=== PATIENT | female | born 1965 | race American Indian/Alaskan Native ===

== ENCOUNTER 2016-09-12 10:08 | Inpatient (IN) | payer MEDICARE ==
[2016-09-12 10:53] LABS: Basophils % (Auto) 1.1 % (0.0-1.8); Eosinophils % (Auto) 4.3 % (0.0-4.3); Hematocrit 34.9 % (30.3-42.9); Hemoglobin 11.3 gm/dl (10.1-14.3); Mean Corpuscular HGB Conc 32 % (30-34); Mean Corpuscular Hemoglobin 28 pg (28-32); Mean Corpuscular Volume 87 fl (79-97); Platelet Count 181 K/mm3 (140-440); Red Blood Count 4.02 M/mm3 (3.65-5.03); Red Cell Distribution Width 15.5 % (13.2-15.2); White Blood Count 7.1 K/mm3 (4.5-11.0)
[2016-09-12 11:03] LABS: Anion Gap 16 mmol/L; BUN/Creatinine Ratio 23.33; Blood Urea Nitrogen 28 mg/dL (7-17); Calcium 8.7 mg/dL (8.4-10.2); Carbon Dioxide 26 mmol/L (22-30); Chloride 103.8 mmol/L (98-107); Glucose 182 mg/dL (65-100); Sodium 141 mmol/L (137-145)
--- NOTE | 2016-09-12 18:46 | Emergency Department Report ---
HPI - General Chief Complaint: Dyspnea/Respdistress Time Seen by Provider: 09/12/16 18:26 - HPI HPI: Room 3 The patient is a 51-year-old female presenting with a chief complaint shortness of breath. Patient states this morning at 05:00 after going to the bathroom and returning to her bed she developed palpitations shortness of breath which lasts approximately 10 minutes. The patient states she felt hot but her symptoms resolved. Patient states that approximately 07:00 her symptoms returned with "palpitations and gasping for air." The patient states his symptoms lasted for approximately 30-40 minutes and then resolved. Patient states she never had chest pain, nausea or vomiting. The patient states she still feels currently somewhat short of breath Location: Chest, lungs Duration: Intermittent times one day Quality: Shortness of breath Severity: Moderate Modifying factors: [see above] Context: [see above] Mode of transportation: Significant other at bedside ED Past Medical Hx - Past Medical History Hx Hypertension: Yes (IN 2009) Hx CVA: Yes Hx Diabetes: Yes (IDDM FOR 19 YRS) Hx GERD: Yes (2012) Hx Arthritis: Yes Additional medical history: neuropathy - Surgical History Hx Cholecystectomy: Yes Additional Surgical History: - Family History Family history: no significant - Social History Smoking Status: Former Smoker Substance Use Type: Prescribed - Medications Home Medications: Home Medications Medication Instructions Recorded Confirmed Last Taken Type Insulin Glargine,Hum.rec.anlog 72 units SC HS 06/26/13 09/12/16 09/11/16 History [Lantus Solostar] Insulin Lispro [HumaLOG VIAL] 9 units SC TID 06/26/13 09/12/16 09/11/16 History Lisinopril/Hydrochlorothiazide 1 tab PO DAILY 06/26/13 09/12/16 09/11/16 History [Zestoretic 20-12.5 mg] Omeprazole [PriLOSEC] 1 tab PO DAILY 06/26/13 09/12/16 09/11/16 History Pregabalin [Lyrica] 100 mg PO TID 06/26/13 09/12/16 09/11/16 History Simvastatin [Zocor TAB] 40 mg PO QHS 07/15/16 09/12/16 09/11/16 History oxyCODONE /ACETAMINOPHEN [Percocet 1 tab PO Q6HR PRN #30 tablet 07/22/1609/11/16 Rx 5/325] ED Review of Systems ROS: Stated complaint: DIFF BREATHING Other details as noted in HPI Comment: All other systems reviewed and negative Constitutional: denies: chills, fever Eyes: denies: eye pain, eye discharge, vision change ENT: denies: ear pain, throat pain Respiratory: shortness of breath Cardiovascular: palpitations. denies: chest pain Endocrine: no symptoms reported Gastrointestinal: denies: abdominal pain, nausea, diarrhea Genitourinary: denies: urgency, dysuria, discharge Musculoskeletal: denies: back pain, joint swelling, arthralgia Skin: denies: rash, lesions Neurological: denies: headache, weakness, paresthesias Psychiatric: denies: anxiety, depression Hematological/Lymphatic: denies: easy bleeding, easy bruising Physical Exam - Physical Exam Vital Signs: Vital Signs 09/12/16 09/12/16 09/12/16 10:15 17:16 17:20 Temperature 98.2 F Pulse Rate 81 Respiratory 16 Rate Blood Pressure 160/71 208/72 Blood Pressure [Left] O2 Sat by Pulse 99 99 100 Oximetry 09/12/16 09/12/16 09/12/16 17:30 17:38 17:40 Temperature Pulse Rate 87 87 Respiratory 10 L 16 14 Rate Blood Pressure 200/86 Blood Pressure 200/86 [Left] O2 Sat by Pulse 100 100 99 Oximetry Physical Exam: GENERAL: The patient is well-developed well-nourished female sitting on stretcher not appearing to be in acute distress. [] HEENT: Normocephalic. Atraumatic. Extraocular motions are intact. Patient has moist mucous membranes. NECK: Supple. Trachea midline CHEST/LUNGS: Clear to auscultation. There is no respiratory distress noted. HEART/CARDIOVASCULAR: Regular. There is no tachycardia. There is no gallop rub or murmur. ABDOMEN: Abdomen is soft, nontender. Patient has normal bowel sounds. There is no abdominal distention. SKIN: There is no rash. There is no edema. There is no diaphoresis. NEURO: The patient is awake, alert, and oriented. The patient is cooperative. The patient has normal speech and gait. MUSCULOSKELETAL: There is no evidence of acute injury. ED Course Vital Signs 09/12/16 09/12/1617 10:15 17:16 17:20 Temperature 98.2 F Pulse Rate 81 Respiratory 16 Rate Blood Pressure 160/71 208/72 Blood Pressure [Left] O2 Sat by Pulse 99 99 100 Oximetry 09/12/16 09/12/16 09/12/16 17:30 17:38 17:40 Temperature Pulse Rate 87 87 Respiratory 10 L 16 14 Rate Blood Pressure 200/86 Blood Pressure 200/86 [Left] O2 Sat by Pulse 100 100 99 Oximetry ED Medical Decision Making - Lab Data Result diagrams: 09/12/16 10:34 09/12/16 10:34 Laboratory Tests 09/12/16 09/12/16 09/12/16 10:34 10:34 13:18 WBC 7.1 RBC 4.02 Hgb 11.3 Hct 34.9 MCV 87 MCH 28 MCHC 32 RDW 15.5 H Plt Count 181 Lymph % (Auto) 30.6 Gonzales % (Auto) 7.7 H Eos % (Auto) 4.3 Baso % (Auto) 1.1 Lymph # 2.2 Gonzales # 0.5 Eos # 0.3 Baso # 0.1 Seg Neutrophils % 56.3 Seg Neutrophils # 4.0 D-Dimer Sodium 141 Potassium 5.0 Chloride 103.8 Carbon Dioxide 26 Anion Gap 16 BUN 28 H Creatinine 1.2 Estimated GFR 57 BUN/Creatinine Ratio 23.33 Glucose 182 H Calcium 8.7 Troponin T < 0.010 < 0.010 NT-Pro-B Natriuret Pep 09/12/16 09/12/16 09/12/16 16:23 16:23 19:09 WBC RBC Hgb Hct MCV MCH MCHC RDW Plt Count Lymph % (Auto) Gonzales % (Auto) Eos % (Auto) Baso % (Auto) Lymph # Gonzales # Eos # Baso # Seg Neutrophils % Seg Neutrophils # D-Dimer 1097.50 H Sodium Potassium Chloride Carbon Dioxide Anion Gap BUN Creatinine Estimated GFR BUN/Creatinine Ratio Glucose Calcium Troponin T < 0.010 NT-Pro-B Natriuret Pep 353.6 - EKG Data -: EKG Interpreted by Id EKG shows normal: sinus rhythm Rate: normal - EKG Data When compared to previous EKG there are: previous EKG unavailable Interpretation: other (no ST segment changes, no abnormal T-wave inversions) - Radiology Data Radiology results: report reviewed (CT chest), image reviewed (chest x-ray, CT chest) interpreted by me: Chest x-ray- no focal infiltrates, no pneumothorax CT chest (read by radiologist)-no evidence of pulmonary embolus. Minimal linear atelectasis bilaterally. Subtle atherosclerotic changes suspect within the coronary arteries. No acute abnormalities are seen. - Differential Diagnosis dysrhythmia, anxiety, ACS, CHF, PE Critical care attestation.: If time is entered above; I have spent that time in minutes in the direct care of this critically ill patient, excluding procedure time. ED Disposition Clinical Impression: Shortness of breath, Palpitations Disposition: OP ADMITTED IP TO THIS HOSP Is pt being admited?: Yes Does the pt Need Aspirin: Yes Condition: Fair Referrals: JOSE MURPHY MD [Primary Care Provider] - 3-5 Days Time of Disposition: 21:37 (hospitalist paged)
[2016-09-12] MEDS ORDERED: CATAPRES PO ONE (19:40)
[2016-09-12] MEDS ORDERED: NORCO 5/325 PO ONE (19:42)
[2016-09-12] MEDS ORDERED: NACL ONE (19:48)
--- NOTE | 2016-09-12 21:24 | Cat Scan Report ---
FINAL REPORT PROCEDURE: CT angiography of the chest TECHNIQUE: Computerized tomographic angiography of the chest was performed during the IV injection of iodinated nonionic contrast including image processing. The image data was postprocessed using 2-dimensional multiplanar reformatted (MPR) and 3-dimensional (MIP and/or volume rendered) techniques. HISTORY: shortness of breath. Evaluate pulmonary embolus COMPARISON: No prior studies are available for comparison. FINDINGS: Pulmonary outflow tract, right and left main pulmonary arteries and their proximal branches: Clear, no filling defects seen to suggest pulmonary embolus. Pericardium: No evidence of pericardial effusion. Thoracic aorta: No evidence of aneurysmal dilatation or dissection. Coronary arteries: There appear to be subtle calcifications within the coronary arteries indicating atherosclerotic disease. Mediastinum and hilar regions: There is some subtle increased density in the anterior mediastinum conforming to the contours of the anterior mediastinum suggesting residual or rebound thymic tissue. Nonspecific lymph nodes measuring under a centimeter seen on the hilar and mediastinal regions. These do not appear to be pathologically enlarged. Lung Leigh: There is minimal linear atelectasis in both bases and also in the right middle lobe. No dense consolidations effusions or masses are identified. Upper abdomen: No acute or focal abnormality is seen. Other: No acute bony abnormalities are seen. IMPRESSION: No evidence of pulmonary embolus. Minimal linear atelectasis bilaterally. Subtle atherosclerotic changes suspected within the coronary arteries. No acute abnormalities are seen.
[2016-09-12] MEDS ORDERED: ASPIRIN PO ONE (21:37)
--- NOTE | 2016-09-12 23:26 | History and Physical Report ---
History of Present Illness Date of examination: 09/12/16 Date of admission: 09/12/16 21:58 Chief complaint: Shortness of breath History of present illness: The patient is a 51-year-old female presenting with a chief complaint shortness of breath. Patient states this morning at 05:00 after going to the bathroom and returning to her bed she developed palpitations shortness of breath which lasts approximately 10 minutes. The patient states she felt hot but her symptoms resolved. Patient states that approximately at 07:00 her symptoms returned with "palpitations and gasping for air." The patient states this time symptoms lasted for approximately 30-40 minutes and then resolved. Patient states she never had chest pain, nausea or vomiting. The patient states she still feels currently somewhat short of breath. In the Er her troponin negative , creatinine 1.[address] chest negative for PE. She will be admitted for further evaluation as she states that she is still symptomatic. Past medical History: h/o diabetes mellitus type 1, hypertension, neuropathy, arthritis Past surgical History: s/p cholecystectomy on 2016, right knee and surgery Social History: Lives with family, denies any smoking, drinking and elicit drug abuse. Family History: Significant for diabetes in mother Review of System: Constitutional: no fever, no chills, no weight loss Ears, eyes, nose, mouth and throat: no nasal congestion, no nasal discharge, no sinus pressure, no vision change, no red eye. Neck: No neck pain or rigidity. Cardiovascular: No chest pain, no orthopnea, no palpitations, no leg swelling Respiratory: + shortness of breath, no cough, no congestion, no wheezing Gastrointestinal: no abdominal pain, no nausea, no vomiting Genitourinary : no dysuria, no hematuria Musculoskeletal: no joint swelling or muscle ache Integumentary: no rash, no pruritis Neurological: no parathesias, no numbness, no tingling Endocrine: no cold or heat intolerance, no polyuria or polydipsia Hematologic/Lymphatic: no easy bruising, no easy bleeding, no gland swelling Allergic/Immunologic: no urticaria, no angioedema. Medications and Allergies Allergies Allergy/AdvReac Type Severity Reaction Status Date / Time Penicillins AdvReac Swelling Verified 09/12/16 10:19 Home Medications Medication Instructions Recorded Confirmed Last Taken Type Insulin Glargine,Hum.rec.anlog 72 units SC HS 06/26/13 09/12/16 09/11/16 History [Lantus Solostar] Insulin Lispro [HumaLOG VIAL] 9 units SC TID 06/26/13 09/12/16 09/11/16 History Lisinopril/Hydrochlorothiazide 1 tab PO DAILY 06/26/13 09/12/16 09/11/16 History [Zestoretic 20-12.5 mg] Omeprazole [PriLOSEC] 1 tab PO DAILY 06/26/13 09/12/16 09/11/16 History Pregabalin [Lyrica] 100 mg PO TID 06/26/13 09/12/16 09/11/16 History Simvastatin [Zocor TAB] 40 mg PO QHS 07/15/16 09/12/16 09/11/16 History oxyCODONE /ACETAMINOPHEN [Percocet 1 tab PO Q6HR PRN #30 tablet 07/22/1609/11/16 Rx 5/325] ALPRAZolam [Xanax TAB] 0.25 mg PO BID PRN #30 tab 09/14/16 Unknown Rx Exam - Physical Exam Narrative exam: GENERAL: This is well-developed obese -[place] female lying on bed appeared to be in no discomfort. HEENT: Normocephalic. Atraumatic. Extraocular motions are intact. No conjunctival congestion or icterus. Patient has moist mucous membranes. External auditory canal and nares patent bilaterally. NECK: Supple. Trachea midline. No JVD, thyromagaly or lymphadenopathy. CHEST/LUNGS: Clear to auscultated bilaterally. There is no respiratory distress noted, breathing nonlabored. No wheezes crackles or rhonchi. HEART/CARDIOVASCULAR: Regular in rate and rhythm. PMI at the apex. There is no gallop rub or murmur. ABDOMEN: Abdomen is soft, nontender. Patient has normal bowel sounds. There is no abdominal distention. No organomagaly or rigidity. SKIN: There is no rash, no erythrema. There is no diaphoresis. Warm and dry. NEUROLOGY: The patient is awake, alert, and oriented. The patient is cooperative. The patient has normal speech. No focal motor deficit. MUSCULOSKELETAL: No joint effusion or tenderness. Muscle strength equal bilaterally. No muscle wasting. EXTRIMITY: No edema, cyanosis or clubbing. PSYCH: No depression or anxiety noted. Cooperative. - Constitutional Vitals: Temp Pulse Resp BP Pulse Ox 98.4 F 78 13 135/72 97 09/12/16 19:17 09/12/16 22:00 09/12/16 22:00 09/12/16 22:00 09/12/16 22:00 Results - Labs CBC & Chem 7: 09/14/16 08:56 09/14/16 08:56 Labs: Laboratory Last Values WBC 7.1 K/mm3 (4.5-11.0) 09/12/16 10:34 RBC 4.02 M/mm3 (3.65-5.03) 09/12/16 10:34 Hgb 11.3 gm/dl (10.1-14.3) 09/12/16 10:34 Hct 34.9 % (30.3-42.9) 09/12/16 10:34 MCV 87 fl (79-97) 09/12/16 10:34 MCH 28 pg (28-32) 09/12/16 10:34 MCHC 32 % (30-34) 09/12/16 10:34 RDW 15.5 % (13.2-15.2) H 09/12/16 10:34 Plt Count 181 K/mm3 (140-440) 09/12/16 10:34 Lymph % (Auto) 30.6 % (13.4-35.0) 09/12/16 10:34 Benzie % (Auto) 7.7 % (0.0-7.3) H 09/12/16 10:34 Eos % (Auto) 4.3 % (0.0-4.3) 09/12/16 10:34 Baso % (Auto) 1.1 % (0.0-1.8) 09/12/16 10:34 Lymph # 2.2 K/mm3 (1.2-5.4) 09/12/16 10:34 Benzie # 0.5 K/mm3 (0.0-0.8) 09/12/16 10:34 Eos # 0.3 K/mm3 (0.0-0.4) 09/12/16 10:34 Baso # 0.1 K/mm3 (0.0-0.1) 09/12/16 10:34 Seg Neutrophils % 56.3 % (40.0-70.0) 09/12/16 10:34 Seg Neutrophils # 4.0 K/mm3 (1.8-7.7) 09/12/16 10:34 D-Dimer 1097.50 ng/mlDDU (0-234) H 09/12/16 19:09 Sodium 141 mmol/L (137-145) 09/12/16 10:34 Potassium 5.0 mmol/L (3.6-5.0) 09/12/16 10:34 Chloride 103.8 mmol/L (98-107) 09/12/16 10:34 Carbon Dioxide 26 mmol/L (22-30) 09/12/16 10:34 Anion Gap 16 mmol/L 09/12/16 10:34 BUN 28 mg/dL (7-17) H 09/12/16 10:34 Creatinine 1.2 mg/dL (0.7-1.2) 09/12/16 10:34 Estimated GFR 57 ml/min 09/12/16 10:34 BUN/Creatinine Ratio 23.33 % 09/12/16 10:34 Glucose 182 mg/dL (65-100) H 09/12/16 10:34 Calcium 8.7 mg/dL (8.4-10.2) 09/12/16 10:34 Troponin T < 0.010 ng/mL (0.00-0.029) 09/12/16 16:23 NT-Pro-B Natriuret Pep 353.6 pg/mL (0-900) 09/12/16 16:23 - Imaging and Cardiology CT scan - chest: report reviewed (negative for PE) Assessment and Plan Assessment and plan: Acute respiratory distress, resolved * Likely due to anxiety attack which now resolved * Her symptoms could be related to CHF exacerbation * We'll obtain 2-D echocardiogram Malignant hypertension, improving Diabetes mellitus type 2 on insulin Peripheral neuropathy Osteoarthritis Morbid obesity due to excessive caloric Plan: Admit to medicine Monitor BP, place on aspirin and statin Placed on beta lea and ACEI Monitor BP and adjust medications as needed Obtain 2-D echocardiogram Placed on GI and DVT prophylaxis If Blood pressure stable possible discharge tomorrow Advance Directives: Yes VTE prophylaxis?: Chemical Plan of care discussed with patient/family: Yes
--- NOTE | 2016-09-13 02:56 | Admit Criteria Form ---
Admission Criteria Documentation: CARDIOLOGY GRG Clinical Indications for Admission to Inpatient Care ( Place 'X' for any and all applicable criteria): Hospital admission is needed for appropriate care of the patient because of ANY ONE of the following (1): [ ] I. Hemodynamic instability as indicated by ALL of the following (1)(2)(3) (4)(5) [ ]a) Vital signs or other findings not as expected for chronic patient condition or baseline [ ]b) Instability indicated by ANY ONE of the following: [ ]i) Hypotension [ ]ii) Symptomatic Tachycardia unresponsive to treatment ( e.g., analgesia, fluids, sedation as indicated) [ ]iii) Inadequate perfusion indicated by ANY ONE of the following: [ ] 1) Lactic acidosis (> 2 mmol/L) [ ] 2) New abnormal capillary refill (> 3 seconds) [ ] 3) Reduced urine output [ ] 4) New altered mental status [ ]iv) Orthostatic vital sign changes unresponsive to treatment (e.g., fluids) [ ]v) IV inotropic or vasopressor medication required to maintain adequate blood pressure or perfusion [ ] II. Severe heart failure as indicated by ANY ONE of the following(17)(18) [ ]a) Respiratory distress [ ]b) Hypotension [ ]c) Anasarca (refractory to outpatient therapy) [ ]d) Cardiac arrhythmias of immediate concern [ ]e) Myocardial ischemia [ ] III. Cardiac arrhythmias or findings of immediate concern indicated by ANY ONE of the following (19)(20): [ ] a) Heart rhythms that are inherently dangerous or unstable indicated by ANY ONE of the following (21)(22)(23): [ ] i) Resuscitated ventricular fibrillation or cardiac arrest [ ] ii) Ventricular escape rhythm [ ] iii) Sustained ventricular tachycardia (30 seconds or more of ventricular rhythm at greater than 100 beats per minute) [ ] iv) Nonsustained ventricular tachycardia and ANY ONE of the following: [ ] 1) Suspected cardiac ischemia as cause or consequence of ventricular tachycardia [ ] 2) In setting of acute myocarditis [ ] b) Unstable cardiac conduction defects indicated by ANY ONE of the following(23)(24)(25) [ ] i) Type II second-degree atrioventricular block [ ]ii) Third-degree atrioventricular block [ ]iii) New-onset left bundle branch block with suspected myocardial ischemia [ ]c) Any heart rhythm and ANY ONE of the following (21)(22)(26)(27) (28) [ ] i) Continuous long-term ECG monitoring needed (e.g., initiation of drug requiring monitoring for more than 24 hours) [ ] ii) Patient has automatic implanted cardioverter defibrillator that is repeatedly firing, malfunctioning, or in need of immediate adjustment of settings beyond the scope of ambulatory or observation care [ ]d) Heart rhythms of concern due to ANY ONE of the following: [ ] i) Hypotension [ ] ii) Respiratory distress [ ] iii) Association with other significant symptoms (e.g., bradycardia with syncope or ongoing dizziness, supraventricular tachycardia with chest pain (14)(15)(17) [ ] IV. Monitoring for cardiac contusion beyond the scope of observation care needed [A](30)(31)(32) [ ] V. Surgical or device complication (e.g., valve replacement complication , pacemaker dysfunction) (35)(41)(44)(45)(46) [ ] . Inpatient palliative care needed. [B](49) Also use Inpatient Palliative Care Criteria [ ] VII. Nonbacterial thrombotic (marantic) endocarditis (36)(43)(47)(48) [X ] VIII. Cardiology condition, symptom, or finding for which emergency and observation care has failed or are not considered appropriate. [ ] IX. Acute valvular disease requiring inpatient as indicated by ANY ONE of the following (41) [ ]a) Acute valvular regurgitation (42) [ ]b) Noninfectious valvulitis (43) [ ]c) Obstructive valve thrombosis [ ]d) Paravalvular leak [ ]e) Other significant valvular disorder remaining after emergency or observation level of care (as appropriate) [ ]X. Pericardial disease requiring inpatient treatment as indicated by ANY ONE of the following (33)(34)(35)(36)(37) [ ]a) Suspected tamponade (38)(39)(40) [ ]b) Hemopericardium [ ]c) Other significant pericardial disorder remaining after emergency or observation level of care (as appropriate) [ ] XI. Cardiac ischemia beyond scope of emergency and observation care. [ ] XII. Hypertension requiring inpatient treatment as indicated by ANY ONE of the following (6)(7)(8) [ ]a) SBP greater than 220 mm Hg or DBP greater than 120 mmHg despite treatment [ ]b) SBP greater than 140 mm Hg or DBP greater than 100 mm Hg with evidence of acute end organ damage as indicated by ANY ONE of the following [ ] i) Altered mental status [ ] ii) Acute renal failure as indicated by new onset of ANY ONE of the following (9)(10)(11)(12)(13) [ ]1) 3-fold rise in serum creatinine from baseline [ ]2) Serum creatinine greater than 4 mg/dL ( 354 micromoles/L) with acute rise greater than 0.5 mg/dL (44.2 micromoles/L) [ ]3) Reduction of more than 75% in estimated glomerular filtration rate from baseline [ ]4) Estimated glomerular filtration rate less than 35 mL/min/1.73m2 (0.59 mL/sec/1.73m2) in child up to 18 years of age [ ]5) Cessation of urine output indicated by ALL of the following [ ]A. Adequate volume status [ ]B. Inadequate urine output as indicated by ANY ONE of the following [ ]a. Urine output less than 0.3 mL/kg/hr for 24 hours [ ]b. Anuria (urine output less than 0.1 mL/kg/hr) for 12 hours [ ] iii) Aortic dissection [ ] iv) Myocardial Ischemia [ ] v) Left ventricular heart failure [ ]vi) Retinal Hemorrhage [ ]vii) Other significant finding [ ]c) Hypertension in child requiring inpatient treatment as indicated by ALL of the following(14)(15)(16) [ ] i) Outpatient treatment not effective, not available, or not appropriate [ ]ii) SBP or DBP greater than 95th percentile for age [ ]iii) Evidence of acute end organ damage as indicated by ANY ONE of the following [ ]1) Altered mental status [ ]2) Acute renal failure as indicated by new onset of ANY ONE of the following(9)(10)(11)(12)(13) [ ]A. 3-fold rise in serum creatinine from baseline [ ]B. Serum creatinine greater than 4 mg/dL (354 micromoles/L) with acute rise greater than 0.5 mg/dL (44.2 micromoles/L) [ ]C. Reduction of more than 75% in estimated glomerular filtration rate from baseline [ ]D. Estimated glomerular filtration rate less than 35 mL/min/1.73m2 (0.59 mL/sec/1.73m2) in child up to 18 years of age [ ]E. Cessation of urine output indicated by ALL of the following [ ]a. Adequate volume status [ ]b. Inadequate urine output as indicated by ANY ONE of the following [ ]i) Urine output less than 0.3 mL/kg/hr for 24 hours [ ]ii) Anuria ( urine output less than 0.1 mL/kg/hr) for 12 hours [ ]3) Severe headache [ ]4) Visual disturbance [ ]5) Retinal hemorrhage [ ]6) Other significant finding [ ]XIII. Complications of transplanted heart indicated by ANY ONE of the following(61): [ ]a) Acute graft rejection requiring inpatient management (eg, intravenous immunosuppression)(62)(63) [ ]b) Acute graft heart failure indicated by ANY ONE of the following(64): [ ]i) Hemodynamic instability [ ]ii) Cardiac arrhythmias of immediate concern [ ]iii) Pulmonary edema that is very severe (eg, mechanical ventilation needed, imminent or likely, need for 100% oxygen to keep oxygen saturation above 90%) [ ]iv) Pulmonary edema that is persistent as indicated by ALL of the following: [ ]1) New need for oxygen therapy to keep oxygen saturation above 90% (or increased FiO2 need from baseline) [ ]2) Has not improved sufficiently with emergency department or observation care IV diuretics or other heart failure treatments[E] [ ]v) Altered mental status that is severe or persistent [ ]vi) Increased creatinine (new on laboratory test) with reduction of more than 50% in estimated glomerular filtration rate from baseline [ ]vii) Progressively (ongoing) rising creatinine (known from past laboratory test) with reduction of more than 25% in estimated glomerular filtration rate from baseline [ ]viii) Acute renal failure [ ]ix) Acute peripheral ischemia (eg, examination shows pulseless, cool, mottled, or cyanotic extremity) [ ]x) Pulmonary artery catheter monitoring needed [ ]xi) Other sign or symptom of heart failure requiring inpatient treatment (ie, too severe or not responsive to outpatient and observation care treatment) [ ]c) Infection requiring inpatient management (eg, Hemodynamic instability, need for intravenous antimicrobial treatment)(66)(67)(68)(69)(70) [ ]d) Cardiac allograft vasculopathy requiring inpatient management ( eg evidence of cardiac ischemia)(71) [ ]e) Other complication of transplanted heart (eg, stroke, severe pulmonary hypertension, severe valvular dysfunction) requiring inpatient management(72) The original [facility] [employer] content created by [facility] has been revised. The portions of the content which have been revised are identified through the use of italic text or in bold, and [facility] has neither reviewed nor approved the modified material. All other unmodified content is copyright [facility] [employer]. Please see references footnoted in the original [facility] [employer] edition 2016 Admission Criteria Met: Yes
[2016-09-13] MEDS: PERCOCET 5/325 PO PRN ×3 (07:17→23:46)
[2016-09-13] MEDS ORDERED: INSULIN LISPRO 9 UNIT SC SCH (08:00)
--- NOTE | 2016-09-13 08:37 | XRay Report ---
AP CHEST: AP view of the chest demonstrates a normal mediastinal and cardiac contour with clear lungs and normal bony and soft tissue structures. IMPRESSION: Normal AP chest.
[2016-09-13] MEDS: NOVOLOG SUB-Q SCH ×2 (08:50→12:13)
[2016-09-13] MEDS: LYRICA PO SCH ×6 (09:15→20:13)
[2016-09-13] MEDS ORDERED: ZESTRIL PO SCH (10:00)
[2016-09-13] MEDS: PROTONIX PO SCH (12:11)
[2016-09-13] MEDS: COREG PO SCH ×2 (12:12→22:12)
[2016-09-13] MEDS: ZESTRIL PO SCH (12:12)
[2016-09-13] MEDS: ASPIRIN PO SCH (12:12)
[2016-09-13] MEDS: HCTZ PO SCH (12:13)
--- NOTE | 2016-09-13 15:55 | Progress Note ---
Assessment and Plan Assessment and plan: Acute respiratory distress - resolved - Likely due to panic attack - 2D echo is pending Elevated D-dimer - CTA was negative for PE Malignant hypertension - continue home medications - controlled Diabetes mellitus type 2 - on insulin Peripheral neuropathy Osteoarthritis Morbid obesity due to excessive caloric - Counselled Prophylaxis - on lovenox Disposition - Possible D/C after echo tomorrow. History Interval history: Patient was admitted for palpitations, no chest pain. Just before I saw her panic attack. Hospitalist Physical - Physical exam Narrative exam: Not in cardiopulmonary distress. The patient appeared well nourished and normally developed. Vital signs as documented. Head exam is unremarkable. No scleral icterus . Neck is without jugular venous distension, thyromegaly, or carotid bruits. Lungs are clear to auscultation. Cardiac exam reveals regular rate and Rhythm. First and second heart sounds normal. No murmurs, rubs or gallops. Abdominal exam reveals normal bowel sounds, no masses, no organomegaly and no aortic enlargement. Extremities are nonedematous and both femoral and pedal pulses are normal. 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 No focal weakness. - Constitutional Vitals: Temp Pulse Resp BP Pulse Ox 97.9 F 75 20 131/61 95 09/13/16 13:56 09/13/16 13:56 09/13/16 13:56 09/13/16 13:56 09/13/16 13:56 Results - Labs CBC & Chem 7: 09/12/16 10:34 09/12/16 10:34 Labs: Laboratory Last Values WBC 7.1 K/mm3 (4.5-11.0) 09/12/16 10:34 RBC 4.02 M/mm3 (3.65-5.03) 09/12/16 10:34 Hgb 11.3 gm/dl (10.1-14.3) 09/12/16 10:34 Hct 34.9 % (30.3-42.9) 09/12/16 10:34 MCV 87 fl (79-97) 09/12/16 10:34 MCH 28 pg (28-32) 09/12/16 10:34 MCHC 32 % (30-34) 09/12/16 10:34 RDW 15.5 % (13.2-15.2) H 09/12/16 10:34 Plt Count 181 K/mm3 (140-440) 09/12/16 10:34 Lymph % (Auto) 30.6 % (13.4-35.0) 09/12/16 10:34 [place] % (Auto) 7.7 % (0.0-7.3) H 09/12/16 10:34 Eos % (Auto) 4.3 % (0.0-4.3) 09/12/16 10:34 Baso % (Auto) 1.1 % (0.0-1.8) 09/12/16 10:34 Lymph # 2.2 K/mm3 (1.2-5.4) 09/12/16 10:34 [place] # 0.5 K/mm3 (0.0-0.8) 09/12/16 10:34 Eos # 0.3 K/mm3 (0.0-0.4) 09/12/16 10:34 Baso # 0.1 K/mm3 (0.0-0.1) 09/12/16 10:34 Seg Neutrophils % 56.3 % (40.0-70.0) 09/12/16 10:34 Seg Neutrophils # 4.0 K/mm3 (1.8-7.7) 09/12/16 10:34 D-Dimer 1097.50 ng/mlDDU (0-234) H 09/12/16 19:09 Sodium 141 mmol/L (137-145) 09/12/16 10:34 Potassium 5.0 mmol/L (3.6-5.0) 09/12/16 10:34 Chloride 103.8 mmol/L (98-107) 09/12/16 10:34 Carbon Dioxide 26 mmol/L (22-30) 09/12/16 10:34 Anion Gap 16 mmol/L 09/12/16 10:34 BUN 28 mg/dL (7-17) H 09/12/16 10:34 Creatinine 1.2 mg/dL (0.7-1.2) 09/12/16 10:34 Estimated GFR 57 ml/min 09/12/16 10:34 BUN/Creatinine Ratio 23.33 % 09/12/16 10:34 Glucose 182 mg/dL (65-100) H 09/12/16 10:34 POC Glucose 235 (70-105) H 09/13/16 08:03 Calcium 8.7 mg/dL (8.4-10.2) 09/12/16 10:34 Troponin T < 0.010 ng/mL (0.00-0.029) 09/12/16 16:23 NT-Pro-B Natriuret Pep 353.6 pg/mL (0-900) 09/12/16 16:23
[2016-09-13] MEDS ORDERED: ZOCOR PO SCH (22:00)
[2016-09-13] MEDS ORDERED: LOVENOX SUB-Q SCH (22:00)
[2016-09-14 09:34] LABS: Basophils % (Auto) 1.2 % (0.0-1.8); Eosinophils % (Auto) 4.4 % (0.0-4.3); Hemoglobin 11.9 gm/dl (10.1-14.3); Mean Corpuscular HGB Conc 31 % (30-34); Mean Corpuscular Hemoglobin 28 pg (28-32); Mean Corpuscular Volume 88 fl (79-97); Platelet Count 211 K/mm3 (140-440); Red Blood Count 4.32 M/mm3 (3.65-5.03); Red Cell Distribution Width 15.5 % (13.2-15.2); White Blood Count 7.2 K/mm3 (4.5-11.0)
[2016-09-14 09:51] LABS: BUN/Creatinine Ratio 22.3; Calcium 8.6 mg/dL (8.4-10.2); Chloride 101.1 mmol/L (98-107); Potassium 4.7 mmol/L (3.6-5.0)
[2016-09-14] MEDS: ASPIRIN PO SCH (10:25)
[2016-09-14] MEDS: PROTONIX PO SCH (10:26)
[2016-09-14] MEDS: COREG PO SCH (10:26)
[2016-09-14] MEDS: HCTZ PO SCH (10:26)
[2016-09-14] MEDS: LYRICA PO SCH ×2 (10:27)
[2016-09-14] MEDS: ZESTRIL PO SCH (10:28)
[2016-09-14] MEDS: NOVOLOG SUB-Q SCH (10:29)
[2016-09-14] MEDS: PERCOCET 5/325 PO PRN (10:35)
--- NOTE | 2016-09-14 11:57 | Discharge Summary ---
Providers - Providers Date of Admission: 09/12/16 21:58 Attending physician: JOSE DE JESUS WESTFALL Primary care physician: JOSE MURPHY Hospitalization Condition: Fair Disposition: STILL A PATIENT Exam - Constitutional Vitals: Temp Pulse Resp BP Pulse Ox 97.1 F L 75 20 146/64 97 09/14/16 10:38 09/14/16 10:38 09/14/16 10:38 09/14/16 10:38 09/14/16 10:38 Plan Follow up with: JOSE MURPHY MD [Primary Care Provider] - 3-5 Days Prescriptions: ALPRAZolam [Xanax TAB] 0.25 mg PO BID PRN #30 tab PRN Reason: Anxiety
[2016-09-14 13:50] VITALS: BP 134/62
== END 2016-09-14 14:45 | disposition still patient (30) | DRG 880 ==
LOC: ED 10:08 → 4A 21:58 → CC1 09-13 10:37 → 4A 09-13 12:31
PROVIDERS: ADMIT Internal Medicine; ATTEND Internal Medicine
DX: F41.0 Panic disorder [episodic paroxysmal anxiety] (principal); E66.01 Morbid (severe) obesity due to excess calories; K21.9 Gastro-esophageal reflux disease without esophagitis; M19.90 Unspecified osteoarthritis, unspecified site; E11.42 Type 2 diabetes mellitus with diabetic polyneuropathy; I11.0 Hypertensive heart disease with heart failure; I50.9 Heart failure, unspecified; Z68.38 Body mass index [BMI] 38.0-38.9, adult; Z71.3 Dietary counseling and surveillance; Z79.4 Long term (current) use of insulin; Z86.73 Personal history of transient ischemic attack (TIA), and cerebral infarction without residual deficits; Z88.0 Allergy status to penicillin; Z90.49 Acquired absence of other specified parts of digestive tract; Z87.891 Personal history of nicotine dependence; Z83.3 Family history of diabetes mellitus
CPT/HCPCS: 36415; 71010; 71275; 80048; 82962; 83880; 84484; 85025; 85379; 93005; 93010; 93306; J1650; J1815; Q9967

== ENCOUNTER 2016-09-24 11:44 | Outpatient (CLI) | payer MEDICARE ==
--- NOTE | 2016-09-24 12:18 | XRay Report ---
Left shoulder 3 views: History: Pain in shoulder. Findings: The glenohumeral joint and a.c. joint appears unremarkable. There is faint calcification noted at the inferior aspect of the acromion. Impression: Possibility of calcific tendinitis or rotator cuff injury cannot be excluded.
== END 2016-09-24 11:45 | disposition home or self-care (01) ==
LOC: XRAY 11:44
PROVIDERS: ATTEND Physical Medicine & Rehabilitation
DX: M25.812 Other specified joint disorders, left shoulder (principal)

== ENCOUNTER 2017-01-04 21:21 | Emergency (ER) | payer MEDICARE ==
[2017-01-05] MEDS ORDERED: MOTRIN PO ONE (01:33)
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
[2017-01-05 03:57] VITALS: BP 188/82
== END 2017-01-05 03:56 | disposition home or self-care (01) ==
LOC: ED 21:21
DX: S13.4XXA Sprain of ligaments of cervical spine, initial encounter (principal); Z86.73 Personal history of transient ischemic attack (TIA), and cerebral infarction without residual deficits; E11.9 Type 2 diabetes mellitus without complications; M19.90 Unspecified osteoarthritis, unspecified site; F17.200 Nicotine dependence, unspecified, uncomplicated; Z79.4 Long term (current) use of insulin; Z88.0 Allergy status to penicillin
CPT/HCPCS: 72072; 72100

== ENCOUNTER 2017-01-13 09:35 | Outpatient (CLI) | payer MEDICARE ==
--- NOTE | 2017-01-13 10:24 | XRay Report ---
CERVICAL SPINE: History: Cervicalgia. Views of the cervical spine demonstrate normal bony alignment, vertebral height and interspace distances. Oblique views show patent foramina and normal apophyseal joint alignment. The prevertebral soft tissues are not thickened. IMPRESSION: Normal study.
== END 2017-01-13 09:36 | disposition home or self-care (01) ==
LOC: XRAY 09:35
PROVIDERS: ATTEND Physical Medicine & Rehabilitation
DX: M54.2 Cervicalgia (principal); I10 Essential (primary) hypertension; F17.200 Nicotine dependence, unspecified, uncomplicated
CPT/HCPCS: 72050

== ENCOUNTER 2017-02-16 11:19 | Emergency (ER) | payer MEDICARE ==
[2017-02-16 11:49] VITALS: BP 133/72
[2017-02-16 12:18] LABS: Basophils % (Auto) 1.4 % (0.0-1.8); Eosinophils % (Auto) 3.8 % (0.0-4.3); Hematocrit 38.9 % (30.3-42.9); Hemoglobin 12.9 gm/dl (10.1-14.3); Mean Corpuscular HGB Conc 33 % (30-34); Mean Corpuscular Hemoglobin 29 pg (28-32); Mean Corpuscular Volume 88 fl (79-97); Platelet Count 206 K/mm3 (140-440); Red Blood Count 4.43 M/mm3 (3.65-5.03); Red Cell Distribution Width 15.6 % (13.2-15.2); White Blood Count 7.5 K/mm3 (4.5-11.0)
[2017-02-16 13:00] LABS: BUN/Creatinine Ratio 31.33; Calcium 9.2 mg/dL (8.4-10.2); Chloride 100.2 mmol/L (98-107); Potassium 4.3 mmol/L (3.6-5.0)
[2017-02-16 13:58] LABS: Bacteria,Urine 1+ /HPF (Negative); Bilirubin,Urine NEG (Negative); Blood,Urine NEG (Negative); Ketones,Urine NEG (Negative); Leukocyte Esterase,Urine NEG (Negative); Mucus,Urine FEW /HPF; Nitrite,Urine NEG (Negative); Urobilinogen,Urine < 2.0 mg/dL (<2.0)
--- NOTE | 2017-02-20 16:43 | ED Elopement Review ---
ED Pt Elopement review - Results review Lab results: Laboratory Tests 02/16/17 02/16/17 02/16/17 11:31 11:52 11:52 WBC 7.5 RBC 4.43 Hgb 12.9 Hct 38.9 MCV 88 MCH 29 MCHC 33 RDW 15.6 H Plt Count 206 Lymph % (Auto) 37.8 H [place] % (Auto) 6.4 Eos % (Auto) 3.8 Baso % (Auto) 1.4 Lymph # 2.8 [place] # 0.5 Eos # 0.3 Baso # 0.1 Seg Neutrophils % 50.6 Seg Neutrophils # 3.8 VBG pH Carbon Dioxide 20 L BUN 47 H Creatinine 1.5 H Estimated GFR 44 BUN/Creatinine Ratio 31.33 Glucose 272 H POC Glucose 300 H Calcium 9.2 Urine Color Urine Turbidity Urine pH Ur Specific [place] Urine Protein Urine Glucose (UA) Urine Ketones Urine Blood Urine Nitrite Urine Bilirubin Urine Urobilinogen Ur Leukocyte Esterase Urine WBC (Auto) Urine RBC (Auto) U Epithel Cells (Auto) Urine Bacteria (Auto) Hyaline Casts Urine Mucus 02/16/17 02/16/17 11:52 Unknown WBC RBC Hgb Hct MCV MCH MCHC RDW Plt Count Lymph % (Auto) [place] % (Auto) Eos % (Auto) Baso % (Auto) Lymph # [place] # Eos # Baso # Seg Neutrophils % Seg Neutrophils # VBG pH 7.306 L Carbon Dioxide BUN Creatinine Estimated GFR BUN/Creatinine Ratio Glucose POC Glucose Calcium Urine Color Yellow Urine Turbidity Clear Urine pH 7.0 Ur Specific [place] 1.016 Urine Protein 30 mg/dl Urine Glucose (UA) 150 Urine Ketones Neg Urine Blood Neg Urine Nitrite Neg Urine Bilirubin Neg Urine Urobilinogen < 2.0 Ur Leukocyte Esterase Neg Urine WBC (Auto) 1.0 Urine RBC (Auto) 1.0 U Epithel Cells (Auto) 4.0 Urine Bacteria (Auto) 1+ Hyaline Casts 4 Urine Mucus Few - Call Back decision Pt Call Back Decision: Pt to F/U with PMD
== END 2017-02-16 18:30 | disposition left against medical advice (07) ==
LOC: ED 11:19
DX: R73.9 Hyperglycemia, unspecified (principal); Z53.21 Procedure and treatment not carried out due to patient leaving prior to being seen by health care provider
CPT/HCPCS: 36415; 80048; 81001; 82805; 82962; 85025

== ENCOUNTER 2019-06-24 07:46 | Inpatient (IN) | payer MEDICARE ==
[2019-06-24] MEDS ORDERED: ASPIRIN 325 MG TAB PO ONE (07:52)
[2019-06-24 08:31] LABS: Basophils # (Auto) 0.1 K/mm3 (0.0-0.1); Basophils % (Auto) 0.7 % (0.0-1.8); Eosinophils # (Auto) 0.3 K/mm3 (0.0-0.4); Eosinophils % (Auto) 3.7 % (0.0-4.3); Hematocrit 30.9 % (30.3-42.9); Hemoglobin 10.2 gm/dl (10.1-14.3); Lymphocytes # (Auto) 1.9 K/mm3 (1.2-5.4); Lymphocytes % (Auto) 22.4 % (13.4-35.0); Mean Corpuscular HGB Conc 33 % (30-34); Mean Corpuscular Volume 92 fl (79-97); Monocytes # (Auto) 0.5 K/mm3 (0.0-0.8); Monocytes % (Auto) 5.6 % (0.0-7.3); Platelet Count 231 K/mm3 (140-440); Red Blood Count 3.34 M/mm3 (3.65-5.03); Red Cell Distribution Width 14.3 % (13.2-15.2)
--- NOTE | 2019-06-24 08:31 | Emergency Department Report ---
ED Shortness of Breath HPI - General Chief Complaint: Dyspnea/Respdistress Stated Complaint: SOB/COUGHING Time Seen by Provider: 06/24/19 08:30 Source: patient Mode of arrival: Ambulatory Limitations: No Limitations - History of Present Illness Initial Comments: This is a 54-year-old female who is a poor and perhaps unreliable historian. She states that she is not out of any of her medicines. However she states that she did not take any of her medicines this morning. She further tells me she is on multiple medicines for her blood pressure but does not know what they are. She does not know if she is still taking her Lasix. She complains of shortness of breath that does worsen if she lays down flat. She denies leg edema. She states that on Tuesday she had dry cough which was persistent and eventually made her chest sore and feel like it hurt when she breathes. She does not report any productive sputum. She does not take her temperature at home. She is not complaining of chest pain at the time of my encounter. For admission in 2018, the patient does have a history of congestive heart failure, a negative stress thallium tests I do not believe she has been diagnosed with coronary artery disease that I can ascertain and type 2 diabetes: Patient is 53 yo with CAD , diabetes, hypertension. She presents with shortness of breath. She went to see her PCP and was sent to ED for elevated BP, abnormal EKG. Her BP was 213/98 in ED, she was given Clonidine, Lasix iv and admitted. She was evaluated by Cardiology. She was diagniosed with acute on chronic diastolic CHF, acute on chronic kidney disease. She improved in few days. Stress test was done 06/29/18 was negative, so she was discharged home. Total time spent on discharge,32 mins. Disposition: - TO HOME OR SELFCARE - Discharge Diagnoses (1) Acute respiratory failure Status: Acute (2) Acute on chronic diastolic (congestive) heart failure Status: Acute (3) Acute renal failure superimposed on stage 3 chronic kidney disease Status: Acute (4) Obesity (BMI 30-39.9) Status: Acute (5) Hypertensive urgency Status: Acute (6) Diabetes mellitus type 2 in obese Status: Acute MD Complaint: shortness of breath, cough, chest pain -: hour(s) Radiation: other (no radiation) Severity: mild Quality: dull Consistency: intermittent Improves With: nothing Worsens With: inspiration Known History Of: congestive heart failure Associated Symptoms: denies other symptoms, cough - Related Data Home Oxygen Therapy: No Home Medications Medication Instructions Recorded Confirmed Last Taken Amlodipine Besylate [Norvasc] 5 mg PO DAILY 06/28/18 06/28/18 Unknown Cetirizine HCl [ZyrTEC 10mg cap] 10 mg PO DAILY 06/28/18 06/28/18 Unknown Diclofenac Potassium 50 mg PO BID 06/28/18 06/28/18 Unknown Linaclotide [Linzess] 72 mcg PO DAILY 06/28/18 06/28/18 Unknown Metoprolol Tartrate 25 mg PO BID 06/28/18 06/28/18 Unknown Pregabalin [Lyrica] 100 mg PO BID 06/28/18 06/28/18 Unknown traZODone [Desyrel] 50 mg PO QHS 06/28/18 06/28/18 Unknown Previous Rx's Medication Instructions Recorded Last Taken Type AtorvaSTATin [Lipitor] 40 mg PO QHS #30 tab 06/29/18 Unknown Rx Furosemide [Lasix TAB] 40 mg PO QDAY #30 tablet 06/29/18 Unknown Rx Clindamycin [Clindamycin CAP] 300 mg PO Q8H #30 cap 09/14/18 Unknown Rx traMADoL [Ultram 50 MG tab] 50 mg PO Q6HR PRN #12 tablet 09/14/18 Unknown Rx Allergies Allergy/AdvReac Type Severity Reaction Status Date / Time Penicillins AdvReac Swelling Verified 09/12/16 10:19 ED Review of Systems ROS: Stated complaint: SOB/COUGHING Other details as noted in HPI Constitutional: denies: chills, fever Eyes: denies: eye pain, eye discharge, vision change ENT: denies: ear pain, throat pain Respiratory: cough, shortness of breath. denies: wheezing Cardiovascular: chest pain. denies: palpitations Endocrine: no symptoms reported Gastrointestinal: denies: abdominal pain, nausea, diarrhea Genitourinary: denies: urgency, dysuria, discharge Musculoskeletal: denies: back pain, joint swelling, arthralgia Skin: denies: rash, lesions Neurological: denies: headache, weakness, paresthesias Psychiatric: denies: anxiety, depression Hematological/Lymphatic: denies: easy bleeding, easy bruising ED Past Medical Hx - Past Medical History Previous Medical History?: Yes Hx Hypertension: Yes Hx CVA: Yes (2010 no deficiets) Hx Congestive Heart Failure: No Hx Diabetes: Yes Hx GERD: Yes (2012) Hx Sickle Cell Disease: No Hx Arthritis: Yes Hx Asthma: No Hx COPD: No Hx HIV: No Additional medical history: neuropathy. Denied history of VTE - Surgical History Past Surgical History?: Yes Hx Cholecystectomy: Yes Additional Surgical History: ; rt knee surgery 2013 - Social History Smoking Status: Current Every Day Smoker Substance Use Type: Prescribed (entered by nursing uncertain reason) - Medications Home Medications: Home Medications Medication Instructions Recorded Confirmed Last Taken Type Amlodipine Besylate [Norvasc] 5 mg PO DAILY 06/28/18 06/28/18 Unknown History Cetirizine HCl [ZyrTEC 10mg cap] 10 mg PO DAILY 06/28/18 06/28/18 Unknown History Diclofenac Potassium 50 mg PO BID 06/28/18 06/28/18 Unknown History Linaclotide [Linzess] 72 mcg PO DAILY 06/28/18 06/28/18 Unknown History Metoprolol Tartrate 25 mg PO BID 06/28/18 06/28/18 Unknown History Pregabalin [Lyrica] 100 mg PO BID 06/28/18 06/28/18 Unknown History traZODone [Desyrel] 50 mg PO QHS 06/28/18 06/28/18 Unknown History AtorvaSTATin [Lipitor] 40 mg PO QHS #30 tab 06/29/18 Unknown Rx Furosemide [Lasix TAB] 40 mg PO QDAY #30 tablet 06/29/18 Unknown Rx Clindamycin [Clindamycin CAP] 300 mg PO Q8H #30 cap 09/14/18 Unknown Rx traMADoL [Ultram 50 MG tab] 50 mg PO Q6HR PRN #12 tablet 09/14/18 Unknown Rx ED Physical Exam - General Limitations: No Limitations General appearance: alert, in no apparent distress - Head Head exam: Present: atraumatic, normocephalic - Eye Eye exam: Present: normal appearance. Absent: scleral icterus - ENT ENT exam: Present: mucous membranes moist - Neck Neck exam: Present: normal inspection. Absent: tenderness, meningismus - Respiratory Respiratory exam: Present: normal lung sounds bilaterally. Absent: respiratory distress - Cardiovascular Cardiovascular Exam: Present: regular rate, normal rhythm, S3, S4. Absent: systolic murmur, diastolic murmur, rubs, gallop - GI/Abdominal GI/Abdominal exam: Present: soft, normal bowel sounds. Absent: distended, tenderness, guarding, rebound, rigid - Extremities Exam Extremities exam: Present: normal inspection. Absent: pedal edema, joint swelling, calf tenderness - Back Exam Back exam: Present: normal inspection - Neurological Exam Neurological exam: Present: alert, oriented X3 - Psychiatric Psychiatric exam: Present: normal affect, normal mood - Skin Skin exam: Present: warm, dry, intact, normal color. Absent: rash ED Course Vital Signs 06/24/19 06/24/19 06/24/19 07:50 07:53 10:11 Temperature 97.9 F 98.3 F Pulse Rate 90 89 84 Respiratory 20 22 14 Rate Blood Pressure 202/67 Blood Pressure 178/71 195/84 [Left] O2 Sat by Pulse 96 97 97 Oximetry 06/24/19 11:13 Temperature Pulse Rate Respiratory Rate Blood Pressure Blood Pressure 193/82 [Left] O2 Sat by Pulse Oximetry - Reevaluation(s) Reevaluation #1: Ordered Nitropaste and furosemide. Explained the need for nuclear medicine study to patient. Discussed with Dr. Horton. Patient is admitted to his service in stable condition further care and evaluation. He is aware of pending studies. 06/24/19 11:23 ED Medical Decision Making - Lab Data Result diagrams: 06/24/19 08:01 06/24/19 08:01 Laboratory Results - last 24 hr 06/24/19 08:01 WBC 8.3 RBC 3.34 L Hgb 10.2 Hct 30.9 MCV 92 MCH 30 MCHC 33 RDW 14.3 Plt Count 231 Lymph % (Auto) 22.4 [place] % (Auto) 5.6 Eos % (Auto) 3.7 Baso % (Auto) 0.7 Lymph # 1.9 [place] # 0.5 Eos # 0.3 Baso # 0.1 Seg Neutrophils % 67.6 Seg Neutrophils # 5.6 Laboratory Results - last 24 hr 06/24/19 06/24/19 06/24/19 08:01 08:01 08:58 WBC 8.3 RBC 3.34 L Hgb 10.2 Hct 30.9 MCV 92 MCH 30 MCHC 33 RDW 14.3 Plt Count 231 Lymph % (Auto) 22.4 [place] % (Auto) 5.6 Eos % (Auto) 3.7 Baso % (Auto) 0.7 Lymph # 1.9 [place] # 0.5 Eos # 0.3 Baso # 0.1 Seg Neutrophils % 67.6 Seg Neutrophils # 5.6 PT 12.7 INR 0.96 APTT 32.7 D-Dimer 1042.76 H Sodium 141 Potassium 3.6 Chloride 105.8 Carbon Dioxide 20 L Anion Gap 19 BUN 37 H Creatinine 2.2 H Estimated GFR 28 BUN/Creatinine Ratio 17 Glucose 118 H Calcium 8.7 Total Bilirubin Direct Bilirubin Indirect Bilirubin AST ALT Alkaline Phosphatase Troponin T < 0.010 NT-Pro-B Natriuret Pep Total Protein Albumin Albumin/Globulin Ratio 06/24/19 08:58 WBC RBC Hgb Hct MCV MCH MCHC RDW Plt Count Lymph % (Auto) [place] % (Auto) Eos % (Auto) Baso % (Auto) Lymph # [place] # Eos # Baso # Seg Neutrophils % Seg Neutrophils # PT INR APTT D-Dimer Sodium Potassium Chloride Carbon Dioxide Anion Gap BUN Creatinine Estimated GFR BUN/Creatinine Ratio Glucose Calcium Total Bilirubin 0.30 Direct Bilirubin < 0.2 Indirect Bilirubin 0.1 AST 19 ALT 19 Alkaline Phosphatase 89 Troponin T NT-Pro-B Natriuret Pep 2803 H Total Protein 6.1 L Albumin 3.1 L Albumin/Globulin Ratio 1.0 Critical care attestation.: If time is entered above; I have spent that time in minutes in the direct care of this critically ill patient, excluding procedure time. ED Disposition Clinical Impression: Uncontrolled hypertension, Elevated d-dimer Acute exacerbation of CHF (congestive heart failure) Qualifiers: Heart failure type: combined systolic and diastolic Qualified Code(s): I50.43 - Acute on chronic combined systolic (congestive) and diastolic (congestive) heart failure Chest pain Qualifiers: Chest pain type: unspecified Qualified Code(s): R07.9 - Chest pain, unspecified Disposition: OP ADMIT IP TO THIS HOSP Is pt being admited?: Yes Does the pt Need Aspirin: Yes Condition: Stable Referrals: PRIMARY CARE, [Primary Care Provider] - 3-5 Days Time of Disposition: 10:31
--- NOTE | 2019-06-24 08:48 | XRay Report ---
CHEST 2 VIEWS INDICATION / CLINICAL INFORMATION: Chest Pain. COMPARISON: 06/26/2018 chest radiograph report. Images not immediately available for review. FINDINGS: SUPPORT DEVICES: None. HEART / MEDIASTINUM: Mild cardiomegaly. LUNGS / PLEURA: Prominence of central pulmonary vessels at the lung apices. Subtle, diffuse increase in interstitial markings throughout the lungs. No significant alveolar opacity. No pleural fluid. No pneumothorax. ADDITIONAL FINDINGS: No significant additional findings. IMPRESSION: 1. Mild cardiomegaly, chronic pulmonary venous hypertension and interstitial edema suggestive of CHF. Signer Name: Bernard Acharya MD Signed: 06/24/2019 8:44 AM Workstation Name: [id number]
[2019-06-24 08:54] LABS: BUN/Creatinine Ratio 17; Blood Urea Nitrogen 37 mg/dL (7-17); Calcium 8.7 mg/dL (8.4-10.2); Hemolysis Index 1
[2019-06-24 09:27] LABS: INR 0.96 (0.87-1.13)
[2019-06-24 09:28] LABS: Partial Thromboplastin Time 32.7 Sec. (24.2-36.6)
[2019-06-24 09:41] LABS: Alanine Aminotransferase 19 units/L (7-56); Albumin 3.1 g/dL (3.9-5)
[2019-06-24 09:43] LABS: Bilirubin,Direct < 0.2 mg/dL (0-0.2)
[2019-06-24] MEDS ORDERED: NITROGLYCERIN 2% OINT 1 GM TP ONE (10:45)
[2019-06-24] MEDS ORDERED: FUROSEMIDE 40 MG/4 ML INJ IV ONE (10:45)
[2019-06-24] MEDS ORDERED: HYDROcodone/ACETAMINOPHEN 5-325 MG TAB PO ONE (11:58)
[2019-06-24] MEDS ORDERED: HYDROcodone/ACETAMINOPHEN 5-325 MG TAB ONE (12:23)
--- NOTE | 2019-06-24 13:05 | Nuclear Medicine Report ---
NUCLEAR MEDICINE VENTILATION/PERFUSION LUNG SCAN INDICATION: Chest pain. Elevated d-dimer. TECHNIQUE: 25.6 mCi of Xe-133 were given by inhalation. 3.99 mCi of Tc-99m MAA were given by IV. COMPARISON: Chest radiograph dated 06/24/2019. FINDINGS: VENTILATION: No significant ventilation defects. PERFUSION: Expected perfusion defects along the lung bases anteriorly correlate with the patient's ca rdiomegaly. No suspicious perfusion defects are identified. ADDITIONAL FINDINGS: None. IMPRESSION: 1. Low probability for pulmonary embolism. Signer Name: Shaun Corcoran MD Signed: 06/24/2019 1:01 PM Workstation Name: [id number]
--- NOTE | 2019-06-24 19:46 | Event Note ---
Date: 06/24/19 See H/p in reports CHF exacerbation Chest pain-R/o MO protocol
[2019-06-24] MEDS ORDERED: traMADol 50 MG TAB PO PRN (19:47)
[2019-06-24] MEDS ORDERED: NON-FORMULARY EACH (Cetirizine Hcl [Zyrtec 10mg Cap] 10 MG) PO SCH (20:00)
[2019-06-24] MEDS: POTASSIUM CHLORIDE ER 20 MEQ TAB PO SCH (20:20)
[2019-06-24] MEDS: amLODIPine 5 MG TAB PO SCH (20:20)
[2019-06-24] MEDS ORDERED: NON-FORMULARY EACH (Pregabalin [Lyrica] 100 MG) PO SCH (22:00)
[2019-06-24] MEDS ORDERED: guaiFENesin/CODEINE 100-10MG ORAL LIQD 5 ML PO PRN (22:50)
[2019-06-24] MEDS: HEPARIN 5,000 UNIT/1 ML VIAL SUB-Q SCH (22:53)
[2019-06-24] MEDS: PREGABALIN 25 MG CAP PO SCH (22:54)
[2019-06-24] MEDS: METOPROLOL TARTRATE 25 MG TAB PO SCH (22:55)
[2019-06-24] MEDS: PREGABALIN 75 MG CAP PO SCH (22:55)
[2019-06-24] MEDS: traZODone 50 MG TAB PO SCH (22:56)
[2019-06-25] MEDS: FUROSEMIDE 40 MG/4 ML INJ IV SCH ×2 (05:58→17:51)
--- NOTE | 2019-06-25 07:46 | History and Physical Report ---
CHIEF COMPLAINT: Increasing shortness of breath for 1 day. HISTORY OF PRESENT ILLNESS: A 54-year-old female, noncompliant with her medications, with history of CHF, hypertension, and chronic kidney disease, comes in for increasing shortness of breath. The shortness of breath is more on lying flat and on minimal exertion. The patient has class 4 NYHA symptoms. The patient also has intermittent chest pain. The patient was recently discharged after being treated for acute respiratory failure and acute on chronic diastolic congestive heart failure. PAST MEDICAL HISTORY: Significant for hypertension, CHF, IBS, and peripheral neuropathy. PAST SURGICAL HISTORY: Cholecystectomy, , right knee surgery. SOCIAL HISTORY: Currently smokes over a pack a day. FAMILY HISTORY: Hypertension. CURRENT MEDICATIONS: On chart. PHYSICAL EXAMINATION: GENERAL: Middle-aged female, looks older than her age. VITAL SIGNS: Blood pressure is 159/54, temperature is 99.4, pulse is 91, sats are 95%, respiratory rate is 18. HEENT: Unremarkable. Pupils equal and reactive. NECK: Supple, no lymphadenopathy, no thyromegaly. LUNGS: Clear to auscultation and percussion. Good air entry. Scattered rales. CARDIOVASCULAR: S1, S2 heard. No gallop, no murmur, no rub. ABDOMEN: Soft and benign. No hepatosplenomegaly. No guarding, no rigidity. Hernial orifices are normal. EXTREMITIES: Good pedal pulses. No pedal edema. CENTRAL NERVOUS SYSTEM: Alert and oriented x 4, nonfocal exam. SKIN: Normal. LABORATORY DATA: Significant for normal CBC. Sodium is 141, potassium is 3.6, creatinine is 2.2. BNP is 2803. Albumin is 3.1. Chest x-ray shows mild cardiomegaly, chronic pulmonary venous hypertension and interstitial edema suggestive of CHF. Pulmonary perfusion imaging shows low probability for pulmonary embolism. The patient had a low ejection fraction on the last admission. ASSESSMENT AND PLAN: 1. Congestive heart failure exacerbation. The patient was initiated on IV Lasix 40 mg q.12. 2. Hypertension. Continue antihypertensives. The patient's blood pressure is borderline. We will hold the antihypertensives if necessary. 3. Irritable bowel syndrome. Continue Linzess. 4. Peripheral neuropathy. Continue Lyrica. 5. Deep venous thrombosis prophylaxis, the patient on heparin 5000 q.12. In summary, the patient has CHF exacerbation, may have element of COPD, DuoNebs initiated. Hypertension and history of cerebrovascular accident. Echocardiogram ordered. Cardiology consult ordered. JOB# [id number] [facility]/NTS RONA
[2019-06-25] MEDS ORDERED: NON-FORMULARY EACH (Linaclotide [Linzess] 72 MCG) PO SCH (10:00)
[2019-06-25] MEDS: METOPROLOL TARTRATE 25 MG TAB PO SCH ×2 (11:59→22:30)
[2019-06-25] MEDS: PREGABALIN 25 MG CAP PO SCH ×2 (12:00→22:29)
[2019-06-25] MEDS: amLODIPine 5 MG TAB PO SCH (12:00)
[2019-06-25] MEDS: PREGABALIN 75 MG CAP PO SCH ×2 (12:00→22:30)
[2019-06-25] MEDS: HEPARIN 5,000 UNIT/1 ML VIAL SUB-Q SCH ×2 (12:01→22:28)
[2019-06-25] MEDS: LORATADINE (NF) 10 MG TAB PO SCH (12:01)
[2019-06-25] MEDS: POTASSIUM CHLORIDE ER 20 MEQ TAB PO SCH ×2 (12:10→23:11)
--- NOTE | 2019-06-25 15:57 | Progress Note ---
Assessment and Plan Assessment and plan: --Acute on chronic diastolic congestive heart failure; Continue anti-failure medications, input-output monitoring Echocardiogram, cardiology following --Atypical chest pain; rule out acute coronary syndrome Stress test tomorrow, continue current medications --Hypertension; continue current antihypertensives and when necessary medications --Acute on chronic kidney disease stage III; Due to vasomotor nephropathy, present on admission Nephrology consult, avoid nephrotoxins --Irritable bowel syndrome; continue home medicines --Peripheral neuropathy; supportive care, leg, --DVT prophylaxis; on heparin Follow stress test tomorrow, if negative and patient is stable We will discharged home Plan of care reviewed with the patient and her nurse History Interval history: Sincerely and examined medical records reviewed Patient was initially scheduled for stress test However due to V/Q scan last night, reschedule the stress test for tomorrow Patient feels better mild intermittent chest pains Vital signs noted Hospitalist Physical - Constitutional Vitals: Temp Pulse Resp BP Pulse Ox 97.8 F 80 18 157/66 97 06/25/19 10:22 06/25/19 12:00 06/25/19 10:56 06/25/19 12:00 06/25/19 10:56 General appearance: Present: no acute distress, well-nourished, obese - EENT Eyes: Present: PERRL, EOM intact - Neck Neck: Present: supple, normal ROM - Respiratory Respiratory effort: normal Respiratory: bilateral: diminished, negative: rales, rhonchi, wheezing - Cardiovascular Rhythm: regular Heart Sounds: Present: S1 & S2 - Extremities Extremities: no ischemia, No edema - Abdominal General gastrointestinal: soft, non-tender, non-distended, normal bowel sounds - Integumentary Integumentary: Present: clear, warm - Psychiatric Psychiatric: appropriate mood/affect, cooperative - Neurologic Neurologic: CNII-XII intact, moves all extremities Results - Labs CBC & Chem 7: 06/24/19 08:01 06/26/19 04:24 Labs: Laboratory Last Values WBC 8.3 K/mm3 (4.5-11.0) 06/24/19 08:01 RBC 3.34 M/mm3 (3.65-5.03) L 06/24/19 08:01 Hgb 10.2 gm/dl (10.1-14.3) 06/24/19 08:01 Hct 30.9 % (30.3-42.9) 06/24/19 08:01 MCV 92 fl (79-97) 06/24/19 08:01 MCH 30 pg (28-32) 06/24/19 08:01 MCHC 33 % (30-34) 06/24/19 08:01 RDW 14.3 % (13.2-15.2) 06/24/19 08:01 Plt Count 231 K/mm3 (140-440) 06/24/19 08:01 Lymph % (Auto) 22.4 % (13.4-35.0) 06/24/19 08:01 [place] % (Auto) 5.6 % (0.0-7.3) 06/24/19 08:01 Eos % (Auto) 3.7 % (0.0-4.3) 06/24/19 08:01 Baso % (Auto) 0.7 % (0.0-1.8) 06/24/19 08:01 Lymph # 1.9 K/mm3 (1.2-5.4) 06/24/19 08:01 [place] # 0.5 K/mm3 (0.0-0.8) 06/24/19 08:01 Eos # 0.3 K/mm3 (0.0-0.4) 06/24/19 08:01 Baso # 0.1 K/mm3 (0.0-0.1) 06/24/19 08:01 Seg Neutrophils % 67.6 % (40.0-70.0) 06/24/19 08:01 Seg Neutrophils # 5.6 K/mm3 (1.8-7.7) 06/24/19 08:01 PT 12.7 Sec. (12.2-14.9) 06/24/19 08:58 INR 0.96 (0.87-1.13) 06/24/19 08:58 APTT 32.7 Sec. (24.2-36.6) 06/24/19 08:58 D-Dimer 1042.76 ng/mlDDU (0-234) H 06/24/19 08:58 Sodium 141 mmol/L (137-145) 06/24/19 08:01 Potassium 3.6 mmol/L (3.6-5.0) 06/24/19 08:01 Chloride 105.8 mmol/L (98-107) 06/24/19 08:01 Carbon Dioxide 20 mmol/L (22-30) L 06/24/19 08:01 Anion Gap 19 mmol/L 06/24/19 08:01 BUN 37 mg/dL (7-17) H 06/24/19 08:01 Creatinine 2.2 mg/dL (0.7-1.2) H 06/24/19 08:01 Estimated GFR 28 ml/min 06/24/19 08:01 BUN/Creatinine Ratio 17 % 06/24/19 08:01 Glucose 118 mg/dL (65-100) H 06/24/19 08:01 Calcium 8.7 mg/dL (8.4-10.2) 06/24/19 08:01 Total Bilirubin 0.30 mg/dL (0.1-1.2) 06/24/19 08:58 Direct Bilirubin < 0.2 mg/dL (0-0.2) 06/24/19 08:58 Indirect Bilirubin 0.1 mg/dL 06/24/19 08:58 AST 19 units/L (5-40) 06/24/19 08:58 ALT 19 units/L (7-56) 06/24/19 08:58 Alkaline Phosphatase 89 units/L (35-129) 06/24/19 08:58 Troponin T 0.015 ng/mL (0.00-0.029) 06/25/19 07:35 NT-Pro-B Natriuret Pep 2803 pg/mL (0-900) H 06/24/19 08:58 Total Protein 6.1 g/dL (6.3-8.2) L 06/24/19 08:58 Albumin 3.1 g/dL (3.9-5) L 06/24/19 08:58 Albumin/Globulin Ratio 1.0 % 06/24/19 08:58 Active Medications - Current Medications Current Medications: Generic Name Dose Route Start Last Admin Trade Name Freq PRN Reason Stop Dose Admin Amlodipine Besylate 5 mg 06/24/19 20:00 06/25/19 12:00 Amlodipine PO 5 mg DAILY SILVANO Administration Atorvastatin Calcium 40 mg 06/24/19 22:00 06/24/19 22:55 Lipitor PO 40 mg QHS SILVANO Administration Furosemide 40 mg 06/25/19 06:00 06/25/19 05:58 Lasix IV 40 mg 0600,1800 SILVANO Administration Heparin Sodium (Porcine) 5,000 unit 06/24/19 22:00 06/25/19 12:01 Heparin SUB-Q 5,000 unit Q12HR SILVANO Administration Loratadine 10 mg 06/25/19 10:00 06/25/19 12:01 Claritin PO 10 mg DAILY SILVANO Administration Metoprolol Tartrate 25 mg 06/24/19 22:00 06/25/19 11:59 Metoprolol PO 25 mg BID SILVANO Administration Miscellaneous Medication 72 mcg 06/25/19 10:00 Linaclotide [Linzess] PO DAILY SILVANO Potassium Chloride 20 meq 06/24/19 20:00 06/25/19 12:10 K-Dur PO 20 meq Q12H SILVANO Administration Pregabalin 75 mg 06/24/19 22:00 06/25/19 12:00 Pregabalin PO 75 mg BID SILVANO Administration Pregabalin 25 mg 06/24/19 22:00 06/25/19 12:00 Pregabalin PO 25 mg BID SILVANO Administration Pseudoephedrine/Acetam/Chlorphenir 10 ml 06/24/19 22:50 Robitussin Ac PO Q4H PRN Cough Tramadol HCl 50 mg 06/24/19 19:47 06/24/19 20:20 Ultram PO 50 mg Q6H PRN Administration PAIN, MODERATE Trazodone HCl 50 mg 06/24/19 22:00 06/24/19 22:56 Desyrel PO 50 mg QHS SILVANO Administration
[2019-06-25] MEDS ORDERED: ACETAMINOPHEN 325 MG TAB PO PRN (17:41)
[2019-06-25] MEDS: traZODone 50 MG TAB PO SCH (22:28)
[2019-06-26 06:03] LABS: Calcium 8.1 mg/dL (8.4-10.2)
--- NOTE | 2019-06-26 09:13 | Consultation ---
History of Present Illness - Reason for Consult Consult date: 06/26/19 acute renal failure, chronic renal failure - History of Present Illness The patient is a 54 YO female who is known to our service with history signficant for Obesity, Diabetes, Hypertension, CAD, COPD, Tobacco smoking, CKD stage 3-4 and Medical non-compliance who presented to [facility] ED with c/o shortness of breath and chest pain. Pt is a vague historian. He continues to smoke about 1/2 pack of cigarettes. Reports dry cough. Her BP was 202/67 in ED. CXR showed pulmonary vascular congestion. She was admitted with CP r/o ACS and acute on chronic diastolic CHF. She was given Lasix. Creatinine was 2.2, increased to 2.6 today. Nephrology was consulted for further evaluation. Past History Past Medical History: COPD, diabetes, heart failure, hypertension, renal failure Medications and Allergies Allergies Allergy/AdvReac Type Severity Reaction Status Date / Time Penicillins AdvReac Swelling Verified 09/12/16 10:19 Home Medications Medication Instructions Recorded Confirmed Last Taken Type Amlodipine Besylate [Norvasc] 5 mg PO DAILY 06/28/18 06/28/18 Unknown History Cetirizine HCl [ZyrTEC 10mg cap] 10 mg PO DAILY 06/28/18 06/28/18 Unknown History Diclofenac Potassium 50 mg PO BID 06/28/18 06/28/18 Unknown History Linaclotide [Linzess] 72 mcg PO DAILY 06/28/18 06/28/18 Unknown History Metoprolol Tartrate 25 mg PO BID 06/28/18 06/28/18 Unknown History Pregabalin [Lyrica] 100 mg PO BID 06/28/18 06/28/18 Unknown History traZODone [Desyrel] 50 mg PO QHS 06/28/18 06/28/18 Unknown History AtorvaSTATin [Lipitor] 40 mg PO QHS #30 tab 06/29/18 Unknown Rx traMADoL [Ultram 50 MG tab] 50 mg PO Q6HR PRN #12 tablet 09/14/18 Unknown Rx ALBUTEROL Inhaler (OR & NICU) 2 puff IH QID PRN #8.5 gram 06/26/19 Unknown Rx [ProAir HFA Inhaler] Azithromycin [Zithromax Z-SHIRAZ] 0 mg PO DAILY #1 tab 06/26/19 Unknown Rx Benzonatate [Tessalon Perles] 100 mg PO Q8HR #20 capsule 06/26/19 Unknown Rx Loperamide [Imodium] 2 mg PO Q2HR PRN #20 capsule 06/26/19 Unknown Rx Nicotine [Habitrol] 14 mg TD DAILY #30 patch 06/26/19 Unknown Rx Active Meds: Active Medications Acetaminophen (Tylenol) 650 mg PO Q4H PRN PRN Reason: Pain, Mild (1-3) Last Admin: 06/25/19 18:26 Dose: 650 mg Documented by: Amlodipine Besylate (Amlodipine) 5 mg PO DAILY [facility] Last Admin: 06/25/19 12:00 Dose: 5 mg Documented by: Atorvastatin Calcium (Lipitor) 40 mg PO QHS [facility] Last Admin: 06/25/19 22:30 Dose: 40 mg Documented by: Furosemide (Lasix) 40 mg IV 0600,1800 [facility] Last Admin: 06/25/19 17:51 Dose: 40 mg Documented by: Heparin Sodium (Porcine) (Heparin) 5,000 unit SUB-Q Q12HR [facility] Last Admin: 06/25/19 22:28 Dose: 5,000 unit Documented by: Loratadine (Claritin) 10 mg PO DAILY [facility] Last Admin: 06/25/19 12:01 Dose: 10 mg Documented by: Metoprolol Tartrate (Metoprolol) 25 mg PO BID [facility] Last Admin: 06/25/19 22:30 Dose: 25 mg Documented by: Miscellaneous Medication (Linaclotide [Linzess]) 72 mcg PO DAILY [facility] Potassium Chloride (K-Dur) 20 meq PO Q12H [facility] Last Admin: 06/25/19 23:11 Dose: 20 meq Documented by: Pregabalin (Pregabalin) 75 mg PO BID [facility] Last Admin: 06/25/19 22:30 Dose: 75 mg Documented by: Pregabalin (Pregabalin) 25 mg PO BID [facility] Last Admin: 06/25/19 22:29 Dose: 25 mg Documented by: Pseudoephedrine/Acetam/Chlorphenir (Robitussin Ac) 10 ml PO Q4H PRN PRN Reason: Cough Tramadol HCl (Ultram) 50 mg PO Q6H PRN PRN Reason: PAIN, MODERATE Last Admin: 06/24/19 20:20 Dose: 50 mg Documented by: Trazodone HCl (Desyrel) 50 mg PO QHS [facility] Last Admin: 06/25/19 22:28 Dose: 50 mg Documented by: Review of Systems Constitutional: no weight loss, no weight gain, no fever, no chills, no anorexia, no fatigue, no weakness, no poor appetite Breasts: deferred Cardiovascular: chest pain, orthopnea, shortness of breath, dyspnea on exertion, high blood pressure, no palpitations, no edema, no syncope, no lightheadedness, no leg edema Respiratory: cough, shortness of breath, dyspnea on exertion, congestion, no cough with sputum, no hemoptysis Gastrointestinal: no abdominal pain, no nausea, no vomiting, no diarrhea, no melena, no jaundice Genitourinary Female: no dysuria, no hematuria Rectal: no bleeding Integumentary: no rash, no wounds, no jaundice Neurological: no seizures, no syncope, no convulsions, no aphasia, no change in speech, no change in mentation, no confusion Exam - Vital Signs Vital signs: Vital Signs Temp Pulse Resp BP Pulse Ox 97.9 F 90 20 202/67 96 06/24/19 07:50 06/24/19 07:50 06/24/19 07:50 06/24/19 07:50 06/24/19 07:50 - General Appearance General appearance: well-developed, well-nourished, appears stated age, other (not in distress) EENT: ATNC, PERRL, mucous membranes moist, hearing intact, vision intact Neck: Present: neck supple, trachea midline Respiratory: Clear to Ascultation Heart: regular, S1S2, no murmurs Gastrointestinal: Present: normoactive bowel sounds. Absent: tenderness, distended Integumentary: no rash, warm and dry Neurologic: no focal deficit, no asterixis, alert and oriented x3 Musculoskeletal: Present: other (no edema) Psychiatric: cooperative Results - Lab Results 06/24/19 08:01 06/26/19 04:24 Most recent lab results Calcium 8.1 mg/dL (8.4-10.2) L 06/26/19 04:24 Assessment and Plan 1. Acute kidney injury: Likely Vasomotor BONG superimposed on CKD in the setting of diuresis. Monitor renal function. Avoid nephrotoxic agents. Meds dosage based on GFR. 2. FEN: Metabolic acidosis, improved. Monitor lytes. 3. Suspected decompensated diastolic CHF. 4. Chest pain: Stress test negative. 5. Acute bronchitis. 6. DM type 2. 7. Hypertension. F/u with me in 1-2 weeks.
[2019-06-26] MEDS ORDERED: REGADENOSON 0.4 MG/5 ML INJ IV ONE ×2 (09:23→10:00)
[2019-06-26 11:02] VITALS: BP 160/54
[2019-06-26] MEDS: amLODIPine 5 MG TAB PO SCH (11:16)
[2019-06-26] MEDS: METOPROLOL TARTRATE 25 MG TAB PO SCH (11:16)
[2019-06-26] MEDS: POTASSIUM CHLORIDE ER 20 MEQ TAB PO SCH (11:17)
[2019-06-26] MEDS: PREGABALIN 75 MG CAP PO SCH (11:17)
[2019-06-26] MEDS: LORATADINE (NF) 10 MG TAB PO SCH (11:17)
[2019-06-26] MEDS: HEPARIN 5,000 UNIT/1 ML VIAL SUB-Q SCH (11:18)
[2019-06-26] MEDS: PREGABALIN 25 MG CAP PO SCH (11:21)
--- NOTE | 2019-06-26 13:14 | Treadmill Report ---
SINGLE ISOTOPE DUAL STUDY MYOCARDIAL PERFUSION SCAN REPORT AGE: 54. SEX: Female. REFERRING PHYSICIAN: Mikhail Horton MD, hospitalist. DESCRIPTION OF PROCEDURE: The patient received 10 mCi of technetium 99m Myoview intravenously under resting conditions. Resting myocardial perfusion scan was done. Subsequently, the patient underwent Lexiscan stress test as per the protocol. During Lexiscan stress, the patient received 28 mCi of technetium 99m Myoview intravenously. After 30-60 minutes, post stress images were done. Computerized reconstruction images were performed for analysis. The patient did not have any chest pain during the stress test. The post-stress images revealed a uniform distribution of the radiopharmaceutical in the left ventricular myocardium. Gated study did not reveal any wall motion abnormality. The left ventricular ejection fraction was low normal and was calculated to be 54%. The resting images were all normal. CONCLUSIONS: 1. No perfusion abnormality of the left ventricular myocardium was demonstrated in the resting as well as stress images obtained after the patient underwent Lexiscan stress test. 2. No wall motion abnormality. 3. Low normal left ventricular ejection fraction of 54%. JOB# [id number] [facility]/NTS
--- NOTE | 2019-06-26 13:15 | Discharge Summary ---
Providers - Providers Date of Admission: 06/24/19 11:34 Date of discharge: 06/26/19 Attending physician: ADELAIDE KINSEY 06/26/19 08:49 Consult to Physician [CONS] Routine Comment: Consulting Provider: TERESSA RAYA Physician Instructions: Reason For Exam: Ac on CKD Primary care physician: HANNA KRAFT Hospitalization Reason for admission: chest pain/worsening renal function Condition: Stable Pertinent studies: Chest x-ray Stress test Echocardiogram VQ scan Procedures: Stress test was negative for ischemia and normal ejection fraction at 54% Hospital course: 54 YO female female patient with significant past medical history of Obesity, Diabetes, Hypertension, CAD, COPD, Tobacco smoking, CKD stage 3-4 and Medical non-compliance was [facility] with c/o shortness of breath and chest pain. Patient continues to smoke about 1/2 pack of cigarettes. Reports dry cough. Her BP was 202/67 in ED. CXR showed pulmonary vascular congestion. She was admitted with CP r/o ACS and acute on chronic diastolic CHF. She was given Lasix. Creatinine was 2.2, increased to 2.6 today. The patient was admitted symptomatically managed evaluated by knot bumper and managing consultant clinical professor, medications optimized Stress test is negative for reversible ischemia, today patient is comfortable in no new complaints Vital signs stable, physical examination prior to discharge is unremarkable Patient will follow up with nephrology as outpatient for further evaluation and management Patient also will follow up with cardiology for further evaluation and management Dictated by the consultation is stable at discharge Discharge diagnoses; --Acute on chronic diastolic congestive heart failure; Continue anti-failure medications, input-output monitoring Echocardiogram, cardiology following --Atypical chest pain; rule out acute coronary syndrome Stress test tomorrow, continue current medications --Hypertension; continue current antihypertensives and when necessary medications --Acute on chronic kidney disease stage III; Due to vasomotor nephropathy, present on admission Nephrology consult, avoid nephrotoxins --Irritable bowel syndrome; continue home medicines --Peripheral neuropathy; supportive care, leg, --DVT prophylaxis; on heparin Stable at discharge Disposition: - TO HOME OR SELFCARE Time spent for discharge: 32 min Core Measure Documentation - Palliative Care Palliative Care/ Comfort Measures: Not Applicable - Core Measures Any of the following diagnoses?: none Exam - Constitutional Vitals: Temp Pulse Resp BP Pulse Ox 98.1 F 82 18 160/54 98 06/26/19 11:00 06/26/19 11:16 06/26/19 12:33 06/26/19 11:16 06/26/19 12:33 General appearance: Present: no acute distress, well-nourished - EENT Eyes: Present: PERRL, EOM intact - Neck Neck: Present: supple, normal ROM - Respiratory Respiratory effort: normal Respiratory: bilateral: diminished, negative: rales, rhonchi, wheezing - Cardiovascular Rhythm: regular Heart Sounds: Present: S1 & S2 - Extremities Extremities: no ischemia, No edema - Abdominal General gastrointestinal: Present: soft, non-tender, non-distended, normal bowel sounds - Integumentary Integumentary: Present: clear, warm - Musculoskeletal Musculoskeletal: strength equal bilaterally - Psychiatric Psychiatric: appropriate mood/affect, cooperative - Neurologic Neurologic: CNII-XII intact, moves all extremities Plan Activity: advance as tolerated Diet: low salt Additional Instructions: Advised smoking cessation. Nicotine patch as needed. Advised exercise and weight reduction as ntolerated Follow up with: PRIMARY CAREMD [Referring] - 3-5 Days TERESSA RAYA MD [Staff Physician] - 7 Days LAN DOMINIQUE MD [Staff Physician] - 7 Days Prescriptions: Nicotine [Habitrol] 14 mg TD DAILY #30 patch Loperamide [Imodium] 2 mg PO Q2HR PRN #20 capsule PRN Reason: Diarrhea ALBUTEROL Inhaler (OR & NICU) [ProAir HFA Inhaler] 2 puff IH QID PRN #8.5 gram PRN Reason: Shortness Of Breath Benzonatate [Tessalon Perles] 100 mg PO Q8HR #20 capsule
== END 2019-06-26 14:45 | disposition home or self-care (01) | DRG 291 ==
LOC: ED 07:46 → 4A 11:34
PROVIDERS: ADMIT Internal Medicine; ATTEND Internal Medicine
DX: I13.0 Hypertensive heart and chronic kidney disease with heart failure and stage 1 through stage 4 chronic kidney disease, or unspecified chronic kidney disease (principal); N17.0 Acute kidney failure with tubular necrosis; I50.43 Acute on chronic combined systolic (congestive) and diastolic (congestive) heart failure; N18.4 Chronic kidney disease, stage 4 (severe); J20.9 Acute bronchitis, unspecified; K21.9 Gastro-esophageal reflux disease without esophagitis; E11.22 Type 2 diabetes mellitus with diabetic chronic kidney disease; F17.210 Nicotine dependence, cigarettes, uncomplicated; E11.42 Type 2 diabetes mellitus with diabetic polyneuropathy; R79.89 Other specified abnormal findings of blood chemistry; K58.9 Irritable bowel syndrome, unspecified; Z90.49 Acquired absence of other specified parts of digestive tract; Z82.49 Family history of ischemic heart disease and other diseases of the circulatory system; Z91.14 Patient's other noncompliance with medication regimen; Z68.37 Body mass index [BMI] 37.0-37.9, adult; Z88.0 Allergy status to penicillin; Z79.899 Other long term (current) drug therapy; Z79.84 Long term (current) use of oral hypoglycemic drugs; Z79.51 Long term (current) use of inhaled steroids; Z71.6 Tobacco abuse counseling
CPT/HCPCS: 36415; 71046; 78452; 78582; 80048; 80076; 83880; 84484; 85025; 85379; 85610; 85730; 93005; 93010; 93017; 93306; 96360; 99406; G0378; A9270-GY; A9502; A9540; A9558; J1644; J1940; J2785

== ENCOUNTER 2019-06-30 09:37 | Emergency (ER) | payer MEDICARE ==
[2019-06-30] MEDS ORDERED: ASPIRIN 325 MG TAB PO ONE (09:43)
[2019-06-30 10:14] LABS: Basophils # (Auto) 0.1 K/mm3 (0.0-0.1); Basophils % (Auto) 1.1 % (0.0-1.8); Eosinophils # (Auto) 0.3 K/mm3 (0.0-0.4); Hematocrit 29.9 % (30.3-42.9); Hemoglobin 9.8 gm/dl (10.1-14.3); Lymphocytes % (Auto) 26.2 % (13.4-35.0); Mean Corpuscular HGB Conc 33 % (30-34); Mean Corpuscular Volume 93 fl (79-97); Monocytes # (Auto) 0.4 K/mm3 (0.0-0.8); Monocytes % (Auto) 5.8 % (0.0-7.3); Platelet Count 266 K/mm3 (140-440); Red Blood Count 3.22 M/mm3 (3.65-5.03); Red Cell Distribution Width 14.8 % (13.2-15.2)
--- NOTE | 2019-06-30 10:15 | XRay Report ---
CHEST 1 VIEW 06/30/2019 9:51 AM INDICATION / CLINICAL INFORMATION: Chest Pain. COMPARISON: 06/24/2019 FINDINGS: SUPPORT DEVICES: None. HEART / MEDIASTINUM: Stable mild cardiomegaly. LUNGS / PLEURA: Stable mild pulmonary vascular congestion. No focal consolidation. No pneumothorax. ADDITIONAL FINDINGS: No significant additional findings. IMPRESSION: 1. No adverse change from the prior exam. Signer Name: Danyel Sigala MD Signed: 06/30/2019 10:10 AM Workstation Name: [id number]
--- NOTE | 2019-06-30 10:21 | Emergency Department Report ---
ED General Adult HPI - General Chief complaint: Dyspnea/Respdistress Stated complaint: COUGH/SOB Time Seen by Provider: 06/30/19 10:18 Source: patient Mode of arrival: Ambulatory Limitations: No Limitations - History of Present Illness Initial comments: This is a 54 year old female with a history of chronic renal insufficiency and diastolic heart failure. She complains of persistent usually nonproductive cough. She is not complaining of chest pain. She states that she was recently hospitalized and was told that she had excess fluid. She claims that she was just given a prescription for an inhaler when she left the hospital however documented prescriptions include albuterol and azithromycin and actually various others. She is admits to not taking her blood pressure medicine today. She states that she has not filled any of these prescriptions since discharged other than the inhaler. Patient has not recently taken her temperature. She does not complain of chest pain. She is a generally poor historian. Discharge 06/26: Hospitalization Condition: Stable Hospital course: --Acute on chronic diastolic congestive heart failure; Continue anti-failure medications, input-output monitoring Echocardiogram, cardiology following --Atypical chest pain; rule out acute coronary syndrome Stress test tomorrow, continue current medications --Hypertension; continue current antihypertensives and when necessary medications --Acute on chronic kidney disease stage III; Due to vasomotor nephropathy, present on admission Nephrology consult, avoid nephrotoxins --Irritable bowel syndrome; continue home medicines --Peripheral neuropathy; supportive care, leg, --DVT prophylaxis; on heparin Follow stress test tomorrow, if negative and patient is stable We will discharged home Plan of care reviewed with the patient and her nurse -: week(s) Associated Symptoms: denies other symptoms Treatments Prior to Arrival: other (recent hospitalization) - Related Data Home Medications Medication Instructions Recorded Confirmed Last Taken Amlodipine Besylate [Norvasc] 5 mg PO DAILY 06/28/18 06/28/18 Unknown Cetirizine HCl [ZyrTEC 10mg cap] 10 mg PO DAILY 06/28/18 06/28/18 Unknown Diclofenac Potassium 50 mg PO BID 06/28/18 06/28/18 Unknown Linaclotide [Linzess] 72 mcg PO DAILY 06/28/18 06/28/18 Unknown Metoprolol Tartrate 25 mg PO BID 06/28/18 06/28/18 Unknown Pregabalin [Lyrica] 100 mg PO BID 06/28/18 06/28/18 Unknown traZODone [Desyrel] 50 mg PO QHS 06/28/18 06/28/18 Unknown Previous Rx's Medication Instructions Recorded Last Taken Type AtorvaSTATin [Lipitor] 40 mg PO QHS #30 tab 06/29/18 Unknown Rx traMADoL [Ultram 50 MG tab] 50 mg PO Q6HR PRN #12 tablet 09/14/18 Unknown Rx ALBUTEROL Inhaler (OR & NICU) 2 puff IH QID PRN #8.5 gram 06/26/19 Unknown Rx [ProAir HFA Inhaler] Benzonatate [Tessalon Perles] 100 mg PO Q8HR #20 capsule 06/26/19 Unknown Rx Loperamide [Imodium] 2 mg PO Q2HR PRN #20 capsule 06/26/19 Unknown Rx Nicotine [Habitrol] 14 mg TD DAILY #30 patch 06/26/19 Unknown Rx Azithromycin [Zithromax Z-SHIRAZ] 0 mg PO DAILY #1 tab 06/30/19 Unknown Rx Furosemide [Lasix TAB] 40 mg PO QDAY #14 tablet 06/30/19 Unknown Rx Allergies Allergy/AdvReac Type Severity Reaction Status Date / Time Penicillins AdvReac Swelling Verified 09/12/16 10:19 ED Review of Systems ROS: Stated complaint: COUGH/SOB Other details as noted in HPI Constitutional: denies: chills, fever Eyes: denies: eye pain, eye discharge, vision change ENT: denies: ear pain, throat pain Respiratory: cough. denies: shortness of breath, wheezing Cardiovascular: denies: chest pain, palpitations Endocrine: no symptoms reported Gastrointestinal: denies: abdominal pain, nausea, diarrhea Genitourinary: denies: urgency, dysuria, discharge Musculoskeletal: denies: back pain, joint swelling, arthralgia Skin: denies: rash, lesions Neurological: denies: headache, weakness, paresthesias Psychiatric: denies: anxiety, depression Hematological/Lymphatic: denies: easy bleeding, easy bruising ED Past Medical Hx - Past Medical History Previous Medical History?: Yes Hx Hypertension: Yes Hx CVA: Yes (2010 no deficiets) Hx Congestive Heart Failure: No Hx Diabetes: Yes Hx GERD: Yes (2012) Hx Liver Disease: No Hx Sickle Cell Disease: No Hx Arthritis: Yes Hx Asthma: No Hx COPD: No Hx HIV: No Additional medical history: neuropathy. Denied history of VTE - Surgical History Past Surgical History?: Yes Hx Cholecystectomy: Yes Additional Surgical History: ; rt knee surgery 2013 - Social History Smoking Status: Current Every Day Smoker Substance Use Type: Alcohol, Prescribed - Medications Home Medications: Home Medications Medication Instructions Recorded Confirmed Last Taken Type Amlodipine Besylate [Norvasc] 5 mg PO DAILY 06/28/18 06/28/18 Unknown History Cetirizine HCl [ZyrTEC 10mg cap] 10 mg PO DAILY 06/28/18 06/28/18 Unknown History Diclofenac Potassium 50 mg PO BID 06/28/18 06/28/18 Unknown History Linaclotide [Linzess] 72 mcg PO DAILY 06/28/18 06/28/18 Unknown History Metoprolol Tartrate 25 mg PO BID 06/28/18 06/28/18 Unknown History Pregabalin [Lyrica] 100 mg PO BID 06/28/18 06/28/18 Unknown History traZODone [Desyrel] 50 mg PO QHS 06/28/18 06/28/18 Unknown History AtorvaSTATin [Lipitor] 40 mg PO QHS #30 tab 06/29/18 Unknown Rx traMADoL [Ultram 50 MG tab] 50 mg PO Q6HR PRN #12 tablet 09/14/18 Unknown Rx ALBUTEROL Inhaler (OR & NICU) 2 puff IH QID PRN #8.5 gram 06/26/19 Unknown Rx [ProAir HFA Inhaler] Benzonatate [Tessalon Perles] 100 mg PO Q8HR #20 capsule 06/26/19 Unknown Rx Loperamide [Imodium] 2 mg PO Q2HR PRN #20 capsule 06/26/19 Unknown Rx Nicotine [Habitrol] 14 mg TD DAILY #30 patch 06/26/19 Unknown Rx Azithromycin [Zithromax Z-SHIRAZ] 0 mg PO DAILY #1 tab 06/30/19 Unknown Rx Furosemide [Lasix TAB] 40 mg PO QDAY #14 tablet 06/30/19 Unknown Rx ED Physical Exam - General Limitations: No Limitations ED Course Vital Signs 06/30/19 06/30/19 09:38 10:14 Temperature 97.7 F 98.1 F Pulse Rate 88 84 Respiratory 18 18 Rate Blood Pressure 159/58 Blood Pressure 171/72 [Left] O2 Sat by Pulse 100 98 Oximetry - Reevaluation(s) Reevaluation #1: As the area improved. Room air saturation is 98-99%. Patient is not coughing. She was actually prescribed a Z-Shiraz. I am going to place her on Lasix and hopefully she can diuresis some. She has an appointment to see Dr. Flores this coming week. She will be given Norvasc now. Compliance with her medication is stressed. 06/30/19 11:36 ED Medical Decision Making - Lab Data Result diagrams: 06/30/19 09:51 06/30/19 09:51 Laboratory Results - last 24 hr 06/30/19 06/30/19 09:51 09:51 WBC 7.7 RBC 3.22 L Hgb 9.8 L Hct 29.9 L MCV 93 MCH 31 MCHC 33 RDW 14.8 Plt Count 266 Lymph % (Auto) 26.2 [place] % (Auto) 5.8 Eos % (Auto) 4.0 Baso % (Auto) 1.1 Lymph # 2.0 [place] # 0.4 Eos # 0.3 Baso # 0.1 Seg Neutrophils % 62.9 Seg Neutrophils # 4.8 Sodium 140 Potassium 4.8 Chloride 105.5 Carbon Dioxide 19 L Anion Gap 20 BUN 34 H Creatinine 2.5 H Estimated GFR 24 BUN/Creatinine Ratio 14 Glucose 273 H Calcium 8.3 L Troponin T < 0.010 - EKG Data -: EKG Interpreted by Me EKG shows normal: sinus rhythm, axis, intervals, QRS complexes, ST-T waves Rate: normal - EKG Data Interpretation: nonspecific ST-T wave marielena - Radiology Data Radiology results: report reviewed, image reviewed (LUNGS / PLEURA: Stable mild pulmonary vascular congestion. No focal consolidation. No pneumothorax.) Critical care attestation.: If time is entered above; I have spent that time in minutes in the direct care of this critically ill patient, excluding procedure time. ED Disposition Clinical Impression: Poorly-controlled hypertension Congestive heart failure Qualifiers: Heart failure type: diastolic Heart failure chronicity: chronic Qualified Code(s): I50.32 - Chronic diastolic (congestive) heart failure Chronic kidney disease Qualifiers: Chronic kidney disease stage: stage 3 (moderate) Qualified Code(s): N18.3 - Chronic kidney disease, stage 3 (moderate) Hyperglycemia due to type 2 diabetes mellitus Qualifiers: Diabetes mellitus manager long term care insulin use: unspecified detention insulin use status Qualified Code(s): E11.65 - Type 2 diabetes mellitus with hyperglycemia Disposition: DC- TO HOME OR SELFCARE Is pt being admited?: No Does the pt Need Aspirin: No Condition: Stable Instructions: Diabetes Mellitus Type 2 in Adults (ED) Additional Instructions: Rx as directed. Be sure to see your kidney specialist next week as planned. Return any worsening symptoms. Be sure to take your usual medication. Prescriptions: Furosemide [Lasix TAB] 40 mg PO QDAY #14 tablet Azithromycin [Zithromax Z-SHIRAZ] 0 mg PO DAILY #1 tab Referrals: TERESSA RAYA MD [Staff Physician] - 2-3 Days Time of Disposition: 11:40
[2019-06-30 10:28] LABS: BUN/Creatinine Ratio 14; Blood Urea Nitrogen 34 mg/dL (7-17); Calcium 8.3 mg/dL (8.4-10.2); Hemolysis Index 46
[2019-06-30] MEDS ORDERED: FUROSEMIDE 40 MG/4 ML INJ IV ONE (10:41)
[2019-06-30] MEDS ORDERED: amLODIPine 5 MG TAB PO ONE (11:45)
[2019-06-30 12:39] VITALS: BP 183/75
== END 2019-06-30 12:27 | disposition home or self-care (01) ==
LOC: ED 09:37
DX: I13.0 Hypertensive heart and chronic kidney disease with heart failure and stage 1 through stage 4 chronic kidney disease, or unspecified chronic kidney disease (principal); I50.9 Heart failure, unspecified; E11.22 Type 2 diabetes mellitus with diabetic chronic kidney disease; E11.65 Type 2 diabetes mellitus with hyperglycemia; N18.9 Chronic kidney disease, unspecified; F17.200 Nicotine dependence, unspecified, uncomplicated; M19.90 Unspecified osteoarthritis, unspecified site; K21.9 Gastro-esophageal reflux disease without esophagitis; Z86.73 Personal history of transient ischemic attack (TIA), and cerebral infarction without residual deficits; Z90.49 Acquired absence of other specified parts of digestive tract; Z98.890 Other specified postprocedural states; Z79.899 Other long term (current) drug therapy; Z88.0 Allergy status to penicillin
CPT/HCPCS: 36415; 71045; 80048; 84484; 85025; 93005; 93010; 96374; 99284; J1940

== ENCOUNTER 2019-08-21 09:43 | Outpatient (CLI) | payer MEDICARE ==
[2019-08-21 10:42] LABS: Albumin 3.3 g/dL (3.9-5); Calcium 9.2 mg/dL (8.4-10.2)
== END 2019-08-21 09:44 | disposition home or self-care (01) ==
LOC: LAB 09:43
PROVIDERS: ATTEND Internal Medicine Nephrology
DX: N18.3 Chronic kidney disease, stage 3 (moderate) (principal)
CPT/HCPCS: 36415; 80048; 82040; 84100

== ENCOUNTER 2019-09-28 14:45 | Outpatient (CLI) | payer MEDICARE ==
[2019-09-28 15:39] LABS: Albumin 3.2 g/dL (3.9-5); Calcium 8.8 mg/dL (8.4-10.2)
== END 2019-09-28 14:46 | disposition home or self-care (01) ==
LOC: LAB 14:45
PROVIDERS: ATTEND Internal Medicine Nephrology
DX: N17.9 Acute kidney failure, unspecified (principal)
CPT/HCPCS: 36415; 80048; 82040; 84100

== ENCOUNTER 2019-10-12 12:27 | Emergency (ER) | payer MEDICARE ==
--- NOTE | 2019-10-12 12:54 | Emergency Department Report ---
Blank Doc - Documentation Documentation: c/o of orthorpnea and exertional dyspnea and chest pain. also has carpal tunnel symptoms to left wrist.
--- NOTE | 2019-10-12 13:27 | XRay Report ---
CHEST PA AND LATERAL VIEWS INDICATION: Dyspnea. COMPARISON: 06/30/2019 FINDINGS: Support devices: None. Heart: Enlarged, unchanged. Lungs/Pleura: There is pulmonary venous hypertension. No acute pulmonary or pleural findings. IMPRESSION: 1. No acute findings. Signer Name: Ever Ventura MD Signed: 10/12/2019 1:23 PM Workstation Name: [id number]
[2019-10-12 13:47] LABS: Basophils # (Auto) 0.1 K/mm3 (0.0-0.1); Basophils % (Auto) 0.8 % (0.0-1.8); Eosinophils # (Auto) 0.2 K/mm3 (0.0-0.4); Eosinophils % (Auto) 2.3 % (0.0-4.3); Hematocrit 29.6 % (30.3-42.9); Hemoglobin 9.5 gm/dl (10.1-14.3); Lymphocytes # (Auto) 2.1 K/mm3 (1.2-5.4); Lymphocytes % (Auto) 23.8 % (13.4-35.0); Mean Corpuscular HGB Conc 32 % (30-34); Mean Corpuscular Volume 91 fl (79-97); Monocytes # (Auto) 0.6 K/mm3 (0.0-0.8); Monocytes % (Auto) 6.6 % (0.0-7.3); Platelet Count 277 K/mm3 (140-440); Red Blood Count 3.26 M/mm3 (3.65-5.03); Red Cell Distribution Width 14.8 % (13.2-15.2)
[2019-10-12 14:08] LABS: Albumin 3.1 g/dL (3.9-5); Calcium 8.5 mg/dL (8.4-10.2)
[2019-10-12 14:24] LABS: Chol/HDL Ratio 2.7 %
[2019-10-12] MEDS ORDERED: oxyCODONE /ACETAMINOPHEN 5-325MG TAB PO ONE (15:54)
--- NOTE | 2019-10-12 16:04 | Emergency Department Report ---
ED Shortness of Breath HPI - General Chief Complaint: Extremity Problem,Nontraumatic Stated Complaint: LT HAND PAIN/SHORTNESS OF BREATH Time Seen by Provider: 10/12/19 12:50 Source: patient Mode of arrival: Ambulatory Limitations: No Limitations - History of Present Illness Initial Comments: 54-year-old female past medical history of chronic renal sufficiency, CHF, COPD, diabetes with neuropathy, and arthritis presents to the hospital complains of shortness of breath last 2 nights. Patient experiencing worsening in her baseline orthopnea with occasional PND mild dyspnea on exertion. She denies chest pain, cough, or fever. She has decreased her smoking to 1 black and mild per day (down from 1/2 pack cig per day) and states that she no longer has a chronic cough has decreased wheezing episodes.. She has very minimum leg edema and denies calf tenderness, current wheezing, recent travel, history of PE/DVT, calf tenderness, or leg asymmetry. Patient has not been taking her Lasix and ran out "a a while ago". Patient also complains of pain to her left elbow 2 days ago that now also involves her left wrist today. Pain is moderate to sever e, constant, worse with movement and palpation. No trauma reported. History of arthritis reported. Patient is left-hand dominant. Patient denies a history of carpal tunnel syndrome. She is currently in pain management and takes Percocet 10 mg at home. - Related Data Home Medications Medication Instructions Recorded Confirmed Last Taken Amlodipine Besylate [Norvasc] 5 mg PO DAILY 06/28/18 06/28/18 Unknown Cetirizine HCl [ZyrTEC 10mg cap] 10 mg PO DAILY 06/28/18 06/28/18 Unknown Diclofenac Potassium 50 mg PO BID 06/28/18 06/28/18 Unknown Linaclotide [Linzess] 72 mcg PO DAILY 06/28/18 06/28/18 Unknown Metoprolol Tartrate 25 mg PO BID 06/28/18 06/28/18 Unknown Pregabalin [Lyrica] 100 mg PO BID 06/28/18 06/28/18 Unknown traZODone [Desyrel] 50 mg PO QHS 06/28/18 06/28/18 Unknown Previous Rx's Medication Instructions Recorded Last Taken Type AtorvaSTATin [Lipitor] 40 mg PO QHS #30 tab 06/29/18 Unknown Rx traMADoL [Ultram 50 MG tab] 50 mg PO Q6HR PRN #12 tablet 09/14/18 Unknown Rx Albuterol INH(or & Nicu Only) 2 puff IH QID PRN #8.5 gram 06/26/19 Unknown Rx [ProAir HFA Inhaler] Benzonatate [Tessalon Perles] 100 mg PO Q8HR #20 capsule 06/26/19 Unknown Rx Loperamide [Imodium] 2 mg PO Q2HR PRN #20 capsule 06/26/19 Unknown Rx Nicotine [Habitrol] 14 mg TD DAILY #30 patch 06/26/19 Unknown Rx Azithromycin [Zithromax Z-SHIRAZ] 0 mg PO DAILY #1 tab 06/30/19 Unknown Rx Furosemide [Lasix TAB] 40 mg PO QDAY #14 tablet 10/12/19 Unknown Rx methylPREDNISolone [Medrol 4MG 4 mg PO DAILY #1 tab.ds.pk 10/12/19 Unknown Rx DOSEPAK (21 tabs)] Allergies Allergy/AdvReac Type Severity Reaction Status Date / Time Penicillins AdvReac Swelling Verified 09/12/16 10:19 ED Review of Systems ROS: Stated complaint: LT HAND PAIN/SHORTNESS OF BREATH Other details as noted in HPI Comment: All other systems reviewed and negative ED Past Medical Hx - Past Medical History Previous Medical History?: Yes Hx Hypertension: Yes Hx CVA: Yes (2010 no deficiets) Hx Congestive Heart Failure: No Hx Diabetes: Yes Hx GERD: Yes (2012) Hx Liver Disease: No Hx Sickle Cell Disease: No Hx Arthritis: Yes Hx Asthma: No Hx COPD: No Hx HIV: No Additional medical history: neuropathy. Denied history of VTE - Surgical History Past Surgical History?: Yes Hx Cholecystectomy: Yes Additional Surgical History: ; rt knee surgery 2013 - Social History Smoking Status: Current Every Day Smoker Substance Use Type: None - Medications Home Medications: Home Medications Medication Instructions Recorded Confirmed Last Taken Type Amlodipine Besylate [Norvasc] 5 mg PO DAILY 06/28/18 06/28/18 Unknown History Cetirizine HCl [ZyrTEC 10mg cap] 10 mg PO DAILY 06/28/18 06/28/18 Unknown History Diclofenac Potassium 50 mg PO BID 06/28/18 06/28/18 Unknown History Linaclotide [Linzess] 72 mcg PO DAILY 06/28/18 06/28/18 Unknown History Metoprolol Tartrate 25 mg PO BID 06/28/18 06/28/18 Unknown History Pregabalin [Lyrica] 100 mg PO BID 06/28/18 06/28/18 Unknown History traZODone [Desyrel] 50 mg PO QHS 06/28/18 06/28/18 Unknown History AtorvaSTATin [Lipitor] 40 mg PO QHS #30 tab 06/29/18 Unknown Rx traMADoL [Ultram 50 MG tab] 50 mg PO Q6HR PRN #12 tablet 09/14/18 Unknown Rx Albuterol INH(or & Nicu Only) 2 puff IH QID PRN #8.5 gram 06/26/19 Unknown Rx [ProAir HFA Inhaler] Benzonatate [Tessalon Perles] 100 mg PO Q8HR #20 capsule 06/26/19 Unknown Rx Loperamide [Imodium] 2 mg PO Q2HR PRN #20 capsule 06/26/19 Unknown Rx Nicotine [Habitrol] 14 mg TD DAILY #30 patch 06/26/19 Unknown Rx Azithromycin [Zithromax Z-SHIRAZ] 0 mg PO DAILY #1 tab 06/30/19 Unknown Rx Furosemide [Lasix TAB] 40 mg PO QDAY #14 tablet 10/12/19 Unknown Rx methylPREDNISolone [Medrol 4MG 4 mg PO DAILY #1 tab.ds.pk 10/12/19 Unknown Rx DOSEPAK (21 tabs)] ED Physical Exam - General Limitations: No Limitations - Other Other exam information: General: No acute distress Head: Atraumatic Eyes: normal appearance ENT: Moist mucous membranes Neck: Normal appearance, no midline tenderness Chest: Clear to auscultation bilaterally CV: Regular rate and rhythm Abdomen: Soft, normal bowel sounds, nontender, nondistended, no rebound or guarding Back: Normal inspection Extremity: Normal inspection, mild left elbow tenderness with full range of motion. Left wrist tenderness to palpation with mild warmth without erythema. Full range of motion although painful. Patient has mild pain with movement of all her fingers but states pain is primarily at the wrist. Patient has minimal/trace pedal edema without calf tenderness or leg asymmetry. 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 Agrees that NSAIDs should be avoided given chronic renal sufficiency. Patient be given 1 dose of IV Decadron for arthralgia and information and IV Lasix for diuresis and reassed ED Medical Decision Making - Lab Data Result diagrams: 10/12/19 13:14 10/12/19 13:14 Lab Results 10/12/19 10/12/19 10/12/19 Range/Units 13:14 13:14 13:14 WBC 8.8 (4.5-11.0) K/mm3 RBC 3.26 L (3.65-5.03) M/mm3 Hgb 9.5 L (10.1-14.3) gm/dl Hct 29.6 L (30.3-42.9) % MCV 91 (79-97) fl MCH 29 (28-32) pg MCHC 32 (30-34) % RDW 14.8 (13.2-15.2) % Plt Count 277 (140-440) K/mm3 Lymph % (Auto) 23.8 (13.4-35.0) % [place] % (Auto) 6.6 (0.0-7.3) % Eos % (Auto) 2.3 (0.0-4.3) % Baso % (Auto) 0.8 (0.0-1.8) % Lymph # 2.1 (1.2-5.4) K/mm3 [place] # 0.6 (0.0-0.8) K/mm3 Eos # 0.2 (0.0-0.4) K/mm3 Baso # 0.1 (0.0-0.1) K/mm3 Seg Neutrophils % 66.5 (40.0-70.0) % Seg Neutrophils # 5.8 (1.8-7.7) K/mm3 Sodium 142 (137-145) mmol/L Potassium 4.0 (3.6-5.0) mmol/L Chloride 109.0 H (98-107) mmol/L Carbon Dioxide 20 L (22-30) mmol/L Anion Gap 17 mmol/L BUN 48 H (7-17) mg/dL Creatinine 2.8 H (0.7-1.2) mg/dL Estimated GFR 21 ml/min BUN/Creatinine Ratio 17 % Glucose 141 H (65-100) mg/dL Calcium 8.5 (8.4-10.2) mg/dL Total Bilirubin 0.40 (0.1-1.2) mg/dL AST 10 (5-40) units/L ALT 8 (7-56) units/L Alkaline Phosphatase 87 (35-129) units/L Troponin T 0.032 H (0.00-0.029) ng/mL NT-Pro-B Natriuret Pep (0-900) pg/mL Total Protein 6.4 (6.3-8.2) g/dL Albumin 3.1 L (3.9-5) g/dL Albumin/Globulin Ratio 0.9 % Triglycerides 115 (2-149) mg/dL Cholesterol 189 (50-199) mg/dL LDL Cholesterol Direct 116 (50-130) mg/dL HDL Cholesterol 70 H (40-59) mg/dL Cholesterol/HDL Ratio 2.70 % 10/12/19 10/12/19 Range/Units 13:14 15:00 WBC (4.5-11.0) K/mm3 RBC (3.65-5.03) M/mm3 Hgb (10.1-14.3) gm/dl Hct (30.3-42.9) % MCV (79-97) fl MCH (28-32) pg MCHC (30-34) % RDW (13.2-15.2) % Plt Count (140-440) K/mm3 Lymph % (Auto) (13.4-35.0) % [place] % (Auto) (0.0-7.3) % Eos % (Auto) (0.0-4.3) % Baso % (Auto) (0.0-1.8) % Lymph # (1.2-5.4) K/mm3 [place] # (0.0-0.8) K/mm3 Eos # (0.0-0.4) K/mm3 Baso # (0.0-0.1) K/mm3 Seg Neutrophils % (40.0-70.0) % Seg Neutrophils # (1.8-7.7) K/mm3 Sodium (137-145) mmol/L Potassium (3.6-5.0) mmol/L Chloride (98-107) mmol/L Carbon Dioxide (22-30) mmol/L Anion Gap mmol/L BUN (7-17) mg/dL Creatinine (0.7-1.2) mg/dL Estimated GFR ml/min BUN/Creatinine Ratio % Glucose (65-100) mg/dL Calcium (8.4-10.2) mg/dL Total Bilirubin (0.1-1.2) mg/dL AST (5-40) units/L ALT (7-56) units/L Alkaline Phosphatase (35-129) units/L Troponin T 0.023 (0.00-0.029) ng/mL NT-Pro-B Natriuret Pep 3652 H (0-900) pg/mL Total Protein (6.3-8.2) g/dL Albumin (3.9-5) g/dL Albumin/Globulin Ratio % Triglycerides (2-149) mg/dL Cholesterol (50-199) mg/dL LDL Cholesterol Direct (50-130) mg/dL HDL Cholesterol (40-59) mg/dL Cholesterol/HDL Ratio % - Radiology Data Radiology results: report reviewed CHEST PA AND LATERAL VIEWS INDICATION: Dyspnea. COMPARISON: 06/30/2019 FINDINGS: Support devices: None. Heart: Enlarged, unchanged. Lungs/Pleura: There is pulmonary venous hypertension. No acute pulmonary or pleural findings. IMPRESSION: 1. No acute findings. - Medical Decision Making Pain improved after receiving Percocet 5 mg in the ED and 20 IV Decadron for arthralgia. Low suspicion for septic arthritis given lack of fever and leukocytosis and ability to move wrist. Patient placed in a left wrist splint for symptomatic immobilization and outpatient follow-up and work-up will be encouraged. Patient will be started on steroids as outpatient and has an insulin pump to manage her glucose. Mild troponin elevation noted likely secondary to renal sufficiency with repeat showing decreased. Patient denies chest pain has no acute EKG findings suggestive of acute cardiac syndrome. Patient has had urine output after receiving Lasix 60 mg IV and admits to noncompliance with Lasix. Her Lasix will be refilled and encouraged to have close follow-up with her egg packer and kidney doctor for continued monitoring. - Differential Diagnosis CHF, worsening renal failure, rheumatoid arthritis, carpal tunnel, osteoart Critical Care Time: No Critical care attestation.: If time is entered above; I have spent that time in minutes in the direct care of this critically ill patient, excluding procedure time. ED Disposition Clinical Impression: Orthopnea, Noncompliance with medication regimen, Arthritis, CRI (chronic renal insufficiency) Disposition: TO HOME OR SELFCARE Is pt being admited?: No Does the pt Need Aspirin: No Condition: Stable Instructions: Osteoarthritis (ED), Heart Failure (ED) Additional Instructions: Take the medication as prescribed. Follow-up with your doctor or doctor/clinic provided. Return if symptoms worsen as indicated by your discharge instructions. Prescriptions: Furosemide [Lasix TAB] 40 mg PO QDAY #14 tablet methylPREDNISolone [Medrol 4MG DOSEPAK (21 tabs)] 4 mg PO DAILY #1 tab.ds.pk Referrals: HANNA KRAFT MD [Primary Care Provider] - 3-5 Days TERESSA OLVERA MD [Staff Physician] - 3-5 Days your, egg packer [Other] - 3-5 Days Time of Disposition: 17:31
[2019-10-12] MEDS ORDERED: FUROSEMIDE 40 MG/4 ML INJ IV ONE (16:08)
[2019-10-12] MEDS ORDERED: dexAMETHasone 20 MG in SODIUM CHLORIDE 0.9% 50 ML IV ONE (16:30)
[2019-10-12 17:50] VITALS: BP 194/84
== END 2019-10-12 17:50 | disposition home or self-care (01) ==
LOC: ED 12:27
DX: R06.01 Orthopnea (principal); M25.532 Pain in left wrist; M19.90 Unspecified osteoarthritis, unspecified site; E13.22 Other specified diabetes mellitus with diabetic chronic kidney disease; I13.10 Hypertensive heart and chronic kidney disease without heart failure, with stage 1 through stage 4 chronic kidney disease, or unspecified chronic kidney disease; N18.9 Chronic kidney disease, unspecified; K21.9 Gastro-esophageal reflux disease without esophagitis; E11.40 Type 2 diabetes mellitus with diabetic neuropathy, unspecified; F17.200 Nicotine dependence, unspecified, uncomplicated; Z98.890 Other specified postprocedural states; Z79.899 Other long term (current) drug therapy; Z88.0 Allergy status to penicillin
CPT/HCPCS: 29125; 36415; 71046; 80053; 80061; 83880; 84484; 85025; 93005; 93010; 96365; 96375; 99284; J1100; J1940

== ENCOUNTER 2019-11-03 09:08 | Emergency (ER) | payer MEDICARE ==
--- NOTE | 2019-11-03 09:46 | XRay Report ---
CHEST 2 VIEWS INDICATION: SOB. COMPARISON: 10/12/2019 FINDINGS: Support devices: None. Heart: Within normal limits. Lungs/pleura: New diffuse interstitial disease without focal consolidation or significant effusion. T his could be seen with edema. No pneumothorax. Additional findings: None. IMPRESSION: 1. Worsened exam as above. Signer Name: Jac Gutierrez MD Signed: 11/03/2019 9:41 AM Workstation Name: [id number]
--- NOTE | 2019-11-03 10:13 | Emergency Department Report ---
ED Shortness of Breath HPI - General Chief Complaint: Dyspnea/Respdistress Stated Complaint: SOB Source: patient Mode of arrival: Ambulatory Limitations: No Limitations - History of Present Illness Initial Comments: 54-year-old -Stateless female smoker who just recently quit with a past medical history of CHF, diabetes, hypertension, CVA with no deficits whom is recently traveled to [place] presents emergency department complaining of shortness of breath and orthopnea with swelling to her lower extremities and some exertional dyspnea and indicative of her previous episode of CHF exacerbation which is been progressively worsening over about the last week. Reports no fever, hemoptysis, hematemesis, hematochezia, chest pain, palpitations, nausea or vomiting. She reports compliance with her medication regimen MD Complaint: shortness of breath Severity: mild, moderate Consistency: constant Improves With: rest, upright position Worsens With: lying flat Associated Symptoms: denies other symptoms - Related Data Home Medications Medication Instructions Recorded Confirmed Last Taken Amlodipine Besylate [Norvasc] 5 mg PO DAILY 06/28/18 06/28/18 Unknown Cetirizine HCl [ZyrTEC 10mg cap] 10 mg PO DAILY 06/28/18 06/28/18 Unknown Diclofenac Potassium 50 mg PO BID 06/28/18 06/28/18 Unknown Linaclotide [Linzess] 72 mcg PO DAILY 06/28/18 06/28/18 Unknown Metoprolol Tartrate 25 mg PO BID 06/28/18 06/28/18 Unknown Pregabalin [Lyrica] 100 mg PO BID 06/28/18 06/28/18 Unknown traZODone [Desyrel] 50 mg PO QHS 06/28/18 06/28/18 Unknown Previous Rx's Medication Instructions Recorded Last Taken Type AtorvaSTATin [Lipitor] 40 mg PO QHS #30 tab 06/29/18 Unknown Rx traMADoL [Ultram 50 MG tab] 50 mg PO Q6HR PRN #12 tablet 09/14/18 Unknown Rx Albuterol INH(or & Nicu Only) 2 puff IH QID PRN #8.5 gram 06/26/19 Unknown Rx [ProAir HFA Inhaler] Benzonatate [Tessalon Perles] 100 mg PO Q8HR #20 capsule 06/26/19 Unknown Rx Loperamide [Imodium] 2 mg PO Q2HR PRN #20 capsule 06/26/19 Unknown Rx Nicotine [Habitrol] 14 mg TD DAILY #30 patch 06/26/19 Unknown Rx Azithromycin [Zithromax Z-SHIRAZ] 0 mg PO DAILY #1 tab 06/30/19 Unknown Rx Furosemide [Lasix TAB] 40 mg PO QDAY #14 tablet 10/12/19 Unknown Rx methylPREDNISolone [Medrol 4MG 4 mg PO DAILY #1 tab.ds.pk 10/12/19 Unknown Rx DOSEPAK (21 tabs)] Furosemide [Lasix TAB] 40 mg PO BID #6 tablet 11/03/19 Unknown Rx Potassium Chloride [K-Dur] 20 meq PO QDAY #5 tablet 11/03/19 Unknown Rx Allergies Allergy/AdvReac Type Severity Reaction Status Date / Time Penicillins AdvReac Swelling Verified 09/12/16 10:19 ED Review of Systems ROS: Stated complaint: SOB Other details as noted in HPI Comment: All other systems reviewed and negative ED Past Medical Hx - Past Medical History Previous Medical History?: Yes Hx Hypertension: Yes Hx CVA: Yes (2010 no deficiets) Hx Congestive Heart Failure: No Hx Diabetes: Yes Hx GERD: Yes (2012) Hx Liver Disease: No Hx Sickle Cell Disease: No Hx Arthritis: Yes Hx Asthma: No Hx COPD: No Hx HIV: No Additional medical history: neuropathy. Denied history of VTE - Surgical History Past Surgical History?: Yes Hx Cholecystectomy: Yes Additional Surgical History: ; rt knee surgery 2013 - Social History Smoking Status: Never Smoker Substance Use Type: None - Medications Home Medications: Home Medications Medication Instructions Recorded Confirmed Last Taken Type Amlodipine Besylate [Norvasc] 5 mg PO DAILY 06/28/18 06/28/18 Unknown History Cetirizine HCl [ZyrTEC 10mg cap] 10 mg PO DAILY 06/28/18 06/28/18 Unknown History Diclofenac Potassium 50 mg PO BID 06/28/18 06/28/18 Unknown History Linaclotide [Linzess] 72 mcg PO DAILY 06/28/18 06/28/18 Unknown History Metoprolol Tartrate 25 mg PO BID 06/28/18 06/28/18 Unknown History Pregabalin [Lyrica] 100 mg PO BID 06/28/18 06/28/18 Unknown History traZODone [Desyrel] 50 mg PO QHS 06/28/18 06/28/18 Unknown History AtorvaSTATin [Lipitor] 40 mg PO QHS #30 tab 06/29/18 Unknown Rx traMADoL [Ultram 50 MG tab] 50 mg PO Q6HR PRN #12 tablet 09/14/18 Unknown Rx Albuterol INH(or & Nicu Only) 2 puff IH QID PRN #8.5 gram 06/26/19 Unknown Rx [ProAir HFA Inhaler] Benzonatate [Tessalon Perles] 100 mg PO Q8HR #20 capsule 06/26/19 Unknown Rx Loperamide [Imodium] 2 mg PO Q2HR PRN #20 capsule 06/26/19 Unknown Rx Nicotine [Habitrol] 14 mg TD DAILY #30 patch 06/26/19 Unknown Rx Azithromycin [Zithromax Z-SHIRAZ] 0 mg PO DAILY #1 tab 06/30/19 Unknown Rx Furosemide [Lasix TAB] 40 mg PO QDAY #14 tablet 10/12/19 Unknown Rx methylPREDNISolone [Medrol 4MG 4 mg PO DAILY #1 tab.ds.pk 10/12/19 Unknown Rx DOSEPAK (21 tabs)] Furosemide [Lasix TAB] 40 mg PO BID #6 tablet 11/03/19 Unknown Rx Potassium Chloride [K-Dur] 20 meq PO QDAY #5 tablet 11/03/19 Unknown Rx ED Physical Exam - General Limitations: No Limitations General appearance: alert, in no apparent distress - Head Head exam: Present: atraumatic, normocephalic - Eye Eye exam: Present: normal appearance - ENT ENT exam: Present: mucous membranes moist - Neck Neck exam: Present: normal inspection - Respiratory Respiratory exam: Present: normal lung sounds bilaterally, other (Fine crackles to the right lung base). Absent: respiratory distress - Cardiovascular Cardiovascular Exam: Present: regular rate, normal rhythm. Absent: systolic murmur, diastolic murmur, rubs, gallop - GI/Abdominal GI/Abdominal exam: Present: soft, normal bowel sounds - Extremities Exam Extremities exam: Present: normal inspection, pedal edema (Bilateral 3+ pitting edema) - Back Exam Back exam: Present: normal inspection - Neurological Exam Neurological exam: Present: alert, oriented X3, normal gait - Psychiatric Psychiatric exam: Present: normal affect, normal mood - Skin Skin exam: Present: warm, dry, intact, normal color. Absent: rash ED Course Vital Signs 11/03/19 11/03/19 09:09 09:11 Temperature 98.8 F 98.8 F Pulse Rate 97 H Respiratory 24 Rate Blood Pressure 176/63 O2 Sat by Pulse 99 Oximetry ED Medical Decision Making - Lab Data Result diagrams: 11/03/19 Unknown 11/03/19 Unknown - Radiology Data Radiology results: report reviewed Referring Physician:BABAK WATSONPatient Name:FILEMON JAOCBOPatient ID:[id number] of :[id number]:FemaleAccession:[id number] Date:[id number] Status:Finalized Findings [facility] [address] [place] [address] XRay Report Signed Patient: FILEMON JACOBO MR#: [id number] : 1965 Acct:[id number] Age/Sex: 54 / F ADM Date: 11/03/19 Loc: ED Attending Dr: Ordering Physician: BABAK WATSON MD Date of Service: 11/03/19 Procedure(s): XR chest routine 2V Accession Number(s): [id number] cc: ED MD WALTER Fluoro Time In Minutes: CHEST 2 VIEWS INDICATION: SOB. COMPARISON: 10/12/2019 FINDINGS: Support devices: None. Heart: Within normal limits. Lungs/pleura: New diffuse interstitial disease without focal consolidation or significant effusion. This could be seen with edema. No pneumothorax. Additional findings: None. IMPRESSION: 1. Worsened exam as above. Signer Name: Jac Gutierrez MD Signed: 11/03/2019 9:41 AM Workstation Name: [id number] Transcribed By: EMELYN Dictated By: Jac Gutierrez MD Electronically Authenticated By: Jac Gutierrez MD Signed Date/Time: 11/03/19940 DD/ 9 TD/TT: - Medical Decision Making This patient presents with dyspnea most likely secondary to CHF. Differential diagnosis includes asthma, bronchitis, pleuritic pulmonary issue, viral syndrome. Presentation not consistent with acute cardiac etiologies to include ACS (heart score), pericardial effusion/tamponade. Presentation not consistent with acute respiratory etiologies to include acute pulmonary embolism ( PERC negative), pneumothorax, asthma, COPD exacerbation, infectious etiology such as pneumonia. The presentation also not consistent with known cardiopulmonary causes to include toxic syndrome, metabolic etiology such as acidemia or electrolyte derangements, sepsis, neurologic causes. Chest x-ray showed interstitial processes consistent with edema as well as an elevated BNP and renal insufficiency. Patient was given Lasix 40 mg IV and was able to diurese a liter of fluids. Vital signs have remained stable throughout her emergency department visit however her orthopnea and exertional dyspnea nearly resolve after medication response. Patient is very pleased states that she feels much better reports no chest pain no short no shortness of breath or dizziness. I discussed with her acute on chronic CHF need for medication compliance. At this present time we will increase her home medication from 40 mg daily to 4 mg twice daily for the next 3 days at which she can return to her usual dosage. Critical care attestation.: If time is entered above; I have spent that time in minutes in the direct care of this critically ill patient, excluding procedure time. ED Disposition Clinical Impression: Acute on chronic diastolic (congestive) heart failure Disposition: TO HOME OR SELFCARE Is pt being admited?: No Does the pt Need Aspirin: No Condition: Stable Instructions: Heart Failure (ED) Additional Instructions: Please increase your Lasix from 40 mg daily to 40 mg twice a day for the next 3 days after which you can return to your usual Lasix dose. Please alert your primary care provider of this for this visit and your recommended temporary medication changes. Prescriptions: Potassium Chloride [K-Dur] 20 meq PO QDAY #5 tablet Furosemide [Lasix TAB] 40 mg PO BID #6 tablet Referrals: MINDI HART MD [Staff Physician] - 3-5 Days PRIMARY MD KRYSTAL [Referring] - 3-5 Days (Please follow-up with your lip cutter, or your primary care provider if you do not have you may follow-up with the listed provider)
[2019-11-03] MEDS ORDERED: FUROSEMIDE 40 MG/4 ML INJ IV STA (10:14)
[2019-11-03 10:48] LABS: Basophils # (Auto) 0.1 K/mm3 (0.0-0.1); Basophils % (Auto) 0.9 % (0.0-1.8); Eosinophils # (Auto) 0.2 K/mm3 (0.0-0.4); Eosinophils % (Auto) 1.9 % (0.0-4.3); Hematocrit 24.9 % (30.3-42.9); Hemoglobin 8.4 gm/dl (10.1-14.3); Lymphocytes % (Auto) 23.1 % (13.4-35.0); Mean Corpuscular HGB Conc 34 % (30-34); Mean Corpuscular Volume 91 fl (79-97); Monocytes # (Auto) 0.5 K/mm3 (0.0-0.8); Monocytes % (Auto) 5.6 % (0.0-7.3); Platelet Count 224 K/mm3 (140-440); Red Blood Count 2.75 M/mm3 (3.65-5.03); Red Cell Distribution Width 14.9 % (13.2-15.2)
[2019-11-03 11:11] LABS: Albumin 2.9 g/dL (3.9-5); Calcium 8.1 mg/dL (8.4-10.2)
[2019-11-03 11:39] LABS: Chol/HDL Ratio 1.59 %
[2019-11-03 13:38] VITALS: BP 196/68
== END 2019-11-03 14:02 | disposition home or self-care (01) ==
LOC: ED 09:08
DX: I50.33 Acute on chronic diastolic (congestive) heart failure (principal); I10 Essential (primary) hypertension; E11.9 Type 2 diabetes mellitus without complications; Z86.73 Personal history of transient ischemic attack (TIA), and cerebral infarction without residual deficits; K21.9 Gastro-esophageal reflux disease without esophagitis; M19.90 Unspecified osteoarthritis, unspecified site
CPT/HCPCS: 36415; 71046; 80053; 80061; 83880; 84484; 85025; 96374; 99284; J1940

== ENCOUNTER 2019-11-18 04:21 | Emergency (ER) | payer MEDICARE ==
[2019-11-18 05:12] LABS: Basophils # (Auto) 0.1 K/mm3 (0.0-0.1); Basophils % (Auto) 0.6 % (0.0-1.8); Eosinophils # (Auto) 0.1 K/mm3 (0.0-0.4); Eosinophils % (Auto) 0.8 % (0.0-4.3); Hematocrit 26.6 % (30.3-42.9); Hemoglobin 8.8 gm/dl (10.1-14.3); Lymphocytes # (Auto) 1.3 K/mm3 (1.2-5.4); Lymphocytes % (Auto) 12.1 % (13.4-35.0); Mean Corpuscular HGB Conc 33 % (30-34); Mean Corpuscular Volume 90 fl (79-97); Monocytes # (Auto) 0.6 K/mm3 (0.0-0.8); Monocytes % (Auto) 5.3 % (0.0-7.3); Platelet Count 268 K/mm3 (140-440); Red Blood Count 2.96 M/mm3 (3.65-5.03); Red Cell Distribution Width 14.9 % (13.2-15.2)
[2019-11-18 05:23] LABS: INR 0.96 (0.87-1.13)
--- NOTE | 2019-11-18 05:25 | XRay Report ---
CHEST 2 VIEWS INDICATION / CLINICAL INFORMATION: Dyspnea. COMPARISON: 11/03/2019 FINDINGS: SUPPORT DEVICES: None. HEART / MEDIASTINUM: Cardiac silhouette size remains mildly enlarged but unchanged. LUNGS / PLEURA: There is mild to moderate interstitial pulmonary edema. This appears slightly worse w hen compared with prior chest radiograph of 11/03/2019. Trace bilateral pleural effusions are present. No pneumothorax. ADDITIONAL FINDINGS: No significant additional findings. IMPRESSION: 1. Mild to moderate interstitial pulmonary edema, slightly worse compared to the 11/03/2019 chest radio graph. Signer Name: Marisol Dutton MD Signed: 11/18/2019 5:20 AM Workstation Name: [id number]
[2019-11-18 05:26] LABS: Albumin 3.3 g/dL (3.9-5); Calcium 8.2 mg/dL (8.4-10.2)
[2019-11-18 05:42] LABS: Creatine Kinase MB 6.4 ng/mL (0.0-4.0)
[2019-11-18] MEDS ORDERED: FUROSEMIDE 40 MG/4 ML INJ IV ONE (05:59)
[2019-11-18] MEDS ORDERED: hydrALAZINE 20 MG/1 ML INJ IV ONE (06:25)
[2019-11-18] MEDS ORDERED: ALBUTEROL 2.5 MG/3 ML NEBU IH ONE (06:25)
--- NOTE | 2019-11-18 06:26 | Emergency Department Report ---
ED Shortness of Breath HPI - General Chief Complaint: Dyspnea/Respdistress Stated Complaint: SOB Time Seen by Provider: 11/18/19 06:23 Source: patient Mode of arrival: Ambulatory Limitations: No Limitations - History of Present Illness Initial Comments: This is 54-year-old -Swedish with a past medical history of CHF, diabetes, hypertension, CVA with no deficits who presents emergency department complaining of shortness of breath at rest as well as worsening some exertional dyspnea and indicative of her previous episode of CHF exacerbation which is been progressively worsening over about the last month. She reports no fever, hemoptysis, hematemesis, hematochezia, chest pain, palpitations, nausea or vomiting. She reports compliance with her medication regimen. MD Complaint: shortness of breath -: Gradual Severity: mild Pain Scale: 5 Improves With: upright position Worsens With: lying flat, exertion - Related Data Home Oxygen Therapy: No Home Medications Medication Instructions Recorded Confirmed Last Taken Amlodipine Besylate [Norvasc] 5 mg PO DAILY 06/28/18 06/28/18 Unknown Cetirizine HCl [ZyrTEC 10mg cap] 10 mg PO DAILY 06/28/18 06/28/18 Unknown Diclofenac Potassium 50 mg PO BID 06/28/18 06/28/18 Unknown Linaclotide [Linzess] 72 mcg PO DAILY 06/28/18 06/28/18 Unknown Metoprolol Tartrate 25 mg PO BID 06/28/18 06/28/18 Unknown Pregabalin [Lyrica] 100 mg PO BID 06/28/18 06/28/18 Unknown traZODone [Desyrel] 50 mg PO QHS 06/28/18 06/28/18 Unknown Previous Rx's Medication Instructions Recorded Last Taken Type AtorvaSTATin [Lipitor] 40 mg PO QHS #30 tab 06/29/18 Unknown Rx traMADoL [Ultram 50 MG tab] 50 mg PO Q6HR PRN #12 tablet 09/14/18 Unknown Rx Albuterol INH(or & Nicu Only) 2 puff IH QID PRN #8.5 gram 06/26/19 Unknown Rx [ProAir HFA Inhaler] Benzonatate [Tessalon Perles] 100 mg PO Q8HR #20 capsule 06/26/19 Unknown Rx Loperamide [Imodium] 2 mg PO Q2HR PRN #20 capsule 06/26/19 Unknown Rx Nicotine [Habitrol] 14 mg TD DAILY #30 patch 06/26/19 Unknown Rx Azithromycin [Zithromax Z-SHIRAZ] 0 mg PO DAILY #1 tab 06/30/19 Unknown Rx Furosemide [Lasix TAB] 40 mg PO QDAY #14 tablet 10/12/19 Unknown Rx methylPREDNISolone [Medrol 4MG 4 mg PO DAILY #1 tab.ds.pk 10/12/19 Unknown Rx DOSEPAK (21 tabs)] Potassium Chloride [K-Dur] 20 meq PO QDAY #5 tablet 11/03/19 Unknown Rx Furosemide [Lasix TAB] 40 mg PO BID #20 tablet 11/18/19 Unknown Rx Allergies Allergy/AdvReac Type Severity Reaction Status Date / Time Penicillins AdvReac Swelling Verified 09/12/16 10:19 ED Review of Systems ROS: Stated complaint: SOB Other details as noted in HPI Comment: All other systems reviewed and negative ED Past Medical Hx - Past Medical History Hx Hypertension: Yes Hx CVA: Yes (2010 no deficiets) Hx Congestive Heart Failure: Yes Hx Diabetes: Yes Hx GERD: Yes (2012) Hx Liver Disease: No Hx Sickle Cell Disease: No Hx Arthritis: Yes Hx Asthma: No Hx COPD: No Hx HIV: No Additional medical history: neuropathy. Denied history of VTE - Surgical History Hx Cholecystectomy: Yes Additional Surgical History: ; rt knee surgery 2013 - Social History Smoking Status: Former Smoker Substance Use Type: None - Medications Home Medications: Home Medications Medication Instructions Recorded Confirmed Last Taken Type Amlodipine Besylate [Norvasc] 5 mg PO DAILY 06/28/18 06/28/18 Unknown History Cetirizine HCl [ZyrTEC 10mg cap] 10 mg PO DAILY 06/28/18 06/28/18 Unknown History Diclofenac Potassium 50 mg PO BID 06/28/18 06/28/18 Unknown History Linaclotide [Linzess] 72 mcg PO DAILY 06/28/18 06/28/18 Unknown History Metoprolol Tartrate 25 mg PO BID 06/28/18 06/28/18 Unknown History Pregabalin [Lyrica] 100 mg PO BID 06/28/18 06/28/18 Unknown History traZODone [Desyrel] 50 mg PO QHS 06/28/18 06/28/18 Unknown History AtorvaSTATin [Lipitor] 40 mg PO QHS #30 tab 06/29/18 Unknown Rx traMADoL [Ultram 50 MG tab] 50 mg PO Q6HR PRN #12 tablet 09/14/18 Unknown Rx Albuterol INH(or & Nicu Only) 2 puff IH QID PRN #8.5 gram 06/26/19 Unknown Rx [ProAir HFA Inhaler] Benzonatate [Tessalon Perles] 100 mg PO Q8HR #20 capsule 06/26/19 Unknown Rx Loperamide [Imodium] 2 mg PO Q2HR PRN #20 capsule 06/26/19 Unknown Rx Nicotine [Habitrol] 14 mg TD DAILY #30 patch 06/26/19 Unknown Rx Azithromycin [Zithromax Z-SHIRAZ] 0 mg PO DAILY #1 tab 06/30/19 Unknown Rx Furosemide [Lasix TAB] 40 mg PO QDAY #14 tablet 10/12/19 Unknown Rx methylPREDNISolone [Medrol 4MG 4 mg PO DAILY #1 tab.ds.pk 10/12/19 Unknown Rx DOSEPAK (21 tabs)] Potassium Chloride [K-Dur] 20 meq PO QDAY #5 tablet 11/03/19 Unknown Rx Furosemide [Lasix TAB] 40 mg PO BID #20 tablet 11/18/19 Unknown Rx ED Physical Exam - General Limitations: No Limitations General appearance: alert, in no apparent distress - Head Head exam: Present: atraumatic, normocephalic - Eye Eye exam: Present: normal appearance - ENT ENT exam: Present: mucous membranes moist - Neck Neck exam: Present: normal inspection - Respiratory Respiratory exam: Present: normal lung sounds bilaterally. Absent: respiratory distress - Cardiovascular Cardiovascular Exam: Present: regular rate, normal rhythm. Absent: systolic murmur, diastolic murmur, rubs, gallop - GI/Abdominal GI/Abdominal exam: Present: soft, normal bowel sounds - Extremities Exam Extremities exam: Present: normal inspection - Back Exam Back exam: Present: normal inspection - Neurological Exam Neurological exam: Present: alert, oriented X3 - Psychiatric Psychiatric exam: Present: normal affect, normal mood - Skin Skin exam: Present: warm, dry, intact, normal color. Absent: rash ED Course Vital Signs 11/18/19 11/18/19 04:27 06:18 Temperature 98.0 F Pulse Rate 94 H 97 H Respiratory 18 20 Rate Blood Pressure 174/70 Blood Pressure 189/80 [Right] O2 Sat by Pulse 95 93 Oximetry ED Medical Decision Making - Lab Data Result diagrams: 11/18/19 04:44 11/18/19 04:44 Laboratory Last Values WBC 10.5 K/mm3 (4.5-11.0) 11/18/19 04:44 RBC 2.96 M/mm3 (3.65-5.03) L 11/18/19 04:44 Hgb 8.8 gm/dl (10.1-14.3) L 11/18/19 04:44 Hct 26.6 % (30.3-42.9) L 11/18/19 04:44 MCV 90 fl (79-97) 11/18/19 04:44 MCH 30 pg (28-32) 11/18/19 04:44 MCHC 33 % (30-34) 11/18/19 04:44 RDW 14.9 % (13.2-15.2) 11/18/19 04:44 Plt Count 268 K/mm3 (140-440) 11/18/19 04:44 Lymph % (Auto) 12.1 % (13.4-35.0) L 11/18/19 04:44 [place] % (Auto) 5.3 % (0.0-7.3) 11/18/19 04:44 Eos % (Auto) 0.8 % (0.0-4.3) 11/18/19 04:44 Baso % (Auto) 0.6 % (0.0-1.8) 11/18/19 04:44 Lymph # 1.3 K/mm3 (1.2-5.4) 11/18/19 04:44 [place] # 0.6 K/mm3 (0.0-0.8) 11/18/19 04:44 Eos # 0.1 K/mm3 (0.0-0.4) 11/18/19 04:44 Baso # 0.1 K/mm3 (0.0-0.1) 11/18/19 04:44 Seg Neutrophils % 81.2 % (40.0-70.0) H 11/18/19 04:44 Seg Neutrophils # 8.5 K/mm3 (1.8-7.7) H 11/18/19 04:44 PT 12.9 Sec. (12.2-14.9) 11/18/19 04:44 INR 0.96 (0.87-1.13) 11/18/19 04:44 Sodium 137 mmol/L (137-145) 11/18/19 04:44 Potassium 4.8 mmol/L (3.6-5.0) 11/18/19 04:44 Chloride 106.9 mmol/L (98-107) 11/18/19 04:44 Carbon Dioxide 14 mmol/L (22-30) L 11/18/19 04:44 Anion Gap 21 mmol/L 11/18/19 04:44 BUN 46 mg/dL (7-17) H 11/18/19 04:44 Creatinine 3.0 mg/dL (0.7-1.2) H 11/18/19 04:44 Estimated GFR 20 ml/min 11/18/19 04:44 BUN/Creatinine Ratio 15 % 11/18/19 04:44 Glucose 300 mg/dL (65-100) H 11/18/19 04:44 Calcium 8.2 mg/dL (8.4-10.2) L 11/18/19 04:44 Total Bilirubin 0.20 mg/dL (0.1-1.2) 11/18/19 04:44 AST 13 units/L (5-40) 11/18/19 04:44 ALT 13 units/L (7-56) 11/18/19 04:44 Alkaline Phosphatase 112 units/L (35-129) 11/18/19 04:44 Total Creatine Kinase 187 units/L (30-135) H 11/18/19 04:44 CK-MB (CK-2) 6.4 ng/mL (0.0-4.0) H 11/18/19 04:44 CK-MB (CK-2) Rel Index 3.4 (0-4) 11/18/19 04:44 Troponin T 0.022 ng/mL (0.00-0.029) 11/18/19 04:44 NT-Pro-B Natriuret Pep 3238 pg/mL (0-900) H 11/18/19 04:44 Total Protein 7.1 g/dL (6.3-8.2) 11/18/19 04:44 Albumin 3.3 g/dL (3.9-5) L 04/19/20 04:44 Albumin/Globulin Ratio 0.9 % 11/18/19 04:44 - Radiology Data Radiology results: report reviewed, image reviewed CHEST 2 VIEWS INDICATION / CLINICAL INFORMATION: Dyspnea. COMPARISON: 11/03/2019 FINDINGS: SUPPORT DEVICES: None. HEART / MEDIASTINUM: Cardiac silhouette size remains mildly enlarged but unchanged. LUNGS / PLEURA: There is mild to moderate interstitial pulmonary edema. This appears slightly worse when compared with prior chest radiograph of 11/03/2019. Trace bilateral pleural effusions are present. No pneumothorax. ADDITIONAL FINDINGS: No significant additional findings. IMPRESSION: 1. Mild to moderate interstitial pulmonary edema, slightly worse compared to the 11/03/2019 chest radiograph. Signer Name: Marisol Dutton MD Signed: 11/18/2019 5:20 AM Workstation Name: [id number] Transcribed By: Dictated By: Marisol Dutton MD Electronically Authenticated By: Marisol Dutton MD Signed Date/Time: 11/18/19 0520 - Medical Decision Making This patient presents with shortness of breath most likely secondary to CHF. All labs with slightly unchanged from last visit, renal insufficiency still about the same, elevated BNP Chest x-ray showed interstitial processes consistent with edema same as last x- ray. Patient was given Lasix 40 mg IV and butyryl breathing treatments for shortness of breath. Vital signs have remained stable throughout her emergency department visit however her orthopnea and exertional dyspnea nearly resolve after medication administration. Patient is very pleased states that she feels much better prior to discharge I discussed with her acute on chronic CHF need for medication compliance. I discussed with patient to follow-up with her heart doctor. In the event that she is unable to I gave patient a referral to follow-up with [facility] or [facility]. I discussed with patient to call in the morning to schedule an appointment as soon as possible. I discussed the patient that she may need another echo since the last one was last year which was within normal limits Critical care attestation.: If time is entered above; I have spent that time in minutes in the direct care of this critically ill patient, excluding procedure time. ED Disposition Clinical Impression: Acute on chronic diastolic (congestive) heart failure Disposition: - TO HOME OR SELFCARE Is pt being admited?: No Does the pt Need Aspirin: No Condition: Stable Instructions: Heart Failure (ED) Additional Instructions: Make sure to follow up with the primary care physician as discussed. Take all your medications as you've been prescribed. If you have any worsening symptoms or develop new symptoms please return to ED immediately. Prescriptions: Furosemide [Lasix TAB] 40 mg PO BID #20 tablet Referrals: PRIMARY CARE, [Primary Care Provider] - 3-5 Days [facility] [Outside] - 3-5 Days [facility] [Provider Group[facility] - [facility] [facility] [Provider Group] - 3-5 Days [facility] [Provider Group] - 3-5 Days [facility] [Provider Group] - 3-5 Days Forms: Accompanied Note, Work/School Release Form(ED)
[2019-11-18 07:17] VITALS: BP 181/69
== END 2019-11-18 07:42 | disposition home or self-care (01) ==
LOC: ED 04:21
DX: I11.0 Hypertensive heart disease with heart failure (principal); I50.43 Acute on chronic combined systolic (congestive) and diastolic (congestive) heart failure; K21.9 Gastro-esophageal reflux disease without esophagitis; M13.88 Other specified arthritis, other site; E11.40 Type 2 diabetes mellitus with diabetic neuropathy, unspecified; Z87.891 Personal history of nicotine dependence; Z90.49 Acquired absence of other specified parts of digestive tract; Z88.6 Allergy status to analgesic agent; Z98.890 Other specified postprocedural states
CPT/HCPCS: 36415; 71046; 80053; 82550; 82553; 83880; 84484; 85025; 85610; 93005; 93010; 96374; 96375; 99284; J0360; J1940

== ENCOUNTER 2020-04-09 04:02 | Observation (INO) | payer MEDICARE ==
--- NOTE | 2020-04-09 06:22 | Emergency Department Report ---
HPI - General Chief Complaint: Dyspnea/Respdistress Time Seen by Provider: 04/09/20 06:08 - HPI HPI: This is a 54-year-old -Cuban female presents to the emergency department with a complaint of waking up earlier this morning "gasping for breath." The patient says that she continued to feel short of breath and this worsened with exertion upon arrival to the emergency department. She denies any fever, chest pain, vomiting, back pain, headache but did have some nausea earlier today. She has a history of CHF, CVA x3 without residual deficits, GERD, hypertension, neuropathy. Her primary care physician is Dr. Francine Falk. 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 She presents with elevated blood pressure but has not yet taken her medicationsbtoday. No recent travel or sick contacts at home. ED Past Medical Hx - Past Medical History Hx Hypertension: Yes Hx CVA: Yes (2010 no deficiets) Hx Congestive Heart Failure: Yes Hx Diabetes: Yes Hx GERD: Yes (2012) Hx Liver Disease: No Hx Sickle Cell Disease: No Hx Arthritis: Yes Hx Asthma: No Hx COPD: No Hx HIV: No Additional medical history: neuropathy. Denied history of VTE - Surgical History Hx Cholecystectomy: Yes Additional Surgical History: ; rt knee surgery 2013 - Social History Smoking Status: Former Smoker Substance Use Type: None - Medications Home Medications: Home Medications Medication Instructions Recorded Confirmed Last Taken Type Aspirin [Aspirin BABY CHEW TAB] 81 mg PO QDAY 11/27/19 11/27/19 Unknown History Furosemide [Lasix TAB] 40 mg PO QDAY 11/27/19 11/27/19 Unknown History Linaclotide [Linzess] 72 mcg PO QDAY 11/27/19 11/27/19 Unknown History Lispro Insulin [HumaLOG] 0 unit SQ ACHS 11/27/19 11/27/19 Unknown History Losartan [Cozaar] 50 mg PO QDAY 11/27/19 11/27/19 Unknown History Metoprolol Tartrate 25 mg PO BID 11/27/19 11/27/19 Unknown History NIFEdipine [Nifedipine ER] 90 mg PO BID 11/27/19 11/27/19 Unknown History Omeprazole 40 mg PO QDAY 11/27/19 11/27/19 Unknown History Oxycodone HCl/Acetaminophen 1 each PO Q6HR PRN 11/27/19 11/27/19 Unknown History [Percocet 10/325 mg] AtorvaSTATin [Lipitor] 40 mg PO QHS #30 tablet 11/29/19 Unknown Rx Linaclotide [Linzess] 72 mcg PO DAILY 11/29/19 Unknown Rx Loperamide [Imodium] 2 mg PO Q2H PRN capsule 11/29/19 Unknown Rx Metoprolol [Lopressor TAB] 25 mg PO BID tablet 11/29/19 Unknown Rx Nicotine [Habitrol] 14 mg TD DAILY patch 11/29/19 Unknown Rx Pregabalin 100 mg PO BID capsule 11/29/19 Unknown Rx amLODIPine 5 mg PO DAILY #30 tablet 11/29/19 Unknown Rx levoFLOXacin [Levaquin TAB] 500 mg PO QDAY #5 tablet 11/29/19 Unknown Rx ED Review of Systems ROS: Stated complaint: SOB Other details as noted in HPI Comment: All other systems reviewed and negative Constitutional: denies: chills, fever Eyes: denies: eye pain, vision change ENT: denies: ear pain, throat pain Respiratory: shortness of breath, SOB with exertion. denies: cough Cardiovascular: denies: chest pain, edema Gastrointestinal: nausea. denies: abdominal pain, vomiting Genitourinary: denies: dysuria, discharge Musculoskeletal: denies: back pain, arthralgia Skin: denies: rash, lesions Neurological: denies: headache, weakness Physical Exam - Physical Exam Vital Signs: Vital Signs 04/09/20 04/09/20 04/09/20 04:06 06:11 06:16 Temperature 97.7 F Pulse Rate 88 88 89 Respiratory 17 16 14 Rate Blood Pressure 183/74 O2 Sat by Pulse 97 99 100 Oximetry Physical Exam: GENERAL: The patient is well-developed well-nourished. HENT: Normocephalic. Atraumatic. Patient has moist mucous membranes. EYES: Extraocular motions are intact. NECK: Supple. Trachea is midline. CHEST/LUNGS: Coarse breath sounds throughout the chest. Mild tachypnea but no accessory muscle use. There is no respiratory distress noted. HEART/CARDIOVASCULAR: Regular. There is no tachycardia. There is no murmur. ABDOMEN: Abdomen is soft, nontender. Patient has normal bowel sounds. SKIN: Skin is warm and dry. NEURO: The patient is awake, alert, and oriented. The patient is cooperative. The patient has no focal neurologic deficits. Normal speech. MUSCULOSKELETAL: There is no tenderness or deformity. There is no limitation range of motion. ED Course Vital Signs 04/09/20 04/09/20 04/09/20 04:06 06:11 06:16 Temperature 97.7 F Pulse Rate 88 88 89 Respiratory 17 16 14 Rate Blood Pressure 183/74 O2 Sat by Pulse 97 99 100 Oximetry ED Medical Decision Making - Lab Data Result diagrams: 04/09/20 06:51 04/09/20 06:51 - EKG Data -: EKG Interpreted by Me EKG shows normal: sinus rhythm, axis, intervals, QRS complexes, ST-T waves Rate: normal - EKG Data When compared to previous EKG there are: no significant change Interpretation: normal EKG, unchanged when compared t (11/30/19) - Radiology Data Radiology results: report reviewed, image reviewed interpreted by me: Chest x-ray shows some pulmonary vascular congestion and mild interstitial edema. No obvious pneumonia. No pneumothorax. NUCLEAR MEDICINE PERFUSION LUNG SCAN INDICATION: SOB, elevated dimer. TECHNIQUE: 4.6 mCi of Tc-99m MAA were given by IV. COMPARISON: Chest radiograph dated to day. FINDINGS: PERFUSION: No significant perfusion defects. ADDITIONAL FINDINGS: None. IMPRESSION: 1. Low probability for pulmonary embolism. - Medical Decision Making This patient presents to the emergency department with some acute shortness of breath that started early this morning. On examination she has some coarse breath sounds and some mild tachypnea but otherwise does not appear in any respiratory or acute distress. Patient does present with hypertension but otherwise vital signs are reassuring including being afebrile. EKG did not have any morphology consistent with ST elevation myocardial infarction. Chest x-ray shows some interstitial edema and pulmonary vascular congestion. The patient has elevated d-dimer level, elevated BNP and signs of chronic kidney disease. She had a perfusion scan that came back low probability for a pulmonary embolism. The patient has been given breathing treatments, IV antihypertensive medication and IV Lasix for diuresis. She will be admitted to the hospital for further evaluation and treatment was accepted for admission by the hospitalist service. Critical Care Time: No Critical care attestation.: If time is entered above; I have spent that time in minutes in the direct care of this critically ill patient, excluding procedure time. ED Disposition Clinical Impression: CHF exacerbation Qualifiers: Heart failure type: unspecified Qualified Code(s): I50.9 - Heart failure, unspecified Hypertension Qualifiers: Hypertension type: essential hypertension Qualified Code(s): I10 - Essential (primary) hypertension Dyspnea Qualifiers: Dyspnea type: shortness of breath Qualified Code(s): R06.02 - Shortness of breath; R06.00 - Dyspnea, unspecified; R06.01 - Orthopnea Disposition: -09 OP ADMIT IP TO THIS HOSP Is pt being admited?: Yes Condition: Stable Time of Disposition: 10:04
[2020-04-09 07:39] LABS: Basophils # (Auto) 0.1 K/mm3 (0.0-0.1); Basophils % (Auto) 0.7 % (0.0-1.8); Eosinophils # (Auto) 0.2 K/mm3 (0.0-0.4); Eosinophils % (Auto) 2.3 % (0.0-4.3); Hematocrit 25.8 % (30.3-42.9); Hemoglobin 8.6 gm/dl (10.1-14.3); Lymphocytes # (Auto) 1.7 K/mm3 (1.2-5.4); Lymphocytes % (Auto) 21.4 % (13.4-35.0); Mean Corpuscular HGB Conc 33 % (30-34); Mean Corpuscular Volume 88 fl (79-97); Monocytes # (Auto) 0.7 K/mm3 (0.0-0.8); Monocytes % (Auto) 8.5 % (0.0-7.3); Platelet Count 196 K/mm3 (140-440); Red Blood Count 2.94 M/mm3 (3.65-5.03); Red Cell Distribution Width 16.6 % (13.2-15.2)
[2020-04-09 08:00] LABS: Albumin 3.1 g/dL (3.9-5); Calcium 8.3 mg/dL (8.4-10.2)
--- NOTE | 2020-04-09 08:19 | XRay Report ---
CHEST 1 VIEW INDICATION: SOB. COMPARISON: 11/30/2019 FINDINGS: Support devices: None. Heart: Stable. Prominent pulmonary vasculature is again noted. Lungs/Pleura: Mild interstitial opacities are noted. IMPRESSION: 1. Probable mild interstitial pulmonary edema. Signer Name: Ever Ventura MD Signed: 04/09/2020 8:15 AM Workstation Name: [id number]
[2020-04-09] MEDS ORDERED: FUROSEMIDE 40 MG/4 ML INJ IV ONE ×2 (08:23→18:00)
[2020-04-09] MEDS ORDERED: IPRATROPIUM/ALBUTEROL SULFATE 3 ML AMPUL.NEB IH ONE (08:23)
--- NOTE | 2020-04-09 09:24 | Nuclear Medicine Report ---
NUCLEAR MEDICINE PERFUSION LUNG SCAN INDICATION: SOB, elevated dimer. TECHNIQUE: 4.6 mCi of Tc-99m MAA were given by IV. COMPARISON: Chest radiograph dated today. FINDINGS: PERFUSION: No significant perfusion defects. ADDITIONAL FINDINGS: None. IMPRESSION: 1. Low probability for pulmonary embolism. Signer Name: Shaun Corcoran MD Signed: 04/09/2020 9:20 AM Workstation Name: [id number]
--- NOTE | 2020-04-09 13:43 | History and Physical Report ---
History of Present Illness Date of examination: 04/09/20 Date of admission: 04/09/20 10:07 Chief complaint: Shortness of breath History of present illness: 54-year-old -Mosoth[place] female with a history of CHF, CVA x3 without residual deficits, GERD, hypertension, neuropathy presents to the emergency department with a complaint of waking up earlier this morning "gasping for breath." The patient says that she continued to feel short of breath and this worsened with exertion upon arrival to the emergency department. She denies any fever, chest pain, vomiting, back pain, headache but did have some nausea earlier today. Her primary care physician is Dr. Francine Falk. 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 She presents with elevated blood pressure but has not yet taken her medication today. No recent travel or sick contacts at home. 04/09. She is no longer short of breath. Feels better. Medications reviewed. Past History Past Medical History: heart failure, renal failure Medications and Allergies Allergies Allergy/AdvReac Type Severity Reaction Status Date / Time Penicillins AdvReac Swelling Verified 04/09/20 13:26 Home Medications Medication Instructions Recorded Confirmed Last Taken Type Aspirin [Aspirin BABY CHEW TAB] 81 mg PO QDAY 11/27/19 04/09/20 Unknown History Furosemide [Lasix TAB] 40 mg PO QDAY 11/27/19 04/09/20 Unknown History Linaclotide [Linzess] 72 mcg PO QDAY 11/27/19 04/09/20 Unknown History Losartan [Cozaar] 50 mg PO QDAY 11/27/19 04/09/20 Unknown History NIFEdipine [Nifedipine ER] 90 mg PO BID 11/27/19 04/09/20 Unknown History Omeprazole 40 mg PO QDAY 11/27/19 04/09/20 Unknown History Oxycodone HCl/Acetaminophen 1 each PO Q6HR PRN 11/27/19 04/09/20 Unknown History [Percocet 10/325 mg] AtorvaSTATin [Lipitor] 40 mg PO QHS #30 tablet 11/29/19 04/09/20 Unknown Rx Metoprolol [Lopressor TAB] 25 mg PO BID tablet 11/29/19 04/09/20 Unknown Rx Pregabalin 100 mg PO BID capsule 11/29/19 04/09/20 Unknown Rx amLODIPine 5 mg PO DAILY #30 tablet 11/29/19 04/09/20 Unknown Rx Active Meds: Active Medications Amlodipine Besylate (Amlodipine) 10 mg PO QDAY SILVANO Aspirin (Halfprin Ec) 81 mg PO QDAY SILVANO Atorvastatin Calcium (Lipitor) 40 mg PO QHS [facility] Metoprolol Tartrate (Metoprolol) 25 mg PO BID SILVANO Pantoprazole Sodium (Protonix) 40 mg PO QDAY SILVANO Pregabalin (Pregabalin) 100 mg PO BID SILVANO Exam - Constitutional Vitals: Temp Pulse Resp BP Pulse Ox 97.7 F 84 22 200/68 97 04/09/20 04:06 04/09/20 12:46 04/09/20 12:46 04/09/20 12:46 04/09/20 12:46 General appearance: Present: no acute distress, well-nourished - EENT Eyes: Present: PERRL ENT: hearing intact, clear oral mucosa - Neck Neck: Present: supple, normal ROM - Respiratory Respiratory effort: normal Respiratory: bilateral: rales (trace at the bases) - Cardiovascular Heart Sounds: Present: S1 & S2. Absent: rub, click - Extremities Extremities: pulses symmetrical, No edema Peripheral Pulses: within normal limits - Abdominal General gastrointestinal: Present: soft, non-tender, non-distended, normal bowel sounds Female genitourinary: Present: normal - Integumentary Integumentary: Present: clear, warm, dry - Musculoskeletal Musculoskeletal: gait normal, strength equal bilaterally - Psychiatric Psychiatric: appropriate mood/affect, intact judgment & insight - Neurologic Neurologic: CNII-XII intact, moves all extremities HEART Score - HEART Score Troponin: Troponin T 0.013 ng/mL (0.00-0.029) 04/09/20 06:51 Results - Labs CBC & Chem 7: 04/09/20 06:51 04/09/20 06:51 Labs: Laboratory Last Values WBC 8.0 K/mm3 (4.5-11.0) 04/09/20 06:51 RBC 2.94 M/mm3 (3.65-5.03) L 04/09/20 06:51 Hgb 8.6 gm/dl (10.1-14.3) L 04/09/20 06:51 Hct 25.8 % (30.3-42.9) L 04/09/20 06:51 MCV 88 fl (79-97) 04/09/20 06:51 MCH 29 pg (28-32) 04/09/20 06:51 MCHC 33 % (30-34) 04/09/20 06:51 RDW 16.6 % (13.2-15.2) H 04/09/20 06:51 Plt Count 196 K/mm3 (140-440) 04/09/20 06:51 Lymph % (Auto) 21.4 % (13.4-35.0) 04/09/20 06:51 [place] % (Auto) 8.5 % (0.0-7.3) H 04/09/20 06:51 Eos % (Auto) 2.3 % (0.0-4.3) 04/09/20 06:51 Baso % (Auto) 0.7 % (0.0-1.8) 04/09/20 06:51 Lymph # 1.7 K/mm3 (1.2-5.4) 04/09/20 06:51 [place] # 0.7 K/mm3 (0.0-0.8) 04/09/20 06:51 Eos # 0.2 K/mm3 (0.0-0.4) 04/09/20 06:51 Baso # 0.1 K/mm3 (0.0-0.1) 04/09/20 06:51 Seg Neutrophils % 67.1 % (40.0-70.0) 04/09/20 06:51 Seg Neutrophils # 5.4 K/mm3 (1.8-7.7) 04/09/20 06:51 D-Dimer 6274.37 ng/mlDDU (0-234) H 04/09/20 06:51 Sodium 141 mmol/L (137-145) 04/09/20 06:51 Potassium 4.6 mmol/L (3.6-5.0) 04/09/20 06:51 Chloride 110.1 mmol/L (98-107) H 04/09/20 06:51 Carbon Dioxide 19 mmol/L (22-30) L 04/09/20 06:51 Anion Gap 17 mmol/L 04/09/20 06:51 BUN 56 mg/dL (7-17) H 04/09/20 06:51 Creatinine 3.2 mg/dL (0.6-1.2) H 04/09/20 06:51 Estimated GFR 18 ml/min 04/09/20 06:51 BUN/Creatinine Ratio 18 % 04/09/20 06:51 Glucose 232 mg/dL (65-100) H 04/09/20 06:51 Calcium 8.3 mg/dL (8.4-10.2) L 04/09/20 06:51 Total Bilirubin 0.30 mg/dL (0.1-1.2) 04/09/20 06:51 AST 11 units/L (5-40) 04/09/20 06:51 ALT 11 units/L (7-56) 04/09/20 06:51 Alkaline Phosphatase 102 units/L (35-129) 04/09/20 06:51 Troponin T 0.013 ng/mL (0.00-0.029) 04/09/20 06:51 NT-Pro-B Natriuret Pep 3643 pg/mL (0-900) H 04/09/20 06:51 Total Protein 6.6 g/dL (6.3-8.2) 04/09/20 06:51 Albumin 3.1 g/dL (3.9-5) L 04/09/20 06:51 Albumin/Globulin Ratio 0.9 % 04/09/20 06:51 Vera/IV: IV Catheter Type [Right Peripheral IV Antecubital] Assessment and Plan - Patient Problems (1) Acute exacerbation of CHF (congestive heart failure) Current Visit: Yes Status: Acute Qualifiers: Heart failure type: unspecified Qualified Code(s): I50.9 - Heart failure, unspecified Plan to address problem: Lasix 40 mg BID for now Evaluate tomorrow Follow up with cardiology as outpatient (2) Accelerated hypertension Current Visit: No Status: Acute Plan to address problem: Continue IV labetalol as needed Resume home medications (3) Diabetes mellitus type 2 in obese Current Visit: No Status: Acute Plan to address problem: Lantus and lispro as ordered HbA1c (4) DVT prophylaxis Current Visit: No Status: Acute Plan to address problem: Heparin
[2020-04-09] MEDS ORDERED: ONDANSETRON 4 MG/2 ML INJ IV PRN (14:12)
[2020-04-09] MEDS ORDERED: ACETAMINOPHEN 325 MG TAB PO PRN (14:12)
[2020-04-09] MEDS: amLODIPine 10 MG TAB PO SCH (14:47)
[2020-04-09] MEDS: hydrALAZINE 25 MG TAB PO SCH ×2 (14:47→21:29)
[2020-04-09] MEDS: ASPIRIN EC 81 MG TAB PO SCH (14:47)
[2020-04-09] MEDS ORDERED: DEXTROSE 50% IN WATER (25GM) 50 ML SYRINGE IV PRN (15:00)
[2020-04-09] MEDS: METOPROLOL TARTRATE 25 MG TAB PO SCH (21:30)
[2020-04-09] MEDS: PREGABALIN 75 MG CAP PO SCH (21:31)
[2020-04-09] MEDS: HEPARIN 5,000 UNIT/1 ML VIAL SUB-Q SCH (21:31)
[2020-04-09] MEDS: PREGABALIN 25 MG CAP PO SCH (21:53)
[2020-04-09] MEDS ORDERED: METOPROLOL TARTRATE 25 MG TAB PO SCH (22:00)
[2020-04-09] MEDS ORDERED: INSULIN GLARGINE 100 UNITS/ML SUB-Q SCH (22:00)
[2020-04-10] MEDS: hydrALAZINE 25 MG TAB PO SCH (05:16)
[2020-04-10] MEDS: HEPARIN 5,000 UNIT/1 ML VIAL SUB-Q SCH (05:16)
[2020-04-10 06:24] LABS: Basophils # (Auto) 0.1 K/mm3 (0.0-0.1); Basophils % (Auto) 1.2 % (0.0-1.8); Eosinophils # (Auto) 0.2 K/mm3 (0.0-0.4); Eosinophils % (Auto) 3.2 % (0.0-4.3); Hematocrit 26.1 % (30.3-42.9); Hemoglobin 8.5 gm/dl (10.1-14.3); Lymphocytes % (Auto) 31.3 % (13.4-35.0); Mean Corpuscular HGB Conc 33 % (30-34); Mean Corpuscular Volume 89 fl (79-97); Monocytes # (Auto) 0.6 K/mm3 (0.0-0.8); Monocytes % (Auto) 9.8 % (0.0-7.3); Platelet Count 194 K/mm3 (140-440); Red Blood Count 2.94 M/mm3 (3.65-5.03); Red Cell Distribution Width 17.3 % (13.2-15.2)
[2020-04-10] MEDS ORDERED: FUROSEMIDE 40 MG/4 ML INJ IV SCH (07:30)
--- NOTE | 2020-04-10 09:55 | Discharge Summary ---
Providers - Providers Date of Admission: 04/09/20 10:07 Date of discharge: 04/10/20 Attending physician: MAMI TAFOYA Primary care physician: GRID CASTING MACHINE OPERATOR HELPER Hospitalization Reason for admission: Shortness of breath Condition: Stable Hospital course: 54-year-old -Swedish female with a history of CHF, CVA x3 without residual deficits, GERD, hypertension, neuropathy presents to the emergency department with a complaint of waking up earlier this morning "gasping for breath." The patient says that she continued to feel short of breath and this worsened with exertion upon arrival to the emergency department. She denies any fever, chest pain, vomiting, back pain, headache but did have some nausea earlier today. Her primary care physician is Dr. Francine Falk. She does not have a coordinate measuring machine technician. She presents with elevated blood pressure but has not yet taken her medication today. No recent travel or sick contacts at home. 04/09. She is no longer short of breath. Feels better. Medications reviewed. 04/10. Diuresed well. Feels better. She will continue lasix as ordered and follow up with her oracle business analyst. BP medications have been adjusted - added clonidine for elevated BP Disposition: DC-01 TO HOME OR SELFCARE - Discharge Diagnoses (1) Acute exacerbation of CHF (congestive heart failure) Status: Acute Qualifiers: Heart failure type: unspecified Qualified Code(s): I50.9 - Heart failure, unspecified (2) Accelerated hypertension Status: Acute (3) Diabetes mellitus type 2 in obese Status: Acute (4) DVT prophylaxis Status: Acute Core Measure Documentation - Palliative Care Palliative Care/ Comfort Measures: Not Applicable - Core Measures Any of the following diagnoses?: none Exam - Constitutional Vitals: Temp Pulse Resp BP Pulse Ox 98.7 F 71 20 176/66 95 04/10/20 00:05 04/10/20 05:16 04/10/20 00:05 04/10/20 05:16 04/10/20 00:05 General appearance: Present: no acute distress, well-nourished - EENT Eyes: Present: PERRL ENT: hearing intact, clear oral mucosa - Neck Neck: Present: supple, normal ROM - Respiratory Respiratory effort: normal Respiratory: bilateral: CTA - Cardiovascular Heart Sounds: Present: S1 & S2. Absent: rub, click - Extremities Extremities: pulses symmetrical, No edema Peripheral Pulses: within normal limits - Abdominal General gastrointestinal: Present: soft, non-tender, non-distended, normal bowel sounds Female genitourinary: Present: normal - Integumentary Integumentary: Present: clear, warm, dry - Musculoskeletal Musculoskeletal: gait normal, strength equal bilaterally - Psychiatric Psychiatric: appropriate mood/affect, intact judgment & insight - Neurologic Neurologic: CNII-XII intact, moves all extremities Plan Diet: low fat, low salt, diabetic Additional Instructions: Continue medications as ordered. Follow up with your oracle business analyst and pcp in 1-2 weeks Follow up with: PRIMARY CARE, [Primary Care Provider] - 3-5 Days Prescriptions: cloNIDine [Catapres] 0.1 mg PO PRN PRN #21 tablet PRN Reason: Blood Pressure Metoprolol [Lopressor TAB] 50 mg PO BID #60 tablet NIFEdipine [Nifedipine ER] 90 mg PO BID #60
[2020-04-10] MEDS ORDERED: PANTOPRAZOLE 40 MG TAB PO SCH (10:00)
[2020-04-10] MEDS: ASPIRIN EC 81 MG TAB PO SCH (10:31)
[2020-04-10] MEDS: PREGABALIN 75 MG CAP PO SCH (10:31)
[2020-04-10] MEDS: METOPROLOL TARTRATE 25 MG TAB PO SCH (10:31)
[2020-04-10] MEDS: PREGABALIN 25 MG CAP PO SCH (10:32)
[2020-04-10] MEDS: amLODIPine 10 MG TAB PO SCH (10:32)
[2020-04-10 13:06] VITALS: BP 163/61
== END 2020-04-10 13:29 | disposition home or self-care (01) ==
LOC: ED 04:02 → 4A 10:07
PROVIDERS: ADMIT Internal Medicine; ATTEND Internal Medicine
DX: R06.02 Shortness of breath (principal); I11.0 Hypertensive heart disease with heart failure; I50.9 Heart failure, unspecified; E11.69 Type 2 diabetes mellitus with other specified complication; E66.9 Obesity, unspecified; E11.40 Type 2 diabetes mellitus with diabetic neuropathy, unspecified; K21.9 Gastro-esophageal reflux disease without esophagitis; M19.90 Unspecified osteoarthritis, unspecified site; Z86.73 Personal history of transient ischemic attack (TIA), and cerebral infarction without residual deficits; Z87.891 Personal history of nicotine dependence; Z79.4 Long term (current) use of insulin; Z79.82 Long term (current) use of aspirin; Z79.899 Other long term (current) drug therapy; Z88.0 Allergy status to penicillin; Z68.36 Body mass index [BMI] 36.0-36.9, adult
CPT/HCPCS: 36415; 71045; 78580; 80048; 80053; 82962; 83036; 83880; 84484; 85025; 85379; 93005; 96372; 96374; 96375; 96376; 99285; A9270; A9540; G0378; J1644; J1940; J1815

== ENCOUNTER 2020-04-26 07:05 | Emergency (ER) | payer MEDICARE, MEDICAID ==
[2020-04-26] MEDS ORDERED: MORPHINE 15 MG ER TAB PO ONE (08:23)
[2020-04-26] MEDS ORDERED: ACETAMINOPHEN 500 MG TAB PO ONE (08:23)
--- NOTE | 2020-04-26 08:24 | Emergency Department Report ---
ED General Adult HPI - General Chief complaint: Dyspnea/Respdistress Stated complaint: SOB, BACK PAIN PUI?: No Time Seen by Provider: 04/26/20 07:26 Source: patient Mode of arrival: Ambulatory Limitations: No Limitations - History of Present Illness Initial comments: The patient was evaluated in the emergency department for symptoms described in the history of present illness. He/she was evaluated in the context of the global COVID-19 pandemic, which necessitated consideration that the patient might be at risk for infection with the virus that causes COVID-19. Institutional protocols and algorithms that pertain to the evaluation of patients at risk for COVID-19 are in a state of rapid change based on information released by regulatory bodies including the CDC and federal and state organizations. These policies and algorithms were followed during the patient's care in the emergency department. Please note that these policies, procedures and recommendations changed on a rapid basis. Patient is a 54-year-old female. Her past medical history includes congestive heart failure, stroke x3 without residual deficits, GERD, hypertension, neuropathy, and renal insufficiency. Her primary care doctor is Dr. Francine Falk. She had a nuclear cardiac stress test at this hospital June 2019, which was negative for ischemic findings. She had a nuclear medicine study earlier on this month, V/Q, which was found to be low probability for pulmonary embolism. The patient occasionally has mildly elevated troponins, likely type II troponin leak, secondary to chronic renal insufficiency. Today, the patient presents to the ER with a complaint of nontraumatic chest wall pain and left-sided rib pain, which does not radiate to the back, arms or neck, without vomiting, diaphoresis, or new or different shortness of breath, associated with a cough. She denies headache, neck pain, abdominal pain, hematemesis, bright red blood per rectum, leg pain and leg swelling, surgery, oral contraceptive use, and recent immobilization. She unfortunately cannot take NSAIDs because of her renal insufficiency. Her chest wall pain is sharp and throbbing, intermittent, does not radiate anywhere, is central, left-sided and lateral, increases with palpation, and decreases with rest and position. 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 and escorted by nurse NEO SNYDER -: Gradual, days(s) Location: chest Radiation: non-radiation Severity scale (0 -10): 10 Quality: other Consistency: other Improves with: other Worsens with: other Associated Symptoms: other - Related Data Home Medications Medication Instructions Recorded Confirmed Last Taken Aspirin [Aspirin BABY CHEW TAB] 81 mg PO QDAY 11/27/19 04/09/20 Unknown Furosemide [Lasix TAB] 40 mg PO QDAY 11/27/19 04/09/20 Unknown Linaclotide [Linzess] 72 mcg PO QDAY 11/27/19 04/09/20 Unknown Losartan [Cozaar] 50 mg PO QDAY 11/27/19 04/09/20 Unknown Omeprazole 40 mg PO QDAY 11/27/19 04/09/20 Unknown Oxycodone HCl/Acetaminophen 1 each PO Q6HR PRN 11/27/19 04/09/20 Unknown [Percocet 10/325 mg] Previous Rx's Medication Instructions Recorded Last Taken Type AtorvaSTATin [Lipitor] 40 mg PO QHS #30 tablet 11/29/19 Unknown Rx Pregabalin 100 mg PO BID capsule 11/29/19 Unknown Rx Metoprolol [Lopressor TAB] 50 mg PO BID #60 tablet 04/10/20 Unknown Rx NIFEdipine [Nifedipine ER] 90 mg PO BID #60 04/10/20 Unknown Rx cloNIDine [Catapres] 0.1 mg PO PRN PRN #21 tablet 04/10/20 Unknown Rx hydrALAZINE [Apresoline TAB] 50 mg PO Q8HR #120 tablet 04/10/20 Unknown Rx Acetaminophen [Non-Aspirin Extra 500 mg PO Q6HR PRN #30 tablet 04/26/20 Unknown Rx Strength] Aspirin [Aspirin BABY CHEW TAB] 81 mg PO QDAY #30 tab.chew 04/26/20 Unknown Rx Furosemide [Lasix TAB] 40 mg PO QDAY #30 tablet 04/26/20 Unknown Rx Allergies Allergy/AdvReac Type Severity Reaction Status Date / Time Penicillins AdvReac Swelling Verified 04/09/20 13:26 ED Review of Systems ROS: Stated complaint: SOB, BACK PAIN Other details as noted in HPI Constitutional: denies: diaphoresis, fever, malaise ENT: congestion Respiratory: cough. denies: wheezing Cardiovascular: chest pain (Left-sided chest wall pain) Musculoskeletal: arthralgia, myalgia Skin: denies: lesions Neurological: denies: weakness Hematological/Lymphatic: denies: easy bleeding ED Past Medical Hx - Past Medical History Previous Medical History?: Yes Hx Hypertension: Yes Hx CVA: Yes (2010 no deficiets) Hx Congestive Heart Failure: Yes Hx Diabetes: Yes Hx GERD: Yes (2012) Hx Liver Disease: No Hx Sickle Cell Disease: No Hx Arthritis: Yes Hx Asthma: No Hx COPD: No Hx HIV: No Additional medical history: neuropathy. Denied history of VTE - Surgical History Past Surgical History?: Yes Hx Cholecystectomy: Yes Additional Surgical History: ; rt knee surgery 2013 - Social History Smoking Status: Former Smoker Substance Use Type: Prescribed - Medications Home Medications: Home Medications Medication Instructions Recorded Confirmed Last Taken Type Aspirin [Aspirin BABY CHEW TAB] 81 mg PO QDAY 11/27/19 04/09/20 Unknown History Furosemide [Lasix TAB] 40 mg PO QDAY 11/27/19 04/09/20 Unknown History Linaclotide [Linzess] 72 mcg PO QDAY 11/27/19 04/09/20 Unknown History Losartan [Cozaar] 50 mg PO QDAY 11/27/19 04/09/20 Unknown History Omeprazole 40 mg PO QDAY 11/27/19 04/09/20 Unknown History Oxycodone HCl/Acetaminophen 1 each PO Q6HR PRN 11/27/19 04/09/20 Unknown History [Percocet 10/325 mg] AtorvaSTATin [Lipitor] 40 mg PO QHS #30 tablet 11/29/19 04/09/20 Unknown Rx Pregabalin 100 mg PO BID capsule 11/29/19 04/09/20 Unknown Rx Metoprolol [Lopressor TAB] 50 mg PO BID #60 tablet 04/10/20 Unknown Rx NIFEdipine [Nifedipine ER] 90 mg PO BID #60 04/10/20 Unknown Rx cloNIDine [Catapres] 0.1 mg PO PRN PRN #21 tablet 04/10/20 Unknown Rx hydrALAZINE [Apresoline TAB] 50 mg PO Q8HR #120 tablet 04/10/20 Unknown Rx Acetaminophen [Non-Aspirin Extra 500 mg PO Q6HR PRN #30 tablet 04/26/20 Unknown Rx Strength] Aspirin [Aspirin BABY CHEW TAB] 81 mg PO QDAY #30 tab.chew 04/26/20 Unknown Rx Furosemide [Lasix TAB] 40 mg PO QDAY #30 tablet 04/26/20 Unknown Rx ED Physical Exam - General Limitations: No Limitations, Other (Chaperoned by nurse NEO SNYDER) General appearance: alert, in no apparent distress - Head Head exam: Present: atraumatic, normocephalic - Eye Eye exam: Present: normal appearance, EOMI. Absent: nystagmus - ENT ENT exam: Present: normal exam, normal orophraynx, mucous membranes moist, normal external ear exam - Neck Neck exam: Present: normal inspection, full ROM. Absent: tenderness, meningismus - Respiratory Respiratory exam: Present: normal lung sounds bilaterally, chest wall tenderness. Absent: respiratory distress, wheezes, stridor - Cardiovascular Cardiovascular Exam: Present: regular rate, normal rhythm, normal heart sounds. Absent: bradycardia, tachycardia, irregular rhythm, systolic murmur, diastolic murmur, rubs, gallop - GI/Abdominal GI/Abdominal exam: Present: soft. Absent: distended, tenderness, guarding, rebound, rigid, pulsatile mass - Extremities Exam Extremities exam: Present: normal inspection, full ROM, other (2+ pulses noted in the bilateral upper and lower extremities. There is no palpable cord. negative Homans sign. Muscular compartments are soft. The pelvis is stable.). Absent: pedal edema, calf tenderness - Back Exam Back exam: Present: normal inspection, full ROM. Absent: tenderness, CVA tenderness (R), CVA tenderness (L), paraspinal tenderness, vertebral tenderness - Neurological Exam Neurological exam: Present: alert, oriented X3, other (No facial droop. Tongue midline. Extraocular movements intact bilaterally. Facial sensation intact to light touch in V1, V2, V3 distribution bilaterally. 5 and a 5 strength in 4 extremities. Sensation intact to light touch in 4 extremities.). Absent: motor sensory deficit - Psychiatric Psychiatric exam: Present: normal affect, normal mood - Skin Skin exam: Present: warm, dry, intact, normal color. Absent: rash ED Course Vital Signs 04/26/20 04/26/20 04/26/20 07:09 07:40 08:00 Temperature 98.2 F 98.5 F Pulse Rate 75 74 73 Respiratory 18 17 17 Rate Blood Pressure 128/52 136/62 Blood Pressure 136/59 [Left] O2 Sat by Pulse 98 98 96 Oximetry 04/26/20 04/26/20 04/26/20 08:20 08:40 09:01 Temperature Pulse Rate 73 70 74 Respiratory 16 15 19 Rate Blood Pressure 129/57 130/56 136/62 Blood Pressure [Left] O2 Sat by Pulse 100 97 92 Oximetry 04/26/20 09:21 Temperature Pulse Rate 73 Respiratory 17 Rate Blood Pressure 130/56 Blood Pressure [Left] O2 Sat by Pulse 95 Oximetry ED Medical Decision Making - Lab Data Result diagrams: 04/26/20 08:31 04/26/20 08:31 Vital Signs 04/26/20 04/26/20 07:09 07:40 Temperature 98.2 F 98.5 F Pulse Rate 75 74 Respiratory 18 17 Rate Blood Pressure 128/52 Blood Pressure 136/59 [Left] O2 Sat by Pulse 98 98 Oximetry Lab Results 04/26/20 04/26/20 Range/Units 08:31 08:31 Hgb 8.6 L (10.1-14.3) gm/dl Hct 26.3 L (30.3-42.9) % Plt Count 258 (140-440) K/mm3 Sodium 138 (137-145) mmol/L Potassium 4.6 (3.6-5.0) mmol/L Chloride 105.3 (98-107) mmol/L Carbon Dioxide 18 L (22-30) mmol/L Anion Gap 19 mmol/L BUN 53 H (7-17) mg/dL Creatinine 3.7 H (0.6-1.2) mg/dL Estimated GFR 15 ml/min BUN/Creatinine Ratio 14 % Glucose 124 H (65-100) mg/dL Calcium 8.3 L (8.4-10.2) mg/dL Magnesium 1.90 (1.7-2.3) mg/dL Total Creatine Kinase 97 (30-135) units/L Troponin T 0.021 (0.00-0.029) ng/mL - EKG Data -: EKG Interpreted by Ms EKG shows normal: sinus rhythm Rate: normal - EKG Data 04/26/20 09:28 Sinus rhythm, 71 bpm, borderline leftward axis deviation, there is motion artifact, there is poor R wave progression, the QTC is 438 ms, the EKG is abnormal, the EKG is not a STEMI, grossly unchanged when compared to prior EKG, with the exception of negatively deflected QRS complex in aVF, appears new when compared to prior EKG from April 09, 2020 04/26/20 09:29 However, this EKG is very similar to prior EKG obtained June 2019 - Radiology Data Radiology results: pending, report reviewed, image reviewed X-ray of the chest shows mild pulmonary vascular congestion, otherwise, no acute pathology. - Medical Decision Making Differential diagnosis, including but not limited to: Costochondritis, pneumonia, pulmonary edema Assessment and plan: 54-year-old female who had a negative nuclear stress test June 2019 for cardiac ischemia, a low probability nuclear medicine study at this hospital within the past month, with an essentially unchanged EKG, unchanged but chronically abnormal laboratory studies, with complaint of cough, and chest wall pain. Symptoms present for 3 days, troponin negative x1, as per the [employer] clinical policy, myocardial infarction may be ruled out with 1 set of troponins/cardiac enzymes, if symptoms present for greater than 8 hours. Patient not currently tachycardic, tachypneic or hypoxic, and upon my initial evaluation in the emergency room, she is sleeping comfortably in her stretcher, and in no acute distress. She cannot receive NSAIDs secondary to her renal insufficiency, she will therefore be medicated with acetaminophen, and low-dose morphine orally. She will also be given aspirin and Lasix. Patient will also be referred to local outpatient primary care [facility], and nephrology. Critical care attestation.: If time is entered above; I have spent that time in minutes in the direct care of this critically ill patient, excluding procedure time. ED Disposition Clinical Impression: Renal insufficiency, Chest wall pain Disposition: -01 TO HOME OR SELFCARE Is pt being admited?: No Does the pt Need Aspirin: No Condition: Stable Instructions: Costochondritis (ED), Chest Pain (ED) Additional Instructions: Rest, avoid heavy lifting, and avoid strenuous physical activities. Continue current outpatient medications. Take the prescribed medications as needed and directed. Follow-up with an outpatient primary care doctor or train control technician for kidney insufficiency within the next 2 weeks. Follow-up with a primary care doctor or toll service observer within the next 3-5 days for complaint of chest wall pain. Please return to the emergency room right away with new pain, worsening pain, migration of pain, projectile vomiting, change in mental status, confusion, inability to tolerate liquid feeds, new, worsened or different symptoms not present on the initial emergency room evaluation Referrals: FRANCINE KRAFT MD [Staff Physician] - 3-5 Days BARRY DO MD [Staff Physician] - 3-5 Days TERESSA RAYA MD [Staff Physician] - 3-5 Days
[2020-04-26 09:17] LABS: Calcium 8.3 mg/dL (8.4-10.2)
[2020-04-26 09:19] LABS: Hematocrit 26.3 % (30.3-42.9); Hemoglobin 8.6 gm/dl (10.1-14.3)
[2020-04-26 09:29] VITALS: BP 130/56
--- NOTE | 2020-04-26 09:37 | XRay Report ---
CHEST 2 VIEWS 0858 INDICATION / CLINICAL INFORMATION: left chest wall pain COMPARISON: 04/09/2020 FINDINGS: SUPPORT DEVICES: None. HEART / MEDIASTINUM: Cardiomegaly LUNGS / PLEURA: Mildly congested appearance is seen. No pleural effusions are noted. Mild basilar ate lectasis is noted. There might be slight interstitial edema. No definite areas of consolidation are s een. No pneumothorax. ADDITIONAL FINDINGS: No significant additional findings. IMPRESSION: Mild congestion Signer Name: Sammy Espinoza MD Signed: 04/26/2020 9:32 AM Workstation Name: [id number]
[2020-04-26] MEDS ORDERED: ASPIRIN 81 MG TAB CHEW PO STA (09:38)
[2020-04-26 09:41] LABS: INR 1.06 (0.87-1.13)
[2020-04-26] MEDS ORDERED: FUROSEMIDE 20 MG TAB PO ONE (10:00)
== END 2020-04-26 10:02 | disposition home or self-care (01) ==
LOC: ED 07:05
DX: R07.89 Other chest pain (principal); N28.9 Disorder of kidney and ureter, unspecified; I11.0 Hypertensive heart disease with heart failure; I50.9 Heart failure, unspecified; E11.40 Type 2 diabetes mellitus with diabetic neuropathy, unspecified; K21.9 Gastro-esophageal reflux disease without esophagitis; M13.88 Other specified arthritis, other site; Z87.891 Personal history of nicotine dependence; Z90.49 Acquired absence of other specified parts of digestive tract; Z79.899 Other long term (current) drug therapy; Z88.0 Allergy status to penicillin
CPT/HCPCS: 36415; 71046; 80048; 82550; 83735; 84484; 85014; 85018; 85049; 85610; 93005

== ENCOUNTER 2020-05-03 01:34 | Emergency (ER) | payer MEDICARE ==
[2020-05-03] MEDS ORDERED: ASPIRIN 325 MG TAB PO ONE (02:47)
--- NOTE | 2020-05-03 03:20 | XRay Report ---
CHEST PA AND LATERAL VIEWS INDICATION: Chest Pain. COMPARISON: 04/26/2020 FINDINGS: Support devices: None Heart: Normal and unchanged Lungs/Pleura: As on the previous exam, there appears to be very mild interstitial edema. No pleural f luid. IMPRESSION: 1. Minimal interstitial edema. No new disease and no interval change. Signer Name: Sage Avila MD Signed: 05/03/2020 3:15 AM Workstation Name: [id number]
[2020-05-03 04:21] LABS: Hematocrit 24.8 % (30.3-42.9); Hemoglobin 8.1 gm/dl (10.1-14.3); Mean Corpuscular HGB Conc 33 % (30-34); Mean Corpuscular Volume 90 fl (79-97); Platelet Count 272 K/mm3 (140-440); Red Blood Count 2.75 M/mm3 (3.65-5.03); Red Cell Distribution Width 16.2 % (13.2-15.2)
[2020-05-03 04:22] LABS: Calcium 8.4 mg/dL (8.4-10.2)
[2020-05-03 05:14] LABS: Basophils % (Manual) 0 % (0.0-1.8); Hypochromasia Few; Total Cells Counted 100
[2020-05-03 05:15] LABS: Anisocytosis Few; Ovalocytes Rare; Platelet Estimate Consistent w Auto; Target Cells Rare; Tear Drop Cells Rare
[2020-05-03] MEDS ORDERED: FUROSEMIDE 40 MG/4 ML INJ IV ONE ×2 (05:15→06:41)
[2020-05-03] MEDS ORDERED: METOPROLOL TARTRATE 50 MG TAB PO ONE (05:15)
[2020-05-03] MEDS ORDERED: LOSARTAN 50 MG TAB PO ONE (05:16)
[2020-05-03] MEDS ORDERED: IPRATROPIUM/ALBUTEROL SULFATE 3 ML AMPUL.NEB IH ONE (06:41)
[2020-05-03] MEDS ORDERED: POTASSIUM CHLORIDE ER 20 MEQ TAB PO ONE (06:41)
[2020-05-03] MEDS ORDERED: ASPIRIN 325 MG TAB ONE (07:48)
[2020-05-03 07:51] VITALS: BP 145/77
--- NOTE | 2020-05-03 07:59 | Emergency Department Report ---
ED Shortness of Breath HPI - General Chief Complaint: Chest Pain Stated Complaint: SOB/HURTS WHEN I LAY DOWN Time Seen by Provider: 05/03/20 06:12 Source: patient Mode of arrival: Ambulatory Limitations: No Limitations - History of Present Illness Initial Comments: 54-year-old female with a past medical history of asthma, CHF, CVA without residual deficits, diabetes, hypertension, and GERD presents to the hospital complains of dyspnea on exertion, orthopnea, PND for the last several days. Patient feels like the symptoms are similar to her previous CHF exacerbation. She had been noncompliant with her Lasix 40 mg daily during this time as well because she has been running a lot of errands and did not want to have to urinate frequently in public. Patient has intermittent wheezing and cough with active of clear mucus. She denies fever, loss of taste or smell or known COVID exposure. She also denies history of PE/DVT. As per medical record review patient had a negative stress test here June 2019 and had a low probability VQ scan April 2020. - Related Data Home Medications Medication Instructions Recorded Confirmed Last Taken Aspirin [Aspirin BABY CHEW TAB] 81 mg PO QDAY 11/27/19 04/09/20 Unknown Furosemide [Lasix TAB] 40 mg PO QDAY 11/27/19 04/09/20 Unknown Linaclotide [Linzess] 72 mcg PO QDAY 11/27/19 04/09/20 Unknown Losartan [Cozaar] 50 mg PO QDAY 11/27/19 04/09/20 Unknown Omeprazole 40 mg PO QDAY 11/27/19 04/09/20 Unknown Oxycodone HCl/Acetaminophen 1 each PO Q6HR PRN 11/27/19 04/09/20 Unknown [Percocet 10/325 mg] Previous Rx's Medication Instructions Recorded Last Taken Type AtorvaSTATin [Lipitor] 40 mg PO QHS #30 tablet 11/29/19 Unknown Rx Pregabalin 100 mg PO BID capsule 11/29/19 Unknown Rx Metoprolol [Lopressor TAB] 50 mg PO BID #60 tablet 04/10/20 Unknown Rx NIFEdipine [Nifedipine ER] 90 mg PO BID #60 04/10/20 Unknown Rx cloNIDine [Catapres] 0.1 mg PO PRN PRN #21 tablet 04/10/20 Unknown Rx hydrALAZINE [Apresoline TAB] 50 mg PO Q8HR #120 tablet 04/10/20 Unknown Rx Acetaminophen [Non-Aspirin Extra 500 mg PO Q6HR PRN #30 tablet 04/26/20 Unknown Rx Strength] Aspirin [Aspirin BABY CHEW TAB] 81 mg PO QDAY #30 tab.chew 04/26/20 Unknown Rx Furosemide [Lasix TAB] 40 mg PO QDAY #30 tablet 04/26/20 Unknown Rx Allergies Allergy/AdvReac Type Severity Reaction Status Date / Time Penicillins AdvReac Swelling Verified 04/09/20 13:26 ED Review of Systems ROS: Stated complaint: SOB/HURTS WHEN I LAY DOWN Other details as noted in HPI Comment: All other systems reviewed and negative ED Past Medical Hx - Past Medical History Previous Medical History?: Yes Hx Hypertension: Yes Hx CVA: Yes (2010 no deficiets) Hx Congestive Heart Failure: Yes Hx Diabetes: Yes Hx GERD: Yes (2012) Hx Liver Disease: No Hx Sickle Cell Disease: No Hx Arthritis: Yes Hx Asthma: No Hx COPD: No Hx HIV: No Additional medical history: neuropathy. Denied history of VTE - Surgical History Past Surgical History?: Yes Hx Cholecystectomy: Yes Additional Surgical History: ; rt knee surgery 2014 - Social History Smoking Status: Never Smoker Substance Use Type: None - Medications Home Medications: Home Medications Medication Instructions Recorded Confirmed Last Taken Type Aspirin [Aspirin BABY CHEW TAB] 81 mg PO QDAY 11/27/19 04/09/20 Unknown History Furosemide [Lasix TAB] 40 mg PO QDAY 11/27/19 04/09/20 Unknown History Linaclotide [Linzess] 72 mcg PO QDAY 11/27/19 04/09/20 Unknown History Losartan [Cozaar] 50 mg PO QDAY 11/27/19 04/09/20 Unknown History Omeprazole 40 mg PO QDAY 11/27/19 04/09/20 Unknown History Oxycodone HCl/Acetaminophen 1 each PO Q6HR PRN 11/27/19 04/09/20 Unknown History [Percocet 10/325 mg] AtorvaSTATin [Lipitor] 40 mg PO QHS #30 tablet 11/29/19 04/09/20 Unknown Rx Pregabalin 100 mg PO BID capsule 11/29/19 04/09/20 Unknown Rx Metoprolol [Lopressor TAB] 50 mg PO BID #60 tablet 04/10/20 Unknown Rx NIFEdipine [Nifedipine ER] 90 mg PO BID #60 04/10/20 Unknown Rx cloNIDine [Catapres] 0.1 mg PO PRN PRN #21 tablet 04/10/20 Unknown Rx hydrALAZINE [Apresoline TAB] 50 mg PO Q8HR #120 tablet 04/10/20 Unknown Rx Acetaminophen [Non-Aspirin Extra 500 mg PO Q6HR PRN #30 tablet 04/26/20 Unknown Rx Strength] Aspirin [Aspirin BABY CHEW TAB] 81 mg PO QDAY #30 tab.chew 04/26/20 Unknown Rx Furosemide [Lasix TAB] 40 mg PO QDAY #30 tablet 04/26/20 Unknown Rx ED Physical Exam - General Limitations: No Limitations - Other Other exam information: General: No acute distress Head: Atraumatic Eyes: normal appearance ENT: Moist mucous membranes Neck: Normal appearance, no midline tenderness Chest: Mild expiratory wheeze, no rales CV: Regular rate and rhythm Abdomen: Soft, normal bowel sounds, nontender, nondistended, no rebound or guarding Back: Normal inspection Extremity: Normal inspection, full range of motion, no calf tenderness or leg edema, no leg asymmetry Neuro: Alert O x 3, no facial asymmetry, speech clear, no gross motor sensory deficit Psych: Appropriate behavior Skin: No rash ED Course Vital Signs 05/03/20 05/03/20 05/03/20 02:38 04:44 05:41 Temperature 99.0 F Pulse Rate 85 90 92 H Pulse Rate [ Bilateral Throughout] Respiratory 18 19 Rate Respiratory Rate [Bilateral Throughout] Blood Pressure 183/62 189/76 Blood Pressure 194/70 [Left] O2 Sat by Pulse 97 97 Oximetry 05/03/20 05/03/20 05/03/20 05:42 06:56 07:48 Temperature Pulse Rate 92 H 76 Pulse Rate [ 95 H Bilateral Throughout] Respiratory 19 20 Rate Respiratory 20 Rate [Bilateral Throughout] Blood Pressure Blood Pressure 189/76 145/77 [Left] O2 Sat by Pulse 97 95 Oximetry ED Medical Decision Making - Lab Data Result diagrams: 05/03/20 02:59 05/03/20 02:59 Lab Results 05/03/20 05/03/20 05/03/20 Range/Units 02:59 02:59 05:42 WBC 10.1 (4.5-11.0) K/mm3 RBC 2.75 L (3.65-5.03) M/mm3 Hgb 8.1 L (10.1-14.3) gm/dl Hct 24.8 L (30.3-42.9) % MCV 90 (79-97) fl MCH 29 (28-32) pg MCHC 33 (30-34) % RDW 16.2 H (13.2-15.2) % Plt Count 272 (140-440) K/mm3 Add Manual Diff Complete Total Counted 100 Seg Neuts % (Manual) 72.0 H (40.0-70.0) % Band Neutrophils % 0 % Lymphocytes % (Manual) 10.0 L (13.4-35.0) % Reactive Lymphs % (Man) 0 % Monocytes % (Manual) 12.0 H (0.0-7.3) % Eosinophils % (Manual) 6.0 H (0.0-4.3) % Basophils % (Manual) 0 (0.0-1.8) % Metamyelocytes % 0 % Myelocytes % 0 % Promyelocytes % 0 % Blast Cells % 0 % Nucleated RBC % Not Reportable Seg Neutrophils # Man 7.3 (1.8-7.7) K/mm3 Band Neutrophils # 0.0 K/mm3 Lymphocytes # (Manual) 1.0 L (1.2-5.4) K/mm3 Abs React Lymphs (Man) 0.0 K/mm3 Monocytes # (Manual) 1.2 H (0.0-0.8) K/mm3 Eosinophils # (Manual) 0.6 H (0.0-0.4) K/mm3 Basophils # (Manual) 0.0 (0.0-0.1) K/mm3 Metamyelocytes # 0.0 K/mm3 Myelocytes # 0.0 K/mm3 Promyelocytes # 0.0 K/mm3 Blast Cells # 0.0 K/mm3 WBC Morphology Not Reportable Hypersegmented Neuts Not Reportable Hyposegmented Neuts Not Reportable Hypogranular Neuts Not Reportable Smudge Cells Not Reportable Toxic Granulation Not Reportable Toxic Vacuolation Not Reportable Dohle Bodies Not Reportable Pelger-Huet Anomaly Not Reportable Mariella Rods Not Reportable Platelet Estimate Consistent w auto Clumped Platelets Not Reportable Plt Clumps, EDTA Not Reportable Large Platelets Not Reportable Giant Platelets Not Reportable Platelet Satelliting Not Reportable Plt Morphology Comment Not Reportable RBC Morphology Not Reportable Dimorphic RBCs Not Reportable Polychromasia Not Reportable Hypochromasia Few Poikilocytosis Not Reportable Anisocytosis Few Microcytosis Not Reportable Macrocytosis Not Reportable Spherocytes Not Reportable Pappenheimer Bodies Not Reportable Sickle Cells Not Reportable Target Cells Rare Tear Drop Cells Rare Ovalocytes Rare Helmet Cells Not Reportable [place] Bodies Not Reportable [place] Rings Not Reportable [place] Cells Not Reportable Bite Cells Not Reportable Crenated Cell Not Reportable Elliptocytes Not Reportable Acanthocytes (Spur) Not Reportable Rouleaux Not Reportable Hemoglobin C Crystals Not Reportable Schistocytes Not Reportable Malaria parasites Not Reportable Fran Bodies Not Reportable Hem Pathologist Commnt No Sodium 139 (137-145) mmol/L Potassium 4.4 (3.6-5.0) mmol/L Chloride 107.4 H (98-107) mmol/L Carbon Dioxide 17 L (22-30) mmol/L Anion Gap 19 mmol/L BUN 43 H (7-17) mg/dL Creatinine 3.4 H (0.6-1.2) mg/dL Estimated GFR 17 ml/min BUN/Creatinine Ratio 13 % Glucose 209 H (65-100) mg/dL Calcium 8.4 (8.4-10.2) mg/dL Troponin T 0.017 0.014 (0.00-0.029) ng/mL NT-Pro-B Natriuret Pep (0-900) pg/mL 05/03/20 Range/Units 05:42 WBC (4.5-11.0) K/mm3 RBC (3.65-5.03) M/mm3 Hgb (10.1-14.3) gm/dl Hct (30.3-42.9) % MCV (79-97) fl MCH (28-32) pg MCHC (30-34) % RDW (13.2-15.2) % Plt Count (140-440) K/mm3 Add Manual Diff Total Counted Seg Neuts % (Manual) (40.0-70.0) % Band Neutrophils % % Lymphocytes % (Manual) (13.4-35.0) % Reactive Lymphs % (Man) % Monocytes % (Manual) (0.0-7.3) % Eosinophils % (Manual) (0.0-4.3) % Basophils % (Manual) (0.0-1.8) % Metamyelocytes % % Myelocytes % % Promyelocytes % % Blast Cells % % Nucleated RBC % Seg Neutrophils # Man (1.8-7.7) K/mm3 Band Neutrophils # K/mm3 Lymphocytes # (Manual) (1.2-5.4) K/mm3 Abs React Lymphs (Man) K/mm3 Monocytes # (Manual) (0.0-0.8) K/mm3 Eosinophils # (Manual) (0.0-0.4) K/mm3 Basophils # (Manual) (0.0-0.1) K/mm3 Metamyelocytes # K/mm3 Myelocytes # K/mm3 Promyelocytes # K/mm3 Blast Cells # K/mm3 WBC Morphology Hypersegmented Neuts Hyposegmented Neuts Hypogranular Neuts Smudge Cells Toxic Granulation Toxic Vacuolation Dohle Bodies Pelger-Huet Anomaly Mariella Rods Platelet Estimate Clumped Platelets Plt Clumps, EDTA Large Platelets Giant Platelets Platelet Satelliting Plt Morphology Comment RBC Morphology Dimorphic RBCs Polychromasia Hypochromasia Poikilocytosis Anisocytosis Microcytosis Macrocytosis Spherocytes Pappenheimer Bodies Sickle Cells Target Cells Tear Drop Cells Ovalocytes Helmet Cells Maddox-[place] Bodies [place] Rings Rosa Cells Bite Cells Crenated Cell Elliptocytes Acanthocytes (Spur) Rouleaux Hemoglobin C Crystals Schistocytes Malaria parasites Fran Bodies Hem Pathologist Commnt Sodium (137-145) mmol/L Potassium (3.6-5.0) mmol/L Chloride (98-107) mmol/L Carbon Dioxide (22-30) mmol/L Anion Gap mmol/L BUN (7-17) mg/dL Creatinine (0.6-1.2) mg/dL Estimated GFR ml/min BUN/Creatinine Ratio % Glucose (65-100) mg/dL Calcium (8.4-10.2) mg/dL Troponin T (0.00-0.029) ng/mL NT-Pro-B Natriuret Pep 6532 H (0-900) pg/mL - EKG Data -: EKG Interpreted by Me EKG shows normal: sinus rhythm, ST-T waves (NO STEMI) Rate: normal (86) - EKG Data When compared to previous EKG there are: no significant change 10/03/20 07:58 Repeat EKG performed at 6:29 AM does not show acute changes and similar to previous - Radiology Data Radiology results: report reviewed CHEST PA AND LATERAL VIEWS INDICATION: Chest Pain. COMPARISON: 04/26/2020 FINDINGS: Support devices: None Heart: Normal and unchanged Lungs/Pleura: As on the previous exam, there appears to be very mild interstitial edema. No pleural fluid. IMPRESSION: 1. Minimal interstitial edema. No new disease and no interval change. - Medical Decision Making Patient presents to the hospital is complaints of CHF symptoms. CHF exacerbation likely secondary to Lasix noncompliance. Patient provided her a.m. medications as well as Lasix 80 mg IV push with urinary output in the ED. Patient also provided DuoNeb for mild wheezing. 1 dose of p.o. potassium was provided in anticipation of possible medication induced hypokalemia. patient r eports feeling better at with ED treatment. No signs of hypoxia or respiratory distress. Patient counseled on importance of medication compliance. Patient has plenty of medications at home and will take her Lasix daily as prescribed. Patient denies chest pain, has EKG without acute changes x2 and similar to previous, troponin is chronically elevated likely secondary to chronic renal sufficiency and is within normal rangeX 2 Critical Care Time: No Critical care attestation.: If time is entered above; I have spent that time in minutes in the direct care of this critically ill patient, excluding procedure time. ED Disposition Clinical Impression: CHF exacerbation, Noncompliance with medication regimen Disposition: - TO HOME OR SELFCARE Is pt being admited?: No Condition: Stable Instructions: Heart Failure (ED) Additional Instructions: Take your medicationS as prescribed. Follow-up with your doctor or doctor/clinic provided. Return if symptoms worsen as indicated by your discharge instructions. Referrals: PRIMARY CAREMD [Primary Care Provider] - 3-5 Days Time of Disposition: 08:14
== END 2020-05-03 08:35 | disposition home or self-care (01) ==
LOC: ED 01:34
DX: I11.0 Hypertensive heart disease with heart failure (principal); I50.9 Heart failure, unspecified; E11.9 Type 2 diabetes mellitus without complications; K21.9 Gastro-esophageal reflux disease without esophagitis; M19.91 Primary osteoarthritis, unspecified site; Z91.14 Patient's other noncompliance with medication regimen; Z86.73 Personal history of transient ischemic attack (TIA), and cerebral infarction without residual deficits; Z90.49 Acquired absence of other specified parts of digestive tract; Z98.890 Other specified postprocedural states; Z79.899 Other long term (current) drug therapy; Z88.0 Allergy status to penicillin
CPT/HCPCS: 36415; 71046; 80048; 83880; 84484; 85007; 85025; 93005; 94640; 96374; 96376; 99284; J1940; 94644

== ENCOUNTER 2020-07-04 05:44 | Day surgery (SDC) | payer MEDICARE ==
[2020-07-04] MEDS ORDERED: BACTERIOSTATIC SODIUM CHLORIDE 0.9% 30 ML VIAL INFILTRATI ONE (06:24)
[2020-07-04 06:47] LABS: Hematocrit 36.1 % (30.3-42.9); Hemoglobin 11.5 gm/dl (10.1-14.3); Mean Corpuscular HGB Conc 32 % (30-34); Mean Corpuscular Volume 87 fl (79-97); Platelet Count 168 K/mm3 (140-440); Red Blood Count 4.16 M/mm3 (3.65-5.03); Red Cell Distribution Width 18.1 % (13.2-15.2)
[2020-07-04 06:59] LABS: Calcium 8.7 mg/dL (8.4-10.2)
--- NOTE | 2020-07-04 06:59 | Anesthesia Consultation ---
Anesthesia Consult and Med Hx Date of service: 07/04/20 - Airway Anesthetic Teeth Evaluation: Good ROM Head & Neck: Adequate Mental/Hyoid Distance: Adequate Mallampati Class: Class II Intubation Access Assessment: Good - Pulmonary Exam CTA: Yes - Cardiac Exam Cardiac Exam: RRR - Pre-Operative Health Status ASA Pre-Surgery Classification: ASA4 Proposed Anesthetic Plan: MAC Nerve Block: Supraclavicular cblock - Pulmonary Hx Smoking: No Hx Asthma: No SOB: Yes COPD: No Hx Pneumonia: No Hx Sleep Apnea: No - Cardiovascular System Hx Hypertension: Yes Hx Coronary Artery Disease: Yes Hx Heart Attack/AMI: No Hx Pacemaker: No Hx Internal Defibrillator: No Hx Heart Murmur: No - Central Nervous System Hx Seizures: No CVA: Yes (X2 NO DEFICITS NOW, last stroke last year, pt said caused by stress) Hx Back Pain: Yes (AND NECK PAIN) Hx Psychiatric Problems: No - Gastrointestinal Hx Gastroesophageal Reflux Disease: Yes (severe, not controlled well) - Endocrine Hx End Stage Renal Disease: Yes (HD /tuesday) Hx Cirrhosis: No Hx Liver Disease: No Hx Insulin Dependent Diabetes: Yes (dibetic neuropathy, 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
[2020-07-04] MEDS ORDERED: SODIUM CHLORIDE 0.9% 1000 ML 1,000 ML IV SCH (07:00)
[2020-07-04] MEDS ORDERED: METOPROLOL TARTRATE 50 MG TAB ONE (07:02)
--- NOTE | 2020-07-04 07:04 | Anesthesia Day of Surgery ---
Anesthesia Day of Surgery - Day of Surgery Patient Examined: Yes Patient H&P Reviewed: Yes Patient is NPO: Yes Beta Blockers: Yes (am dose give in pre-op )
[2020-07-04] MEDS ORDERED: BUPIVACAINE/PF (0.25%) 2.5 MG/ML 30 ML VIAL INFILTRATI ONE (07:06)
[2020-07-04] MEDS ORDERED: SODIUM CHLORIDE 0.9% 1000 ML 1,000 ML ONE (07:07)
[2020-07-04] MEDS ORDERED: MIDAZOLAM 2 MG/2 ML INJ IV NR (07:12)
[2020-07-04] MEDS ORDERED: fentaNYL 100 MCG/2 ML INJ IV NR (07:13)
[2020-07-04] MEDS ORDERED: BUPIVACAINE/PF (0.5%) 5 MG/1 ML 30 ML VIAL INFILTRATI ONE (07:36)
[2020-07-04] MEDS ORDERED: LIDOCAINE (1%) 10 MG/1 ML VIAL 20 ML MDV ONE (07:36)
[2020-07-04] MEDS ORDERED: SODIUM CHLORIDE 0.9% 500 ML 500 ML ONE (07:37)
[2020-07-04] MEDS ORDERED: HEPARIN 10,000 UNITS/10 ML VIAL ONE (07:37)
[2020-07-04] MEDS ORDERED: NITROGLYCERIN SYRINGE 0 ML ONE (07:37)
[2020-07-04] MEDS ORDERED: SODIUM CHLORIDE 0.9% 250ML 250 ML ONE (07:37)
[2020-07-04] MEDS ORDERED: rifAMPin 600 MG VIAL ONE (07:37)
[2020-07-04] MEDS ORDERED: SODIUM CHLORIDE P/F VIAL 10 ML 10 ML ONE (07:58)
[2020-07-04] MEDS ORDERED: propofoL 200 MG/20 ML VIAL IV ONE ×2 (08:22→09:22)
[2020-07-04] MEDS ORDERED: SODIUM CHLORIDE 0.9% IRR 1,500 ML BOTTLE IR ONE (08:49)
[2020-07-04] MEDS ORDERED: HEPARIN 10,000 UNITS/10 ML VIAL IV ONE (08:49)
[2020-07-04] MEDS ORDERED: SODIUM CHLORIDE 0.9% 500 ML IVPB IRRIGATION ONE (08:50)
[2020-07-04] MEDS ORDERED: LIDOCAINE MPF (2%) 20 MG/1 ML VIAL 5 ML ONE (09:22)
[2020-07-04] MEDS ORDERED: rifAMPin 600 MG VIAL IV ONE (09:50)
[2020-07-04] MEDS ORDERED: SODIUM CHLORIDE 0.9% 250 ML IVPB IV ONE (09:50)
[2020-07-04] MEDS ORDERED: SODIUM CHLORIDE 0.9% P/F 10 ML VIAL INFILTRATI ONE (09:51)
[2020-07-04] MEDS ORDERED: LIDOCAINE-MPF (0.5%) 5 MG/1 ML VIAL 50 ML INFILTRATI ONE (10:15)
--- NOTE | 2020-07-04 10:52 | Short Stay Summary ---
Short Stay Documentation Date of service: 07/04/20 Narrative H&P: See H&P - History H&P: obtained from office - Allergies and Medications Current Medications: Allergies Penicillins Adverse Reaction (Verified 04/09/20 13:26) Swelling Home Medications Medication Instructions Recorded Confirmed Last Taken Type Aspirin [Aspirin BABY CHEW TAB] 81 mg PO QDAY #30 tab.chew 05/16/20 07/04/20 06/30/20 08:00 Rx AtorvaSTATin [Lipitor] 40 mg PO QHS #30 tablet 05/16/20 07/04/20 07/03/20 20:00 Rx Insulin Lispro [Humalog] 0 unit SUB-Q ACHS vial 05/16/20 07/04/20 Unknown Rx Linaclotide [Linzess] 72 mcg PO QDAY #30 cap 05/16/20 07/04/20 07/02/20 08:00 Rx NIFEdipine [Nifedipine ER] 90 mg PO BID #60 05/16/20 07/04/20 07/03/20 08:00 Rx Omeprazole 40 mg PO QDAY #30 05/16/20 07/04/20 07/03/20 08:00 Rx Oxycodone HCl/Acetaminophen 1 each PO Q6HR PRN #12 05/16/20 07/04/20 06/27/20 08:00 Rx [Percocet 10/325 mg] Pregabalin 100 mg PO BID #60 capsule 05/16/20 07/04/20 07/03/20 08:00 Rx cloNIDine [Catapres] 0.1 mg PO PRN PRN #21 tablet 05/16/20 07/04/20 07/02/20 20:00 Rx Metoprolol [Lopressor TAB] 100 mg PO DAILY 06/30/20 07/04/20 07/04/20 07:30 History Active Medications Clindamycin HCl (Cleocin 900 Mg/50 Ml) 900 mg in 50 mls @ 100 mls/hr IV PREOP SILVANO; Protocol Stop: 07/04/20 23:59 Sodium Chloride (Nacl 0.9% 1000 Ml) 1,000 mls @ 42 mls/hr IV DIRECT SILVANO Last Admin: 07/04/20 07:05 Dose: 42 mls/hr Documented by: Midazolam HCl (Versed) 2 mg IV PREOP NR Stop: 07/04/20 23:59 Last Admin: 07/04/20 07:32 Dose: 2 mg Documented by: - Brief post op/procedure progress note Date of procedure: 07/04/20 Pre-op diagnosis: End-Stage Renal Disease Post-op diagnosis: same Procedure: Creation of Right Brachial Artery to Right Axillary Vein Arteriovenous Graft with 6 mm Bovine Artegraft Anesthesia: MAC, regional Surgeon: ALLA SALAMANCA Estimated blood loss: 50-100ml Pathology: none Condition: stable - Disposition Condition at discharge: Good Disposition: DC-01 TO HOME OR SELFCARE Short Stay Discharge Plan Activity: other (No heavy lifting with right arm for 2 weeks.) Wound: open to air, keep clean and dry, other (Okay to wash the wounds with soap and water but do not soak in water for 2 weeks.) Follow up with: ALLA SALAMANCA MD [Staff Physician] - 14 Days Prescriptions: HYDROcodone/APAP 7.5-325 [[place] 7.5/325] 1 each PO Q6HR PRN #30 tablet PRN Reason: Pain
--- NOTE | 2020-07-04 10:55 | Operative Report ---
Operative Report Operative Report: Date of procedure: 07/04/2020 Pre-operative diagnosis: End-Stage Renal Disease Post-operative diagnosis: Same Procedure(s): 1. Creation of Right brachial Artery to Axillary Vein AV Graft with 6 mm Bovine Graft Artergraft Surgeon: Chriss Hernandez MD Respiratory Therapist Assistant: None Anesthesia: Regional/MAC EBL: 75 mL Counts: Correct Complications: None Condition: Stable Findings: Successful Creation of Right arm AV Graft with Palpable Thrill and Palpable Radial Pulse at the Completion of the Case. Specimen: None Indication: The patient is a 55-year-old female with a history of end-stage renal disease who is currently on hemodialysis through a right internal jugular permacath. She is in need of long-term dialysis access however vein mapping demonstrated she is not a candidate for creation of an arteriovenous fistula so she requires creation of an arteriovenous graft. She was given the risk, benefits, and alternative procedures and consented to the procedure. Description of Procedure: Prior to being transported to the operating room the patient had a regional block of the right arm performed. After the block was performed the patient was transported to the operating room and adequately sedated. The patient's left arm was then prepped and draped in normal sterile fashion. A longitudinal i ncision was made on the medial aspect of the arm just proximal to the antecubital crease and carried down to the brachial artery using sharp dissection. The brachial artery was dissected out circumferentially both proximally and distally and controlled with vessel loops. A second incision was created in longitudinal fashion on the medial aspect of the arm just distal to the axillary crease and carried down to the axillary vein using sharp dissection. Axillary vein was dissected out circumferentially and controlled with a vessel loop. I then used a Dee-Wick tunneler to tunnel from the bra chial artery incision to the axillary vein incision and then put an [] mm bovine through the tunnel. I infused with heparinized saline to ensure that it was not twisted or kinked. I put the brachial artery vessel loops on tension controlling the flow and then created an arteriotomy using an 11 blade and Joaquin scissors. I beveled the graft and created an end-to-side anastomosis using 6-0 Prolene running fashion. I clamped the graft just proximal to the anastomosis and then released the vessel loops restoring flow in the brachial artery. I placed quick clot in incision to achieve hemostasis. I cut the proximal end of the graft to the appropriate length and beveled the graft in preparation for a venous anastomosis. I controlled the axillary vein a Satinsky clamp and created a venotomy using an 11 blade and Joaquin scissors. I created an end to side anastomosis using a 6-0 Prolene in running fashion. Prior to completing the anastomosis I flushed the graft to ensure there was no thrombus and then completed the anastamosis. I released all clamps allowing flow into the AV graft which had an excellent thrill. I packed the wound with quick clot to achieve hemostasis. I anesthetized both wounds with 0.5% Marcaine and then closed both wounds in 2 layers using 3-0 Vicryl in running fashion in the deep dermal layer and 4-0 Monocryl in running fashion the subcuticular layer. I ciro ssed both wounds with Dermabond. The patient tolerated the procedure well all sponge, needle, and instrument counts were correct. The patient was taken to recovery in stable condition.
[2020-07-04 11:06] VITALS: BP 151/78
--- NOTE | 2020-07-04 13:48 | Post Anesthesia Evaluation ---
- Post Anesthesia Evaluation Patient Participated: Yes Airway Patent: Yes Stable Respiratory Function: Yes Nausea/Vomiting: No Temp > 96.8F: Yes Pain Manageable: Yes Adequeate Hydration: Yes Anesthesia Complications: No Block Receding Appropriately: Yes Patient on Ventilator: No
== END 2020-07-04 05:45 | disposition home or self-care (01) ==
LOC: OR 05:44
PROVIDERS: ATTEND Surgery Vascular Surgery
DX: I13.2 Hypertensive heart and chronic kidney disease with heart failure and with stage 5 chronic kidney disease, or end stage renal disease (principal); E11.22 Type 2 diabetes mellitus with diabetic chronic kidney disease; N18.6 End stage renal disease; I50.9 Heart failure, unspecified; E11.42 Type 2 diabetes mellitus with diabetic polyneuropathy; I25.10 Atherosclerotic heart disease of native coronary artery without angina pectoris; E78.00 Pure hypercholesterolemia, unspecified; K21.9 Gastro-esophageal reflux disease without esophagitis; E11.69 Type 2 diabetes mellitus with other specified complication; E66.9 Obesity, unspecified; D64.9 Anemia, unspecified; M19.90 Unspecified osteoarthritis, unspecified site; Z88.0 Allergy status to penicillin; Z87.440 Personal history of urinary (tract) infections; Z79.899 Other long term (current) drug therapy; Z68.36 Body mass index [BMI] 36.0-36.9, adult; Z79.82 Long term (current) use of aspirin; Z79.4 Long term (current) use of insulin; Z90.49 Acquired absence of other specified parts of digestive tract; Z98.891 History of uterine scar from previous surgery; Z98.890 Other specified postprocedural states; Z82.49 Family history of ischemic heart disease and other diseases of the circulatory system; Z86.73 Personal history of transient ischemic attack (TIA), and cerebral infarction without residual deficits
CPT/HCPCS: 36415; 36830; 80048; 82962; 85027; C1768; J1644; J2250; J2704; J3010; J3490; J7030; J7040; J7050; 64450

== ENCOUNTER 2021-02-19 14:47 | Observation (INO) | payer MEDICARE ==
--- NOTE | 2021-02-19 16:24 | Event Note ---
ED Screening Note Date of service: 02/19/21 Time: 16:22 ED Screening Note: 55-year-old female patient with history of end-stage renal disease, congestive heart failure, and diabetes presents to the emergency department with complaints of progressively worsening right foot pain/swelling/drainage/redness for the last 4 weeks. Patient has been under the care of her primary care provider, recycling crew supervisor, and a home health nurse since this issue began. Today, she saw her primary care provider, who sent her to the emergency department to be admitted for IV antibiotics. General: Awake, appropriately interactive, no acute distress. Neck: Supple. Full range of motion intact. Cardiovascular: Normal peripheral perfusion. Pulmonary: No respiratory distress. Patient is speaking normally without use of accessory muscles. Skin: No apparent rashes or lesions. Neurological: No facial asymmetry. Speech is clear. Follows commands. Patient is alert and oriented. Musculoskeletal: Wound dressing and walking boot noted to right foot. Psych: Cooperative. Appropriate mood and affect. I have greeted and performed a focused rapid initial assessment of this patient. A comprehensive ED assessment and evaluation of the patient, analysis of all test results, and completion of the medical decision-making process will be conducted by additional ED providers. This initial assessment/diagnostic orders/clinical plan/treatment(s) is/are subject to change based on patients health status, clinical progression and re-assessment. Further treatment and workup at subsequent clinical provider's discretion. Patient/guardian urged not to elope from the ED as their condition may be serious if not clinically assessed and managed.
--- NOTE | 2021-02-19 17:03 | XRay Report ---
[id number] INDICATION: osteomyelitis COMPARISON: None available. FINDINGS: Bandaging is seen in the lateral proximal to mid foot with an area of wound/ulceration seen just lateral to the base of the fifth metatarsal. Soft tissue gas penetrate moderately in this area though not to the level of the bone on AP view. No obvious foreign bodies are identified. No fractures or dislocations are seen. Mild tarsal degenerative changes are noted. No study is mildly underpenetrated for bony evaluation, I do not see obvious evidence of acute bony erosion to strongly suggest osteomyelitis. Moderate arterial calcifications are noted. IMPRESSION: Soft tissue wound is noted without obvious foreign body. I do not see strong evidence of osteomyelitis radiographically but if there is a significant clinical concern I would recommend MR. Signer Name: Sammy Espinoza MD Signed: 02/19/2021 4:58 PM Workstation Name: [id number]
[2021-02-19 17:19] LABS: Basophils # (Auto) 0.1 K/mm3 (0.0-0.1); Basophils % (Auto) 0.7 % (0.0-1.8); Eosinophils # (Auto) 0.3 K/mm3 (0.0-0.4); Eosinophils % (Auto) 2.8 % (0.0-4.3); Hematocrit 33.2 % (30.3-42.9); Lymphocytes # (Auto) 2.4 K/mm3 (1.2-5.4); Lymphocytes % (Auto) 22.6 % (13.4-35.0); Mean Corpuscular HGB Conc 33 % (30-34); Mean Corpuscular Volume 95 fl (79-97); Monocytes % (Auto) 9.1 % (0.0-7.3); Platelet Count 242 K/mm3 (140-440)
[2021-02-19 17:30] LABS: Alanine Aminotransferase 36 units/L (7-56); Albumin 3.3 g/dL (3.9-5); Blood Urea Nitrogen 77 mg/dL (7-17); Calcium 8.9 mg/dL (8.4-10.2); Hemolysis Index 7
[2021-02-19 17:34] LABS: BUN/Creatinine Ratio 15
[2021-02-19 17:41] LABS: Erythrocyte Sedimentation Rate 81 mm/Hr (0-20)
[2021-02-19] MEDS ORDERED: cefTRIAXone/NS 2 GM/100 ML 2 GM/100 ML BAG IV ONE (18:18)
--- NOTE | 2021-02-19 18:22 | Emergency Department Report ---
HPI - General Chief Complaint: Wound/Laceration Time Seen by Provider: 02/19/21 18:01 - HPI HPI: 55-year-old female with history of hypertension, CHF, DM 2, and ESRD on HD MWF presents sent by her city route driver, Dr. Baldemar Palmer for IV antibiotics and admission due to a wound on her right heel. The patient states that she first noticed the wound 2 days ago and saw her city route driver yesterday who recommended that she go to the emergency department and give her a letter stating that she needs a vascular surgery consultation, IV antibiotics, and admission. The patient states that she waited until today but is unable to explain why. She also states that she skipped her last hemodialysis session and so her last dialysis was on Tuesday. She reports no pain currently. She has no other symptoms or complaints but is here at the direction of her city route driver. ED Past Medical Hx - Past Medical History Hx Hypertension: Yes Hx CVA: Yes (2010 no deficiets) Hx Heart Attack/AMI: No Hx Congestive Heart Failure: Yes (2 MONTHS AGO) Hx Diabetes: Yes Hx GERD: Yes (2012) Hx Liver Disease: No Hx Renal Disease: Yes (DIALYSIS- MWF) Hx Sickle Cell Disease: No Hx Arthritis: Yes (LT SIDE BODY AND SHOULDER) Hx Headaches / Migraines: No Hx Seizures: No Hx Kidney Stones: No Hx Asthma: No Hx COPD: No Hx Tuberculosis: No Hx HIV: No Additional medical history: neuropathy. Denied history of VTE - Surgical History Hx Pacemaker: No Hx Internal Defibrillator: No Hx Cholecystectomy: Yes Additional Surgical History: ; rt knee surgery 2013 - Social History Smoking Status: Current Some Day Smoker - Medications Home Medications: Home Medications Medication Instructions Recorded Confirmed Last Taken Type Aspirin [Aspirin BABY CHEW TAB] 81 mg PO QDAY #30 tab.chew 05/16/20 07/04/20 06/30/20 08:00 Rx AtorvaSTATin [Lipitor] 40 mg PO QHS #30 tablet 05/16/20 07/04/20 07/03/20 20:00 Rx Insulin Lispro [Humalog] 0 unit SUB-Q ACHS vial 05/16/20 07/04/20 Unknown Rx Linaclotide [Linzess] 72 mcg PO QDAY #30 cap 05/16/20 07/04/20 07/02/20 08:00 Rx NIFEdipine [Nifedipine ER] 90 mg PO BID #60 05/16/20 07/04/20 07/03/20 08:00 Rx Omeprazole 40 mg PO QDAY #30 05/16/20 07/04/20 07/03/20 08:00 Rx Oxycodone HCl/Acetaminophen 1 each PO Q6HR PRN #12 05/16/20 07/04/20 06/27/20 08:00 Rx [Percocet 10/325 mg] Pregabalin 100 mg PO BID #60 capsule 05/16/20 07/04/20 07/03/20 08:00 Rx cloNIDine [Catapres] 0.1 mg PO PRN PRN #21 tablet 05/16/20 07/04/20 07/02/20 20: 00 Rx Metoprolol [Lopressor TAB] 100 mg PO DAILY 06/30/20 07/04/20 07/04/20 07:30 History HYDROcodone/APAP 7.5-325 [[place] 1 each PO Q6HR PRN #30 tablet 07/04/20 Unknown Rx 7.5/325] ED Review of Systems ROS: Stated complaint: SENT BY DOC RIGHT FOOT (OPEN WOUND) Other details as noted in HPI Constitutional: denies: chills, fever Eyes: denies: eye pain, vision change ENT: denies: throat pain, congestion Respiratory: denies: cough, shortness of breath Cardiovascular: denies: chest pain, palpitations Gastrointestinal: denies: abdominal pain, nausea, vomiting Musculoskeletal: denies: back pain, joint swelling Skin: other (R foot wound). denies: pruritus Neurological: denies: headache, weakness Hematological/Lymphatic: denies: easy bleeding Physical Exam - Physical Exam Vital Signs: Vital Signs 02/19/21 02/19/21 02/19/21 15:28 17:59 18:00 Temperature 98.7 F Pulse Rate 69 Respiratory 18 28 H Rate Blood Pressure 148/61 O2 Sat by Pulse 100 100 100 Oximetry 02/19/21 02/19/21 18:06 18:07 Temperature 97.9 F Pulse Rate 74 70 Respiratory 13 17 Rate Blood Pressure 153/57 153/57 O2 Sat by Pulse 98 99 Oximetry Physical Exam: GENERAL: Well developed and well nourished. No acute distress HEAD: Normocephalic. No obvious signs of trauma. ENT: Moist mucous membranes. EYES: Extraocular movements are intact. Pupils are equal round and reactive to light bilaterally NECK: Supple. Full ROM is intact. Trachea is midline. LUNGS: Nonlabored breathing. Equal chest rise bilaterally. Clear to auscultation bilaterally. CARDIOVASCULAR: Regular rate and rhythm. No murmurs or rubs. RUE fistula with bruit/thrill VASCULAR: Cap refill < 2 seconds. 2+ DP pulses bilaterally ABDOMEN: Abdomen is soft and nondistended. There is no significant tenderness, guarding or rebound. SKIN: Skin is warm and dry. There is an approximately 3 x 3 cm purplish bullae to the mid lateral aspect of the right foot with surrounding erythema and fluctuance which extends anteriorly and posteriorly to the heel. The central bullae necrotic appearance. The patient has normal sensation of the 5 toes and foot distal to the wound as well as normal strength and capillary refill. NEURO: Patient is awake, alert, and oriented. environmental permitting specialist II-XII grossly intact. No focal deficits. Normal motor and sensory exam throughout. Normal speech. MUSCULOSKELETAL: No obvious deformities. No significant tenderness. Normal ROM throughout. ED Course Vital Signs 02/19/21 02/19/21 02/19/21 15:28 17:59 18:00 Temperature 98.7 F Pulse Rate 69 Respiratory 18 28 H Rate Blood Pressure 148/61 O2 Sat by Pulse 100 100 100 Oximetry 02/19/21 02/19/21 18:06 18:07 Temperature 97.9 F Pulse Rate 74 70 Respiratory 13 17 Rate Blood Pressure 153/57 153/57 O2 Sat by Pulse 98 99 Oximetry ED Medical Decision Making - Lab Data Result diagrams: 02/19/21 16:53 02/19/21 16:53 Lab Results 02/19/21 02/19/21 02/19/21 Range/Units 16:53 16:53 19:40 WBC 10.5 (4.5-11.0) K/mm3 RBC 3.50 L (3.65-5.03) M/mm3 Hgb 11.0 (10.1-14.3) gm/dl Hct 33.2 (30.3-42.9) % MCV 95 (79-97) fl MCH 31 (28-32) pg MCHC 33 (30-34) % RDW 18.0 H (13.2-15.2) % Plt Count 242 (140-440) K/mm3 Lymph % (Auto) 22.6 (13.4-35.0) % [place] % (Auto) 9.1 H (0.0-7.3) % Eos % (Auto) 2.8 (0.0-4.3) % Baso % (Auto) 0.7 (0.0-1.8) % Lymph # (Auto) 2.4 (1.2-5.4) K/mm3 [place] # (Auto) 1.0 H (0.0-0.8) K/mm3 Eos # (Auto) 0.3 (0.0-0.4) K/mm3 Baso # (Auto) 0.1 (0.0-0.1) K/mm3 Seg Neutrophils % 64.8 (40.0-70.0) % Seg Neutrophils # 6.8 (1.8-7.7) K/mm3 ESR 81 (0-20) mm/Hr PT 14.8 (12.2-14.9) Sec. INR 1.10 (0.87-1.13) APTT 36.4 (24.2-36.6) Sec. Sodium 139 (137-145) mmol/L Potassium 4.3 (3.6-5.0) mmol/L Chloride 102.9 (98-107) mmol/L Carbon Dioxide 20 L (22-30) mmol/L Anion Gap 20 mmol/L BUN 77 H (7-17) mg/dL Creatinine 5.1 H (0.6-1.2) mg/dL Estimated GFR 11 ml/min BUN/Creatinine Ratio 15 % Glucose 115 H (65-100) mg/dL Calcium 8.9 (8.4-10.2) mg/dL Total Bilirubin < 0.20 (0.1-1.2) mg/dL AST 25 (5-40) units/L ALT 36 (7-56) units/L Alkaline Phosphatase 175 H (35-129) units/L C-Reactive Protein 6.90 H (0.00-1.30) mg/dL Total Protein 7.2 (6.3-8.2) g/dL Albumin 3.3 L (3.9-5) g/dL Albumin/Globulin Ratio 0.8 % - EKG Data -: EKG Interpreted by Me - EKG Data 02/19/21 21:51 Normal sinus rhythm. Normal axis. Normal intervals. No ectopy. No significant ST segment or T wave abnormalities. - Radiology Data INDICATION: osteomyelitis COMPARISON: None available. FINDINGS: Bandaging is seen in the lateral proximal to mid foot with an area of wound/ulceration seen just lateral to the base of the fifth metatarsal. Soft tissue gas penetrate moderately in this area though not to the level of the bone on AP view. No obvious foreign bodies are identified. No fractures or dislocations are seen. Mild tarsal degenerative changes are noted. No study is mildly underpenetrated for bony evaluation, I do not see obvious evidence of acute bony erosion to strongly suggest osteomyelitis. Moderate arterial calcifications are noted. IMPRESSION: Soft tissue wound is noted without obvious foreign body. I do not see strong evidence of osteomyelitis radiographically but if there is a significant clinical concern I would recommend MR. Signer Name: Sammy Espinoza MD Signed: 02/19/2021 3:58 PM Workstation Name: [id number] - Medical Decision Making 55-year-old female with complex medical history including CHF, DM 2, and ESRD on HD who has missed her last dialysis session yesterday was last dialyzed 3 days ago presents at the direction of her city route driver for a severe El infected wound of her right foot. The patient is afebrile and with normal vital signs. Physical examination reveals an approximately 3 x 3 cm purplish bullae to the mid lateral aspect of the right foot with surrounding erythema and fluctuance which extends anteriorly and posteriorly to the heel. The central bullae necrotic appearance. The patient has normal sensation of the 5 toes and foot distal to the wound as well as normal strength and capillary refill. Labs were drawn in triage and reveal no significant leukocytosis or anemia. The patient's creatinine is expectedly elevated and BUN is elevated as well consistent with her ESRD. Potassium is normal. X-ray of the foot reveals soft tissue gas and no evidence of foreign body without definitive evidence of osteomyelitis. Although the patient is stable, given her history of diabetes and multiple other medical comorbidities we will still consult surgery given possible severe infection. We will give broad-spectrum IV vancomycin, ceftriaxone, and clindamycin At 7:32 PM I spoke with Dr. Alejo of general surgery regarding the case. She agrees with the current plan of care but recommends that I perform an incision and drainage just superficially here in the ER with the plan to take the patient to the OR tomorrow morning if necessary. I made the patient n.p.o. after midnight. I will plan to perform an incision and drainage procedure here. We will contact the patient's semiconductor lab technician and admit the patient to the hospitalist. At 7:45 PM, the patient is resting comfortably in the bed and has no complaints. At 8:28 PM I spoke with Dr. Phipps of nephrology. He says he will place orders for the patient for dialysis. Consult orders have been placed. At 9:15 PM I attempted to perform an incision and drainage procedure but despite two 1 cm incisions I was unable to express purulence and instead got only serosanguinous fluid. The foot has been dressed. At 9:30 PM I spoke with Dr. Cerda the on-call hospitalist regarding the case and accepts patient for admission will assume care Patient remained stable but request pain medication for her foot which we will give. Critical Care Time: Yes Critical care time in (mins) excluding proc time.: 40 Critical care attestation.: If time is entered above; I have spent that time in minutes in the direct care of this critically ill patient, excluding procedure time. Critical care time was spent in the evaluation, assessment, work-up and management of possible severe infection requiring broad-spectrum IV antibiotics, consultation between multiple specialist, and multiple reevaluations. ED Disposition Clinical Impression: Abscess of right foot excluding toes, ESRD (end stage renal disease) on dialysis Disposition: OP ADMIT IP TO THIS HOSP Is pt being admited?: Yes Condition: Stable
[2021-02-19] MEDS ORDERED: VANCOMYCIN 1,750 MG in SODIUM CHLORIDE 0.9% 500 ML 500 ML IV ONE (19:19)
[2021-02-19 20:07] LABS: INR 1.1 (0.87-1.13)
[2021-02-19 20:08] LABS: Partial Thromboplastin Time 36.4 Sec. (24.2-36.6)
[2021-02-19] MEDS ORDERED: LIDOCAINE (1%) 10 MG/1 ML VIAL 20 ML MDV INFILTRATI ONE (20:33)
[2021-02-19] MEDS ORDERED: MORPHINE 4 MG/1 ML INJ IV PRN (22:11)
[2021-02-19] MEDS ORDERED: ACETAMINOPHEN 325 MG TAB PO PRN (22:11)
[2021-02-19] MEDS ORDERED: DEXTROSE 50% IN WATER (25GM) 50 ML SYRINGE IV PRN (22:11)
[2021-02-19] MEDS ORDERED: MAGNESIUM HYDROXIDE (MOM) ORAL LIQD UDC PO PRN (22:11)
[2021-02-19] MEDS ORDERED: ONDANSETRON 4 MG/2 ML INJ IV PRN (22:11)
[2021-02-19] MEDS ORDERED: MORPHINE 2 MG/1 ML INJ IV ONE (22:14)
--- NOTE | 2021-02-19 22:24 | History and Physical Report ---
History of Present Illness Date of examination: 02/19/21 Date of admission: 02/19/21 21:41 Chief complaint: Right foot pain and Swelling History of present illness: 55-year-old -Cypriot female with known history of hypertension, CHF, diabetes mellitus, end-stage renal disease on dialysis on Mondays, Wednesdays and Fridays presents to the emergency room from hearing aid dispenser clinic-Dr. Baldemar Palmer for IV antibiotics for a wound on the right foot. Patient indicates that she noticed wound on her right foot about 2 days ago and had gone to a hearing aid dispenser who recommended that she should be evaluated in the emergency room. Patient denies any fever or chills, no chest pain or shortness of breath, no nausea vomiting, no abdominal pain, no hematuria or dysuria. Denies any fall and denies any injury to the foot. Work-up the emergency room today, x-ray of the right foot show soft tissue wound without obvious foreign body. No evidence of osteomyelitis. General surgery Dr. Alejo has been consulted by the ER physician. Consult has also been placed to the labor relations representative as patient missed her dialysis today. Past History Past Medical History: arthritis, diabetes, dialysis, ESRD, GERD, heart failure, hypertension, stroke, other (Neuropathy) Past Surgical History: cholecystectomy, , Other (Right knee surgery- 2013) Social history: smoking (Current Some Day Smoker), full code Family history: no significant family history Medications and Allergies Allergies Allergy/AdvReac Type Severity Reaction Status Date / Time Penicillins AdvReac Swelling Verified 02/19/21 15:22 Home Medications Medication Instructions Recorded Confirmed Last Taken Type Aspirin [Aspirin BABY CHEW TAB] 81 mg PO QDAY #30 tab.chew 05/16/20 07/04/20 06/30/20 08:00 Rx AtorvaSTATin [Lipitor] 40 mg PO QHS #30 tablet 05/16/20 07/04/20 07/03/20 20:00 Rx Insulin Lispro [Humalog] 0 unit SUB-Q ACHS vial 05/16/20 07/04/20 Unknown Rx Linaclotide [Linzess] 72 mcg PO QDAY #30 cap 05/16/20 07/04/20 07/02/20 08:00 Rx NIFEdipine [Nifedipine ER] 90 mg PO BID #60 05/16/20 07/04/20 07/03/20 08:00 Rx Omeprazole 40 mg PO QDAY #30 05/16/20 07/04/20 07/03/20 08:00 Rx Oxycodone HCl/Acetaminophen 1 each PO Q6HR PRN #12 05/16/20 07/04/20 06/27/20 08:00 Rx [Percocet 10/325 mg] Pregabalin 100 mg PO BID #60 capsule 05/16/20 07/04/20 07/03/20 08:00 Rx cloNIDine [Catapres] 0.1 mg PO PRN PRN #21 tablet 05/16/20 07/04/20 07/02/20 20:00 Rx Metoprolol [Lopressor TAB] 100 mg PO DAILY 06/30/20 07/04/20 07/04/20 07:30 History HYDROcodone/APAP 7.5-325 [[place] 1 each PO Q6HR PRN #30 tablet 07/04/20 Unknown Rx 7.5/325] Active Meds: Active Medications Acetaminophen (Acetaminophen 325 Mg Tab) 650 mg PO Q4H PRN PRN Reason: Pain MILD(1-3)/Fever >100.5/MARIE Dextrose (Dextrose 50% In Water (25gm) 50 Ml Syringe) 50 ml IV Q30MIN PRN; Prot ocol PRN Reason: Hypoglycemia Clindamycin HCl (Cleocin 600 Mg/50 Ml) 600 mg in 50 mls @ 100 mls/hr IV Q8H SILVANO; Protocol Insulin Human Lispro (Insulin Lispro 100 Unit/Ml) 0 unit SUB-Q ACHS SILVANO; Prot ocol Magnesium Hydroxide (Magnesium Hydroxide (Mom) Oral Liqd Udc) 30 ml PO Q4H PRN PRN Reason: Constipation Morphine Sulfate (Morphine 2 Mg/1 Ml Inj) 2 mg IV Q4H PRN PRN Reason: Pain, Moderate (4-6) Morphine Sulfate (Morphine 4 Mg/1 Ml Inj) 4 mg IV Q4H PRN PRN Reason: Pain , Severe (7-10) Ondansetron HCl (Ondansetron 4 Mg/2 Ml Inj) 4 mg IV Q8H PRN PRN Reason: Nausea And Vomiting Sodium Chloride (Sodium Chloride 0.9% 10 Ml Flush Syringe) 10 ml IV BID SILVANO Sodium Chloride (Sodium Chloride 0.9% 10 Ml Flush Syringe) 10 ml IV PRN PRN PRN Reason: LINE FLUSH Review of Systems Constitutional: no fever, no chills Ears, nose, mouth and throat: no nasal congestion, no sore throat Cardiovascular: no chest pain, no palpitations Respiratory: no cough, no shortness of breath Gastrointestinal: no abdominal pain, no nausea, no vomiting, no diarrhea Genitourinary Female: no pelvic pain, no flank pain, no dysuria, no hematuria Musculoskeletal: no neck pain, no low back pain Integumentary: no rash, no pruritis Neurological: no headaches, no confusion Psychiatric: no anxiety, no depression Endocrine: no polydipsia, no polyuria, no nocturia Exam - Constitutional Vitals: Temp Pulse Resp BP Pulse Ox 97.9 F 75 19 176/68 99 02/19/21 18:07 02/19/21 21:00 02/19/21 21:00 02/19/21 21:00 02/19/21 21:00 General appearance: Present: no acute distress, well-nourished, obese - EENT Eyes: Present: PERRL, EOM intact. Absent: scleral icterus ENT: hearing intact, clear oral mucosa, dentition normal - Neck Neck: Present: supple, normal ROM - Respiratory Respiratory effort: normal Respiratory: bilateral: CTA - Cardiovascular Rhythm: regular Heart Sounds: Present: S1 & S2. Absent: gallop, systolic murmur, diastolic murmur, rub, click - Extremities Extremities: no ischemia, pulses intact, pulses symmetrical, No edema, normal temperature, normal color, Full ROM Extremity abnormal: ulceration (Lateral aspect of right foot, 3x3 wound ,tender, no obvious drainage), tenderness (Right foot), other (Right upper AV fistula) Peripheral Pulses: within normal limits - Abdominal General gastrointestinal: Present: soft, non-tender, non-distended, normal bowel sounds. Absent: mass - Integumentary Integumentary: Present: clear, warm, dry. Absent: rash - Musculoskeletal Musculoskeletal: strength equal bilaterally - Psychiatric Psychiatric: appropriate mood/affect, intact judgment & insight, memory intact, cooperative - Neurologic Neurologic: CNII-XII intact, no focal deficits, moves all extremities Results - Labs CBC & Chem 7: 02/19/21 16:53 02/19/21 16:53 Labs: Abnormal lab results 02/19/21 02/19/21 Range/Units 16:53 16:53 RBC 3.50 L (3.65-5.03) M/mm3 RDW 18.0 H (13.2-15.2) % [place] % (Auto) 9.1 H (0.0-7.3) % [place] # (Auto) 1.0 H (0.0-0.8) K/mm3 Carbon Dioxide 20 L (22-30) mmol/L BUN 77 H (7-17) mg/dL Creatinine 5.1 H (0.6-1.2) mg/dL Glucose 115 H (65-100) mg/dL Alkaline Phosphatase 175 H (35-129) units/L C-Reactive Protein 6.90 H (0.00-1.30) mg/dL Albumin 3.3 L (3.9-5) g/dL Assessment and Plan - Patient Problems (1) Abscess of right foot excluding toes Current Visit: Yes Status: Acute Plan to address problem: Patient admitted and placed on empiric IV antibiotics. Incision and drainage to be done by the ER physician in the emergency room as recommended by the general surgeon. (2) ESRD (end stage renal disease) on dialysis Current Visit: Yes Status: Acute Plan to address problem: Consult placed to nephrology for dialysis. Patient gets dialysis on Mondays, Wednesdays and Fridays. (3) Diabetes mellitus Current Visit: No Status: Acute Plan to address problem: We will monitor Accu-Cheks. (4) Hypertension Current Visit: No Status: Acute Qualifiers: Hypertension type: essential hypertension Plan to address problem: We will resume routine home medications and monitor vital signs closely. (5) DVT prophylaxis Current Visit: No Status: Acute Plan to address problem: Patient placed on subcutaneous heparin.
[2021-02-20] MEDS: MORPHINE 2 MG/1 ML INJ IV PRN ×3 (03:39→20:36)
[2021-02-20 05:34] LABS: Calcium 8.5 mg/dL (8.4-10.2)
[2021-02-20] MEDS: CLINDAMYCIN 600 MG/50 mL 600 MG/50 ML BAG IV SCH ×2 (05:42→15:24)
[2021-02-20] MEDS ORDERED: HEPARIN 5,000 UNIT/1 ML VIAL SUB-Q SCH (06:00)
[2021-02-20 06:03] LABS: Basophils # (Auto) 0.1 K/mm3 (0.0-0.1); Basophils % (Auto) 0.6 % (0.0-1.8); Eosinophils # (Auto) 0.3 K/mm3 (0.0-0.4); Eosinophils % (Auto) 2.7 % (0.0-4.3); Hemoglobin 10.7 gm/dl (10.1-14.3); Lymphocytes # (Auto) 2.6 K/mm3 (1.2-5.4); Lymphocytes % (Auto) 22.9 % (13.4-35.0); Mean Corpuscular HGB Conc 32 % (30-34); Mean Corpuscular Volume 94 fl (79-97); Monocytes # (Auto) 0.9 K/mm3 (0.0-0.8); Monocytes % (Auto) 8.4 % (0.0-7.3); Platelet Count 251 K/mm3 (140-440); Red Blood Count 3.51 M/mm3 (3.65-5.03); Red Cell Distribution Width 17.8 % (13.2-15.2)
[2021-02-20 06:14] LABS: INR 1.07 (0.87-1.13)
[2021-02-20] MEDS ORDERED: HEPARIN 10,000 UNITS/10 ML VIAL IV PRN (08:45)
[2021-02-20] MEDS ORDERED: SODIUM CHLORIDE 0.9% 100 ML IV PRN (08:45)
--- NOTE | 2021-02-20 08:47 | Consultation ---
History of Present Illness - Reason for Consult Consult date: 02/20/21 end stage renal disease - History of Present Illness The patient is a 55 YO AAF known to our service with known history of Obesity, Hypertension, Diabetes mellitus, Anemia, CHF and ESRD on hemodialysis (MWF) who presented to [facility] ED 02/19 from manager quality compliance clinic-Dr. Baldemar Palmer for IV antibiotics for R foot wound / infection. Patient developed R foot wound about 3 weeks ago, which has gotten worse. Patient denies any trauma / injury, fever, chills, chest pain, sob, nausea, vomiting, abdominal pain, hematuria or dysuria. Patient missed hemodialysis on 02/18. Work-up in the ED, X-ray of the right foot showed soft tissue wound without obvious foreign body and no evidence of osteomyelitis. Nephrology was consulted for ESRD management. Past History Past Medical History: arthritis, diabetes, dialysis, ESRD, GERD, heart failure, hypertension, stroke, other (Neuropathy) Past Surgical History: cholecystectomy, , Other (Right knee surgery- 2013) Social history: smoking (Current Some Day Smoker), full code Family history: no significant family history Medications and Allergies Allergies Allergy/AdvReac Type Severity Reaction Status Date / Time Penicillins AdvReac Swelling Verified 02/19/21 15:22 Home Medications Medication Instructions Recorded Confirmed Last Taken Type Aspirin [Aspirin BABY CHEW TAB] 81 mg PO QDAY #30 tab.chew 05/16/20 02/20/21 02/18/21 10:00 Rx Linaclotide [Linzess] 72 mcg PO QDAY #30 cap 05/16/20 02/20/21 02/19/21 10:00 Rx Omeprazole 40 mg PO QDAY #30 05/16/20 02/20/21 02/19/21 10:00 Rx Oxycodone HCl/Acetaminophen 1 each PO Q6HR PRN #12 05/16/20 02/20/21 02/19/21 10:00 Rx [Percocet 10/325 mg] Pregabalin 100 mg PO BID #60 capsule 05/16/20 02/20/21 02/19/21 10:00 Rx cloNIDine [Catapres] 0.1 mg PO PRN PRN #21 tablet 05/16/20 02/20/21 07/02/20 20:00 Rx Metoprolol [Lopressor TAB] 100 mg PO DAILY 06/30/20 02/20/21 02/19/21 10:00 History HYDROcodone/APAP 7.5-325 [[place] 1 each PO Q6HR PRN #30 tablet 07/04/20 02/20/21 Unknown Rx 7.5-325 mg TAB] AtorvaSTATin [Lipitor] 80 mg PO QHS 02/20/21 02/20/21 02/18/21 22:00 History Clindamycin [Clindamycin CAP] 300 mg PO Q8H #30 cap 02/20/21 Unknown Rx Doxycycline Hyclate [Doxycycline 100 mg PO Q12HR #20 tab 02/20/21 Unknown Rx Hyclate TAB] Insulin Lispro [Humalog] See Protocol SUB-Q ACHS 02/20/21 02/20/21 02/19/21 10:00 History NIFEdipine [Nifedipine ER] 90 mg PO DAILY 02/20/21 02/20/21 02/19/21 10:00 History Active Meds: Active Medications Acetaminophen (Acetaminophen 325 Mg Tab) 650 mg PO Q4H PRN PRN Reason: Pain MILD(1-3)/Fever >100.5/MARIE Dextrose (Dextrose 50% In Water (25gm) 50 Ml Syringe) 0 ml IV Q30MIN PRN; Protocol PRN Reason: Hypoglycemia Heparin Sodium (Porcine) (Heparin 5,000 Unit/1 Ml Vial) 5,000 unit SUB-Q Q8HR SILVANO Clindamycin HCl (Cleocin 600 Mg/50 Ml) 600 mg in 50 mls @ 100 mls/hr IV Q8H SILVANO; Protocol Last Admin: 02/20/21 05:42 Dose: 100 mls/hr Documented by: Insulin Human Lispro (Insulin Lispro 100 Unit/Ml) 0 unit SUB-Q [facility]; Protocol Magnesium Hydroxide (Magnesium Hydroxide (Mom) Oral Liqd Udc) 30 ml PO Q4H PRN PRN Reason: Constipation Morphine Sulfate (Morphine 2 Mg/1 Ml Inj) 2 mg IV Q4H PRN PRN Reason: Pain, Moderate (4-6) Last Admin: 02/20/21 03:39 Dose: 2 mg Documented by: Morphine Sulfate (Morphine 4 Mg/1 Ml Inj) 4 mg IV Q4H PRN PRN Reason: Pain , Severe (7-10) Ondansetron HCl (Ondansetron 4 Mg/2 Ml Inj) 4 mg IV Q8H PRN PRN Reason: Nausea And Vomiting Sodium Chloride (Sodium Chloride 0.9% 10 Ml Flush Syringe) 10 ml IV BID SILVANO Sodium Chloride (Sodium Chloride 0.9% 10 Ml Flush Syringe) 10 ml IV PRN PRN PRN Reason: LINE FLUSH Review of Systems Constitutional: no weight loss, no weight gain, no fever, no chills, no weakness Breasts: deferred Cardiovascular: high blood pressure, no chest pain, no orthopnea, no lightheadedness, no shortness of breath, no leg edema Respiratory: no cough, no hemoptysis, no shortness of breath Gastrointestinal: no abdominal pain, no nausea, no vomiting, no diarrhea Genitourinary Female: no dysuria, no hematuria Integumentary: no sores, no wounds, no jaundice Exam - Vital Signs Vital signs: Vital Signs Temp Pulse Resp BP Pulse Ox 98.7 F 69 18 148/61 100 02/19/21 15:28 02/19/21 15:28 02/19/21 15:28 02/19/21 15:28 02/19/21 15:28 Results - Lab Results 02/20/21 04:39 02/20/21 04:39 Most recent lab results Calcium 8.5 mg/dL (8.4-10.2) 02/20/21 04:39 Assessment and Plan 1. ESRD: Patient is on maintenance hemodialysis three times a week, MWF schedule. Meds dosage based on GFR. Last outpatient HD 02/16. Hemodialysis today. 2. FEN: Monitor lytes and volume status. 3. R Foot wound infection: IV abx. General Surgery consulted. 4. Anemia, POA: Epogen with HD as needed. Monitor. 5. Hypertension: Adjust meds as needed. Monitor. 6. DM type 2. Subjective: Patient was seen and examined at the bedside. General Appearance: General appearance: well-developed, appears stated age, not in distress HEENT: ATNC, pupils equal Neck: trachea midline Respiratory: ctab Heart: regular, S1S2, no murmur Abdomen: soft, bowel sounds heard, not tender Integumentary: no rash, warm and dry Neurologic: AO, able to move extremities Ext: R foot dressing Hemodialysis access: R arm AVG
[2021-02-20] MEDS ORDERED: EPOETIN ALFA-EPBX 10,000 UNIT/1 ML VIAL SUB-Q PRN (09:13)
[2021-02-20] MEDS: INSULIN LISPRO 100 UNIT/ML SUB-Q SCH ×2 (10:12→12:21)
[2021-02-20] MEDS ORDERED: LIDOCAINE (1%) 10 MG/1 ML VIAL 20 ML MDV ONE (11:08)
[2021-02-20] MEDS ORDERED: LIDOCAINE (1%) 10 MG/1 ML VIAL 20 ML MDV INFILTRATI ONE (11:30)
--- NOTE | 2021-02-20 11:56 | Discharge Summary ---
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 Baldemar Palmer for IV antibiotics for a wound on the right foot. Patient indicates that she noticed wound on her right foot about 2 days ago and had gone to a segment block layer who recommended that she should be evaluated in the emergency room. Patient denies any fever or chills, no chest pain or shortness of breath, no nausea vomiting, no abdominal pain, no hematuria or dysuria. Denies any fall and denies any injury to the foot. Work-up the emergency room today, x-ray of the right foot show soft tissue wound without obvious foreign body. No evidence of osteomyelitis. General surgery Dr. Alejo has been consulted by the ER physician. Consult has also been placed to the temperer as patient missed her dialysis today. Patient had imaging test that did not reveal any osteomyelitis the surgeon was at bedside and did mild debridement without any pus or abscess pockets identified.. Had extensive discussion with the patient about management going forward and outpatient follow-up counseling for tobacco cessation was done extensively patient verbalized understanding. Adequate footwear was also discussed in detail and the risk of Ms. management including but not limited to loss of limb. She will follow up outpatient I did have a slight cough conversation with ID and agreed that patient can be discharged on clindamycin and doxycycline and see ID physicians outpatient. . Total of 30 minutes counseling provided to the patient (1) Abscess of right foot excluding toes with debridement Current Visit: Yes Status: Acute Plan to address problem: Patient admitted and placed on empiric IV antibiotics. Incision and drainage to be done by the ER physician in the emergency room as recommended by the general surgeon. (2) ESRD (end stage renal disease) on dialysis Current Visit: Yes Status: Acute Plan to address problem: Consult placed to nephrology for dialysis. Patient gets dialysis on Mondays, Wednesdays and Fridays. (3) Diabetes mellitus Current Visit: No Status: Acute Plan to address problem: We will monitor Accu-Cheks. (4) Hypertension Current Visit: No Status: Acute Qualifiers: Hypertension type: essential hypertension Plan to address problem: We will resume routine home medications and monitor vital signs closely. (5) tobacco use disorder Disposition: DC-01 TO HOME OR SELFCARE Final Discharge Diagnosis (Prints w/discharge instructions): Diabetic right lower extremity wound with poor healing Time spent for discharge: 35 mins Core Measure Documentation - Palliative Care Palliative Care/ Comfort Measures: Not Applicable - Core Measures Any of the following diagnoses?: none Exam - Physical Exam Narrative exam: General appearance: Present: no acute distress, well-nourished, obese - EENT Eyes: Present: PERRL, EOM intact. Absent: scleral icterus ENT: hearing intact, clear oral mucosa, dentition normal - Neck Neck: Present: supple, normal ROM - Respiratory Respiratory effort: normal Respiratory: bilateral: CTA - Cardiovascular Rhythm: regular Heart Sounds: Present: S1 & S2. Absent: gallop, systolic murmur, diastolic murmur, rub, click - Extremities Extremities: no ischemia, pulses intact, pulses symmetrical, No edema, normal temperature, normal color, Full ROM Extremity abnormal: ulceration (Lateral aspect of right foot, 3x3 wound ,tender, no obvious drainage), still mild tenderness (Right foot), other (Right upper AV fistula) Peripheral Pulses: within normal limits - Abdominal General gastrointestinal: Present: soft, non-tender, non-distended, normal bowel sounds. Absent: mass - Integumentary Integumentary: Present: clear, warm, dry. Absent: rash - Musculoskeletal Musculoskeletal: strength equal bilaterally - Psychiatric Psychiatric: appropriate mood/affect, intact judgment & insight, memory intact, cooperative - Neurologic Neurologic: CNII-XII intact, no focal deficits, moves all extremities - Constitutional Vitals: Temp Pulse Resp BP Pulse Ox 97.9 F 78 17 155/60 99 02/19/21 18:07 02/19/21 22:30 02/20/21 04:09 02/19/21 22:30 02/19/21 22:30 Plan Activity: advance as tolerated, fall precautions Diet: diabetic, renal Wound: per your surgeon's advice, per wound nurse instructions Special Instructions: restrict fluid intake to, record daily weights, record daily BP diary, record blood sugar diary, smoking cessation Care Plan Goals: Follow also with your segment block layer in 3-5 days Follow up with: [facility]Outside] - 7 Days OBED ALEJO MD [Staff Physician] - 7 Days ATIYA ASHFORD MD [Staff Physician] - 7 Days PRIMARY CAREMD [Primary Care Provider] - 3-5 Days ALLA SALAMANCA MD [Staff Physician] - 7 Days Prescriptions: Clindamycin [Clindamycin CAP] 300 mg PO Q8H #30 cap Doxycycline Hyclate [Doxycycline Hyclate TAB] 100 mg PO Q12HR #20 tab
--- NOTE | 2021-02-20 14:07 | Consultation ---
History of Present Illness Consult date: 02/20/21 Reason for consult: wound care - History of present illness History of present illness: General surgery consulted to evaluate wound on the right foot of a 55-year-old diabetic, dialysis dependent female who presented to the emergency room with a several day history of worsening right foot pain swelling and drainage. Patient says that she was referred by her health and wellness sales consultant for IV antibiotics but expressed that the health and wellness sales consultant did not think that the wound was infected. Patient says that she had noticed that her orthopedic boot was tight in the area where the wound has started, and she has had difficulty walking. Past History Past Medical History: arthritis, diabetes, dialysis, ESRD, GERD, heart failure, hypertension, stroke, other (Neuropathy) Past Surgical History: cholecystectomy, , Other (Right knee surgery- 2013) Social history: smoking (Current Some Day Smoker), full code Family history: no significant family history Medications and Allergies Allergies Allergy/AdvReac Type Severity Reaction Status Date / Time Penicillins AdvReac Swelling Verified 02/19/21 15:22 Home Medications Medication Instructions Recorded Confirmed Last Taken Type Aspirin [Aspirin BABY CHEW TAB] 81 mg PO QDAY #30 tab.chew 05/16/20 02/20/21 02/18/21 10:00 Rx Linaclotide [Linzess] 72 mcg PO QDAY #30 cap 05/16/20 02/20/21 02/19/21 10:00 Rx Omeprazole 40 mg PO QDAY #30 05/16/20 02/20/21 02/19/21 10:00 Rx Oxycodone HCl/Acetaminophen 1 each PO Q6HR PRN #12 05/16/20 02/20/21 02/19/21 10:00 Rx [Percocet 10/325 mg] Pregabalin 100 mg PO BID #60 capsule 05/16/20 02/20/21 02/19/21 10:00 Rx cloNIDine [Catapres] 0.1 mg PO PRN PRN #21 tablet 05/16/20 02/20/21 07/02/20 20:00 Rx Metoprolol [Lopressor TAB] 100 mg PO DAILY 06/30/20 02/20/21 02/19/21 10:00 History HYDROcodone/APAP 7.5-325 [[place] 1 each PO Q6HR PRN #30 tablet 07/04/20 02/20/21 Unknown Rx 7.5-325 mg TAB] AtorvaSTATin [Lipitor] 80 mg PO QHS 02/20/21 02/20/21 02/18/21 22:00 History Clindamycin [Clindamycin CAP] 300 mg PO Q8H #30 cap 02/20/21 Unknown Rx Doxycycline Hyclate [Doxycycline 100 mg PO Q12HR #20 tab 02/20/21 Unknown Rx Hyclate TAB] Insulin Lispro [Humalog] See Protocol SUB-Q ACHS 02/20/21 02/20/21 02/19/21 10:00 History NIFEdipine [Nifedipine ER] 90 mg PO DAILY 02/20/21 02/20/21 02/19/21 10:00 History Active Meds: Active Medications Acetaminophen (Acetaminophen 325 Mg Tab) 650 mg PO Q4H PRN PRN Reason: Pain MILD(1-3)/Fever >100.5/MARIE Dextrose (Dextrose 50% In Water (25gm) 50 Ml Syringe) 0 ml IV Q30MIN PRN; Protocol PRN Reason: Hypoglycemia Heparin Sodium (Porcine) (Heparin 5,000 Unit/1 Ml Vial) 5,000 unit SUB-Q Q8HR SILVANO Heparin Sodium (Porcine) (Heparin 10,000 Units/10 Ml Vial) 3,000 unit IV DULCE PRN PRN Reason: hemodialysis Clindamycin HCl (Cleocin 600 Mg/50 Ml) 600 mg in 50 mls @ 100 mls/hr IV Q8H [facility]; Protocol Last Admin: 02/20/21 05:42 Dose: 100 mls/hr Documented by: Sodium Chloride (Nacl 0.9%) 100 mls @ 999 mls/hr IV DULCE PRN PRN Reason: Hypotension Insulin Human Lispro (Insulin Lispro 100 Unit/Ml) 0 unit SUB-Q ACHS [facility]; Protocol Last Admin: 02/20/21 12:21 Dose: Not Given Documented by: Magnesium Hydroxide (Magnesium Hydroxide (Mom) Oral Liqd Udc) 30 ml PO Q4H PRN PRN Reason: Constipation Morphine Sulfate (Morphine 2 Mg/1 Ml Inj) 2 mg IV Q4H PRN PRN Reason: Pain, Moderate (4-6) Last Admin: 02/20/21 03:39 Dose: 2 mg Documented by: Morphine Sulfate (Morphine 4 Mg/1 Ml Inj) 4 mg IV Q4H PRN PRN Reason: Pain , Severe (7-10) Ondansetron HCl (Ondansetron 4 Mg/2 Ml Inj) 4 mg IV Q8H PRN PRN Reason: Nausea And Vomiting Sodium Chloride (Sodium Chloride 0.9% 10 Ml Flush Syringe) 10 ml IV BID SILVANO Last Admin: 02/20/21 10:20 Dose: 10 ml Documented by: Sodium Chloride (Sodium Chloride 0.9% 10 Ml Flush Syringe) 10 ml IV PRN PRN PRN Reason: LINE FLUSH Review of Systems All systems: negative - Integumentary sores, wounds Exam Vital Signs Temp Pulse Resp BP Pulse Ox 98.7 F 69 18 148/61 100 02/19/21 15:28 02/19/21 15:28 02/19/21 15:28 02/19/21 15:28 02/19/21 15:28 - General physical appearance Positive: well developed, well nourished, no distress, no pain - Respiratory Positive: normal expansion, normal respiratory effort - Cardiovascular Heart Sounds: Present: S1 & S2 - Extremities Extremities: abnormal (R foot warm w/ delayed capillary refill, no palpable DP or PT pulse. Sensation diminished motor intact. Patient has 3 x 2 cm skin defect on the lateral aspect distal to the 5th metatarsal head. Mild foul odor, ischemic fibrinous exudate at the surface, no active drainage. Tender to palpation ) Results - Labs 02/20/21 04:39 02/20/21 04:39 Abnormal lab results 02/19/21 02/19/21 02/20/21 Range/Units 16:53 16:53 04:39 WBC 11.2 H (4.5-11.0) K/mm3 RBC 3.50 L 3.51 L (3.65-5.03) M/mm3 RDW 18.0 H 17.8 H (13.2-15.2) % [place] % (Auto) 9.1 H 8.4 H (0.0-7.3) % [place] # (Auto) 1.0 H 0.9 H (0.0-0.8) K/mm3 Carbon Dioxide 20 L (22-30) mmol/L BUN 77 H (7-17) mg/dL Creatinine 5.1 H (0.6-1.2) mg/dL Glucose 115 H (65-100) mg/dL POC Glucose (70-105) mg/dL Alkaline Phosphatase 175 H (35-129) units/L C-Reactive Protein 6.90 H (0.00-1.30) mg/dL Albumin 3.3 L (3.9-5) g/dL 02/20/21 02/20/21 02/20/21 Range/Units 04:39 09:58 12:16 WBC (4.5-11.0) K/mm3 RBC (3.65-5.03) M/mm3 RDW (13.2-15.2) % [place] % (Auto) (0.0-7.3) % [place] # (Auto) (0.0-0.8) K/mm3 Carbon Dioxide 20 L (22-30) mmol/L BUN 74 H (7-17) mg/dL Creatinine 4.7 H (0.6-1.2) mg/dL Glucose 172 H (65-100) mg/dL POC Glucose 130 H 145 H (70-105) mg/dL Alkaline Phosphatase (35-129) units/L C-Reactive Protein (0.00-1.30) mg/dL Albumin (3.9-5) g/dL Diabetes panel 02/19/21 02/20/21 Range/Units 16:53 04:39 Sodium 139 140 (137-145) mmol/L Potassium 4.3 4.1 (3.6-5.0) mmol/L Chloride 102.9 104.3 (98-107) mmol/L Carbon Dioxide 20 L 20 L (22-30) mmol/L BUN 77 H 74 H (7-17) mg/dL Creatinine 5.1 H 4.7 H (0.6-1.2) mg/dL Glucose 115 H 172 H (65-100) mg/dL Calcium 8.9 8.5 (8.4-10.2) mg/dL AST 25 (5-40) units/L ALT 36 (7-56) units/L Alkaline Phosphatase 175 H (35-129) units/L Total Protein 7.2 (6.3-8.2) g/dL Albumin 3.3 L (3.9-5) g/dL Calcium panel 02/19/21 02/20/21 Range/Units 16:53 04:39 Calcium 8.9 8.5 (8.4-10.2) mg/dL Albumin 3.3 L (3.9-5) g/dL Pituitary panel 02/19/21 02/20/21 Range/Units 16:53 04:39 Sodium 139 140 (137-145) mmol/L Potassium 4.3 4.1 (3.6-5.0) mmol/L Chloride 102.9 104.3 (98-107) mmol/L Carbon Dioxide 20 L 20 L (22-30) mmol/L BUN 77 H 74 H (7-17) mg/dL Creatinine 5.1 H 4.7 H (0.6-1.2) mg/dL Glucose 115 H 172 H (65-100) mg/dL Calcium 8.9 8.5 (8.4-10.2) mg/dL Adrenal panel 02/19/21 02/20/21 Range/Units 16:53 04:39 Sodium 139 140 (137-145) mmol/L Potassium 4.3 4.1 (3.6-5.0) mmol/L Chloride 102.9 104.3 (98-107) mmol/L Carbon Dioxide 20 L 20 L (22-30) mmol/L BUN 77 H 74 H (7-17) mg/dL Creatinine 5.1 H 4.7 H (0.6-1.2) mg/dL Glucose 115 H 172 H (65-100) mg/dL Calcium 8.9 8.5 (8.4-10.2) mg/dL Total Bilirubin < 0.20 (0.1-1.2) mg/dL AST 25 (5-40) units/L ALT 36 (7-56) units/L Alkaline Phosphatase 175 H (35-129) units/L Total Protein 7.2 (6.3-8.2) g/dL Albumin 3.3 L (3.9-5) g/dL - Imaging Additional studies: Right foot x-ray with no obvious signs of osteomyelitis with superficial gas seen in the subcutaneous tissue. Assessment and Plan 55-year-old female with right foot wound that may be due to a combination of diabetes, peripheral vascular disease, and ill fitting orthotics. Afebrile and stable. Wound was debrided and probed at the bedside, with no abscess cavities appreciated, no purulent drainage. We will continue antibiotics per ID, recommends getting vascular consult as an outpatient. Patient can also follow-up with wound care as an outpatient. Patient should also follow-up with her health and wellness sales consultant and have her orthotic changed to a less traumatic option. Wound care nurse evaluation would be appreciated during this admission, if unable to be seen recommend wet-to-dry dressings until seen in wound care. No need to follow-up with me as an outpatient.
--- NOTE | 2021-02-20 14:10 | Electrocardiograph Report ---
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
[2021-02-20 17:03] LABS: Hepatitis B Surface Antigen Non-Reactive (Negative); Hepatitis C Virus Antibody Non-Reactive (NonReactive)
[2021-02-20 19:11] VITALS: BP 187/69
== END 2021-02-20 21:00 | disposition home or self-care (01) ==
LOC: ED 14:47 → 3A 21:41
PROVIDERS: ADMIT Internal Medicine Geriatric Medicine; ATTEND Internal Medicine
DX: L02.611 Cutaneous abscess of right foot (principal); I13.2 Hypertensive heart and chronic kidney disease with heart failure and with stage 5 chronic kidney disease, or end stage renal disease; I50.9 Heart failure, unspecified; N18.6 End stage renal disease; E11.22 Type 2 diabetes mellitus with diabetic chronic kidney disease; D63.1 Anemia in chronic kidney disease; M19.90 Unspecified osteoarthritis, unspecified site; K21.9 Gastro-esophageal reflux disease without esophagitis; F17.210 Nicotine dependence, cigarettes, uncomplicated; Z99.2 Dependence on renal dialysis; Z86.73 Personal history of transient ischemic attack (TIA), and cerebral infarction without residual deficits; Z90.49 Acquired absence of other specified parts of digestive tract; Z98.891 History of uterine scar from previous surgery; Z98.890 Other specified postprocedural states; Z79.4 Long term (current) use of insulin; Z79.82 Long term (current) use of aspirin
CPT/HCPCS: 10061; 36415; 73630; 80048; 80053; 80074; 82962; 85025; 85610; 85652; 85730; 86140; 87040; 87076; 87116; 87186; 93005; 96365; 96366; 96367; 96372; 96375; 96376; 99291; 99406; G0257; G0378; J0696; J1644; J2270; J3370; J7040; 87641

== ENCOUNTER 2021-03-09 10:00 | Emergency (ER) | payer MEDICARE ==
[2021-03-09 10:24] VITALS: BP 169/60
[2021-03-09] MEDS ORDERED: ASPIRIN 325 MG TAB PO ONE (10:30)
--- NOTE | 2021-03-09 11:06 | XRay Report ---
XR chest routine 2V INDICATION / CLINICAL INFORMATION: SOB. COMPARISON: 05/09/2020 FINDINGS: SUPPORT DEVICES: None. HEART /PULMONARY VASCULATURE: No significant abnormality. LUNGS / PLEURA: Extensive bilateral pulmonary airspace opacities. No sizable pleural effusion. No irving dence pneumothorax. ADDITIONAL FINDINGS: No significant additional findings. IMPRESSION: Extensive pulmonary airspace opacities, may reflect multifocal pneumonia and/or pulmonary edema. Signer Name: Zaire Francisco MD Signed: 03/09/2021 11:01 AM Workstation Name: [id number]
[2021-03-09 11:41] LABS: Albumin 3.2 g/dL (3.9-5); Calcium 9.2 mg/dL (8.4-10.2)
[2021-03-09 12:03] LABS: Basophils # (Auto) 0.1 K/mm3 (0.0-0.1); Basophils % (Auto) 0.7 % (0.0-1.8); Eosinophils # (Auto) 0.2 K/mm3 (0.0-0.4); Eosinophils % (Auto) 1.8 % (0.0-4.3); Hematocrit 27.9 % (30.3-42.9); Hemoglobin 8.8 gm/dl (10.1-14.3); Lymphocytes # (Auto) 2.6 K/mm3 (1.2-5.4); Lymphocytes % (Auto) 19.7 % (13.4-35.0); Mean Corpuscular HGB Conc 32 % (30-34); Mean Corpuscular Volume 95 fl (79-97); Monocytes # (Auto) 0.9 K/mm3 (0.0-0.8); Monocytes % (Auto) 6.6 % (0.0-7.3); Platelet Count 248 K/mm3 (140-440); Red Blood Count 2.93 M/mm3 (3.65-5.03)
--- NOTE | 2021-03-10 10:09 | Electrocardiograph Report ---
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
== END 2021-03-09 18:13 | disposition left against medical advice (07) ==
LOC: ED 10:00
DX: R06.02 Shortness of breath (principal); Z53.21 Procedure and treatment not carried out due to patient leaving prior to being seen by health care provider
CPT/HCPCS: 36415; 71046; 80053; 84484; 85025; 93005

== ENCOUNTER 2021-03-09 23:30 | Emergency (ER) | payer MEDICARE ==
[2021-03-10 01:57] VITALS: BP 188/70
--- NOTE | 2021-03-10 02:36 | XRay Report ---
CHEST 2 VIEWS INDICATION: shortness of breath, CHF. COMPARISON: Yesterday FINDINGS: SUPPORT DEVICES: None. HEART: Within normal limits. LUNGS/PLEURA: Symmetric diffuse interstitial disease again noted, likely mild edema. No effusion. No pneumothorax. ADDITIONAL FINDINGS: None. IMPRESSION: 1. Mild edema again noted. Signer Name: Jac Gutierrez MD Signed: 03/10/2021 2:31 AM Workstation Name: [id number]
[2021-03-10 03:44] LABS: Albumin 3.3 g/dL (3.9-5); Calcium 8.7 mg/dL (8.4-10.2)
[2021-03-10 04:06] LABS: Hematocrit 27.1 % (30.3-42.9); Hemoglobin 8.9 gm/dl (10.1-14.3); Mean Corpuscular HGB Conc 33 % (30-34); Mean Corpuscular Volume 95 fl (79-97); Platelet Count 229 K/mm3 (140-440); Red Blood Count 2.87 M/mm3 (3.65-5.03); Red Cell Distribution Width 17.2 % (13.2-15.2)
[2021-03-10 04:50] LABS: RBC Morphology Normal; Total Cells Counted 100
--- NOTE | 2021-03-10 10:13 | Electrocardiograph Report ---
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
== END 2021-03-10 04:15 | disposition left against medical advice (07) ==
LOC: ED 23:30
DX: B70.0 Diphyllobothriasis (principal); Z53.21 Procedure and treatment not carried out due to patient leaving prior to being seen by health care provider
CPT/HCPCS: 36415; 71046; 80053; 83880; 84484; 85007; 85025; 93005

== ENCOUNTER 2021-03-10 12:57 | Day surgery (SDC) | payer MEDICARE ==
[2021-03-10 21:16] VITALS: BP 152/58
== END 2021-03-10 22:07 | disposition home or self-care (01) ==
LOC: CATHLABREC 12:57
PROVIDERS: ATTEND Surgery Vascular Surgery
DX: I70.235 Atherosclerosis of native arteries of right leg with ulceration of other part of foot (principal); I70.213 Atherosclerosis of native arteries of extremities with intermittent claudication, bilateral legs; I13.2 Hypertensive heart and chronic kidney disease with heart failure and with stage 5 chronic kidney disease, or end stage renal disease; I50.9 Heart failure, unspecified; N18.6 End stage renal disease; E11.22 Type 2 diabetes mellitus with diabetic chronic kidney disease; E78.00 Pure hypercholesterolemia, unspecified; K21.9 Gastro-esophageal reflux disease without esophagitis; M19.90 Unspecified osteoarthritis, unspecified site; E66.9 Obesity, unspecified; Z99.2 Dependence on renal dialysis; Z87.891 Personal history of nicotine dependence; Z88.0 Allergy status to penicillin; Z79.82 Long term (current) use of aspirin; Z98.890 Other specified postprocedural states; Z82.49 Family history of ischemic heart disease and other diseases of the circulatory system
CPT/HCPCS: 36415; 37225; 37229; 71046; 75625; 75710; 76937; 80048; 80053; 83880; 84484; 85007; 85025; 85610; 85730; 93005; 99156; 99157; C1724; C1725; C1760; C1769; C1887; C2623; J1644; J2250; J3010; J7030; J7040; Q9967

== ENCOUNTER 2021-05-04 06:03 | Inpatient (IN) | payer MEDICARE ==
[2021-05-04] MEDS ORDERED: ACETAMINOPHEN 325 MG TAB PO STA (06:12)
--- NOTE | 2021-05-04 06:14 | Event Note ---
Date: 05/04/21 The patient was evaluated in the emergency department for symptoms described in the history of present illness. He/she was evaluated in the context of the global COVID-19 pandemic, which necessitated consideration that the patient might be at risk for infection with the virus that causes COVID-19. Institutional protocols and algorithms that pertain to the evaluation of patients at risk for COVID-19 are in a state of rapid change based on information released by regulatory bodies including the CDC and federal and state organizations. These policies and algorithms were followed during the patient's care in the emergency department. Please note that these policies, procedures and recommendations changed on a rapid basis. Verbal report received from emergency medical services. EMS documentation not available at time of chart dictation 56-year-old female, with a history of end-stage renal disease on hemodialysis, CHF, diabetes, brought to the hospital by emergency medical services with a chief complaint of 1: High blood sugar. EMS reports glucose of approximately 250 in the field, and otherwise unremarkable vital signs. 2: Lower extremity pain. Patient in no acute distress, denies shortness of breath. She states that she is COVID-19 vaccinated. Vital signs unremarkable, except for pulse ox of 92%, however, patient has very long nails. Obtain appropriate laboratory studies, EKG, x-ray of the chest, venous pH, repeat pulse ox with pulse ox monitor on different part of patient's anatomy, to assess veracity of pulse oximetry. Complete history and physical to be performed by ER provider
[2021-05-04 07:06] LABS: Basophils # (Auto) 0.1 K/mm3 (0.0-0.1); Basophils % (Auto) 0.9 % (0.0-1.8); Eosinophils # (Auto) 0.3 K/mm3 (0.0-0.4); Eosinophils % (Auto) 2.1 % (0.0-4.3); Hematocrit 22.5 % (30.3-42.9); Hemoglobin 7.4 gm/dl (10.1-14.3); Lymphocytes # (Auto) 2.5 K/mm3 (1.2-5.4); Lymphocytes % (Auto) 18.1 % (13.4-35.0); Mean Corpuscular HGB Conc 33 % (30-34); Mean Corpuscular Volume 87 fl (79-97); Monocytes # (Auto) 0.7 K/mm3 (0.0-0.8); Monocytes % (Auto) 5.4 % (0.0-7.3); Platelet Count 379 K/mm3 (140-440); Red Blood Count 2.59 M/mm3 (3.65-5.03); Red Cell Distribution Width 18.4 % (13.2-15.2)
[2021-05-04 07:16] LABS: INR 1.11 (0.87-1.13)
--- NOTE | 2021-05-04 07:18 | XRay Report ---
CHEST 1 VIEW INDICATION / CLINICAL INFORMATION: esrd, pulse of 92 %. Dyspnea FINDINGS: SUPPORT DEVICES: None. HEART / MEDIASTINUM: Cardiomegaly. LUNGS / PLEURA: Mild bilateral cardiopulmonary edema. Signer Name: Amish Orellana MD Signed: 05/04/2021 7:13 AM Workstation Name: [id number]
[2021-05-04] MEDS ORDERED: MORPHINE 4 MG/1 ML INJ IV ONE (07:26)
[2021-05-04] MEDS ORDERED: CEFEPIME/NS 1 GM/100 ML 1 GM/100 ML BAG IV ONE (07:27)
[2021-05-04 07:31] LABS: Calcium 8.2 mg/dL (8.4-10.2)
--- NOTE | 2021-05-04 07:38 | Emergency Department Report ---
ED General Adult HPI - General Chief complaint: Nausea/Vomiting/Diarrhea Stated complaint: Right leg pain. PUI?: No Time Seen by Provider: 05/04/21 06:33 Source: patient, EMS (Verbal report received from emergency medical services. EMS documentation not available at time of chart dictation ), RN notes reviewed, old records reviewed Mode of arrival: Wheelchair Limitations: Physical Limitation - History of Present Illness Initial comments: The patient was evaluated in the emergency department for symptoms described in the history of present illness. He/she was evaluated in the context of the global COVID-19 pandemic, which necessitated consideration that the patient might be at risk for infection with the virus that causes COVID-19. Institutional protocols and algorithms that pertain to the evaluation of patients at risk for COVID-19 are in a state of rapid change based on information released by regulatory bodies including the CDC and federal and state organizations. These policies and algorithms were followed during the patient's care in the emergency department. Please note that these policies, procedures and recommendations changed on a rapid basis. Nephrology: Dr Phani Phipps Vascular surgery: Dr. Hernandez Past medical history: End-stage renal disease on hemodialysis, Tuesday, Tuesday, Tuesday. PAD, status post angiography and arteriogram with Dr. Hernandez. Right lower extremity below-knee amputation a few weeks ago at [facility]. Hypertension. Diabetes. Up-to-date with COVID-19 vaccination. The patient is a 56-year-old female. She presents to the ER today with a primary complaint of pain and discharge to her right below-knee amputation stump. She reports that she fell on it. She reports that she was supposed to have home wound care set up and established, but it never came. She has been dressing and taking care of the wound herself. The patient denies headache and neck pain. She denies chest pain. She denies abdominal pain. She denies fever, loss of taste and smell. She denies urinary symptoms. She makes no significant respiratory complaints to myself. -: Gradual, days(s) Location: right, lower extremity Severity scale (0 -10): 4 Consistency: constant Improves with: none Worsens with: none - Related Data Home Medications Medication Instructions Recorded Confirmed Last Taken AtorvaSTATin [Lipitor] 80 mg PO QHS 02/20/21 03/10/21 03/09/21 Insulin Lispro [Humalog] See Protocol SUB-Q ACHS 02/20/21 03/10/21 03/08/21 NIFEdipine [Nifedipine ER] 90 mg PO DAILY 02/20/21 03/10/21 03/09/21 Metoprolol [Lopressor TAB] 100 mg PO DAILY 03/10/21 03/10/21 03/09/21 Previous Rx's Medication Instructions Recorded Last Taken Type Aspirin [Aspirin BABY CHEW TAB] 81 mg PO QDAY #30 tab.chew 05/16/20 03/08/21 Rx Linaclotide [Linzess] 72 mcg PO QDAY #30 cap 05/16/20 2 Days Ago Rx ~03/08/21 Omeprazole 40 mg PO QDAY #30 05/16/20 2 Days Ago Rx ~03/08/21 Oxycodone HCl/Acetaminophen 1 each PO Q6HR PRN #12 05/16/20 2 Weeks Ago Rx [Percocet 10/325 mg] ~02/24/21 Clopidogrel [Plavix] 75 mg PO QDAY #90 tablet 03/10/21 Unknown Rx Allergies Allergy/AdvReac Type Severity Reaction Status Date / Time Penicillins AdvReac Swelling Verified 05/04/21 06:09 ED Review of Systems ROS: Stated complaint: NAUSEA/EMESIS/RT LEG PAIN Other details as noted in HPI Constitutional: other (Denies loss of taste and smell). denies: fever ENT: denies: dental pain Respiratory: denies: cough Cardiovascular: denies: chest pain Gastrointestinal: denies: abdominal pain Musculoskeletal: joint swelling, arthralgia, myalgia Skin: lesions, other (Discharge from right below-knee amputation stump) Neurological: denies: weakness ED Past Medical Hx - Past Medical History Hx Hypertension: Yes Hx CVA: Yes (2010 no deficiets) Hx Heart Attack/AMI: No Hx Congestive Heart Failure: Yes (2 MONTHS AGO) Hx Diabetes: Yes Hx GERD: Yes (2012) Hx Liver Disease: No Hx Renal Disease: Yes (DIALYSIS- MWF) Hx Sickle Cell Disease: No Hx Arthritis: Yes (LT SIDE BODY AND SHOULDER) Hx Headaches / Migraines: No Hx Seizures: No Hx Kidney Stones: No Hx Asthma: No Hx COPD: No Hx Tuberculosis: No Hx HIV: No Additional medical history: neuropathy. Denied history of VTE - Surgical History Hx Pacemaker: No Hx Internal Defibrillator: No Hx Cholecystectomy: Yes Additional Surgical History: ; rt knee surgery 2013 - Social History Smoking Status: Former Smoker - Medications Home Medications: Home Medications Medication Instructions Recorded Confirmed Last Taken Type Aspirin [Aspirin BABY CHEW TAB] 81 mg PO QDAY #30 tab.chew 05/16/20 03/10/21 03/08/21 Rx Linaclotide [Linzess] 72 mcg PO QDAY #30 cap 05/16/20 03/10/21 2 Days Ago Rx ~03/08/21 Omeprazole 40 mg PO QDAY #30 05/16/20 03/10/21 2 Days Ago Rx ~03/08/21 Oxycodone HCl/Acetaminophen 1 each PO Q6HR PRN #12 05/16/20 03/10/21 2 Weeks Ago Rx [Percocet 10/325 mg] ~02/24/21 AtorvaSTATin [Lipitor] 80 mg PO QHS 02/20/21 03/10/21 03/09/21 History Insulin Lispro [Humalog] See Protocol SUB-Q ACHS 02/20/21 03/10/21 03/08/21 History NIFEdipine [Nifedipine ER] 90 mg PO DAILY 02/20/21 03/10/21 03/09/21 History Clopidogrel [Plavix] 75 mg PO QDAY #90 tablet 03/10/21 Unknown Rx Metoprolol [Lopressor TAB] 100 mg PO DAILY 03/10/21 03/10/21 03/09/21 History ED Physical Exam - General Limitations: Physical Limitation General appearance: alert, in no apparent distress - Head Head exam: Present: atraumatic, normocephalic - Eye Eye exam: Present: normal appearance, EOMI. Absent: nystagmus - ENT ENT exam: Present: normal exam, normal orophraynx, mucous membranes moist, normal external ear exam - Neck Neck exam: Present: normal inspection, full ROM. Absent: tenderness, meningismus - Respiratory Respiratory exam: Present: decreased breath sounds. Absent: respiratory distress, wheezes, rales, rhonchi, stridor - Cardiovascular Cardiovascular Exam: Present: regular rate, normal rhythm, normal heart sounds. Absent: bradycardia, tachycardia, irregular rhythm, systolic murmur, diastolic murmur, rubs, gallop - GI/Abdominal GI/Abdominal exam: Present: soft. Absent: distended, tenderness, guarding, rebound, rigid, pulsatile mass - Extremities Exam Extremities exam: Present: full ROM, tenderness (There is tenderness, fluctuance, and purulent discharge noted from the right below-knee amputation s tump. [place] in place. There is partial wound dehiscence.), other (2+ femoral pulses noted bilaterally. 1+ radial pulses noted bilaterally. Right upper extremity dialysis access noted, without redness, pus or streaking.). Absent: normal inspection - Back Exam Back exam: Present: normal inspection. Absent: tenderness, CVA tenderness (R), CVA tenderness (L), paraspinal tenderness, vertebral tenderness - Neurological Exam Neurological exam: Present: alert, oriented X3, other (No facial droop. Tongue midline. Extraocular movements intact bilaterally. Facial sensation intact to light touch in V1, V2, V3 distribution bilaterally. 5 and a 5 strength in 4 extremities. Sensation intact to light touch in 4 extremities.) - Psychiatric Psychiatric exam: Present: normal affect, normal mood - Skin Skin exam: Present: warm, erythema, abrasion ED Course Vital Signs 05/04/21 06:11 Temperature 98.6 F Pulse Rate 72 Respiratory 24 Rate Blood Pressure 136/63 O2 Sat by Pulse 91 Oximetry - Reevaluation(s) Reevaluation #1: 05/04/21 08:34 Patient denies chest pain to myself. Elevated troponin is likely a type II troponin leak. ED Medical Decision Making - Lab Data Result diagrams: 05/04/21 06:38 05/04/21 06:38 Vital Signs 05/04/21 06:11 Temperature 98.6 F Pulse Rate 72 Respiratory 24 Rate Blood Pressure 136/63 O2 Sat by Pulse 91 Oximetry Lab Results 05/04/21 05/04/21 05/04/21 Range/Units 06:38 06:38 06:38 WBC 13.8 H (4.5-11.0) K/mm3 RBC 2.59 L (3.65-5.03) M/mm3 Hgb 7.4 L (10.1-14.3) gm/dl Hct 22.5 L (30.3-42.9) % MCV 87 (79-97) fl MCH 29 (28-32) pg MCHC 33 (30-34) % RDW 18.4 H (13.2-15.2) % Plt Count 379 (140-440) K/mm3 Lymph % (Auto) 18.1 (13.4-35.0) % [place] % (Auto) 5.4 (0.0-7.3) % Eos % (Auto) 2.1 (0.0-4.3) % Baso % (Auto) 0.9 (0.0-1.8) % Lymph # (Auto) 2.5 (1.2-5.4) K/mm3 [place] # (Auto) 0.7 (0.0-0.8) K/mm3 Eos # (Auto) 0.3 (0.0-0.4) K/mm3 Baso # (Auto) 0.1 (0.0-0.1) K/mm3 Seg Neutrophils % 73.5 H (40.0-70.0) % Seg Neutrophils # 10.2 H (1.8-7.7) K/mm3 PT 14.8 (12.2-14.9) Sec. INR 1.11 (0.87-1.13) VBG pH (7.320-7.420) Sodium 136 L (137-145) mmol/L Potassium 4.2 (3.6-5.0) mmol/L Chloride 96.8 L (98-107) mmol/L Carbon Dioxide 24 (22-30) mmol/L Anion Gap 19 mmol/L BUN 38 H (7-17) mg/dL Glucose 222 H (65-100) mg/dL Calcium 8.2 L (8.4-10.2) mg/dL Magnesium 2.00 (1.7-2.3) mg/dL Total Creatine Kinase 73 (30-135) units/L Troponin T 0.068 H (0.00-0.029) ng/mL 05/04/21 Range/Units 06:38 WBC (4.5-11.0) K/mm3 RBC (3.65-5.03) M/mm3 Hgb (10.1-14.3) gm/dl Hct (30.3-42.9) % MCV (79-97) fl MCH (28-32) pg MCHC (30-34) % RDW (13.2-15.2) % Plt Count (140-440) K/mm3 Lymph % (Auto) (13.4-35.0) % [place] % (Auto) (0.0-7.3) % Eos % (Auto) (0.0-4.3) % Baso % (Auto) (0.0-1.8) % Lymph # (Auto) (1.2-5.4) K/mm3 [place] # (Auto) (0.0-0.8) K/mm3 Eos # (Auto) (0.0-0.4) K/mm3 Baso # (Auto) (0.0-0.1) K/mm3 Seg Neutrophils % (40.0-70.0) % Seg Neutrophils # (1.8-7.7) K/mm3 PT (12.2-14.9) Sec. INR (0.87-1.13) VBG pH 7.365 (7.320-7.420) Sodium (137-145) mmol/L Potassium (3.6-5.0) mmol/L Chloride (98-107) mmol/L Carbon Dioxide (22-30) mmol/L Anion Gap mmol/L BUN (7-17) mg/dL Glucose (65-100) mg/dL Calcium (8.4-10.2) mg/dL Magnesium (1.7-2.3) mg/dL Total Creatine Kinase (30-135) units/L Troponin T (0.00-0.029) ng/mL - EKG Data -: EKG Interpreted by [place] EKG shows normal: sinus rhythm Rate: normal - Radiology Data Radiology results: pending, report reviewed, [place] [address] XRay Report Signed Patient: FILEMON JACOBO MR#: [id number] : 1965 Acct:[id number] Age/Sex: 56 / F ADM Date: 05/04/21 Loc: ED Attending Dr: Ordering Physician: SHAQ COLE MD Date of Service: 05/04/21 Procedure(s): XR chest 1V ap Accession Number(s): [id number] cc: SHAQ COLE MD Fluoro Time In Minutes: CHEST 1 VIEW INDICATION / CLINICAL INFORMATION: esrd, pulse of 92 %. Dyspnea FINDINGS: SUPPORT DEVICES: None. HEART / MEDIASTINUM: Cardiomegaly. LUNGS / PLEURA: Mild bilateral cardiopulmonary edema. Signer Name: Amish Orellana MD Signed: 05/04/2021 7:13 AM Workstation Name: [id number] Transcribed By: BC Dictated By: Amish Orellana MD Electronically Authenticated By: Amish Orellana MD Signed Date/Time: 05/04/21712 DD/ 2 [facility] [address] [place] [address] XRay Report Signed Patient: FILEMON JACOBO MR#: [id number] : 1965 Acct:[id number] Age/Sex: 56 / F ADM Date: 05/04/21 Loc: ED Attending Dr: Ordering Physician: SHAQ COLE MD Date of Service: 05/04/21 Procedure(s): XR knee 3V RT Accession Number(s): [id number] cc: SHAQ COLE MD Fluoro Time In Minutes: RIGHT KNEE 3 VIEWS INDICATION: fall infected wound. COMPARISON: No relevant comparison IMPRESSION: Recent smvve-xzq-dzoj amputation changes are suspected, correlate with history. Moderate tricompartmental osteoarthritic changes are noted at the knee. There appears to be soft tissue ulceration laterally oriented dehiscence of the surgical staple line laterally. There is a small amount of soft tissue gas distal and anterior to the remaining tibia and fibula. There is no advanced bony destruction on x-ray. I question if there is mild periostitis of the remaining proximal fibula. Very early osteomyelitis is difficult to exclude. Please correlate with the patient and consider further imaging with MR. Signer Name: Mil Paez Jr, MD Signed: 05/04/2021 8:09 AM Workstation Name: [id number] Transcribed By: QUENTIN Dictated By: MIL PAEZ JR, MD Electronically Authenticated By: MIL PAZE JR, MD Signed Date/Time: 05/04/21808 DD/ 5 - Medical Decision Making Differential diagnosis, including but not limited to: End-stage renal disease on hemodialysis, pulmonary edema, fluid overload, electrolyte derangement, peripheral artery disease, infected right below-knee amputation stump. Assessment and plan: 56-year-old female, with a primary complaint of right below-knee amputation stump pain, which appears to be infected, manifest by tenderness, purulent discharge, and wound dehiscence. We will treat the patient's pain, obtain x-ray of the right lower extremity, start antibiotics, vancomycin and cefepime. As a fourth generation cephalosporin, cefepime is structurally dissimilar to penicillin, and is statistically unlikely to cause an anaphylactic or anaphylactoid reaction. Contacted vascular surgery on-call, Dr. Mauro. Discussed the patient's history, physical, clinical impression and plan of care. Vascular surgery Dr. Mauro and his group will follow in consultation. Patient found to be hypoxic, x-ray of the chest was obtained, and shows pulmonary edema. The patient is not significantly symptomatic. The patient denies Covid symptomatology. She did endorse some nausea. She is not vomiting. I contacted her porter luggage, Dr. Phani Phipps Discussed her history, physical, laboratory studies and imaging studies. He will follow in consultation, and arrange for hemodialysis. I recommended admission to the medical service. I discussed this with the abner mckeon. She is agreeable with this plan of care. Hospital physician, Dr. Arceo to admit to [facility] Critical care attestation.: If time is entered above; I have spent that time in minutes in the direct care of this critically ill patient, excluding procedure time. ED Disposition Clinical Impression: Volume overload, Pulmonary edema, PAD (peripheral artery disease), Right BKA infection, End-stage renal disease needing dialysis Disposition: ADMITTED INPATIENT Is pt being admited?: Yes Does the pt Need Aspirin: No Condition: Fair Instructions: Pulmonary Edema (ED)
[2021-05-04 07:42] LABS: Chol/HDL Ratio 2.64 %
[2021-05-04] MEDS ORDERED: VANCOMYCIN 1,750 MG in SODIUM CHLORIDE 0.9% 500 ML 500 ML IV ONE (08:00)
--- NOTE | 2021-05-04 08:13 | XRay Report ---
RIGHT KNEE 3 VIEWS INDICATION: fall infected wound. COMPARISON: No relevant comparison IMPRESSION: Recent ranre-dsx-ifah amputation changes are suspected, correlate with history. Moderate tricompartmental osteoarthritic changes are noted at the knee. There appears to be soft tissue ulcer ation laterally oriented dehiscence of the surgical staple line laterally. There is a small amount of soft tissue gas distal and anterior to the remaining tibia and fibula. There is no advanced bony katt truction on x-ray. I question if there is mild periostitis of the remaining proximal fibula. Very ear ly osteomyelitis is difficult to exclude. Please correlate with the patient and consider further imag ing with MR. Signer Name: Mil Paez Jr, MD Signed: 05/04/2021 8:09 AM Workstation Name: [id number]
[2021-05-04] MEDS ORDERED: HEPARIN 10,000 UNITS/10 ML VIAL IV PRN (09:00)
[2021-05-04] MEDS ORDERED: SODIUM CHLORIDE 0.9% 100 ML IV PRN (09:00)
[2021-05-04] MEDS ORDERED: MORPHINE 4 MG/1 ML INJ IV PRN (09:00)
[2021-05-04] MEDS: ONDANSETRON 4 MG/2 ML INJ IV PRN ×2 (10:53→17:00)
[2021-05-04] MEDS: EPOETIN ALFA-EPBX 20,000 UNIT/1 ML VIAL SUB-Q PRN (10:55)
--- NOTE | 2021-05-04 11:48 | History and Physical Report ---
History of Present Illness Date of examination: 05/04/21 Date of admission: 05/04/21 Chief complaint: Nausea, vomiting and open leg wound Past History Past Medical History: diabetes, hypertension, renal failure Past Surgical History: Other (R below the knee amptuation 2020) Social history: no significant social history Family history: no significant family history Medications and Allergies Allergies Allergy/AdvReac Type Severity Reaction Status Date / Time Penicillins AdvReac Swelling Verified 05/04/21 06:09 Home Medications Medication Instructions Recorded Confirmed Last Taken Type Aspirin [Aspirin BABY CHEW TAB] 81 mg PO QDAY #30 tab.chew 05/16/20 03/10/21 03/08/21 Rx Linaclotide [Linzess] 72 mcg PO QDAY #30 cap 05/16/20 03/10/21 2 Days Ago Rx ~03/08/21 Omeprazole 40 mg PO QDAY #30 05/16/20 03/10/21 2 Days Ago Rx ~03/08/21 Oxycodone HCl/Acetaminophen 1 each PO Q6HR PRN #12 05/16/20 03/10/21 2 Weeks Ago Rx [Percocet 10/325 mg] ~02/24/21 AtorvaSTATin [Lipitor] 80 mg PO QHS 02/20/21 03/10/21 03/09/21 History Insulin Lispro [Humalog] See Protocol SUB-Q ACHS 02/20/21 03/10/21 03/08/21 History NIFEdipine [Nifedipine ER] 90 mg PO DAILY 02/20/21 03/10/21 03/09/21 History Clopidogrel [Plavix] 75 mg PO QDAY #90 tablet 03/10/21 Unknown Rx Metoprolol [Lopressor TAB] 100 mg PO DAILY 03/10/21 03/10/21 03/09/21 History Active Meds: Active Medications Acetaminophen (Acetaminophen 325 Mg Tab) 650 mg PO Q4H PRN PRN Reason: Pain MILD(1-3)/Fever >100.5/MARIE Heparin Sodium (Porcine) (Heparin 10,000 Units/10 Ml Vial) 3,000 unit IV DULCE PRN PRN Reason: hemodialysis Last Admin: 05/04/21 10:58 Dose: 3,000 unit Documented by: Sodium Chloride (Nacl 0.9%) 100 mls @ 999 mls/hr IV DULCE PRN PRN Reason: Hypotension Morphine Sulfate (Morphine 4 Mg/1 Ml Inj) 4 mg IV Q4H PRN PRN Reason: Pain , Severe (7-10) Ondansetron HCl (Ondansetron 4 Mg/2 Ml Inj) 4 mg IV Q8H PRN PRN Reason: Nausea And Vomiting Last Admin: 05/04/21 10:53 Dose: 4 mg Documented by: Oxycodone/Acetaminophen (Oxycodone /Acetaminophen 5-325mg Tab) 1 tab PO Q6H PRN PRN Reason: Pain, Moderate (4-6) Sodium Chloride (Sodium Chloride 0.9% 10 Ml Flush Syringe) 10 ml IV BID SILVANO Sodium Chloride (Sodium Chloride 0.9% 10 Ml Flush Syringe) 10 ml IV PRN PRN PRN Reason: LINE FLUSH Exam - Physical Exam Narrative exam: GENERAL: Well-developed well-nourished. Lying in bed in no acute distress. HEENT: Normocephalic. Atraumatic. CHEST/LUNGS: Bilateral rales. HEART/CARDIOVASCULAR: RRR. No murmur, rubs or gallops appreciated. ABDOMEN: +BS. NT/ND. NEURO: No focal motor deficit. Follows all commands. EXTREMITIES: Right BKA stump with open wound with jodi draining purulent mat erial. Left lower extremity with normal range of motion. PSYCH: Cooperative. - Constitutional Vitals: Temp Pulse Resp BP Pulse Ox 98.6 F 72 24 136/63 91 05/04/21 06:11 05/04/21 06:11 05/04/21 06:11 05/04/21 06:11 05/04/21 06:11 HEART Score - HEART Score Troponin: Troponin T 0.068 ng/mL (0.00-0.029) H 05/04/21 06:38 Results - Labs CBC & Chem 7: 05/04/21 06:38 05/04/21 06:38 Labs: Laboratory Last Values WBC 13.8 K/mm3 (4.5-11.0) H 05/04/21 06:38 RBC 2.59 M/mm3 (3.65-5.03) L 05/04/21 06:38 Hgb 7.4 gm/dl (10.1-14.3) L 05/04/21 06:38 Hct 22.5 % (30.3-42.9) L 05/04/21 06:38 MCV 87 fl (79-97) 05/04/21 06:38 MCH 29 pg (28-32) 05/04/21 06:38 MCHC 33 % (30-34) 05/04/21 06:38 RDW 18.4 % (13.2-15.2) H 05/04/21 06:38 Plt Count 379 K/mm3 (140-440) 05/04/21 06:38 Lymph % (Auto) 18.1 % (13.4-35.0) 05/04/21 06:38 [place] % (Auto) 5.4 % (0.0-7.3) 05/04/21 06:38 Eos % (Auto) 2.1 % (0.0-4.3) 05/04/21 06:38 Baso % (Auto) 0.9 % (0.0-1.8) 05/04/21 06:38 Lymph # (Auto) 2.5 K/mm3 (1.2-5.4) 05/04/21 06:38 [place] # (Auto) 0.7 K/mm3 (0.0-0.8) 05/04/21 06:38 Eos # (Auto) 0.3 K/mm3 (0.0-0.4) 05/04/21 06:38 Baso # (Auto) 0.1 K/mm3 (0.0-0.1) 05/04/21 06:38 Seg Neutrophils % 73.5 % (40.0-70.0) H 05/04/21 06:38 Seg Neutrophils # 10.2 K/mm3 (1.8-7.7) H 05/04/21 06:38 PT 14.8 Sec. (12.2-14.9) 05/04/21 06:38 INR 1.11 (0.87-1.13) 05/04/21 06:38 VBG pH 7.365 (7.320-7.420) 05/04/21 06:38 Sodium 136 mmol/L (137-145) L 05/04/21 06:38 Potassium 4.2 mmol/L (3.6-5.0) 05/04/21 06:38 Chloride 96.8 mmol/L (98-107) L 05/04/21 06:38 Carbon Dioxide 24 mmol/L (22-30) 05/04/21 06:38 Anion Gap 19 mmol/L 05/04/21 06:38 BUN 38 mg/dL (7-17) H 05/04/21 06:38 Creatinine 4.4 mg/dL (0.6-1.2) H 05/04/21 06:38 Estimated GFR 12 ml/min 05/04/21 06:38 BUN/Creatinine Ratio 9 % 05/04/21 06:38 Glucose 222 mg/dL (65-100) H 05/04/21 06:38 Lactic Acid 1.10 mmol/L (0.7-2.0) 05/04/21 07:53 Calcium 8.2 mg/dL (8.4-10.2) L 05/04/21 06:38 Magnesium 2.00 mg/dL (1.7-2.3) 05/04/21 06:38 Total Creatine Kinase 73 units/L (30-135) 05/04/21 06:38 Troponin T 0.068 ng/mL (0.00-0.029) H 05/04/21 06:38 Triglycerides 102 mg/dL (2-149) 05/04/21 06:38 Cholesterol 98 mg/dL (50-199) 05/04/21 06:38 LDL Cholesterol Direct 37 mg/dL (50-130) L 05/04/21 06:38 HDL Cholesterol 37 mg/dL (40-59) L 05/04/21 06:38 Cholesterol/HDL Ratio 2.64 % 05/04/21 06:38 Microbiology: Microbiology 05/04/21 07:53 Peripheral/Venous Blood Culture - Preliminary Culture in Progress 05/04/21 07:53 Peripheral/Venous Blood Culture - Preliminary Culture in Progress - Imaging and Cardiology Chest x-ray: report reviewed, image reviewed Assessment and Plan Assessment and plan: 56-year-old woman history of ESRD on HD, hypertension, T2DM, and recent right BKA who presented with nausea, vomiting and surgical wound infection. #Right below the knee amputation stump infection -Patient reported R BKA performed at [facility] -Has not followed up with wound care or surgery post discharge -Surgery consulted, recs appreciated -continue vancomycin, cefepime and flagyl for now #ESRD on HD -HD MWF outpatient -Nephrology consulted -Plan for HD today #Type 2 diabetes, insulin-dependent -Patient reports having insulin pump in place, currently not taking any insulin -Sliding scale -Goal blood sugar less than 180 while inpatient #Elevated troponin -Troponin T 0.068, elevation likely due to ESRD -will repeat #Leukocytosis -WBC 13.8, afebrile -Chest x-ray suggestive of vascular congestion -Blood cultures and wound cultures collected -Likely secondary to infection #Normocytic anemia -H&H 7.4/22.5 -H&H 9.3/27.7 last visit -We will transfuse for hemoglobin less than 7 -Likely secondary to ESRD -Epogen with dialysis #Peripheral vascular disease -Lower extremities arterial Doppler performed -Resume home aspirin, Plavix and statin #Hypertension -Uncontrolled -started nifedipine 90 mg daily and Lopressor 50 daily Advance Directives: No VTE prophylaxis?: Chemical Contraindication Mechanical VTE Prophylaxis: Contraindicated Reason for no VTE Prophylaxis: Surgical contraindication Plan of care discussed with patient/family: Yes
[2021-05-04 13:21] LABS: Hepatitis C Virus Antibody Non-Reactive (NonReactive)
[2021-05-04 13:26] LABS: Hepatitis B Surface Antigen Nonreactive (Negative)
--- NOTE | 2021-05-04 13:40 | Vascular Lab Report ---
DUPLEX DOPPLER LOWER EXTREMITY ARTERIAL, RIGHT INDICATION / CLINICAL INFORMATION: bka check flow, injury to bka. TECHNIQUE: Arterial duplex examination of the right lower extremity performed using B-mode, color flow and spect ral Doppler assessment. FINDINGS: RIGHT: - Atherosclerotic Plaque & Vessel: There is moderate atherosclerotic calcification. - Elevated Velocity (>200 cm/s) & Vessel: There is elevation of the peak systolic velocity within the mid superficial femoral artery. - Abnormal Waveform & Vessel: None. ADDITIONAL FINDINGS: None. IMPRESSION: 1. No vascular occlusion. 2. Elevation of the peak systolic velocity in the mid right superficial femoral artery suggests signi ficant stenosis. However, there is no monophasic waveform. Doppler Waveform: - Triphasic is normal. - Biphasic is abnormal if clear transition from triphasic signal along vascular tree. - Monophasic is abnormal. Signer Name: Ever Ventura MD Signed: 05/04/2021 1:34 PM Workstation Name: [id number]
[2021-05-04] MEDS ORDERED: DEXTROSE 50% IN WATER (25GM) 50 ML SYRINGE IV PRN (15:27)
--- NOTE | 2021-05-04 15:29 | Consultation ---
History of Present Illness - Reason for Consult Consult date: 05/04/21 end stage renal disease - History of Present Illness The patient is a 56 YO female who is well known to our service with history significant for DM type 2, HTN, Asthma, Anemia, HFpEF, Ex-smoker, ESRD on HD (MWF) and recent R BKA who presented to [facility] ED 05/04 with c/o worsening R BKA stump infection. Pt reports discharge from her right below-knee amputation stump. She also reports that she fell on it. She was supposed to have home wound care set up and established, but it never came. She has been doing dressing of the wound herself. Patient denies fever, chills, chest pain, abdominal pain, dizziness or syncope. Labs reviewed. Pt was admitted for further evaluation. Nephrology was consulted for ESRD management. Past History Past Medical History: anemia, diabetes, dialysis, ESRD, hypertension, hyperlipidemia, renal failure Past Surgical History: Other (R below the knee amptuation 2020) Social history: no significant social history Family history: no significant family history Medications and Allergies Allergies Allergy/AdvReac Type Severity Reaction Status Date / Time Penicillins AdvReac Swelling Verified 05/04/21 06:09 Home Medications Medication Instructions Recorded Confirmed Last Taken Type Aspirin [Aspirin BABY CHEW TAB] 81 mg PO QDAY #30 tab.chew 05/16/20 05/05/21 03/08/21 Rx Linaclotide [Linzess] 72 mcg PO QDAY #30 cap 05/16/20 05/05/21 2 Days Ago Rx ~03/08/21 Omeprazole 40 mg PO QDAY #30 05/16/20 05/05/21 2 Days Ago Rx ~03/08/21 Oxycodone HCl/Acetaminophen 1 each PO Q6HR PRN #12 05/16/20 05/05/21 2 Weeks Ago Rx [Percocet 10/325 mg] ~02/24/21 AtorvaSTATin [Lipitor] 80 mg PO QHS 02/20/21 05/05/21 03/09/21 History Insulin Lispro [Humalog] See Protocol SUB-Q ACHS 02/20/21 05/05/21 03/08/21 History NIFEdipine [Nifedipine ER] 90 mg PO DAILY 02/20/21 05/05/21 03/09/21 History Clopidogrel [Plavix] 75 mg PO QDAY #90 tablet 03/10/21 05/05/21 Unknown Rx Metoprolol [Lopressor TAB] 100 mg PO DAILY 03/10/21 05/05/21 03/09/21 History Active Meds: Active Medications Acetaminophen (Acetaminophen 325 Mg Tab) 650 mg PO Q4H PRN PRN Reason: Pain MILD(1-3)/Fever >100.5/MARIE Heparin Sodium (Porcine) (Heparin 10,000 Units/10 Ml Vial) 3,000 unit IV DULCE PRN PRN Reason: hemodialysis Last Admin: 05/04/21 10:58 Dose: 3,000 unit Documented by: Sodium Chloride (Nacl 0.9%) 100 mls @ 999 mls/hr IV DULCE PRN PRN Reason: Hypotension Morphine Sulfate (Morphine 4 Mg/1 Ml Inj) 4 mg IV Q4H PRN PRN Reason: Pain , Severe (7-10) Ondansetron HCl (Ondansetron 4 Mg/2 Ml Inj) 4 mg IV Q8H PRN PRN Reason: Nausea And Vomiting Last Admin: 05/04/21 10:53 Dose: 4 mg Documented by: Oxycodone/Acetaminophen (Oxycodone /Acetaminophen 5-325mg Tab) 1 tab PO Q6H PRN PRN Reason: Pain, Moderate (4-6) Sodium Chloride (Sodium Chloride 0.9% 10 Ml Flush Syringe) 10 ml IV BID SILVANO Last Admin: 05/04/21 14:46 Dose: 10 ml Documented by: Sodium Chloride (Sodium Chloride 0.9% 10 Ml Flush Syringe) 10 ml IV PRN PRN PRN Reason: LINE FLUSH Review of Systems All systems: negative (See HPI.) Exam - Vital Signs Vital signs: Vital Signs Temp Pulse Resp BP Pulse Ox 98.6 F 72 24 136/63 91 05/04/21 06:11 05/04/21 06:11 05/04/21 06:11 05/04/21 06:11 05/04/21 06:11 Results - Lab Results 05/05/21 04:47 05/05/21 04:47 Most recent lab results Calcium 8.2 mg/dL (8.4-10.2) L 05/04/21 06:38 Magnesium 2.00 mg/dL (1.7-2.3) 05/04/21 06:38 Assessment and Plan 1. ESRD: Patient is on maintenance hemodialysis three times a week, MWF schedule. Meds dosage based on GFR. Last outpatient HD 05/01. Hemodialysis today. 2. FEN: Volume overload, UF with HD as tolerated. Monitor lytes and volume status. 3. R BKA stump wound infection: IV abx. Vascular consulted. 4. Anemia, POA: Epogen with HD as needed. Monitor. 5. Hypertension: Adjust meds as needed. Monitor. 6. DM type 2. Subjective: Patient was seen and examined at the bedside. General Appearance: General appearance: well-developed, appears stated age, not in distress HEENT: ATNC, pupils equal Neck: trachea midline Respiratory: rales heard Heart: regular, S1S2, no murmur Abdomen: soft, bowel sounds heard, not tender Integumentary: no rash, warm and dry Neurologic: AO, able to move extremities Ext: R BKA stump dressing, soaked Hemodialysis access: R arm AVG
--- NOTE | 2021-05-04 15:29 | Event Note ---
Date: 05/04/21 Hemodialysis consent obtained from patient.
[2021-05-04] MEDS ORDERED: VANCOMYCIN PHARMACY TO DOSE IV SCH (16:00)
[2021-05-04] MEDS ORDERED: NIFEdipine XL 90 MG TAB PO SCH ×2 (16:00→17:00)
[2021-05-04] MEDS ORDERED: ONDANSETRON 4 MG/2 ML INJ IV ONE (16:18)
--- NOTE | 2021-05-04 16:57 | Consultation ---
History of Present Illness - Reason for Consult Consult date: 05/04/21 Right below-knee amputation site Requesting physician: SHAQ COLE - History of Present Illness The patient is a 56-year-old female. She presents to the ER today with a primary complaint of pain and discharge to her right below-knee amputation stump. She reports that she fell on it. She reports that she was supposed to have home wound care set up and established, but it never came. She has been dressing and taking care of the wound herself. The patient denies headache and neck pain. She denies chest pain. She denies abdominal pain. She denies fever, loss of taste and smell. She denies urinary symptoms. She makes no significant respiratory complaints to myself. Patient had endovascular revascularization, and within the last few weeks went to [facility] for a foot infection with the healing wound. Unfortunately there was osteomyelitis of the bone and due to the abscess in the foot, the foot could not be salvaged. Therefore a below-knee amputation was done. The patient fell a few days ago and injured her right below-knee amputation. It does not look well cared for. There is dehiscence of much of it with fibrinous debris around the suture line. Some of the sutures are torn. Arterial ultrasound demonstrates multiphasic right popliteal arterial flow. The stump should be salvageable with appropriate wound care. Past medical history: End-stage renal disease on hemodialysis, Tuesday, Tuesday, Tuesday. PAD, status post angiography and arteriogram with Dr. Hernandez. Right lower extremity below- knee amputation a few weeks ago at [facility]. Hypertension. Diabetes. Up-to-date with COVID-19 vaccination. Past History Past Medical History: diabetes, hypertension, renal failure Past Surgical History: Other (R below the knee amptuation 2020) Social history: no significant social history Family history: no significant family history Medications and Allergies Allergies Allergy/AdvReac Type Severity Reaction Status Date / Time Penicillins AdvReac Swelling Verified 05/04/21 06:09 Home Medications Medication Instructions Recorded Confirmed Last Taken Type Aspirin [Aspirin BABY CHEW TAB] 81 mg PO QDAY #30 tab.chew 05/16/20 03/10/2103/21 Rx Linaclotide [Linzess] 72 mcg PO QDAY #30 cap 05/16/20 03/10/21 2 Days Ago Rx ~03/08/21 Omeprazole 40 mg PO QDAY #30 05/16/20 03/10/21 2 Days Ago Rx ~03/08/21 Oxycodone HCl/Acetaminophen 1 each PO Q6HR PRN #12 05/16/20 03/10/21 2 Weeks Ago Rx [Percocet 10/325 mg] ~02/24/21 AtorvaSTATin [Lipitor] 80 mg PO QHS 02/20/21 03/10/21 03/09/21 History Insulin Lispro [Humalog] See Protocol SUB-Q ACHS 02/20/21 03/10/21 03/08/21 History NIFEdipine [Nifedipine ER] 90 mg PO DAILY 02/20/21 03/10/21 03/09/21 History Clopidogrel [Plavix] 75 mg PO QDAY #90 tablet 03/10/21 Unknown Rx Metoprolol [Lopressor TAB] 100 mg PO DAILY 03/10/21 03/10/21 03/09/21 History Active Meds: Active Medications Acetaminophen (Acetaminophen 325 Mg Tab) 650 mg PO Q4H PRN PRN Reason: Pain MILD(1-3)/Fever >100.5/MARIE Aspirin (Aspirin 81 Mg Tab Chew) 81 mg PO QDAY SILVANO Atorvastatin Calcium (Atorvastatin 40 Mg Tab) 80 mg PO QHS SILVANO Clopidogrel Bisulfate (Clopidogrel 75 Mg Tab) 75 mg PO QDAY SILVANO Dextrose (Dextrose 50% In Water (25gm) 50 Ml Syringe) 50 ml IV Q30MIN PRN; Protocol PRN Reason: Hypoglycemia Heparin Sodium (Porcine) (Heparin 10,000 Units/10 Ml Vial) 3,000 unit IV DULCE PRN PRN Reason: hemodialysis Last Admin: 05/04/21 10:58 Dose: 3,000 unit Documented by: Sodium Chloride (Nacl 0.9%) 100 mls @ 999 mls/hr IV DULCE PRN PRN Reason: Hypotension Metronidazole (Flagyl 500 Mg/100 Ml) 500 mg in 100 mls @ 100 mls/hr IV Q8H SILVANO; Protocol Cefepime HCl (Cefepime/Ns 1 Gm/100 Ml) 1 gm in 100 mls @ 200 mls/hr IV Q24H SILVANO; Protocol Vancomycin HCl (Vancomycin/Ns 1 Gm/250 Ml) 1 gm in 250 mls @ 125 mls/hr IV Q48H SILVANO Insulin Human Lispro (Insulin Lispro 100 Unit/Ml) 0 unit SUB-Q ACHS SILVANO; Protocol Metoprolol Succinate (Metoprolol Succinate Xl 50 Mg Tab) 50 mg PO QDAY SILVANO Morphine Sulfate (Morphine 4 Mg/1 Ml Inj) 4 mg IV Q4H PRN PRN Reason: Pain , Severe (7-10) Nifedipine (Nifedipine Xl 90 Mg Tab) 90 mg PO QDAY SILVANO Ondansetron HCl (Ondansetron 4 Mg/2 Ml Inj) 4 mg IV Q8H PRN PRN Reason: Nausea And Vomiting Last Admin: 05/04/21 10:53 Dose: 4 mg Documented by: Oxycodone/Acetaminophen (Oxycodone /Acetaminophen 5-325mg Tab) 1 tab PO Q6H PRN PRN Reason: Pain, Moderate (4-6) Sodium Chloride (Sodium Chloride 0.9% 10 Ml Flush Syringe) 10 ml IV BID SILVANO Last Admin: 05/04/21 14:46 Dose: 10 ml Documented by: Sodium Chloride (Sodium Chloride 0.9% 10 Ml Flush Syringe) 10 ml IV PRN PRN PRN Reason: LINE FLUSH Review of Systems All systems: negative (see HPI) Exam - Constitutional Vitals: Temp Pulse Resp BP Pulse Ox 98.2 F 76 18 175/65 90 05/04/21 13:00 05/04/21 13:00 05/04/21 13:00 05/04/21 15:01 05/04/21 15:01 General appearance: Present: no acute distress - EENT Eyes: Present: EOM intact ENT: hearing intact - Respiratory Respiratory effort: normal - Extremities Extremities: abnormal (Right AV fistula with thrill ; see HPI for R BKA stump) - Psychiatric Psychiatric: appropriate mood/affect, cooperative Results - Labs CBC & Chem 7: 05/04/21 06:38 05/04/21 06:38 Labs: Abnormal lab results 05/04/21 05/04/21 Range/Units 06:38 06:38 WBC 13.8 H (4.5-11.0) K/mm3 RBC 2.59 L (3.65-5.03) M/mm3 Hgb 7.4 L (10.1-14.3) gm/dl Hct 22.5 L (30.3-42.9) % RDW 18.4 H (13.2-15.2) % Seg Neutrophils % 73.5 H (40.0-70.0) % Seg Neutrophils # 10.2 H (1.8-7.7) K/mm3 Sodium 136 L (137-145) mmol/L Chloride 96.8 L (98-107) mmol/L BUN 38 H (7-17) mg/dL Creatinine 4.4 H (0.6-1.2) mg/dL Glucose 222 H (65-100) mg/dL Calcium 8.2 L (8.4-10.2) mg/dL Troponin T 0.068 H (0.00-0.029) ng/mL LDL Cholesterol Direct 37 L (50-130) mg/dL HDL Cholesterol 37 L (40-59) mg/dL Assessment and Plan 56-year-old female with multiple medical issues including right below-knee amputation performed at [facility] secondary to what sounds like a foot abscess with underlying osteomyelitis precluding salvage. The right below-knee amputation has been traumatized which, according to patient, happened a few days ago, but it also appears to have had poor wound care in the interim. There is adequate flow to heal the right below-knee amputation. Patient needs a right knee immobilizer to keep her knee extended. Patient will need wound care nurse to see patient. Patient may also benefit from debridement which will probably be by general surgery who performs wound care in the wound care center. Depending on how much debridement is performed, may need wound VAC.
[2021-05-04] MEDS: INSULIN LISPRO 100 UNIT/ML SUB-Q SCH ×2 (18:21→22:03)
[2021-05-04] MEDS: CLOPIDOGREL 75 MG TAB PO SCH (18:21)
[2021-05-04] MEDS: metroNIDAZOLE/NS 500 MG/100 ML 500 MG/100 ML BAG IV SCH (20:31)
[2021-05-04] MEDS: METOPROLOL SUCCINATE XL 50 MG TAB PO SCH (21:05)
[2021-05-04] MEDS ORDERED: LORazepam 2 MG/ML VIAL IV ONE (21:41)
--- NOTE | 2021-05-04 21:41 | Event Note ---
Date: 05/04/21 Patient has episode of shortness of breath/respiratory distress. Patient is put on BiPAP. Lasix 40 mg IV x1 dose ordered. Stat chest x-ray is ordered. ABG is ordered. Patient is given Ativan. Patient need to have hemodialysis.
[2021-05-04] MEDS ORDERED: FUROSEMIDE 40 MG/4 ML INJ IV ONE (21:45)
--- NOTE | 2021-05-04 22:08 | XRay Report ---
CHEST 1 VIEW 05/04/2021 8:59 PM INDICATION / CLINICAL INFORMATION: SOB. COMPARISON: Radiograph performed earlier in the day FINDINGS: SUPPORT DEVICES: None. HEART / MEDIASTINUM: Stable. LUNGS / PLEURA: Worsening bibasilar airspace opacities, most pronounced at the right lung base. There is also superimposed pulmonary edema. No pneumothorax. Bilateral small pleural effusions cannot be e xcluded. ADDITIONAL FINDINGS: No significant additional findings. IMPRESSION: 1. Worsening bibasilar airspace opacities and pulmonary edema. Signer Name: Julien Mclean MD Signed: 05/04/2021 10:04 PM Workstation Name: [id number]
[2021-05-05] MEDS: ONDANSETRON 4 MG/2 ML INJ IV PRN (00:11)
[2021-05-05] MEDS: metroNIDAZOLE/NS 500 MG/100 ML 500 MG/100 ML BAG IV SCH ×3 (00:38→18:37)
[2021-05-05 05:43] LABS: Basophils # (Auto) 0.2 K/mm3 (0.0-0.1); Basophils % (Auto) 1.1 % (0.0-1.8); Hematocrit 23.9 % (30.3-42.9); Hemoglobin 7.7 gm/dl (10.1-14.3); Lymphocytes % (Auto) 5.7 % (13.4-35.0); Mean Corpuscular HGB Conc 32 % (30-34); Mean Corpuscular Volume 90 fl (79-97); Monocytes # (Auto) 0.7 K/mm3 (0.0-0.8); Monocytes % (Auto) 3.8 % (0.0-7.3); Red Blood Count 2.65 M/mm3 (3.65-5.03); Red Cell Distribution Width 19.4 % (13.2-15.2)
[2021-05-05 05:50] LABS: Calcium 8.2 mg/dL (8.4-10.2)
[2021-05-05 06:46] LABS: Platelet Count 173 K/mm3 (140-440)
[2021-05-05] MEDS: INSULIN LISPRO 100 UNIT/ML SUB-Q SCH ×3 (07:30→18:38)
--- NOTE | 2021-05-05 08:15 | Progress Note ---
Assessment and Plan 1. ESRD: Patient is on maintenance hemodialysis three times a week, MWF schedule. Meds dosage based on GFR. Last outpatient HD 05/01. Hemodialysis: 05/04. UF today. 2. FEN: Volume overload, UF today as tolerated. Monitor lytes and volume status. 3. Acute hypoxic resp failure: CXR showed volume overload. Volume control thru HD. On BIPAP. 4. R BKA stump wound infection: IV abx. Followed by Vascular. 5. Anemia, POA: Epogen with HD as needed. Monitor. 6. Hypertension: Adjust meds as needed. Monitor. 7. DM type 2. Subjective: Patient was seen and examined at the bedside. General Appearance: General appearance: well-developed, appears stated age, in distress, on BIPAP HEENT: ATNC, pupils equal Neck: trachea midline Respiratory: rales heard Heart: regular, S1S2, no murmur Abdomen: soft, bowel sounds heard, not tender Integumentary: no rash, warm and dry Neurologic: AO, able to move extremities Ext: R BKA stump dressing, soaked Hemodialysis access: R arm AVG Subjective Date of service: 05/05/21 Objective - Vital Signs Vital signs: Vital Signs - 12hr 05/04/21 05/04/21 05/05/21 20:49 22:02 00:48 Temperature 98.5 F Pulse Rate 91 H Respiratory 20 30 H Rate Blood Pressure 177/67 O2 Sat by Pulse 76 L 91 92 Oximetry 05/05/21 05/05/21 05:28 05:59 Temperature 97.9 F Pulse Rate 76 76 Respiratory 30 H 26 H Rate Blood Pressure 145/65 O2 Sat by Pulse 100 100 Oximetry - Lab 05/05/21 04:47 05/05/21 04:47 Most recent lab results ABG pH 7.336 (7.320-7.450) 05/04/21 Unknown ABG O2 Saturation 82.3 (0-100) 05/04/21 Unknown Calcium 8.2 mg/dL (8.4-10.2) L 05/05/21 04:47 Magnesium 2.00 mg/dL (1.7-2.3) 05/04/21 06:38 Medications & Allergies - Medications Allergies/Adverse Reactions: Allergies Penicillins Adverse Reaction (Verified 05/04/21 06:09) Swelling Home Medications: Home Medications Medication Instructions Recorded Confirmed Last Taken Type Aspirin [Aspirin BABY CHEW TAB] 81 mg PO QDAY #30 tab.chew 05/16/20 05/05/21 03/08/21 Rx Linaclotide [Linzess] 72 mcg PO QDAY #30 cap 05/16/20 05/05/21 2 Days Ago Rx ~03/08/21 Omeprazole 40 mg PO QDAY #30 05/16/20 05/05/21 2 Days Ago Rx ~03/08/21 Oxycodone HCl/Acetaminophen 1 each PO Q6HR PRN #12 05/16/20 05/05/21 2 Weeks Ago Rx [Percocet 10/325 mg] ~02/24/21 AtorvaSTATin [Lipitor] 80 mg PO QHS 02/20/21 05/05/21 03/09/21 History Insulin Lispro [Humalog] See Protocol SUB-Q ACHS 02/20/21 05/05/21 03/08/21 History NIFEdipine [Nifedipine ER] 90 mg PO DAILY 02/20/21 05/05/21 03/09/21 History Clopidogrel [Plavix] 75 mg PO QDAY #90 tablet 03/10/21 05/05/21 Unknown Rx Metoprolol [Lopressor TAB] 100 mg PO DAILY 03/10/21 05/05/21 03/09/21 History Active Medications: Generic Name Dose Route Start Last Admin Trade Name Freq PRN Reason Stop Dose Admin Acetaminophen 650 mg 05/04/21 09:00 Acetaminophen 325 Mg Tab PO Q4H PRN Pain MILD(1-3)/Fever >100.5/MARIE Aspirin 81 mg 05/05/21 10:00 Aspirin 81 Mg Tab Chew PO QDAY SILVANO Atorvastatin Calcium 80 mg 05/04/21 22:00 05/04/21 21:04 Atorvastatin 40 Mg Tab PO 80 mg QHS SILVANO Administration Clopidogrel Bisulfate 75 mg 05/04/21 16:00 05/04/21 18:21 Clopidogrel 75 Mg Tab PO 75 mg QDAY SILVANO Administration Dextrose 50 ml 05/04/21 15:27 Dextrose 50% In Water (25gm) 50 Ml Syringe IV Q30MIN PRN Hypoglycemia Protocol Heparin Sodium (Porcine) 3,000 unit 05/04/21 09:00 05/04/21 10:58 Heparin 10,000 Units/10 Ml Vial IV 3,000 unit DULCE PRN Administration hemodialysis Sodium Chloride 100 mls @ 999 mls/hr 05/04/21 09:00 Nacl 0.9% IV DULCE PRN Hypotension Metronidazole 500 mg in 100 mls @ 100 mls/hr 05/04/21 16:30 05/05/21 00:38 Flagyl 500 Mg/100 Ml IV Not Given Q8H [facility] Protocol Cefepime HCl 1 gm in 100 mls @ 200 mls/hr 05/05/21 14:00 Cefepime/Ns 1 Gm/100 Ml IV Q24H [facility] Protocol Insulin Human Lispro 0 unit 05/04/21 16:30 05/04/21 22:03 Insulin Lispro 100 Unit/Ml SUB-Q 2 unit ACHS SILVANO Administration Protocol Metoprolol Succinate 50 mg 05/04/21 17:00 05/04/21 21:05 Metoprolol Succinate Xl 50 Mg Tab PO 50 mg QDAY SILVANO Administration Morphine Sulfate 4 mg 05/04/21 09:00 Morphine 4 Mg/1 Ml Inj IV Q4H PRN Pain , Severe (7-10) Nifedipine 90 mg 05/04/21 17:00 05/04/21 21:05 Nifedipine Xl 90 Mg Tab PO 90 mg QDAY SILVANO Administration Ondansetron HCl 4 mg 05/04/21 09:00 05/05/21 00:11 Ondansetron 4 Mg/2 Ml Inj IV 4 mg Q8H PRN Administration Nausea And Vomiting Oxycodone/Acetaminophen 1 tab 05/04/21 09:00 Oxycodone /Acetaminophen 5-325mg Tab PO Q6H PRN Pain, Moderate (4-6) Sodium Chloride 10 ml 05/04/21 10:00 05/04/21 22:03 Sodium Chloride 0.9% 10 Ml Flush Syringe IV 10 ml BID SILVANO Administration Sodium Chloride 10 ml 05/04/21 09:00 Sodium Chloride 0.9% 10 Ml Flush Syringe IV PRN PRN LINE FLUSH
[2021-05-05] MEDS: CLOPIDOGREL 75 MG TAB PO SCH (10:15)
[2021-05-05] MEDS: ASPIRIN 81 MG TAB CHEW PO SCH (10:15)
[2021-05-05] MEDS: METOPROLOL SUCCINATE XL 50 MG TAB PO SCH (10:15)
[2021-05-05] MEDS: CEFEPIME/NS 1 GM/100 ML 1 GM/100 ML BAG IV SCH (14:00)
--- NOTE | 2021-05-05 15:33 | Progress Note ---
Assessment and Plan Assessment and plan: 56-year-old woman history of ESRD on HD, hypertension, T2DM, and recent right BKA who presented with nausea, vomiting and surgical wound infection. #Right below the knee amputation stump infection -Patient reported R BKA performed at [facility] -Has not followed up with wound care or surgery post discharge -Surgery consulted, recs appreciated -continue vancomycin, cefepime and flagyl for now #ESRD on HD -HD MWF outpatient -Nephrology consulted; appreciate recs #Type 2 diabetes, insulin-dependent -Patient reports having insulin pump in place, currently not taking any insulin -Sliding scale -Goal blood sugar less than 180 while inpatient #Elevated troponin -Troponin T 0.068, elevation likely due to ESRD -will repeat #Leukocytosis-worsened -WBC 17.8 -Chest x-ray suggestive of vascular congestion -Blood cultures and wound cultures collected -Likely secondary to infection #Normocytic anemia -Hemoglobin 7.4; Likely secondary to ESRD -H&H 9.3/27.7 last visit -We will transfuse for hemoglobin less than 7 -Epogen with dialysis #Peripheral vascular disease -Lower extremities arterial Doppler performed -Resume home aspirin 81 mg daily, Plavix 75 mg daily, and statin #Hypertension -Uncontrolled -Continue nifedipine 90 mg daily and Lopressor 50 daily Disposition Plan: Continue medical management; pending surgical recs Total Time Spent with Patient (Minutes): 30 History Interval history: Patient had an episode of respiratory distress last night requiring a stat chest x-ray and IV Lasix 40 mg x 1. Hospitalist Physical - Constitutional Vitals: Temp Pulse Resp BP Pulse Ox 98.2 F 72 21 139/49 95 05/05/21 13:58 05/05/21 13:58 05/05/21 13:58 05/05/21 13:58 05/05/21 13:58 General appearance: Present: no acute distress - EENT Eyes: Present: PERRL, EOM intact ENT: hearing intact, clear oral mucosa - Neck Neck: Present: supple, normal ROM - Respiratory Respiratory effort: normal - Cardiovascular Rhythm: regular Heart Sounds: Present: S1 & S2 - Extremities Extremities: no ischemia, pulses intact, pulses symmetrical, abnormal (BKA right) Extremity abnormal: ulceration (Ulceration of right BKA stump) Peripheral Pulses: within normal limits - Abdominal General gastrointestinal: soft, non-tender, non-distended, normal bowel sounds - Integumentary Integumentary: Present: clear, warm, dry - Psychiatric Psychiatric: appropriate mood/affect, intact judgment & insight, memory intact, cooperative - Neurologic Neurologic: CNII-XII intact, moves all extremities HEART Score - HEART Score Troponin: Troponin T 0.066 ng/mL (0.00-0.029) H 05/04/21 23:36 Results - Labs CBC & Chem 7: 05/05/21 04:47 05/05/21 04:47 Labs: Laboratory Last Values WBC 17.8 K/mm3 (4.5-11.0) H 05/05/21 04:47 RBC 2.65 M/mm3 (3.65-5.03) L 05/05/21 04:47 Hgb 7.7 gm/dl (10.1-14.3) L 05/05/21 04:47 Hct 23.9 % (30.3-42.9) L 05/05/21 04:47 MCV 90 fl (79-97) 05/05/21 04:47 MCH 29 pg (28-32) 05/05/21 04:47 MCHC 32 % (30-34) 05/05/21 04:47 RDW 19.4 % (13.2-15.2) H 05/05/21 04:47 Plt Count 173 K/mm3 (140-440) 05/05/21 04:47 Lymph % (Auto) 5.7 % (13.4-35.0) L 05/05/21 04:47 Whitley % (Auto) 3.8 % (0.0-7.3) 05/05/21 04:47 Eos % (Auto) 0.0 % (0.0-4.3) 05/05/21 04:47 Baso % (Auto) 1.1 % (0.0-1.8) 05/05/21 04:47 Lymph # (Auto) 1.0 K/mm3 (1.2-5.4) L 05/05/21 04:47 Whitley # (Auto) 0.7 K/mm3 (0.0-0.8) 05/05/21 04:47 Eos # (Auto) 0.0 K/mm3 (0.0-0.4) 05/05/21 04:47 Baso # (Auto) 0.2 K/mm3 (0.0-0.1) H 05/05/21 04:47 Seg Neutrophils % 89.4 % (40.0-70.0) H 05/05/21 04:47 Seg Neutrophils # 15.9 K/mm3 (1.8-7.7) H 05/05/21 04:47 PT 14.8 Sec. (12.2-14.9) 05/04/21 06:38 INR 1.11 (0.87-1.13) 05/04/21 06:38 ABG pH 7.336 (7.320-7.450) 05/04/21 Unknown POC ABG pCO2 49.2 mmHg (32.0-48.0) H 05/04/21 Unknown POC ABG pO2 54.9 mmHg (83-108) L 05/04/21 Unknown POC ABG HCO3 25.7 05/04/21 Unknown ABG O2 Saturation 82.3 (0-100) 05/04/21 Unknown ABG O2 Content Not Reportable 05/04/21 Unknown POC ABG Base Excess -0.3 05/04/21 Unknown ABG Hemoglobin 8.24 (12.0-17.5) L 05/04/21 Unknown ABG Oxyhemoglobin 80.4 (94-98) L 05/04/21 Unknown ABG Methemoglobin 0.3 (0.0-1.5) 05/04/21 Unknown ABG Sodium Not Reportable 05/04/21 Unknown ABG Potassium Not Reportable 05/04/21 Unknown ABG Chloride Not Reportable 05/04/21 Unknown ABG Glucose Not Reportable 05/04/21 Unknown VBG pH 7.365 (7.320-7.420) 05/04/21 06:38 Carboxyhemoglobin 2.1 (0.5-1.5) H 05/04/21 Unknown FiO2 % 100 05/04/21 Unknown Sodium 140 mmol/L (137-145) 05/05/21 04:47 Potassium 4.2 mmol/L (3.6-5.0) 05/05/21 04:47 Chloride 97.5 mmol/L (98-107) L 05/05/21 04:47 Carbon Dioxide 23 mmol/L (22-30) 05/05/21 04:47 Anion Gap 24 mmol/L 05/05/21 04:47 BUN 21 mg/dL (7-17) H 05/05/21 04:47 Creatinine 2.7 mg/dL (0.6-1.2) H 05/05/21 04:47 Estimated GFR 22 ml/min 05/05/21 04:47 BUN/Creatinine Ratio 8 % 05/05/21 04:47 Glucose 210 mg/dL (65-100) H 05/05/21 04:47 POC Glucose 215 mg/dL (70-105) H 05/05/21 06:01 Lactic Acid 1.10 mmol/L (0.7-2.0) 05/04/21 07:53 Calcium 8.2 mg/dL (8.4-10.2) L 05/05/21 04:47 Magnesium 2.00 mg/dL (1.7-2.3) 05/04/21 06:38 Total Creatine Kinase 73 units/L (30-135) 05/04/21 06:38 Troponin T 0.066 ng/mL (0.00-0.029) H 05/04/21 23:36 Triglycerides 102 mg/dL (2-149) 05/04/21 06:38 Cholesterol 98 mg/dL (50-199) 05/04/21 06:38 LDL Cholesterol Direct 37 mg/dL (50-130) L 05/04/21 06:38 HDL Cholesterol 37 mg/dL (40-59) L 05/04/21 06:38 Cholesterol/HDL Ratio 2.64 % 05/04/21 06:38 Arterial Blood Glucose Not Reportable 05/04/21 Unknown Hepatitis A IgM Ab Non-reactive (NonReactive) 05/04/21 11:05 Hep Bs Antigen Nonreactive (Negative) 05/04/21 11:05 Hep B Core IgM Ab Non-reactive (NonReactive) 05/04/21 11:05 Hepatitis C Antibody Non-reactive (NonReactive) 05/04/21 11:05 Microbiology: Microbiology 05/04/21 09:01 Wound - Deep Wound Culture - Preliminary 05/04/21 07:53 Peripheral/Venous Blood Culture - Preliminary NO GROWTH AFTER 24 HOURS 05/04/21 07:53 Peripheral/Venous Blood Culture - Preliminary NO GROWTH AFTER 24 HOURS Vera/IV: Voiding Method Bedpan Active Medications - Current Medications Current Medications: Generic Name Dose Route Start Last Admin Trade Name Freq PRN Reason Stop Dose Admin Acetaminophen 650 mg 05/04/21 09:00 Acetaminophen 325 Mg Tab PO Q4H PRN Pain MILD(1-3)/Fever >100.5/MARIE Aspirin 81 mg 05/05/21 10:00 05/05/21 10:15 Aspirin 81 Mg Tab Chew PO 81 mg QDAY SILVANO Administration Atorvastatin Calcium 80 mg 05/04/21 22:00 05/04/21 21:04 Atorvastatin 40 Mg Tab PO 80 mg QHS SILVANO Administration Clopidogrel Bisulfate 75 mg 05/04/21 16:00 05/05/21 10:15 Clopidogrel 75 Mg Tab PO 75 mg QDAY SILVANO Administration Dextrose 50 ml 05/04/21 15:27 Dextrose 50% In Water (25gm) 50 Ml Syringe IV Q30MIN PRN Hypoglycemia Protocol Heparin Sodium (Porcine) 3,000 unit 05/04/21 09:00 05/04/21 10:58 Heparin 10,000 Units/10 Ml Vial IV 3,000 unit DULCE PRN Administration hemodialysis Sodium Chloride 100 mls @ 999 mls/hr 05/04/21 09:00 Nacl 0.9% IV DULCE PRN Hypotension Metronidazole 500 mg in 100 mls @ 100 mls/hr 05/04/21 16:30 05/05/21 10:15 Flagyl 500 Mg/100 Ml IV 100 mls/hr Q8H [facility] Administration Protocol Cefepime HCl 1 gm in 100 mls @ 200 mls/hr 05/05/21 14:00 Cefepime/Ns 1 Gm/100 Ml IV Q24H [facility] Protocol Insulin Human Lispro 0 unit 05/04/21 16:30 05/05/21 12:32 Insulin Lispro 100 Unit/Ml SUB-Q Not Given ACHS [facility] Protocol Metoprolol Succinate 50 mg 05/04/21 17:00 05/05/21 10:15 Metoprolol Succinate Xl 50 Mg Tab PO 50 mg QDAY [facility] Administration Morphine Sulfate 4 mg 05/04/21 09:00 Morphine 4 Mg/1 Ml Inj IV Q4H PRN Pain , Severe (7-10) Ondansetron HCl 4 mg 05/04/21 09:00 05/05/21 00:11 Ondansetron 4 Mg/2 Ml Inj IV 4 mg Q8H PRN Administration Nausea And Vomiting Oxycodone/Acetaminophen 1 tab 05/04/21 09:00 Oxycodone /Acetaminophen 5-325mg Tab PO Q6H PRN Pain, Moderate (4-6) Sodium Chloride 10 ml 05/04/21 10:00 05/05/21 10:16 Sodium Chloride 0.9% 10 Ml Flush Syringe IV 10 ml BID SILVANO Administration Sodium Chloride 10 ml 05/04/21 09:00 Sodium Chloride 0.9% 10 Ml Flush Syringe IV PRN PRN LINE FLUSH
[2021-05-05] MEDS: oxyCODONE /ACETAMINOPHEN 5-325MG TAB PO PRN (21:20)
[2021-05-06] MEDS: INSULIN LISPRO 100 UNIT/ML SUB-Q SCH ×3 (01:15→16:26)
[2021-05-06] MEDS: ONDANSETRON 4 MG/2 ML INJ IV PRN ×3 (01:15→22:35)
[2021-05-06] MEDS: metroNIDAZOLE/NS 500 MG/100 ML 500 MG/100 ML BAG IV SCH ×3 (01:17→17:39)
[2021-05-06] MEDS: oxyCODONE /ACETAMINOPHEN 5-325MG TAB PO PRN ×3 (03:48→23:47)
[2021-05-06 06:15] LABS: Basophils # (Auto) 0.1 K/mm3 (0.0-0.1); Basophils % (Auto) 0.9 % (0.0-1.8); Eosinophils # (Auto) 0.1 K/mm3 (0.0-0.4); Eosinophils % (Auto) 1.1 % (0.0-4.3); Hematocrit 21.6 % (30.3-42.9); Lymphocytes # (Auto) 1.3 K/mm3 (1.2-5.4); Lymphocytes % (Auto) 9.9 % (13.4-35.0); Mean Corpuscular HGB Conc 33 % (30-34); Mean Corpuscular Volume 88 fl (79-97); Monocytes # (Auto) 0.7 K/mm3 (0.0-0.8); Monocytes % (Auto) 5.4 % (0.0-7.3); Platelet Count 258 K/mm3 (140-440); Red Blood Count 2.45 M/mm3 (3.65-5.03)
[2021-05-06 06:55] LABS: Calcium 8.4 mg/dL (8.4-10.2)
[2021-05-06] MEDS ORDERED: VANCOMYCIN/NS 1 GM/250 ML 1 GM/250 ML BAG IV SCH (10:00)
--- NOTE | 2021-05-06 10:09 | Electrocardiograph Report ---
[facility] Test Date: 2021-05-04 Test Time: 06:44:31 Pat Name: FILEMON JACOBO Department: Room: A368 Gender: F [employer] Advisor: : [id number] Requested By: SHAQ COLE Order Number: [id number] Reading MD: Joesph Mcgowan Measurements Intervals [place] Rate: 71 P: 5 WI: 158 QRS: 86 QRSD: 95 T: -13 QT: 434 QTc: 472 Interpretive Statements Sinus rhythm Compared to ECG 03/10/2021 02:02:47 No significant changes Electronically Signed On 05-06-2021 10:09:02 EDT by Joesph Mcgowan
[2021-05-06] MEDS: ASPIRIN 81 MG TAB CHEW PO SCH (10:31)
[2021-05-06] MEDS: METOPROLOL SUCCINATE XL 50 MG TAB PO SCH (10:31)
[2021-05-06] MEDS: CLOPIDOGREL 75 MG TAB PO SCH (10:31)
--- NOTE | 2021-05-06 10:58 | Progress Note ---
Assessment and Plan 1. ESRD: Patient is on maintenance hemodialysis three times a week, MWF schedule. Meds dosage based on GFR. Last outpatient HD 05/01. Hemodialysis: 05/04, 05/05(UF only. HD today. 2. FEN: Volume overload, UF today as tolerated. Monitor lytes and volume status. 3. Acute hypoxic resp failure: CXR showed volume overload. Volume control thru HD. On NC O2. 4. R BKA stump wound infection: IV abx. Followed by Vascular. 5. Anemia, POA: Epogen with HD as needed. Monitor. 6. Hypertension: Adjust meds as needed. Monitor. 7. DM type 2. Subjective: Patient was seen and examined at the bedside. Doing ok. General Appearance: General appearance: well-developed, appears stated age, in distress HEENT: ATNC, pupils equal Neck: trachea midline Respiratory: ctab Heart: regular, S1S2, no murmur Abdomen: soft, bowel sounds heard, not tender Integumentary: no rash, warm and dry Neurologic: AO, able to move extremities Ext: R BKA stump dressing, soaked Hemodialysis access: R arm AVG Subjective Date of service: 05/06/21 Objective - Vital Signs Vital signs: Vital Signs - 12hr 05/06/21 05/06/21 05/06/21 01:00 03:53 05:01 Temperature 98.7 F Pulse Rate 69 Respiratory 16 Rate Blood Pressure 155/57 O2 Sat by Pulse 95 96 99 Oximetry - Lab 05/07/21 04:00 05/07/21 04:00 Most recent lab results ABG pH 7.336 (7.320-7.450) 05/04/21 Unknown ABG O2 Saturation 82.3 (0-100) 05/04/21 Unknown Calcium 8.4 mg/dL (8.4-10.2) 05/06/21 05:38 Phosphorus 3.80 mg/dL (2.5-4.5) 05/06/21 05:38 Magnesium 1.80 mg/dL (1.7-2.3) 05/06/21 05:38 Medications & Allergies - Medications Allergies/Adverse Reactions: Allergies Penicillins Adverse Reaction (Verified 05/04/21 06:09) Swelling Home Medications: Home Medications Medication Instructions Recorded Confirmed Last Taken Type Aspirin [Aspirin BABY CHEW TAB] 81 mg PO QDAY #30 tab.chew 05/16/20 05/05/21 03/08/21 Rx Linaclotide [Linzess] 72 mcg PO QDAY #30 cap 05/16/20 05/05/21 2 Days Ago Rx ~03/08/21 Omeprazole 40 mg PO QDAY #30 05/16/20 05/05/21 2 Days Ago Rx ~03/08/21 Oxycodone HCl/Acetaminophen 1 each PO Q6HR PRN #12 05/16/20 05/05/21 2 Weeks Ago Rx [Percocet 10/325 mg] ~02/24/21 AtorvaSTATin [Lipitor] 80 mg PO QHS 02/20/21 05/05/21 03/09/21 History Insulin Lispro [Humalog] See Protocol SUB-Q ACHS 02/20/21 05/05/21 03/08/21 History NIFEdipine [Nifedipine ER] 90 mg PO DAILY 02/20/21 05/05/21 03/09/21 History Clopidogrel [Plavix] 75 mg PO QDAY #90 tablet 03/10/21 05/05/21 Unknown Rx Metoprolol [Lopressor TAB] 100 mg PO DAILY 03/10/21 05/05/21 03/09/21 History Active Medications: Generic Name Dose Route Start Last Admin Trade Name Freq PRN Reason Stop Dose Admin Acetaminophen 650 mg 05/04/21 09:00 Acetaminophen 325 Mg Tab PO Q4H PRN Pain MILD(1-3)/Fever >100.5/MARIE Aspirin 81 mg 05/05/21 10:00 05/06/21 10:31 Aspirin 81 Mg Tab Chew PO 81 mg QDAY SILVANO Administration Atorvastatin Calcium 80 mg 05/04/21 22:00 05/05/21 21:12 Atorvastatin 40 Mg Tab PO 80 mg QHS SILVANO Administration Clopidogrel Bisulfate 75 mg 05/04/21 16:00 05/06/21 10:31 Clopidogrel 75 Mg Tab PO 75 mg QDAY SILVANO Administration Dextrose 50 ml 05/04/21 15:27 Dextrose 50% In Water (25gm) 50 Ml Syringe IV Q30MIN PRN Hypoglycemia Protocol Heparin Sodium (Porcine) 3,000 unit 05/04/21 09:00 05/04/21 10:58 Heparin 10,000 Units/10 Ml Vial IV 3,000 unit DULCE PRN Administration hemodialysis Sodium Chloride 100 mls @ 999 mls/hr 05/04/21 09:00 Nacl 0.9% IV DULCE PRN Hypotension Metronidazole 500 mg in 100 mls @ 100 mls/hr 05/04/21 16:30 05/06/21 09:10 Flagyl 500 Mg/100 Ml IV 100 mls/hr Q8H SILVANO Administration Protocol Cefepime HCl 1 gm in 100 mls @ 200 mls/hr 05/05/21 14:00 05/05/21 14:00 Cefepime/Ns 1 Gm/100 Ml IV Not Given Q24H [facility] Protocol Insulin Human Lispro 0 unit 05/04/21 16:30 05/06/21 07:30 Insulin Lispro 100 Unit/Ml SUB-Q 3 unit ACHS [facility] Administration Protocol Lidocaine HCl 2.5 ml 05/06/21 11:00 Lidocaine (4%) 40 Mg/Ml Topical Soln 50 Ml Bottle TP 05/06/21 15:00 ONCE@1100 SILVANO Metoprolol Succinate 50 mg 05/04/21 17:00 05/06/21 10:31 Metoprolol Succinate Xl 50 Mg Tab PO 50 mg QDAY SILVANO Administration Morphine Sulfate 4 mg 05/04/21 09:00 Morphine 4 Mg/1 Ml Inj IV Q4H PRN Pain , Severe (7-10) Ondansetron HCl 4 mg 05/04/21 09:00 05/06/21 10:31 Ondansetron 4 Mg/2 Ml Inj IV 4 mg Q8H PRN Administration Nausea And Vomiting Oxycodone/Acetaminophen 1 tab 05/04/21 09:00 05/06/21 03:48 Oxycodone /Acetaminophen 5-325mg Tab PO 1 tab Q6H PRN Administration Pain, Moderate (4-6) Sodium Chloride 10 ml 05/04/21 10:00 05/06/21 10:32 Sodium Chloride 0.9% 10 Ml Flush Syringe IV 10 ml BID SILVANO Administration Sodium Chloride 10 ml 05/04/21 09:00 Sodium Chloride 0.9% 10 Ml Flush Syringe IV PRN PRN LINE FLUSH
[2021-05-06] MEDS ORDERED: LIDOCAINE (4%) 40 MG/ML TOPICAL SOLN 50 ML BOTTLE TP SCH (11:00)
--- NOTE | 2021-05-06 14:06 | Consultation ---
History of Present Illness Consult date: 05/06/21 Reason for consult: wound care Chief complaint: r bka wound - History of present illness History of present illness: 56-year-old female with past medical history of end-stage renal disease on hemodialysis, peripheral arterial disease, diabetes who recently underwent right-sided BKA at [facility] March 2021. She had a nonhealing wound with osteomyelitis. She was admitted to [facility] January 2021 for nonhealing right foot wound and underwent revascularization. The patient states that she was discharged from [facility] with plans for [facility] but no one has come yet. She has not had any care for stump and has not followed up with operating surgeon. There has been drainage or odor from wound. She states the jodi "bust open". She presented to [facility] ER 2 days ago with increasing drainage from the wound. Pt apparently fell onto the stump. Afebrile. She is also being treated for fluid overload. Past History Past Medical History: anemia, diabetes, dialysis, ESRD, hypertension, hyperlipidemia, renal failure Past Surgical History: Other (R below the knee amptuation 2020) Social history: no significant social history Family history: no significant family history Medications and Allergies Allergies Allergy/AdvReac Type Severity Reaction Status Date / Time Penicillins AdvReac Swelling Verified 05/04/21 06:09 Home Medications Medication Instructions Recorded Confirmed Last Taken Type Aspirin [Aspirin BABY CHEW TAB] 81 mg PO QDAY #30 tab.chew 05/16/20 05/05/21 03/08/21 Rx Linaclotide [Linzess] 72 mcg PO QDAY #30 cap 05/16/20 05/05/21 2 Days Ago Rx ~03/08/21 Omeprazole 40 mg PO QDAY #30 05/16/20 05/05/21 2 Days Ago Rx ~03/08/21 Oxycodone HCl/Acetaminophen 1 each PO Q6HR PRN #12 05/16/20 05/05/21 2 Weeks Ago Rx [Percocet 10/325 mg] ~02/24/21 AtorvaSTATin [Lipitor] 80 mg PO QHS 02/20/21 05/05/21 03/09/21 History Insulin Lispro [Humalog] See Protocol SUB-Q ACHS 02/20/21 05/05/21 03/08/21 History NIFEdipine [Nifedipine ER] 90 mg PO DAILY 0705/05/21 03/09/21 History Clopidogrel [Plavix] 75 mg PO QDAY #90 tablet 03/10/21 05/05/21 Unknown Rx Metoprolol [Lopressor TAB] 100 mg PO DAILY 03/10/21 05/05/21 03/09/21 History Active Meds: Active Medications Acetaminophen (Acetaminophen 325 Mg Tab) 650 mg PO Q4H PRN PRN Reason: Pain MILD(1-3)/Fever >100.5/MARIE Aspirin (Aspirin 81 Mg Tab Chew) 81 mg PO QDAY [facility] Last Admin: 05/06/21 10:31 Dose: 81 mg Documented by: Atorvastatin Calcium (Atorvastatin 40 Mg Tab) 80 mg PO QHS [facility] Last Admin: 05/05/21 21:12 Dose: 80 mg Documented by: Clopidogrel Bisulfate (Clopidogrel 75 Mg Tab) 75 mg PO QDAY [facility] Last Admin: 05/06/21 10:31 Dose: 75 mg Documented by: Dextrose (Dextrose 50% In Water (25gm) 50 Ml Syringe) 50 ml IV Q30MIN PRN; Protocol PRN Reason: Hypoglycemia Heparin Sodium (Porcine) (Heparin 10,000 Units/10 Ml Vial) 3,000 unit IV DULCE PRN PRN Reason: hemodialysis Last Admin: 05/04/21 10:58 Dose: 3,000 unit Documented by: Sodium Chloride (Nacl 0.9%) 100 mls @ 999 mls/hr IV DULCE PRN PRN Reason: Hypotension Metronidazole (Flagyl 500 Mg/100 Ml) 500 mg in 100 mls @ 100 mls/hr IV Q8H SILVANO; Protocol Last Admin: 05/06/21 09:10 Dose: 100 mls/hr Documented by: Cefepime HCl (Cefepime/Ns 1 Gm/100 Ml) 1 gm in 100 mls @ 200 mls/hr IV Q24H SILVANO; Protocol Last Admin: 05/05/21 14:00 Dose: Not Given Documented by: Insulin Human Lispro (Insulin Lispro 100 Unit/Ml) 0 unit SUB-Q ACHS [facility]; Protocol Last Admin: 05/06/21 07:30 Dose: 3 unit Documented by: Lidocaine HCl (Lidocaine (4%) 40 Mg/Ml Topical Soln 50 Ml Bottle) 2.5 ml TP ONCE@1100 SILVANO Stop: 05/06/21 15:00 Metoprolol Succinate (Metoprolol Succinate Xl 50 Mg Tab) 50 mg PO QDAY [facility] Last Admin: 05/06/21 10:31 Dose: 50 mg Documented by: Morphine Sulfate (Morphine 4 Mg/1 Ml Inj) 4 mg IV Q4H PRN PRN Reason: Pain , Severe (7-10) Ondansetron HCl (Ondansetron 4 Mg/2 Ml Inj) 4 mg IV Q8H PRN PRN Reason: Nausea And Vomiting Last Admin: 05/06/21 10:31 Dose: 4 mg Documented by: Oxycodone/Acetaminophen (Oxycodone /Acetaminophen 5-325mg Tab) 1 tab PO Q6H PRN PRN Reason: Pain, Moderate (4-6) Last Admin: 05/06/21 03:48 Dose: 1 tab Documented by: Sodium Chloride (Sodium Chloride 0.9% 10 Ml Flush Syringe) 10 ml IV BID [facility] Last Admin: 05/06/21 10:32 Dose: 10 ml Documented by: Sodium Chloride (Sodium Chloride 0.9% 10 Ml Flush Syringe) 10 ml IV PRN PRN PRN Reason: LINE FLUSH Review of Systems All systems: negative (10 point ROS performed and negative except for that listed in HPI) Exam Vital Signs Temp Pulse Resp BP Pulse Ox 98.6 F 72 24 136/63 91 05/04/21 06:11 05/04/21 06:11 05/04/21 06:11 05/04/21 06:11 05/04/21 06:11 Narrative exam: Gen.: Awake, alert, oriented x3. No apparent distress ENT: Trachea midline. No lymphadenopathy. No scleral icterus or conjunctival pallor CV: S1, S2 present Respiratory: No audible wheezes Extremities: RLE in knee immobilizer. Immobilizer and dressing removed. There is dehiscence of the entire right BKA incision with jodi present. There is thick slough overlying the entire wound bed with some purulent drainage from the wound. There is no surrounding erythema. Minimal sensation. 1 piece of calcium alginate applied to wound, covered with ABD pad and wrapped with a Kerlix. Stocking and knee immobilizer reapplied. Results - Labs 05/06/21 05:38 05/06/21 05:38 Abnormal lab results 05/05/21 05/05/21 05/06/21 Range/Units 16:23 22:12 05:38 WBC 12.8 H (4.5-11.0) K/mm3 RBC 2.45 L (3.65-5.03) M/mm3 Hgb 7.0 L (10.1-14.3) gm/dl Hct 21.6 L (30.3-42.9) % RDW 19.0 H (13.2-15.2) % Lymph % (Auto) 9.9 L (13.4-35.0) % Seg Neutrophils % 82.7 H (40.0-70.0) % Seg Neutrophils # 10.6 H (1.8-7.7) K/mm3 Chloride (98-107) mmol/L BUN (7-17) mg/dL Creatinine (0.6-1.2) mg/dL Glucose (65-100) mg/dL POC Glucose 163 H 236 H (70-105) mg/dL 05/06/21 05/06/21 Range/Units 05:38 07:42 WBC (4.5-11.0) K/mm3 RBC (3.65-5.03) M/mm3 Hgb (10.1-14.3) gm/dl Hct (30.3-42.9) % RDW (13.2-15.2) % Lymph % (Auto) (13.4-35.0) % Seg Neutrophils % (40.0-70.0) % Seg Neutrophils # (1.8-7.7) K/mm3 Chloride 97.1 L (98-107) mmol/L BUN 34 H (7-17) mg/dL Creatinine 4.0 H (0.6-1.2) mg/dL Glucose 276 H (65-100) mg/dL POC Glucose 223 H (70-105) mg/dL Diabetes panel 05/06/21 Range/Units 05:38 Sodium 138 (137-145) mmol/L Potassium 3.9 (3.6-5.0) mmol/L Chloride 97.1 L (98-107) mmol/L Carbon Dioxide 25 (22-30) mmol/L BUN 34 H (7-17) mg/dL Creatinine 4.0 H (0.6-1.2) mg/dL Glucose 276 H (65-100) mg/dL Calcium 8.4 (8.4-10.2) mg/dL Calcium panel 05/06/21 Range/Units 05:38 Calcium 8.4 (8.4-10.2) mg/dL Phosphorus 3.80 (2.5-4.5) mg/dL Pituitary panel 05/06/21 Range/Units 05:38 Sodium 138 (137-145) mmol/L Potassium 3.9 (3.6-5.0) mmol/L Chloride 97.1 L (98-107) mmol/L Carbon Dioxide 25 (22-30) mmol/L BUN 34 H (7-17) mg/dL Creatinine 4.0 H (0.6-1.2) mg/dL Glucose 276 H (65-100) mg/dL Calcium 8.4 (8.4-10.2) mg/dL Adrenal panel 05/06/21 Range/Units 05:38 Sodium 138 (137-145) mmol/L Potassium 3.9 (3.6-5.0) mmol/L Chloride 97.1 L (98-107) mmol/L Carbon Dioxide 25 (22-30) mmol/L BUN 34 H (7-17) mg/dL Creatinine 4.0 H (0.6-1.2) mg/dL Glucose 276 H (65-100) mg/dL Calcium 8.4 (8.4-10.2) mg/dL - Imaging Additional studies: Arterial ultrasound right lower extremity Assessment and Plan 56 yo F with 1. dehiscence and infection of R BKA surgical wound 2. DM 3. ESRD on HD Plan: 1. Strict glucose control 2. abx per 1' service 3. knee immobilizer 4. Will need debridement of wound - could not perform today as patient in dialysis during examination. Will perform at bedside tomorrow. Pt agreeable. 5. Prealbumin 6. HbA1C 7. Vascular consultation noted 8. Will need follow up in wound care clinic upon discharge. Thank you, please call with questions.
[2021-05-06] MEDS: EPOETIN ALFA-EPBX 20,000 UNIT/1 ML VIAL SUB-Q PRN (14:37)
--- NOTE | 2021-05-06 15:46 | Progress Note ---
Assessment and Plan Assessment and plan: 56-year-old woman history of ESRD on HD, hypertension, T2DM, and recent right BKA who presented with nausea, vomiting and surgical wound infection. #Right below the knee amputation stump infection -Patient reported R BKA performed at [facility] -Has not followed up with wound care or surgery post discharge -Surgery consulted, recs appreciated. Planning bedside debridement with general surgery on 05/07/2021. -Will likely be discharged with wound VAC and wound care follow-up (per general surgery note) -continue vancomycin, cefepime and flagyl for now (started on 05/04/2021). -Wound culture revealing Lashawn albicans. Starting IV fluconazole #Acute hypoxic respiratory failure -Likely secondary to volume overload. Being treated with repeated hemodialysis sessions. -Weaned from 10 L high flow to 3 L nasal cannula -Continue to monitor #ESRD on HD -HD MWF outpatient -Nephrology consulted; appreciate recs #Type 2 diabetes, insulin-dependent -Patient reports having insulin pump in place, currently not taking any insulin -Sliding scale -Goal blood sugar less than 180 while inpatient #Elevated troponin -Troponin T 0.068, elevation likely due to ESRD -will repeat #Leukocytosis-improved -WBC 17.8-->12.8 -Chest x-ray suggestive of vascular congestion -Blood cultures with NGTD x2. Deep wound culture revealed "light growth" of Ca ndida albicans. -Likely secondary to infection #Normocytic anemia -Hemoglobin 7.4; Likely secondary to ESRD -H&H 9.3/27.7 last visit -We will transfuse for hemoglobin less than 7 -Epogen with dialysis #Peripheral vascular disease -Lower extremities arterial Doppler performed -Resume home aspirin 81 mg daily, Plavix 75 mg daily, and statin #Hypertension -Uncontrolled -Continue nifedipine 90 mg daily and Lopressor 50 daily Disposition Plan: Pending bedside debridement tomorrow. Total Time Spent with Patient (Minutes): 30 History Interval history: Patient underwent hemodialysis yesterday. Tolerated procedure. Hospitalist Physical - Constitutional Vitals: Temp Pulse Resp BP Pulse Ox 98.4 F 69 20 158/62 95 05/06/21 11:15 05/06/21 14:30 05/06/21 11:15 05/06/21 14:30 05/06/21 11:15 General appearance: Present: no acute distress - EENT Eyes: Present: PERRL, EOM intact ENT: hearing intact, clear oral mucosa, dentition normal - Neck Neck: Present: supple, normal ROM - Respiratory Respiratory effort: normal (On 3 L nasal cannula) - Cardiovascular Rhythm: regular Heart Sounds: Present: S1 & S2 - Extremities Extremities: no ischemia, pulses intact, pulses symmetrical, normal temperature, normal color, abnormal (Right BKA wrapped an Nagi bandage) Peripheral Pulses: within normal limits - Abdominal General gastrointestinal: deferred, non-tender, non-distended, normal bowel sounds - Integumentary Integumentary: Present: clear, warm, dry - Psychiatric Psychiatric: appropriate mood/affect, intact judgment & insight, memory intact, cooperative - Neurologic Neurologic: CNII-XII intact HEART Score - HEART Score Troponin: Troponin T 0.066 ng/mL (0.00-0.029) H 05/04/21 23:36 Results - Labs CBC & Chem 7: 05/06/21 05:38 05/06/21 05:38 Labs: Laboratory Last Values WBC 12.8 K/mm3 (4.5-11.0) H 05/06/21 05:38 RBC 2.45 M/mm3 (3.65-5.03) L 05/06/21 05:38 Hgb 7.0 gm/dl (10.1-14.3) L 05/06/21 05:38 Hct 21.6 % (30.3-42.9) L 05/06/21 05:38 MCV 88 fl (79-97) 05/06/21 05:38 MCH 29 pg (28-32) 05/06/21 05:38 MCHC 33 % (30-34) 05/06/21 05:38 RDW 19.0 % (13.2-15.2) H 05/06/21 05:38 Plt Count 258 K/mm3 (140-440) 05/06/21 05:38 Lymph % (Auto) 9.9 % (13.4-35.0) L 05/06/21 05:38 [place] % (Auto) 5.4 % (0.0-7.3) 05/06/21 05:38 Eos % (Auto) 1.1 % (0.0-4.3) 05/06/21 05:38 Baso % (Auto) 0.9 % (0.0-1.8) 05/06/21 05:38 Lymph # (Auto) 1.3 K/mm3 (1.2-5.4) 05/06/21 05:38 [place] # (Auto) 0.7 K/mm3 (0.0-0.8) 05/06/21 05:38 Eos # (Auto) 0.1 K/mm3 (0.0-0.4) 05/06/21 05:38 Baso # (Auto) 0.1 K/mm3 (0.0-0.1) 05/06/21 05:38 Seg Neutrophils % 82.7 % (40.0-70.0) H 05/06/21 05:38 Seg Neutrophils # 10.6 K/mm3 (1.8-7.7) H 05/06/21 05:38 PT 14.8 Sec. (12.2-14.9) 05/04/21 06:38 INR 1.11 (0.87-1.13) 05/04/21 06:38 ABG pH 7.336 (7.320-7.450) 05/04/21 Unknown POC ABG pCO2 49.2 mmHg (32.0-48.0) H 05/04/21 Unknown POC ABG pO2 54.9 mmHg (83-108) L 05/04/21 Unknown POC ABG HCO3 25.7 05/04/21 Unknown ABG O2 Saturation 82.3 (0-100) 05/04/21 Unknown ABG O2 Content Not Reportable 05/04/21 Unknown POC ABG Base Excess -0.3 05/04/21 Unknown ABG Hemoglobin 8.24 (12.0-17.5) L 05/04/21 Unknown ABG Oxyhemoglobin 80.4 (94-98) L 05/04/21 Unknown ABG Methemoglobin 0.3 (0.0-1.5) 05/04/21 Unknown ABG Sodium Not Reportable 05/04/21 Unknown ABG Potassium Not Reportable 05/04/21 Unknown ABG Chloride Not Reportable 05/04/21 Unknown ABG Glucose Not Reportable 05/04/21 Unknown VBG pH 7.365 (7.320-7.420) 05/04/21 06:38 Carboxyhemoglobin 2.1 (0.5-1.5) H 05/04/21 Unknown FiO2 % 100 05/04/21 Unknown Sodium 138 mmol/L (137-145) 05/06/21 05:38 Potassium 3.9 mmol/L (3.6-5.0) 05/06/21 05:38 Chloride 97.1 mmol/L (98-107) L 05/06/21 05:38 Carbon Dioxide 25 mmol/L (22-30) 05/06/21 05:38 Anion Gap 20 mmol/L 05/06/21 05:38 BUN 34 mg/dL (7-17) H 05/06/21 05:38 Creatinine 4.0 mg/dL (0.6-1.2) H 05/06/21 05:38 Estimated GFR 14 ml/min 05/06/21 05:38 BUN/Creatinine Ratio 9 % 05/06/21 05:38 Glucose 276 mg/dL (65-100) H 05/06/21 05:38 POC Glucose 223 mg/dL (70-105) H 05/06/21 07:42 Lactic Acid 1.10 mmol/L (0.7-2.0) 05/04/21 07:53 Calcium 8.4 mg/dL (8.4-10.2) 05/06/21 05:38 Phosphorus 3.80 mg/dL (2.5-4.5) 05/06/21 05:38 Magnesium 1.80 mg/dL (1.7-2.3) 05/06/21 05:38 Total Creatine Kinase 73 units/L (30-135) 05/04/21 06:38 Troponin T 0.066 ng/mL (0.00-0.029) H 05/04/21 23:36 Triglycerides 102 mg/dL (2-149) 05/04/21 06:38 Cholesterol 98 mg/dL (50-199) 05/04/21 06:38 LDL Cholesterol Direct 37 mg/dL (50-130) L 05/04/21 06:38 HDL Cholesterol 37 mg/dL (40-59) L 05/04/21 06:38 Cholesterol/HDL Ratio 2.64 % 05/04/21 06:38 Arterial Blood Glucose Not Reportable 05/04/21 Unknown Coronavirus (PCR) Negative (Negative) 05/06/21 Unknown Hepatitis A IgM Ab Non-reactive (NonReactive) 05/04/21 11:05 Hep Bs Antigen Nonreactive (Negative) 05/04/21 11:05 Hep B Core IgM Ab Non-reactive (NonReactive) 05/04/21 11:05 Hepatitis C Antibody Non-reactive (NonReactive) 05/04/21 11:05 Microbiology: Microbiology 05/04/21 09:01 Wound - Deep Wound Culture - Final Lashawn Albicans 05/04/21 07:53 Peripheral/Venous Blood Culture - Preliminary NO GROWTH AFTER 48 HOURS 05/04/21 07:53 Peripheral/Venous Blood Culture - Preliminary NO GROWTH AFTER 48 HOURS Vear/IV: Voiding Method External Female Catheter Active Medications - Current Medications Current Medications: Generic Name Dose Route Start Last Admin Trade Name Freq PRN Reason Stop Dose Admin Acetaminophen 650 mg 05/04/21 09:00 Acetaminophen 325 Mg Tab PO Q4H PRN Pain MILD(1-3)/Fever >100.5/MARIE Aspirin 81 mg 05/05/21 10:00 05/06/21 10:31 Aspirin 81 Mg Tab Chew PO 81 mg QDAY SILVANO Administration Atorvastatin Calcium 80 mg 05/04/21 22:00 05/05/21 21:12 Atorvastatin 40 Mg Tab PO 80 mg QHS SILVANO Administration Clopidogrel Bisulfate 75 mg 05/04/21 16:00 05/06/21 10:31 Clopidogrel 75 Mg Tab PO 75 mg QDAY SILVANO Administration Dextrose 50 ml 05/04/21 15:27 Dextrose 50% In Water (25gm) 50 Ml Syringe IV Q30MIN PRN Hypoglycemia Protocol Heparin Sodium (Porcine) 3,000 unit 05/04/21 09:00 05/04/21 10:58 Heparin 10,000 Units/10 Ml Vial IV 3,000 unit DULCE PRN Administration hemodialysis Sodium Chloride 100 mls @ 999 mls/hr 05/04/21 09:00 Nacl 0.9% IV DULCE PRN Hypotension Metronidazole 500 mg in 100 mls @ 100 mls/hr 05/04/21 16:30 05/06/21 09:10 Flagyl 500 Mg/100 Ml IV 100 mls/hr Q8H SILVANO Administration Protocol Cefepime HCl 1 gm in 100 mls @ 200 mls/hr 05/05/21 14:00 05/05/21 14:00 Cefepime/Ns 1 Gm/100 Ml IV Not Given Q24H SILVANO Protocol Vancomycin HCl 1 gm in 250 mls @ 167.007 mls/hr 05/06/21 18:00 Vancomycin/Ns 1 Gm/250 Ml IV 05/06/21 19:29 ONCE ONE Insulin Human Lispro 0 unit 05/04/21 16:30 05/06/21 07:30 Insulin Lispro 100 Unit/Ml SUB-Q 3 unit ACHS SILVANO Administration Protocol Metoprolol Succinate 50 mg 05/04/21 17:00 05/06/21 10:31 Metoprolol Succinate Xl 50 Mg Tab PO 50 mg QDAY SILVANO Administration Morphine Sulfate 4 mg 05/04/21 09:00 Morphine 4 Mg/1 Ml Inj IV Q4H PRN Pain , Severe (7-10) Ondansetron HCl 4 mg 05/04/21 09:00 05/06/21 10:31 Ondansetron 4 Mg/2 Ml Inj IV 4 mg Q8H PRN Administration Nausea And Vomiting Oxycodone/Acetaminophen 1 tab 05/04/21 09:00 05/06/21 03:48 Oxycodone /Acetaminophen 5-325mg Tab PO 1 tab Q6H PRN Administration Pain, Moderate (4-6) Sodium Chloride 10 ml 05/04/21 10:00 05/06/21 10:32 Sodium Chloride 0.9% 10 Ml Flush Syringe IV 10 ml BID SILVANO Administration Sodium Chloride 10 ml 05/04/21 09:00 Sodium Chloride 0.9% 10 Ml Flush Syringe IV PRN PRN LINE FLUSH
[2021-05-06] MEDS ORDERED: DEXTROSE 50% IN WATER (25GM) 50 ML SYRINGE IV PRN (15:51)
[2021-05-06] MEDS: CEFEPIME/NS 1 GM/100 ML 1 GM/100 ML BAG IV SCH (16:36)
[2021-05-06] MEDS: INSULIN NPH, HUMAN 100 UNIT/1 ML SUB-Q SCH (17:27)
[2021-05-06] MEDS: FLUCONAZOLE 200 MG 200 MG/100 ML BAG IV SCH (17:27)
[2021-05-06] MEDS ORDERED: VANCOMYCIN/NS 1 GM/250 ML 1 GM/250 ML BAG IV ONE (18:00)
[2021-05-07] MEDS: metroNIDAZOLE/NS 500 MG/100 ML 500 MG/100 ML BAG IV SCH ×3 (01:44→16:10)
[2021-05-07 05:40] LABS: Calcium 8.2 mg/dL (8.4-10.2); Prealbumin 0.137 g/L (0.200-0.400)
[2021-05-07 05:43] LABS: Basophils # (Auto) 0.1 K/mm3 (0.0-0.1); Basophils % (Auto) 1.1 % (0.0-1.8); Eosinophils # (Auto) 0.3 K/mm3 (0.0-0.4); Eosinophils % (Auto) 3.2 % (0.0-4.3); Hematocrit 21.7 % (30.3-42.9); Hemoglobin 7.2 gm/dl (10.1-14.3); Lymphocytes # (Auto) 1.7 K/mm3 (1.2-5.4); Lymphocytes % (Auto) 16.4 % (13.4-35.0); Mean Corpuscular HGB Conc 33 % (30-34); Mean Corpuscular Volume 88 fl (79-97); Monocytes # (Auto) 0.7 K/mm3 (0.0-0.8); Monocytes % (Auto) 6.5 % (0.0-7.3); Platelet Count 251 K/mm3 (140-440); Red Blood Count 2.46 M/mm3 (3.65-5.03); Red Cell Distribution Width 19.5 % (13.2-15.2)
[2021-05-07] MEDS: oxyCODONE /ACETAMINOPHEN 5-325MG TAB PO PRN ×4 (05:46→23:18)
[2021-05-07] MEDS: INSULIN NPH, HUMAN 100 UNIT/1 ML SUB-Q SCH ×2 (08:00→16:30)
[2021-05-07] MEDS: METOPROLOL SUCCINATE XL 50 MG TAB PO SCH (09:26)
[2021-05-07] MEDS: ASPIRIN 81 MG TAB CHEW PO SCH (09:26)
[2021-05-07] MEDS: CLOPIDOGREL 75 MG TAB PO SCH (09:26)
--- NOTE | 2021-05-07 09:53 | Progress Note ---
Assessment and Plan 1. ESRD: Patient is on maintenance hemodialysis three times a week, MWF schedule. Meds dosage based on GFR. Last outpatient HD 05/01. Hemodialysis: 05/04, 05/05(UF only). 2. FEN: Volume overload, improved - UF with HD. Replete lytes. Monitor lytes and volume status. 3. Acute hypoxic resp failure: CXR showed volume overload. Volume control thru HD. On RA. 4. R BKA stump wound infection: IV abx. Followed by Vascular. Wound debridement today. 5. Anemia, POA: Epogen with HD as needed. Monitor. 6. Hypertension: Adjust meds as needed. Monitor. 7. DM type 2. Subjective: Patient was seen and examined at the bedside. Doing better. General Appearance: General appearance: well-developed, appears stated age, in distress HEENT: ATNC, pupils equal Neck: trachea midline Respiratory: ctab Heart: regular, S1S2, no murmur Abdomen: soft, bowel sounds heard, not tender Integumentary: no rash, warm and dry Neurologic: AO, able to move extremities Ext: R BKA stump dressing Hemodialysis access: R arm AVG Subjective Date of service: 05/07/21 Objective - Vital Signs Vital signs: Vital Signs - 12hr 05/06/21 05/06/21 05/07/21 22:00 23:16 01:00 Temperature 98.9 F Pulse Rate 73 Respiratory 20 Rate Blood Pressure 164/49 O2 Sat by Pulse 98 99 95 Oximetry 05/07/21 05/07/21 05/07/21 04:51 08:12 09:26 Temperature 97.8 F Pulse Rate 70 Respiratory 20 Rate Blood Pressure 161/51 160/78 O2 Sat by Pulse 100 100 Oximetry - Lab 05/07/21 04:00 05/07/21 04:00 Most recent lab results ABG pH 7.336 (7.320-7.450) 05/04/21 Unknown ABG O2 Saturation 82.3 (0-100) 05/04/21 Unknown Calcium 8.2 mg/dL (8.4-10.2) L 05/07/21 04:00 Phosphorus 2.50 mg/dL (2.5-4.5) D 05/07/21 04:00 Magnesium 1.60 mg/dL (1.7-2.3) L 05/07/21 04:00 Medications & Allergies - Medications Allergies/Adverse Reactions: Allergies Penicillins Adverse Reaction (Verified 05/04/21 06:09) Swelling Home Medications: Home Medications Medication Instructions Recorded Confirmed Last Taken Type Aspirin [Aspirin BABY CHEW TAB] 81 mg PO QDAY #30 tab.chew 05/16/20 05/05/21 03/08/21 Rx Linaclotide [Linzess] 72 mcg PO QDAY #30 cap 05/16/20 05/05/21 2 Days Ago Rx ~03/08/21 Omeprazole 40 mg PO QDAY #30 05/16/20 05/05/21 2 Days Ago Rx ~03/08/21 Oxycodone HCl/Acetaminophen 1 each PO Q6HR PRN #12 05/16/20 05/05/21 2 Weeks Ago Rx [Percocet 10/325 mg] ~02/24/21 AtorvaSTATin [Lipitor] 80 mg PO QHS 02/20/21 05/05/21 03/09/21 History Insulin Lispro [Humalog] See Protocol SUB-Q ACHS 02/20/21 05/05/21 03/08/21 History NIFEdipine [Nifedipine ER] 90 mg PO DAILY 02/20/21 05/05/21 03/09/21 History Clopidogrel [Plavix] 75 mg PO QDAY #90 tablet 03/10/21 05/05/21 Unknown Rx Metoprolol [Lopressor TAB] 100 mg PO DAILY 03/10/21 05/05/21 03/09/21 History Active Medications: Generic Name Dose Route Start Last Admin Trade Name Freq PRN Reason Stop Dose Admin Acetaminophen 650 mg 05/04/21 09:00 Acetaminophen 325 Mg Tab PO Q4H PRN Pain MILD(1-3)/Fever >100.5/MARIE Aspirin 81 mg 05/05/21 10:00 05/07/21 09:26 Aspirin 81 Mg Tab Chew PO 81 mg QDAY SILVANO Administration Atorvastatin Calcium 80 mg 05/04/21 22:00 05/06/21 21:21 Atorvastatin 40 Mg Tab PO 80 mg QHS SILVANO Administration Clopidogrel Bisulfate 75 mg 05/04/21 16:00 05/07/21 09:26 Clopidogrel 75 Mg Tab PO 75 mg QDAY SILVANO Administration Dextrose 50 ml 05/06/21 15:51 Dextrose 50% In Water (25gm) 50 Ml Syringe IV Q30MIN PRN Hypoglycemia Protocol Heparin Sodium (Porcine) 3,000 unit 05/04/21 09:00 05/04/21 10:58 Heparin 10,000 Units/10 Ml Vial IV 3,000 unit DULCE PRN Administration hemodialysis Sodium Chloride 100 mls @ 999 mls/hr 05/04/21 09:00 Nacl 0.9% IV DULCE PRN Hypotension Metronidazole 500 mg in 100 mls @ 100 mls/hr 05/04/21 16:30 05/07/21 08:30 Flagyl 500 Mg/100 Ml IV 100 mls/hr Q8H SILVANO Administration Protocol Cefepime HCl 1 gm in 100 mls @ 200 mls/hr 05/05/21 14:00 05/06/21 20:11 Cefepime/Ns 1 Gm/100 Ml IV Infused Q24H SILVANO Infusion Protocol Fluconazole 200 mg in 100 mls @ 100 mls/hr 05/06/21 16:00 05/06/21 20:11 Diflucan IV 05/13/21 15:59 Infused Q24H SILVANO Infusion Protocol Insulin Human NPH 10 unit 05/06/21 17:00 05/07/21 08:00 Insulin Nph, Human 100 Unit/1 Ml SUB-Q 10 unit BIDDIAB SILVANO Administration Metoprolol Succinate 50 mg 05/04/21 17:00 05/07/21 09:26 Metoprolol Succinate Xl 50 Mg Tab PO 50 mg QDAY SILVANO Administration Morphine Sulfate 4 mg 05/04/21 09:00 Morphine 4 Mg/1 Ml Inj IV Q4H PRN Pain , Severe (7-10) Ondansetron HCl 4 mg 05/04/21 09:00 05/06/21 22:35 Ondansetron 4 Mg/2 Ml Inj IV 4 mg Q8H PRN Administration Nausea And Vomiting Oxycodone/Acetaminophen 1 tab 05/04/21 09:00 05/07/21 05:46 Oxycodone /Acetaminophen 5-325mg Tab PO 1 tab Q6H PRN Administration Pain, Moderate (4-6) Sodium Chloride 10 ml 05/04/21 10:00 05/06/21 21:21 Sodium Chloride 0.9% 10 Ml Flush Syringe IV 10 ml BID SILVANO Administration Sodium Chloride 10 ml 05/04/21 09:00 Sodium Chloride 0.9% 10 Ml Flush Syringe IV PRN PRN LINE FLUSH
[2021-05-07] MEDS ORDERED: POTASSIUM CHLORIDE ER 20 MEQ TAB PO NR (10:30)
[2021-05-07] MEDS: MAGNESIUM OXIDE 400 MG TAB PO SCH ×2 (10:55→22:46)
--- NOTE | 2021-05-07 12:18 | Progress Note ---
Assessment and Plan Assessment and plan: 56-year-old woman history of ESRD on HD, hypertension, T2DM, and recent right BKA who presented with nausea, vomiting and surgical wound infection. #Right below the knee amputation stump infection -Patient reported R BKA performed at [facility] -Has not followed up with wound care or surgery post discharge -Surgery consulted, recs appreciated. Planning bedside debridement with general surgery on 05/07/2021. -Will likely be discharged with wound VAC and wound care follow-up (per general surgery note) -continue vancomycin, cefepime and flagyl for now (started on 05/04/2021). -Wound culture revealing Lashawn albicans. Continue IV fluconazole (started on 05/06/2021) #Acute hypoxic respiratory failure-resolved -Likely secondary to volume overload. Being treated with repeated hemodialysis sessions. -Continue to monitor #ESRD on HD -HD MWF outpatient -Nephrology consulted; appreciate recs #Type 2 diabetes, insulin-dependent -Patient reports having insulin pump in place, currently not taking any insulin -Sliding scale -Goal blood sugar less than 180 while inpatient #Elevated troponin -Troponin T 0.068, elevation likely due to ESRD -will repeat #Leukocytosis-resolved -WBC 17.8-->12.8-->10.4 -Chest x-ray suggestive of vascular congestion -Blood cultures with NGTD x2. Deep wound culture revealed "light growth" of Lashawn albicans. -Likely secondary to infection #Normocytic anemia -Hemoglobin 7.4; Likely secondary to ESRD -H&H 9.3/27.7 last visit -We will transfuse for hemoglobin less than 7 -Epogen with dialysis #Peripheral vascular disease -Lower extremities arterial Doppler performed -Resume home aspirin 81 mg daily, Plavix 75 mg daily, and statin #Hypertension -Uncontrolled -Continue nifedipine 90 mg daily and Lopressor 50 daily Disposition Plan: Pending debridement of right BKA today. Total Time Spent with Patient (Minutes): 30 History Interval history: Patient tolerated hemodialysis yesterday. Hospitalist Physical - Constitutional Vitals: Temp Pulse Resp BP Pulse Ox 97.8 F 70 20 160/78 100 05/07/21 04:51 05/07/21 04:51 05/07/21 04:51 05/07/21 09:26 05/07/21 08:12 General appearance: Present: no acute distress - EENT Eyes: Present: PERRL, EOM intact ENT: hearing intact, clear oral mucosa, dentition normal - Neck Neck: Present: supple, normal ROM - Respiratory Respiratory effort: normal - Cardiovascular Rhythm: regular Heart Sounds: Present: S1 & S2 - Extremities Extremities: no ischemia, pulses intact, pulses symmetrical, No edema, normal temperature, normal color, abnormal (Right BKA) Peripheral Pulses: within normal limits - Abdominal General gastrointestinal: soft, non-tender, non-distended, normal bowel sounds - Integumentary Integumentary: Present: clear, warm, dry - Psychiatric Psychiatric: appropriate mood/affect, intact judgment & insight, memory intact, cooperative - Neurologic Neurologic: CNII-XII intact, moves all extremities - Allied Health Allied health notes reviewed: nursing HEART Score - HEART Score Troponin: Troponin T 0.066 ng/mL (0.00-0.029) H 05/04/21 23:36 Results - Labs CBC & Chem 7: 05/07/21 04:00 05/07/21 04:00 Labs: Laboratory Last Values WBC 10.4 K/mm3 (4.5-11.0) 05/07/21 04:00 RBC 2.46 M/mm3 (3.65-5.03) L 05/07/21 04:00 Hgb 7.2 gm/dl (10.1-14.3) L 05/07/21 04:00 Hct 21.7 % (30.3-42.9) L 05/07/21 04:00 MCV 88 fl (79-97) 05/07/21 04:00 MCH 29 pg (28-32) 05/07/21 04:00 MCHC 33 % (30-34) 05/07/21 04:00 RDW 19.5 % (13.2-15.2) H 05/07/21 04:00 Plt Count 251 K/mm3 (140-440) 05/07/21 04:00 Lymph % (Auto) 16.4 % (13.4-35.0) 05/07/21 04:00 [place] % (Auto) 6.5 % (0.0-7.3) 05/07/21 04:00 Eos % (Auto) 3.2 % (0.0-4.3) 05/07/21 04:00 Baso % (Auto) 1.1 % (0.0-1.8) 05/07/21 04:00 Lymph # (Auto) 1.7 K/mm3 (1.2-5.4) 05/07/21 04:00 [place] # (Auto) 0.7 K/mm3 (0.0-0.8) 05/07/21 04:00 Eos # (Auto) 0.3 K/mm3 (0.0-0.4) 05/07/21 04:00 Baso # (Auto) 0.1 K/mm3 (0.0-0.1) 05/07/21 04:00 Seg Neutrophils % 72.8 % (40.0-70.0) H 05/07/21 04:00 Seg Neutrophils # 7.5 K/mm3 (1.8-7.7) 05/07/21 04:00 PT 14.8 Sec. (12.2-14.9) 05/04/21 06:38 INR 1.11 (0.87-1.13) 05/04/21 06:38 ABG pH 7.336 (7.320-7.450) 05/04/21 Unknown POC ABG pCO2 49.2 mmHg (32.0-48.0) H 05/04/21 Unknown POC ABG pO2 54.9 mmHg (83-108) L 05/04/21 Unknown POC ABG HCO3 25.7 05/04/21 Unknown ABG O2 Saturation 82.3 (0-100) 05/04/21 Unknown ABG O2 Content Not Reportable 05/04/21 Unknown POC ABG Base Excess -0.3 05/04/21 Unknown ABG Hemoglobin 8.24 (12.0-17.5) L 05/04/21 Unknown ABG Oxyhemoglobin 80.4 (94-98) L 05/04/21 Unknown ABG Methemoglobin 0.3 (0.0-1.5) 05/04/21 Unknown ABG Sodium Not Reportable 05/04/21 Unknown ABG Potassium Not Reportable 05/04/21 Unknown ABG Chloride Not Reportable 05/04/21 Unknown ABG Glucose Not Reportable 05/04/21 Unknown VBG pH 7.365 (7.320-7.420) 05/04/21 06:38 Carboxyhemoglobin 2.1 (0.5-1.5) H 05/04/21 Unknown FiO2 % 100 05/04/21 Unknown Sodium 137 mmol/L (137-145) 05/07/21 04:00 Potassium 3.5 mmol/L (3.6-5.0) L 05/07/21 04:00 Chloride 97.7 mmol/L (98-107) L 05/07/21 04:00 Carbon Dioxide 27 mmol/L (22-30) 05/07/21 04:00 Anion Gap 16 mmol/L 05/07/21 04:00 BUN 15 mg/dL (7-17) 05/07/21 04:00 Creatinine 2.5 mg/dL (0.6-1.2) H 05/07/21 04:00 Estimated GFR 24 ml/min 05/07/21 04:00 BUN/Creatinine Ratio 6 % 05/07/21 04:00 Glucose 158 mg/dL (65-100) H 05/07/21 04:00 POC Glucose 168 mg/dL (70-105) H 05/07/21 08:26 Hemoglobin A1c 7.3 % (4-6) H 05/07/21 04:30 Lactic Acid 1.10 mmol/L (0.7-2.0) 05/04/21 07:53 Calcium 8.2 mg/dL (8.4-10.2) L 05/07/21 04:00 Phosphorus 2.50 mg/dL (2.5-4.5) D 05/07/21 04:00 Magnesium 1.60 mg/dL (1.7-2.3) L 05/07/21 04:00 Total Creatine Kinase 73 units/L (30-135) 05/04/21 06:38 Troponin T 0.066 ng/mL (0.00-0.029) H 05/04/21 23:36 Prealbumin 0.137 g/L (0.200-0.400) L 05/07/21 04:00 Triglycerides 102 mg/dL (2-149) 05/04/21 06:38 Cholesterol 98 mg/dL (50-199) 05/04/21 06:38 LDL Cholesterol Direct 37 mg/dL (50-130) L 05/04/21 06:38 HDL Cholesterol 37 mg/dL (40-59) L 05/04/21 06:38 Cholesterol/HDL Ratio 2.64 % 05/04/21 06:38 Arterial Blood Glucose Not Reportable 05/04/21 Unknown Random Vancomycin 29.2 ug/mL (0-40.0) 05/07/21 05:00 Coronavirus (PCR) Negative (Negative) 05/06/21 Unknown Hepatitis A IgM Ab Non-reactive (NonReactive) 05/04/21 11:05 Hep Bs Antigen Nonreactive (Negative) 05/04/21 11:05 Hep B Core IgM Ab Non-reactive (NonReactive) 05/04/21 11:05 Hepatitis C Antibody Non-reactive (NonReactive) 05/04/21 11:05 Microbiology: Microbiology 05/04/21 07:53 Peripheral/Venous Blood Culture - Preliminary NO GROWTH AFTER 72 HOURS 05/04/21 07:53 Peripheral/Venous Blood Culture - Preliminary NO GROWTH AFTER 72 HOURS 05/04/21 09:01 Wound - Deep Wound Culture - Final Lashawn Albicans Vera/IV: Voiding Method External Female Catheter Active Medications - Current Medications Current Medications: Generic Name Dose Route Start Last Admin Trade Name Freq PRN Reason Stop Dose Admin Acetaminophen 650 mg 05/04/21 09:00 Acetaminophen 325 Mg Tab PO Q4H PRN Pain MILD(1-3)/Fever >100.5/MARIE Aspirin 81 mg 05/05/21 10:00 05/07/21 09:26 Aspirin 81 Mg Tab Chew PO 81 mg QDAY SILVANO Administration Atorvastatin Calcium 80 mg 05/04/21 22:00 05/06/21 21:21 Atorvastatin 40 Mg Tab PO 80 mg QHS SILVANO Administration Clopidogrel Bisulfate 75 mg 05/04/21 16:00 05/07/21 09:26 Clopidogrel 75 Mg Tab PO 75 mg QDAY SILVANO Administration Dextrose 50 ml 05/06/21 15:51 Dextrose 50% In Water (25gm) 50 Ml Syringe IV Q30MIN PRN Hypoglycemia Protocol Heparin Sodium (Porcine) 3,000 unit 05/04/21 09:00 05/04/21 10:58 Heparin 10,000 Units/10 Ml Vial IV 3,000 unit DULCE PRN Administration hemodialysis Sodium Chloride 100 mls @ 999 mls/hr 05/04/21 09:00 Nacl 0.9% IV DULCE PRN Hypotension Metronidazole 500 mg in 100 mls @ 100 mls/hr 05/04/21 16:30 05/07/21 08:30 Flagyl 500 Mg/100 Ml IV 100 mls/hr Q8H SILVANO Administration Protocol Cefepime HCl 1 gm in 100 mls @ 200 mls/hr 05/05/21 14:00 05/06/21 20:11 Cefepime/Ns 1 Gm/100 Ml IV Infused Q24H SILVANO Infusion Protocol Fluconazole 200 mg in 100 mls @ 100 mls/hr 05/06/21 16:00 05/06/21 20:11 Diflucan IV 05/13/21 15:59 Infused Q24H SILVANO Infusion Protocol Insulin Human NPH 10 unit 05/06/21 17:00 05/07/21 08:00 Insulin Nph, Human 100 Unit/1 Ml SUB-Q 10 unit BIDDIAB SILVANO Administration Magnesium Oxide 400 mg 05/07/21 10:00 05/07/21 10:55 Magnesium Oxide 400 Mg Tab PO 400 mg BID SILVANO Administration Metoprolol Succinate 50 mg 05/04/21 17:00 05/07/21 09:26 Metoprolol Succinate Xl 50 Mg Tab PO 50 mg QDAY SILVANO Administration Morphine Sulfate 4 mg 05/04/21 09:00 Morphine 4 Mg/1 Ml Inj IV Q4H PRN Pain , Severe (7-10) Ondansetron HCl 4 mg 05/04/21 09:00 05/06/21 22:35 Ondansetron 4 Mg/2 Ml Inj IV 4 mg Q8H PRN Administration Nausea And Vomiting Oxycodone/Acetaminophen 1 tab 05/04/21 09:00 05/07/21 11:57 Oxycodone /Acetaminophen 5-325mg Tab PO 1 tab Q6H PRN Administration Pain, Moderate (4-6) Potassium Chloride 40 meq 05/07/21 10:30 05/07/21 10:55 Potassium Chloride Er 20 Meq Tab PO 05/07/21 12:30 40 meq ONCE@1030 NR Administration Sodium Chloride 10 ml 05/04/21 10:00 05/06/21 21:21 Sodium Chloride 0.9% 10 Ml Flush Syringe IV 10 ml BID SILVANO Administration Sodium Chloride 10 ml 05/04/21 09:00 Sodium Chloride 0.9% 10 Ml Flush Syringe IV PRN PRN LINE FLUSH
--- NOTE | 2021-05-07 13:06 | Procedure Note ---
Date of procedure: 05/07/21 Pre-op diagnosis: RLE BKA stump wound, infection Post-op diagnosis: same Procedure: Excisional debridement of R BKA stump Findings: Time out performed. [place] removed from incision. The area was prepped with betadine. An excisional debridement of necrotic skin, subcutaneous tissue and muscle was performed to the level of the bone. There was purulent drainage. Deep cultures were obtained. The wound measures 18cmx 4cm x 6cm. Bone is visible. Wound with minimal venous oozing from edges. The wound was cleansed with wound cleanser. Wound checked for hemostasis which was ensured. Wound packed with 4 pieces of saline moistened gauze. Covered with dry gauze, ABD pads, and wrapped with kerlix. Knee immobilizer applied. All sharps disposed of appropriately. Patient tolerated procedure well. Anesthesia: local (4% topical lidocaine) Surgeon: SUKHDEEP ROBERTS Estimated blood loss: minimal Pathology: list (wound cultures) Specimen disposition: to lab Condition: stable Disposition: no change
[2021-05-07] MEDS: CEFEPIME/NS 1 GM/100 ML 1 GM/100 ML BAG IV SCH (13:57)
[2021-05-07] MEDS: ACETAMINOPHEN 325 MG TAB PO PRN (14:08)
[2021-05-07] MEDS: FLUCONAZOLE 200 MG 200 MG/100 ML BAG IV SCH (16:10)
[2021-05-07] MEDS: INSULIN LISPRO 100 UNIT/ML SUB-Q SCH ×2 (16:30→23:24)
[2021-05-08] MEDS: metroNIDAZOLE/NS 500 MG/100 ML 500 MG/100 ML BAG IV SCH ×3 (01:52→16:17)
[2021-05-08] MEDS: oxyCODONE /ACETAMINOPHEN 5-325MG TAB PO PRN ×2 (05:52→20:22)
[2021-05-08] MEDS: INSULIN LISPRO 100 UNIT/ML SUB-Q SCH ×4 (08:08→22:12)
[2021-05-08 08:33] LABS: Basophils # (Auto) 0.1 K/mm3 (0.0-0.1); Basophils % (Auto) 1.3 % (0.0-1.8); Eosinophils # (Auto) 0.5 K/mm3 (0.0-0.4); Eosinophils % (Auto) 4.3 % (0.0-4.3); Hematocrit 23.3 % (30.3-42.9); Hemoglobin 7.7 gm/dl (10.1-14.3); Lymphocytes # (Auto) 2.4 K/mm3 (1.2-5.4); Lymphocytes % (Auto) 21.2 % (13.4-35.0); Mean Corpuscular HGB Conc 33 % (30-34); Mean Corpuscular Volume 89 fl (79-97); Monocytes % (Auto) 8.6 % (0.0-7.3); Platelet Count 271 K/mm3 (140-440); Red Blood Count 2.62 M/mm3 (3.65-5.03)
[2021-05-08] MEDS: INSULIN NPH, HUMAN 100 UNIT/1 ML SUB-Q SCH ×2 (08:33→19:50)
[2021-05-08 08:35] LABS: Red Cell Distribution Width 20.4 % (13.2-15.2)
[2021-05-08] MEDS ORDERED: SODIUM HYPOCHLORITE, DAKIN'S 1/2 STRENGTH (0.25%) 473 ML TOPICAL SOLN TP PRN (09:00)
[2021-05-08] MEDS: METOPROLOL SUCCINATE XL 50 MG TAB PO SCH (09:01)
[2021-05-08] MEDS: MAGNESIUM OXIDE 400 MG TAB PO SCH ×2 (09:01→22:13)
[2021-05-08] MEDS: ASPIRIN 81 MG TAB CHEW PO SCH (09:01)
[2021-05-08] MEDS: CLOPIDOGREL 75 MG TAB PO SCH (09:02)
--- NOTE | 2021-05-08 09:36 | Progress Note ---
Assessment and Plan 1. ESRD: Patient is on maintenance hemodialysis three times a week, MWF schedule. Meds dosage based on GFR. Last outpatient HD 05/01. Hemodialysis: 05/04, 05/05(UF only), 05/06. HD today. 2. FEN: Volume overload, improved - UF with HD. Replete lytes. Monitor lytes and volume status. 3. Acute hypoxic resp failure: CXR showed volume overload. Volume control thru HD. Improved, now on RA. 4. R BKA stump wound infection: IV abx. Followed by Vascular. Wound debridement today. 5. Anemia, POA: Epogen with HD as needed. Monitor. 6. Hypertension: Adjust meds as needed. Monitor. 7. DM type 2. Subjective: Patient was seen and examined at the bedside. Doing ok. General Appearance: General appearance: well-developed, appears stated age, in distress HEENT: ATNC, pupils equal Neck: trachea midline Respiratory: ctab Heart: regular, S1S2, no murmur Abdomen: soft, bowel sounds heard, not tender Integumentary: no rash, warm and dry Neurologic: AO, able to move extremities Ext: R BKA stump plastic cast Hemodialysis access: R arm AVG Subjective Date of service: 05/08/21 Objective - Vital Signs Vital signs: Vital Signs - 12hr 05/07/21 05/07/21 05/08/21 22:00 23:52 01:00 Temperature 98.2 F Pulse Rate 82 Respiratory 20 Rate Blood Pressure 167/76 O2 Sat by Pulse 100 98 97 Oximetry 05/08/21 04:59 Temperature 98.1 F Pulse Rate 75 Respiratory 22 Rate Blood Pressure 156/69 O2 Sat by Pulse 98 Oximetry - Lab 05/08/21 08:08 05/08/21 08:08 Most recent lab results ABG pH 7.336 (7.320-7.450) 05/04/21 Unknown ABG O2 Saturation 82.3 (0-100) 05/04/21 Unknown Calcium 8.0 mg/dL (8.4-10.2) L 05/08/21 08:08 Phosphorus 3.00 mg/dL (2.5-4.5) 05/08/21 08:08 Magnesium 1.70 mg/dL (1.7-2.3) 05/08/21 08:08 Medications & Allergies - Medications Allergies/Adverse Reactions: Allergies Penicillins Adverse Reaction (Verified 05/04/21 06:09) Swelling Home Medications: Home Medications Medication Instructions Recorded Confirmed Last Taken Type Aspirin [Aspirin BABY CHEW TAB] 81 mg PO QDAY #30 tab.chew 05/16/20 05/05/21 03/08/21 Rx Linaclotide [Linzess] 72 mcg PO QDAY #30 cap 05/16/20 05/05/21 2 Days Ago Rx ~03/08/21 Omeprazole 40 mg PO QDAY #30 05/16/20 05/05/21 2 Days Ago Rx ~03/08/21 Oxycodone HCl/Acetaminophen 1 each PO Q6HR PRN #12 05/16/20 05/05/21 2 Weeks Ago Rx [Percocet 10/325 mg] ~02/24/21 AtorvaSTATin [Lipitor] 80 mg PO QHS 02/20/21 05/05/21 03/09/21 History Insulin Lispro [Humalog] See Protocol SUB-Q ACHS 02/20/21 05/05/21 03/08/21 History NIFEdipine [Nifedipine ER] 90 mg PO DAILY 02/20/21 05/05/21 03/09/21 History Clopidogrel [Plavix] 75 mg PO QDAY #90 tablet 03/10/21 05/05/21 Unknown Rx Metoprolol [Lopressor TAB] 100 mg PO DAILY 03/10/21 05/05/21 03/09/21 History Active Medications: Generic Name Dose Route Start Last Admin Trade Name Freq PRN Reason Stop Dose Admin Acetaminophen 650 mg 05/04/21 09:00 05/07/21 14:08 Acetaminophen 325 Mg Tab PO 650 mg Q4H PRN Administration Pain MILD(1-3)/Fever >100.5/MARIE Aspirin 81 mg 05/05/21 10:00 05/08/21 09:01 Aspirin 81 Mg Tab Chew PO 81 mg QDAY SILVANO Administration Atorvastatin Calcium 80 mg 05/04/21 22:00 05/07/21 22:46 Atorvastatin 40 Mg Tab PO 80 mg QHS SILVANO Administration Clopidogrel Bisulfate 75 mg 05/04/21 16:00 05/08/21 09:02 Clopidogrel 75 Mg Tab PO 75 mg QDAY SILVANO Administration Dextrose 50 ml 05/06/21 15:51 Dextrose 50% In Water (25gm) 50 Ml Syringe IV Q30MIN PRN Hypoglycemia Protocol Heparin Sodium (Porcine) 3,000 unit 05/04/21 09:00 05/04/21 10:58 Heparin 10,000 Units/10 Ml Vial IV 3,000 unit DULCE PRN Administration hemodialysis Sodium Chloride 100 mls @ 999 mls/hr 05/04/21 09:00 Nacl 0.9% IV DULCE PRN Hypotension Metronidazole 500 mg in 100 mls @ 100 mls/hr 05/04/21 16:30 05/08/21 08:33 Flagyl 500 Mg/100 Ml IV 100 mls/hr Q8H SILVANO Administration Protocol Cefepime HCl 1 gm in 100 mls @ 200 mls/hr 05/05/21 14:00 05/07/21 20:51 Cefepime/Ns 1 Gm/100 Ml IV Infused Q24H SILVANO Infusion Protocol Fluconazole 200 mg in 100 mls @ 100 mls/hr 05/06/21 16:00 05/07/21 20:52 Diflucan IV 05/13/21 15:59 Infused Q24H SILVANO Infusion Protocol Insulin Human Lispro 0 unit 05/07/21 17:00 05/08/21 08:08 Insulin Lispro 100 Unit/Ml SUB-Q Not Given ACHS SILVANO Protocol Insulin Human NPH 10 unit 05/06/21 17:00 05/08/21 08:33 Insulin Nph, Human 100 Unit/1 Ml SUB-Q 10 unit BIDDIAB SILVANO Administration Magnesium Oxide 400 mg 05/07/21 10:00 05/08/21 09:01 Magnesium Oxide 400 Mg Tab PO 400 mg BID SILVANO Administration Metoprolol Succinate 50 mg 05/04/21 17:00 05/08/21 09:01 Metoprolol Succinate Xl 50 Mg Tab PO 50 mg QDAY SILVANO Administration Morphine Sulfate 4 mg 05/04/21 09:00 Morphine 4 Mg/1 Ml Inj IV Q4H PRN Pain , Severe (7-10) Ondansetron HCl 4 mg 05/04/21 09:00 05/06/21 22:35 Ondansetron 4 Mg/2 Ml Inj IV 4 mg Q8H PRN Administration Nausea And Vomiting Oxycodone/Acetaminophen 1 tab 05/04/21 09:00 05/08/21 05:52 Oxycodone /Acetaminophen 5-325mg Tab PO 1 tab Q6H PRN Administration Pain, Moderate (4-6) Sodium Chloride 10 ml 05/04/21 10:00 05/08/21 09:02 Sodium Chloride 0.9% 10 Ml Flush Syringe IV 10 ml BID SILVANO Administration Sodium Chloride 10 ml 05/04/21 09:00 Sodium Chloride 0.9% 10 Ml Flush Syringe IV PRN PRN LINE FLUSH Sodium Hypochlorite 1 applic 05/08/21 09:00 Sodium Hypochlorite, Dakin's 1/2 Strength (0.25%) 473 Ml Topical Soln TP Q12H PRN Wound Care
[2021-05-08] MEDS: ACETAMINOPHEN 325 MG TAB PO PRN (12:31)
[2021-05-08] MEDS: CEFEPIME/NS 1 GM/100 ML 1 GM/100 ML BAG IV SCH (16:13)
[2021-05-08] MEDS: FLUCONAZOLE 200 MG 200 MG/100 ML BAG IV SCH (16:17)
[2021-05-08] MEDS: EPOETIN ALFA-EPBX 20,000 UNIT/1 ML VIAL SUB-Q PRN (16:19)
--- NOTE | 2021-05-08 16:27 | Progress Note ---
Assessment and Plan Assessment and plan: 56-year-old woman history of ESRD on HD, hypertension, T2DM, and recent right BKA who presented with nausea, vomiting and surgical wound infection. #Right below the knee amputation stump infection #Diabetic wound infection -Patient reported R BKA performed at [facility] -Has not followed up with wound care or surgery post discharge -Surgery consulted, recs appreciated. Patient underwent bedside debridement with general surgery (05/07/2021). Pending wound cultures. -Will likely be discharged with wound VAC and wound care follow-up (per general surgery note) -continue vancomycin, cefepime and flagyl for now (started on 05/04/2021). -Wound culture revealing Lashawn albicans. Continue IV fluconazole (started on 05/06/2021) -Consulting ID regarding antibiotic management. #Acute hypoxic respiratory failure-resolved -Likely secondary to volume overload. Being treated with repeated hemodialysis sessions. -Continue to monitor #ESRD on HD -HD MWF outpatient -Nephrology consulted; appreciate recs #Type 2 diabetes, insulin-dependent -Patient reports having insulin pump in place, currently not taking any insulin -Sliding scale -Goal blood sugar less than 180 while inpatient #Elevated troponin -Troponin T 0.068, elevation likely due to ESRD -will repeat #Leukocytosis-resolved -WBC 17.8-->12.8-->10.4 -Chest x-ray suggestive of vascular congestion -Blood cultures with NGTD x2. Deep wound culture revealed "light growth" of Lashawn albicans. -Likely secondary to infection #Normocytic anemia -Hemoglobin 7.4; Likely secondary to ESRD -H&H 9.3/27.7 last visit -We will transfuse for hemoglobin less than 7 -Epogen with dialysis #Peripheral vascular disease -Lower extremities arterial Doppler performed -Resume home aspirin 81 mg daily, Plavix 75 mg daily, and statin #Hypertension -Uncontrolled -Continue nifedipine 90 mg daily and Lopressor 50 daily #Discharge planning -Pending final antibiotic recommendations after wound cultures finalize -Patient will be discharged with wound VAC and close follow-up with wound care clinic Disposition Plan: Continue medical management Total Time Spent with Patient (Minutes): 30 History Interval history: The patient underwent bedside debridement with general surgery yesterday. Patient tolerated procedure well. Hospitalist Physical - Constitutional Vitals: Temp Pulse Resp BP Pulse Ox 98.1 F 76 18 146/56 100 05/08/21 14:10 05/08/21 15:45 05/08/21 14:10 05/08/21 15:45 05/08/21 14:10 General appearance: Present: no acute distress - EENT Eyes: Present: PERRL, EOM intact ENT: hearing intact, clear oral mucosa, dentition normal - Neck Neck: Present: supple, normal ROM - Respiratory Respiratory effort: normal - Cardiovascular Rhythm: regular Heart Sounds: Present: S1 & S2 - Extremities Extremities: no ischemia, pulses intact, pulses symmetrical, normal temperature, normal color, abnormal (Right BKA amputation) Peripheral Pulses: within normal limits - Abdominal General gastrointestinal: soft, non-tender, non-distended, normal bowel sounds - Integumentary Integumentary: Present: warm, dry (Right BKA wrapped and bandage) - Psychiatric Psychiatric: appropriate mood/affect, intact judgment & insight, memory intact, cooperative - Neurologic Neurologic: CNII-XII intact, moves all extremities HEART Score - HEART Score Troponin: Troponin T 0.066 ng/mL (0.00-0.029) H 05/04/21 23:36 Results - Labs CBC & Chem 7: 05/08/21 08:08 05/08/21 08:08 Labs: Laboratory Last Values WBC 11.1 K/mm3 (4.5-11.0) H 05/08/21 08:08 RBC 2.62 M/mm3 (3.65-5.03) L 05/08/21 08:08 Hgb 7.7 gm/dl (10.1-14.3) L 05/08/21 08:08 Hct 23.3 % (30.3-42.9) L 05/08/21 08:08 MCV 89 fl (79-97) 05/08/21 08:08 MCH 30 pg (28-32) 05/08/21 08:08 MCHC 33 % (30-34) 05/08/21 08:08 RDW 20.4 % (13.2-15.2) H 05/08/21 08:08 Plt Count 271 K/mm3 (140-440) 05/08/21 08:08 Lymph % (Auto) 21.2 % (13.4-35.0) 05/08/21 08:08 [place] % (Auto) 8.6 % (0.0-7.3) H 05/08/21 08:08 Eos % (Auto) 4.3 % (0.0-4.3) 05/08/21 08:08 Baso % (Auto) 1.3 % (0.0-1.8) 05/08/21 08:08 Lymph # (Auto) 2.4 K/mm3 (1.2-5.4) 05/08/21 08:08 [place] # (Auto) 1.0 K/mm3 (0.0-0.8) H 05/08/21 08:08 Eos # (Auto) 0.5 K/mm3 (0.0-0.4) H 05/08/21 08:08 Baso # (Auto) 0.1 K/mm3 (0.0-0.1) 05/08/21 08:08 Seg Neutrophils % 64.6 % (40.0-70.0) 05/08/21 08:08 Seg Neutrophils # 7.2 K/mm3 (1.8-7.7) 05/08/21 08:08 PT 14.8 Sec. (12.2-14.9) 05/04/21 06:38 INR 1.11 (0.87-1.13) 05/04/21 06:38 ABG pH 7.336 (7.320-7.450) 05/04/21 Unknown POC ABG pCO2 49.2 mmHg (32.0-48.0) H 05/04/21 Unknown POC ABG pO2 54.9 mmHg (83-108) L 05/04/21 Unknown POC ABG HCO3 25.7 05/04/21 Unknown ABG O2 Saturation 82.3 (0-100) 05/04/21 Unknown ABG O2 Content Not Reportable 05/04/21 Unknown POC ABG Base Excess -0.3 05/04/21 Unknown ABG Hemoglobin 8.24 (12.0-17.5) L 05/04/21 Unknown ABG Oxyhemoglobin 80.4 (94-98) L 05/04/21 Unknown ABG Methemoglobin 0.3 (0.0-1.5) 05/04/21 Unknown ABG Sodium Not Reportable 05/04/21 Unknown ABG Potassium Not Reportable 05/04/21 Unknown ABG Chloride Not Reportable 05/04/21 Unknown ABG Glucose Not Reportable 05/04/21 Unknown VBG pH 7.365 (7.320-7.420) 05/04/21 06:38 Carboxyhemoglobin 2.1 (0.5-1.5) H 05/04/21 Unknown FiO2 % 100 05/04/21 Unknown Sodium 138 mmol/L (137-145) 05/08/21 08:08 Potassium 4.0 mmol/L (3.6-5.0) 05/08/21 08:08 Chloride 103.1 mmol/L (98-107) 05/08/21 08:08 Carbon Dioxide 23 mmol/L (22-30) 05/08/21 08:08 Anion Gap 16 mmol/L 05/08/21 08:08 BUN 36 mg/dL (7-17) H 05/08/21 08:08 Creatinine 4.1 mg/dL (0.6-1.2) H D 05/08/21 08:08 Estimated GFR 14 ml/min 05/08/21 08:08 BUN/Creatinine Ratio 9 % 05/08/21 08:08 Glucose 108 mg/dL (65-100) H 05/08/21 08:08 POC Glucose 168 mg/dL (70-105) H 05/08/21 10:43 Hemoglobin A1c 7.3 % (4-6) H 05/07/21 04:30 Lactic Acid 1.10 mmol/L (0.7-2.0) 05/04/21 07:53 Calcium 8.0 mg/dL (8.4-10.2) L 05/08/21 08:08 Phosphorus 3.00 mg/dL (2.5-4.5) 05/08/21 08:08 Magnesium 1.70 mg/dL (1.7-2.3) 05/08/21 08:08 Total Creatine Kinase 73 units/L (30-135) 05/04/21 06:38 Troponin T 0.066 ng/mL (0.00-0.029) H 05/04/21 23:36 Prealbumin 0.137 g/L (0.200-0.400) L 05/07/21 04:00 Triglycerides 102 mg/dL (2-149) 05/04/21 06:38 Cholesterol 98 mg/dL (50-199) 05/04/21 06:38 LDL Cholesterol Direct 37 mg/dL (50-130) L 05/04/21 06:38 HDL Cholesterol 37 mg/dL (40-59) L 05/04/21 06:38 Cholesterol/HDL Ratio 2.64 % 05/04/21 06:38 Arterial Blood Glucose Not Reportable 05/04/21 Unknown Random Vancomycin 29.2 ug/mL (0-40.0) 05/07/21 05:00 Coronavirus (PCR) Negative (Negative) 05/06/21 Unknown Hepatitis A IgM Ab Non-reactive (NonReactive) 05/04/21 11:05 Hep Bs Antigen Nonreactive (Negative) 05/04/21 11:05 Hep B Core IgM Ab Non-reactive (NonReactive) 05/04/21 11:05 Hepatitis C Antibody Non-reactive (NonReactive) 05/04/21 11:05 Microbiology: Microbiology 05/04/21 07:53 Peripheral/Venous Blood Culture - Preliminary NO GROWTH AFTER 4 DAYS 05/04/21 07:53 Peripheral/Venous Blood Culture - Preliminary NO GROWTH AFTER 4 DAYS Vera/IV: Voiding Method Bedside Commode Active Medications - Current Medications Current Medications: Generic Name Dose Route Start Last Admin Trade Name Freq PRN Reason Stop Dose Admin Acetaminophen 650 mg 05/04/21 09:00 05/08/21 12:31 Acetaminophen 325 Mg Tab PO 650 mg Q4H PRN Administration Pain MILD(1-3)/Fever >100.5/MARIE Aspirin 81 mg 05/05/21 10:00 05/08/21 09:01 Aspirin 81 Mg Tab Chew PO 81 mg QDAY SILVANO Administration Atorvastatin Calcium 80 mg 05/04/21 22:00 05/07/21 22:46 Atorvastatin 40 Mg Tab PO 80 mg QHS SILVANO Administration Clopidogrel Bisulfate 75 mg 05/04/21 16:00 05/08/21 09:02 Clopidogrel 75 Mg Tab PO 75 mg QDAY SILVANO Administration Dextrose 50 ml 05/06/21 15:51 Dextrose 50% In Water (25gm) 50 Ml Syringe IV Q30MIN PRN Hypoglycemia Protocol Heparin Sodium (Porcine) 3,000 unit 05/04/21 09:00 05/04/21 10:58 Heparin 10,000 Units/10 Ml Vial IV 3,000 unit DULCE PRN Administration hemodialysis Sodium Chloride 100 mls @ 999 mls/hr 05/04/21 09:00 Nacl 0.9% IV DULCE PRN Hypotension Metronidazole 500 mg in 100 mls @ 100 mls/hr 05/04/21 16:30 05/08/21 16:17 Flagyl 500 Mg/100 Ml IV Not Given Q8H [facility] Protocol Cefepime HCl 1 gm in 100 mls @ 200 mls/hr 05/05/21 14:00 05/08/21 16:13 Cefepime/Ns 1 Gm/100 Ml IV Not Given Q24H [facility] Protocol Fluconazole 200 mg in 100 mls @ 100 mls/hr 05/06/21 16:00 05/08/21 16:17 Diflucan IV 05/13/21 15:[address] [facility] Protocol Insulin Human Lispro 0 unit 05/07/21 17:00 05/08/21 12:31 Insulin Lispro 100 Unit/Ml SUB-Q 2 unit ACHS SILVANO Administration Protocol Insulin Human NPH 10 unit 05/06/21 17:00 05/08/21 08:33 Insulin Nph, Human 100 Unit/1 Ml SUB-Q 10 unit BIDDIAB SILVANO Administration Magnesium Oxide 400 mg 05/07/21 10:00 05/08/21 09:01 Magnesium Oxide 400 Mg Tab PO 400 mg BID SILVANO Administration Metoprolol Succinate 50 mg 05/04/21 17:00 05/08/21 09:01 Metoprolol Succinate Xl 50 Mg Tab PO 50 mg QDAY SILVANO Administration Morphine Sulfate 4 mg 05/04/21 09:00 Morphine 4 Mg/1 Ml Inj IV Q4H PRN Pain , Severe (7-10) Ondansetron HCl 4 mg 05/04/21 09:00 05/06/21 22:35 Ondansetron 4 Mg/2 Ml Inj IV 4 mg Q8H PRN Administration Nausea And Vomiting Oxycodone/Acetaminophen 1 tab 05/04/21 09:00 05/08/21 05:52 Oxycodone /Acetaminophen 5-325mg Tab PO 1 tab Q6H PRN Administration Pain, Moderate (4-6) Sodium Chloride 10 ml 05/04/21 10:00 05/08/21 09:02 Sodium Chloride 0.9% 10 Ml Flush Syringe IV 10 ml BID SILVANO Administration Sodium Chloride 10 ml 05/04/21 09:00 Sodium Chloride 0.9% 10 Ml Flush Syringe IV PRN PRN LINE FLUSH Sodium Hypochlorite 1 applic 05/08/21 09:00 Sodium Hypochlorite, Dakin's 1/2 Strength (0.25%) 473 Ml Topical Soln TP Q12H PRN Wound Care Nutrition/Malnutrition Assess - Dietary Evaluation Nutrition/Malnutrition Findings: Nutrition Notes Start: 05/07/21 18:22 Freq: Status: Active Protocol: Document 05/08/21 09:07 ASIM (Rec: 05/08/21 09:44 ASIM [id number]) Nutrition Notes Need for Assessment generated from: MD Order Initial or Follow up Assessment Current Diagnosis CKD (stage V CKD),Diabetes, Hypertension,Respiratory Failure Other Pertinent Diagnosis Wound Infection (R BKA) Current Diet Renal Diet, Supplements BID Labs/Tests 05/08: BUN 36, Cr 4.1, Glu 108 . Pertinent Medications 05/08; Reviewed. Height 5 ft 5 in Weight 81.64 kg [place] Body Weight (kg) 56.81 BMI 29.9 Intake Prior to Admission Good Weight Status Overweight Percent of energy/protein needs met: Prescribed Renal Diet provides for energy/protein nedds ( 2072 Kcal/77 g) during LOS. BID Supplements provide additional 520 Kcal/21.6 g. Burn Absent Trauma Absent GI Symptoms None Food Allergy No Skin Integrity/Comment Integumentary; clear, warm,dry . Current % PO Good (75-100%) Minimum of two criteria No physical signs of malnutrition #1 Nutrition Diagnosis Increased nutrient needs ( specify in comment below) Comments: Wound infection (R BKA) and surgery. Etiology Transient excess needs for energy/protein to support wound healing and surgery As Evidenced by Signs and Symptoms Pt having debridement of infected wound as per pregress notes. Is patient on ventilator? No Is Patient Ambulatory and/or Out of Bed Yes REE-([place]-ambulatory/OOB) [ 1816.464 [id number]] Kcal/Kg value to use for calculation 30 Approximate Energy Requirements Using 2449 kcal/Kg Calculation Used for Recommendations Kcal/kg Additional Notes Protein: 1.2-1.4 g/Kg/day; 68- 80 g/day; 272-320 Kcal (from IBW). Fluids: 1.0 ml/Kcal, or as per MD. Nutrition Intervention Change Diet Order: Continue prescribed Renal Diet . Add Supplement/Snack (indicate name/kcal 2- 8.0 fl oz supplements ( /protein ) Nepro, Gagan) BID Provides kCal: 520 Provides Protein (gm) 22 Goal #1 Support transient exeptional energy/protein needs for wound healing during LOS. Goal #2 Maintain body weight within +/ -3% of current BWt during LOS. Goal #3 Achieve and maintain acceptable chemistry lab values during LOS. Follow-Up By: 05/14/21 Additional Comments Continue monitoring acceptance of food, % PO intake of meals , hydration, and BM. - Attestation Statement I have reviewed and agreed w/ Malnutrition eval & tx plan: Yes
--- NOTE | 2021-05-08 17:44 | Progress Note ---
Assessment and Plan 56 yo F s/p excisional debridement of right BKA stump, POD 1 1. dehiscence and infection of R BKA surgical wound 2. DM 3. ESRD on HD 4. protein calorie malnutrition Plan: 1. Strict glucose control 2. abx per 1' service. Recommend ID consult 3. knee immobilizer 4. wound cultures pending 5. circulation sales representative consult. Dietary supplements 6. Xray could not r/o osteo - will obtain MRI as bone visible on exam 7. Wound care clinic follow up at discharge. Will order wound vac if MRI negative for osteo. Otherwise, continue wet to dry dressing changes with dakins solution as ordered BID. Thank you, please call with questions. Subjective Date of service: 05/08/21 Narrative: Pt seen and examined. No acute events. Afebrile. Objective Vital Signs - 12hr 05/08/21 05/08/21 05/08/21 10:43 14:10 14:15 Temperature 98.7 F 98.1 F Pulse Rate 78 74 73 Respiratory 18 18 Rate Blood Pressure 143/55 165/72 173/63 O2 Sat by Pulse 98 Oximetry O2 Sat by Pulse 100 Oximetry [ Anterior Throughout] 05/08/21 05/08/21 05/08/21 14:30 14:45 15:00 Temperature Pulse Rate 73 70 71 Respiratory Rate Blood Pressure 175/62 167/62 156/60 O2 Sat by Pulse Oximetry O2 Sat by Pulse Oximetry [ Anterior Throughout] 05/08/21 05/08/21 05/08/21 15:15 15:30 15:45 Temperature Pulse Rate 76 77 76 Respiratory Rate Blood Pressure 131/65 151/65 146/56 O2 Sat by Pulse Oximetry O2 Sat by Pulse Oximetry [ Anterior Throughout] 05/08/21 05/08/21 05/08/21 16:00 16:10 16:30 Temperature 98.0 F Pulse Rate 79 78 75 Respiratory 18 Rate Blood Pressure 122/97 130/94 155/65 O2 Sat by Pulse Oximetry O2 Sat by Pulse 100 Oximetry [ Anterior Throughout] - General physical appearance Narrative Exam: Gen.: Awake, alert, oriented x3. No apparent distress CV: S1, S2 present Respiratory: No audible wheezes Extremities: Right lower extremity dressing in place with the knee immobilizer - Labs 05/08/21 08:08 05/08/21 08:08 Diabetes panel 05/08/21 Range/Units 08:08 Sodium 138 (137-145) mmol/L Potassium 4.0 (3.6-5.0) mmol/L Chloride 103.1 (98-107) mmol/L Carbon Dioxide 23 (22-30) mmol/L BUN 36 H (7-17) mg/dL Creatinine 4.1 H D (0.6-1.2) mg/dL Glucose 108 H (65-100) mg/dL Calcium 8.0 L (8.4-10.2) mg/dL Calcium panel 05/08/21 Range/Units 08:08 Calcium 8.0 L (8.4-10.2) mg/dL Phosphorus 3.00 (2.5-4.5) mg/dL Pituitary panel 05/08/21 Range/Units 08:08 Sodium 138 (137-145) mmol/L Potassium 4.0 (3.6-5.0) mmol/L Chloride 103.1 (98-107) mmol/L Carbon Dioxide 23 (22-30) mmol/L BUN 36 H (7-17) mg/dL Creatinine 4.1 H D (0.6-1.2) mg/dL Glucose 108 H (65-100) mg/dL Calcium 8.0 L (8.4-10.2) mg/dL Adrenal panel 05/08/21 Range/Units 08:08 Sodium 138 (137-145) mmol/L Potassium 4.0 (3.6-5.0) mmol/L Chloride 103.1 (98-107) mmol/L Carbon Dioxide 23 (22-30) mmol/L BUN 36 H (7-17) mg/dL Creatinine 4.1 H D (0.6-1.2) mg/dL Glucose 108 H (65-100) mg/dL Calcium 8.0 L (8.4-10.2) mg/dL
[2021-05-09] MEDS: metroNIDAZOLE/NS 500 MG/100 ML 500 MG/100 ML BAG IV SCH ×3 (00:06→16:42)
[2021-05-09] MEDS: oxyCODONE /ACETAMINOPHEN 5-325MG TAB PO PRN ×3 (02:52→21:42)
[2021-05-09] MEDS: ONDANSETRON 4 MG/2 ML INJ IV PRN (03:25)
[2021-05-09 05:45] LABS: Calcium 8.5 mg/dL (8.4-10.2)
[2021-05-09 05:47] LABS: Basophils # (Auto) 0.2 K/mm3 (0.0-0.1); Basophils % (Auto) 1.2 % (0.0-1.8); Eosinophils # (Auto) 0.4 K/mm3 (0.0-0.4); Eosinophils % (Auto) 3.6 % (0.0-4.3); Hematocrit 25.4 % (30.3-42.9); Hemoglobin 8.2 gm/dl (10.1-14.3); Lymphocytes # (Auto) 2.4 K/mm3 (1.2-5.4); Lymphocytes % (Auto) 19.6 % (13.4-35.0); Mean Corpuscular HGB Conc 32 % (30-34); Mean Corpuscular Volume 88 fl (79-97); Monocytes # (Auto) 1.2 K/mm3 (0.0-0.8); Monocytes % (Auto) 9.4 % (0.0-7.3); Platelet Count 255 K/mm3 (140-440); Red Blood Count 2.89 M/mm3 (3.65-5.03)
[2021-05-09 05:51] LABS: Red Cell Distribution Width 20.3 % (13.2-15.2)
[2021-05-09] MEDS: INSULIN LISPRO 100 UNIT/ML SUB-Q SCH ×4 (07:30→21:40)
[2021-05-09] MEDS: INSULIN NPH, HUMAN 100 UNIT/1 ML SUB-Q SCH ×2 (08:00→16:35)
[2021-05-09] MEDS: ONDANSETRON 4 MG/2 ML INJ IV SCH ×3 (10:25→21:42)
[2021-05-09] MEDS: CLOPIDOGREL 75 MG TAB PO SCH (10:27)
[2021-05-09] MEDS: METOPROLOL SUCCINATE XL 50 MG TAB PO SCH (10:27)
[2021-05-09] MEDS: MAGNESIUM OXIDE 400 MG TAB PO SCH ×2 (10:27→21:41)
[2021-05-09] MEDS: ASPIRIN 81 MG TAB CHEW PO SCH (10:27)
[2021-05-09] MEDS: METOCLOPRAMIDE 10 MG/2 ML INJ IV SCH ×3 (10:44→21:42)
--- NOTE | 2021-05-09 10:57 | Progress Note ---
Assessment and Plan Assessment and plan: 56-year-old woman history of ESRD on HD, hypertension, T2DM, and recent right BKA who presented with nausea, vomiting and surgical wound infection. #Right BKA stump infection #Diabetic wound infection -Patient reported R BKA performed at [facility] -Has not followed up with wound care or surgery post discharge -Surgery consulted, recs appreciated. Patient underwent bedside debridement with general surgery (05/07/2021). Pending wound cultures. -Will likely be discharged with wound VAC and wound care follow-up (per general surgery note) -continue vancomycin, cefepime and flagyl for now (started on 05/04/2021). -Wound culture revealing Lashawn albicans. Continue IV fluconazole (started on 05/06/2021) -Consulting ID regarding antibiotic management; appreciate recs -Pending MRI for evaluation of possible osteomyelitis of right BKA #Nausea and vomiting -Scheduling IV Reglan every 6 hours. As needed IV Zofran 4 mg every 6 hours. #Acute hypoxic respiratory failure-resolved -Likely secondary to volume overload. Being treated with repeated hemodialysis sessions. -Continue to monitor #ESRD on HD -HD MWF outpatient -Nephrology consulted; appreciate recs #Type 2 diabetes, insulin-dependent -Patient reports having insulin pump in place, currently not taking any insulin -Continue NPH 10 units every 12 hours with SSI -Goal blood sugar less than 180 while inpatient #Elevated troponin -Troponin T 0.068, elevation likely due to ESRD -will repeat #Leukocytosis-resolved -WBC 17.8-->12.8-->10.4 -Chest x-ray suggestive of vascular congestion -Blood cultures with NGTD x2. Deep wound culture revealed "light growth" of Lashawn albicans. -Likely secondary to infection #Normocytic anemia -Hemoglobin 7.4; Likely secondary to ESRD -H&H 9.3/27.7 last visit -We will transfuse for hemoglobin less than 7 -Epogen with dialysis #Peripheral vascular disease -Lower extremities arterial Doppler performed -Resume home aspirin 81 mg daily, Plavix 75 mg daily, and statin #Hypertension-stable -Continue nifedipine 90 mg daily and Lopressor 50 daily #Discharge planning -Pending final antibiotic recommendations after wound cultures finalize -Patient will be discharged with p.o. wound VAC and close follow-up with wound care clinic Disposition Plan: Continue medical management Total Time Spent with Patient (Minutes): 40 History Interval history: Patient endorses having numerous episodes of nausea with nonbloody vomiting. Patient denies significant abdominal pain. She denies any changes in diet. Hospitalist Physical - Constitutional Vitals: Temp Pulse Resp BP Pulse Ox 98.1 F 78 18 169/55 94 05/08/21 23:02 05/08/21 23:02 05/08/21 23:02 05/08/21 23:02 05/08/21 23:47 General appearance: Present: no acute distress, well-nourished - EENT Eyes: Present: PERRL, EOM intact ENT: hearing intact, clear oral mucosa, dentition normal - Neck Neck: Present: supple, normal ROM - Respiratory Respiratory effort: normal - Cardiovascular Rhythm: regular Heart Sounds: Present: S1 & S2 - Extremities Extremities: no ischemia, pulses intact, pulses symmetrical, No edema, normal temperature, normal color, abnormal Extremity abnormal: deformity (Right BKA wrapped in Kerlix and tape.) Peripheral Pulses: within normal limits - Abdominal General gastrointestinal: soft, non-tender, non-distended, normal bowel sounds - Integumentary Integumentary: Present: clear, warm, dry - Psychiatric Psychiatric: appropriate mood/affect, intact judgment & insight, memory intact, cooperative - Neurologic Neurologic: CNII-XII intact, moves all extremities - Allied Health Allied health notes reviewed: nursing HEART Score - HEART Score Troponin: Troponin T 0.066 ng/mL (0.00-0.029) H 05/04/21 23:36 Results - Labs CBC & Chem 7: 05/09/21 04:38 05/09/21 04:38 Labs: Laboratory Last Values WBC 12.4 K/mm3 (4.5-11.0) H 05/09/21 04:38 RBC 2.89 M/mm3 (3.65-5.03) L 05/09/21 04:38 Hgb 8.2 gm/dl (10.1-14.3) L 05/09/21 04:38 Hct 25.4 % (30.3-42.9) L 05/09/21 04:38 MCV 88 fl (79-97) 05/09/21 04:38 MCH 28 pg (28-32) 05/09/21 04:38 MCHC 32 % (30-34) 05/09/21 04:38 RDW 20.3 % (13.2-15.2) H 05/09/21 04:38 Plt Count 255 K/mm3 (140-440) 05/09/21 04:38 Lymph % (Auto) 19.6 % (13.4-35.0) 05/09/21 04:38 [place] % (Auto) 9.4 % (0.0-7.3) H 05/09/21 04:38 Eos % (Auto) 3.6 % (0.0-4.3) 05/09/21 04:38 Baso % (Auto) 1.2 % (0.0-1.8) 05/09/21 04:38 Lymph # (Auto) 2.4 K/mm3 (1.2-5.4) 05/09/21 04:38 [place] # (Auto) 1.2 K/mm3 (0.0-0.8) H 05/09/21 04:38 Eos # (Auto) 0.4 K/mm3 (0.0-0.4) 05/09/21 04:38 Baso # (Auto) 0.2 K/mm3 (0.0-0.1) H 05/09/21 04:38 Seg Neutrophils % 66.2 % (40.0-70.0) 05/09/21 04:38 Seg Neutrophils # 8.2 K/mm3 (1.8-7.7) H 05/09/21 04:38 PT 14.8 Sec. (12.2-14.9) 05/04/21 06:38 INR 1.11 (0.87-1.13) 05/04/21 06:38 ABG pH 7.336 (7.320-7.450) 05/04/21 Unknown POC ABG pCO2 49.2 mmHg (32.0-48.0) H 05/04/21 Unknown POC ABG pO2 54.9 mmHg (83-108) L 05/04/21 Unknown POC ABG HCO3 25.7 05/04/21 Unknown ABG O2 Saturation 82.3 (0-100) 05/04/21 Unknown ABG O2 Content Not Reportable 05/04/21 Unknown POC ABG Base Excess -0.3 05/04/21 Unknown ABG Hemoglobin 8.24 (12.0-17.5) L 05/04/21 Unknown ABG Oxyhemoglobin 80.4 (94-98) L 05/04/21 Unknown ABG Methemoglobin 0.3 (0.0-1.5) 05/04/21 Unknown ABG Sodium Not Reportable 05/04/21 Unknown ABG Potassium Not Reportable 05/04/21 Unknown ABG Chloride Not Reportable 05/04/21 Unknown ABG Glucose Not Reportable 05/04/21 Unknown VBG pH 7.365 (7.320-7.420) 05/04/21 06:38 Carboxyhemoglobin 2.1 (0.5-1.5) H 05/04/21 Unknown FiO2 % 100 05/04/21 Unknown Sodium 138 mmol/L (137-145) 05/09/21 04:38 Potassium 3.7 mmol/L (3.6-5.0) 05/09/21 04:38 Chloride 99.1 mmol/L (98-107) 05/09/21 04:38 Carbon Dioxide 25 mmol/L (22-30) 05/09/21 04:38 Anion Gap 18 mmol/L 05/09/21 04:38 BUN 28 mg/dL (7-17) H 05/09/21 04:38 Creatinine 3.1 mg/dL (0.6-1.2) H 05/09/21 04:38 Estimated GFR 19 ml/min 05/09/21 04:38 BUN/Creatinine Ratio 9 % 05/09/21 04:38 Glucose 144 mg/dL (65-100) H 05/09/21 04:38 POC Glucose 174 mg/dL (70-105) H 05/09/21 07:21 Hemoglobin A1c 7.3 % (4-6) H 05/07/21 04:30 Lactic Acid 1.10 mmol/L (0.7-2.0) 05/04/21 07:53 Calcium 8.5 mg/dL (8.4-10.2) 05/09/21 04:38 Phosphorus 2.90 mg/dL (2.5-4.5) 05/09/21 04:38 Magnesium 1.70 mg/dL (1.7-2.3) 05/09/21 04:38 Total Creatine Kinase 73 units/L (30-135) 05/04/21 06:38 Troponin T 0.066 ng/mL (0.00-0.029) H 05/04/21 23:36 Prealbumin 0.137 g/L (0.200-0.400) L 05/07/21 04:00 Triglycerides 102 mg/dL (2-149) 05/04/21 06:38 Cholesterol 98 mg/dL (50-199) 05/04/21 06:38 LDL Cholesterol Direct 37 mg/dL (50-130) L 05/04/21 06:38 HDL Cholesterol 37 mg/dL (40-59) L 05/04/21 06:38 Cholesterol/HDL Ratio 2.64 % 05/04/21 06:38 Arterial Blood Glucose Not Reportable 05/04/21 Unknown Random Vancomycin 29.2 ug/mL (0-40.0) 05/07/21 05:00 Coronavirus (PCR) Negative (Negative) 05/06/21 Unknown Hepatitis A IgM Ab Non-reactive (NonReactive) 05/04/21 11:05 Hep Bs Antigen Nonreactive (Negative) 05/04/21 11:05 Hep B Core IgM Ab Non-reactive (NonReactive) 05/04/21 11:05 Hepatitis C Antibody Non-reactive (NonReactive) 05/04/21 11:05 Microbiology: Microbiology 05/04/21 07:53 Peripheral/Venous Blood Culture - Final NO GROWTH AFTER 5 DAYS 05/04/21 07:53 Peripheral/Venous Blood Culture - Final NO GROWTH AFTER 5 DAYS 05/07/21 13:13 Wound - Deep Wound Culture - Preliminary Vera/IV: Voiding Method Bedside Commode Active Medications - Current Medications Current Medications: Generic Name Dose Route Start Last Admin Trade Name Freq PRN Reason Stop Dose Admin Acetaminophen 650 mg 05/04/21 09:00 05/08/21 12:31 Acetaminophen 325 Mg Tab PO 650 mg Q4H PRN Administration Pain MILD(1-3)/Fever >100.5/MARIE Aspirin 81 mg 05/05/21 10:00 05/09/21 10:27 Aspirin 81 Mg Tab Chew PO 81 mg QDAY SILVANO Administration Atorvastatin Calcium 80 mg 05/04/21 22:00 05/08/21 22:13 Atorvastatin 40 Mg Tab PO 80 mg QHS SILVANO Administration Clopidogrel Bisulfate 75 mg 05/04/21 16:00 05/09/21 10:27 Clopidogrel 75 Mg Tab PO 75 mg QDAY SILVANO Administration Dextrose 50 ml 10/06/21 15:51 Dextrose 50% In Water (25gm) 50 Ml Syringe IV Q30MIN PRN Hypoglycemia Protocol Heparin Sodium (Porcine) 3,000 unit 05/04/21 09:00 05/04/21 10:58 Heparin 10,000 Units/10 Ml Vial IV 3,000 unit DULCE PRN Administration hemodialysis Sodium Chloride 100 mls @ 999 mls/hr 05/04/21 09:00 Nacl 0.9% IV DULCE PRN Hypotension Metronidazole 500 mg in 100 mls @ 100 mls/hr 05/04/21 16:30 05/09/21 08:30 Flagyl 500 Mg/100 Ml IV 100 mls/hr Q8H SILVANO Administration Protocol Cefepime HCl 1 gm in 100 mls @ 200 mls/hr 05/05/21 14:00 05/08/21 16:13 Cefepime/Ns 1 Gm/100 Ml IV Not Given Q24H SILVANO Protocol Fluconazole 200 mg in 100 mls @ 100 mls/hr 05/06/21 16:00 05/08/21 16:17 Diflucan IV 05/13/21 15:59 Not Given Q24H SILVANO Protocol Insulin Human Lispro 0 unit 05/07/21 17:00 05/09/21 07:30 Insulin Lispro 100 Unit/Ml SUB-Q 2 unit ACHS SILVANO Administration Protocol Insulin Human NPH 10 unit 05/06/21 17:00 05/08/21 19:50 Insulin Nph, Human 100 Unit/1 Ml SUB-Q 10 unit BIDDIAB SILVANO Administration Magnesium Oxide 400 mg 05/07/21 10:00 05/09/21 10:27 Magnesium Oxide 400 Mg Tab PO 400 mg BID SILVANO Administration Metoclopramide HCl 5 mg 05/09/21 11:30 05/09/21 10:44 Metoclopramide 10 Mg/2 Ml Inj IV 5 mg ACHS SILVANO Administration Metoprolol Succinate 50 mg 05/04/21 17:00 05/09/21 10:27 Metoprolol Succinate Xl 50 Mg Tab PO 50 mg QDAY SILVANO Administration Morphine Sulfate 4 mg 05/04/21 09:00 Morphine 4 Mg/1 Ml Inj IV Q4H PRN Pain , Severe (7-10) Ondansetron HCl 4 mg 05/09/21 10:00 05/09/21 10:25 Ondansetron 4 Mg/2 Ml Inj IV 4 mg Q6H SILVANO Administration Oxycodone/Acetaminophen 1 tab 05/04/21 09:00 05/09/21 02:52 Oxycodone /Acetaminophen 5-325mg Tab PO 1 tab Q6H PRN Administration Pain, Moderate (4-6) Sodium Chloride 10 ml 05/04/21 10:00 05/09/21 10:28 Sodium Chloride 0.9% 10 Ml Flush Syringe IV 10 ml BID SILVANO Administration Sodium Chloride 10 ml 05/04/21 09:00 Sodium Chloride 0.9% 10 Ml Flush Syringe IV PRN PRN LINE FLUSH Sodium Hypochlorite 1 applic 05/08/21 09:00 Sodium Hypochlorite, Dakin's 1/2 Strength (0.25%) 473 Ml Topical Soln TP Q12H PRN Wound Care Nutrition/Malnutrition Assess - Dietary Evaluation Nutrition/Malnutrition Findings: Nutrition Notes Start: 05/07/21 18:22 Freq: Status: Active Protocol: Document 05/08/21 09:07 ASIM (Rec: 05/08/21 09:44 ASIM [id number]) Nutrition Notes Need for Assessment generated from: MD Order Initial or Follow up Assessment Current Diagnosis CKD (stage V CKD),Diabetes, Hypertension,Respiratory Failure Other Pertinent Diagnosis Wound Infection (R BKA) Current Diet Renal Diet, Supplements BID Labs/Tests 05/08: BUN 36, Cr 4.1, Glu 108 . Pertinent Medications 05/08; Reviewed. Height 5 ft 5 in Weight 81.64 kg [place] Body Weight (kg) 56.81 BMI 29.9 Intake Prior to Admission Good Weight Status Overweight Percent of energy/protein needs met: Prescribed Renal Diet provides for energy/protein nedds ( 2072 Kcal/77 g) during LOS. BID Supplements provide additional 520 Kcal/21.6 g. Burn Absent Trauma Absent GI Symptoms None Food Allergy No Skin Integrity/Comment Integumentary; clear, warm,dry . Current % PO Good (75-100%) Minimum of two criteria No physical signs of malnutrition #1 Nutrition Diagnosis Increased nutrient needs ( specify in comment below) Comments: Wound infection (R BKA) and surgery. Etiology Transient excess needs for energy/protein to support wound healing and surgery As Evidenced by Signs and Symptoms Pt having debridement of infected wound as per pregress notes. Is patient on ventilator? No Is Patient Ambulatory and/or Out of Bed Yes REE-([place]-St. Jeor-ambulatory/OOB) [ 1816.464 NUTR.[id number]] Kcal/Kg value to use for calculation 30 Approximate Energy Requirements Using 2449 kcal/Kg Calculation Used for Recommendations Kcal/kg Additional Notes Protein: 1.2-1.4 g/Kg/day; 68- 80 g/day; 272-320 Kcal (from IBW). Fluids: 1.0 ml/Kcal, or as per MD. Nutrition Intervention Change Diet Order: Continue prescribed Renal Diet . Add Supplement/Snack (indicate name/kcal 2- 8.0 fl oz supplements ( /protein ) Nepro, Gagan) BID Provides kCal: 520 Provides Protein (gm) 22 Goal #1 Support transient exeptional energy/protein needs for wound healing during LOS. Goal #2 Maintain body weight within +/ -3% of current BWt during LOS. Goal #3 Achieve and maintain acceptable chemistry lab values during LOS. Follow-Up By: 05/14/21 Additional Comments Continue monitoring acceptance of food, % PO intake of meals , hydration, and BM. - Attestation Statement I have reviewed and agreed w/ Malnutrition eval & tx plan: Yes
--- NOTE | 2021-05-09 13:39 | Progress Note ---
Assessment and Plan 1. ESRD: Patient is on maintenance hemodialysis three times a week, MWF schedule. Meds dosage based on GFR. Last outpatient HD 05/01. Hemodialysis: 05/04, 05/05(UF only), 05/06, 05/08. 2. FEN: Volume overload, improved - UF with HD. Replete lytes. Monitor lytes and volume status. 3. Acute hypoxic resp failure: CXR showed volume overload. Volume control thru HD. Improved, now on RA. 4. R BKA stump wound infection: IV abx. Followed by Vascular. S/p wound debridement 05/07. 5. Anemia, POA: Epogen with HD as needed. Monitor. 6. Hypertension: Adjust meds as needed. Monitor. 7. DM type 2. Subjective: Patient was seen and examined at the bedside. Doing ok. General Appearance: General appearance: well-developed, appears stated age, in distress HEENT: ATNC, pupils equal Neck: trachea midline Respiratory: ctab Heart: regular, S1S2, no murmur Abdomen: soft, bowel sounds heard, not tender Integumentary: no rash, warm and dry Neurologic: AO, able to move extremities Ext: R BKA stump dressing Hemodialysis access: R arm AVG Subjective Date of service: 05/09/21 Objective - Vital Signs Vital signs: Vital Signs - 12hr 05/09/21 05/09/21 05/09/21 10:00 11:00 11:36 Temperature 98.8 F Pulse Rate 74 Respiratory 18 Rate Blood Pressure 191/53 O2 Sat by Pulse 100 98 100 Oximetry - Lab 05/11/21 09:24 05/11/21 09:24 Most recent lab results ABG pH 7.336 (7.320-7.450) 05/04/21 Unknown ABG O2 Saturation 82.3 (0-100) 05/04/21 Unknown Calcium 8.5 mg/dL (8.4-10.2) 05/09/21 04:38 Phosphorus 2.90 mg/dL (2.5-4.5) 05/09/21 04:38 Magnesium 1.70 mg/dL (1.7-2.3) 05/09/21 04:38 Medications & Allergies - Medications Allergies/Adverse Reactions: Allergies Penicillins Adverse Reaction (Verified 05/04/21 06:09) Swelling Home Medications: Home Medications Medication Instructions Recorded Confirmed Last Taken Type Aspirin [Aspirin BABY CHEW TAB] 81 mg PO QDAY #30 tab.chew 05/16/20 05/05/21 03/08/21 Rx Linaclotide [Linzess] 72 mcg PO QDAY #30 cap 05/16/20 05/05/21 2 Days Ago Rx ~03/08/21 Omeprazole 40 mg PO QDAY #30 05/16/20 05/05/21 2 Days Ago Rx ~03/08/21 Oxycodone HCl/Acetaminophen 1 each PO Q6HR PRN #12 05/16/20 05/05/21 2 Weeks Ago Rx [Percocet 10/325 mg] ~02/24/21 AtorvaSTATin [Lipitor] 80 mg PO QHS 02/20/21 05/05/21 03/09/21 History Insulin Lispro [Humalog] See Protocol SUB-Q ACHS 02/20/21 05/05/21 03/08/21 History NIFEdipine [Nifedipine ER] 90 mg PO DAILY 02/20/21 05/05/21 03/09/21 History Clopidogrel [Plavix] 75 mg PO QDAY #90 tablet 03/10/21 05/05/21 Unknown Rx Metoprolol [Lopressor TAB] 100 mg PO DAILY 03/10/21 05/05/21 03/09/21 History Active Medications: Generic Name Dose Route Start Last Admin Trade Name Freq PRN Reason Stop Dose Admin Acetaminophen 650 mg 05/04/21 09:00 05/08/21 12:31 Acetaminophen 325 Mg Tab PO 650 mg Q4H PRN Administration Pain MILD(1-3)/Fever >100.5/MARIE Aspirin 81 mg 05/05/21 10:00 05/09/21 10:27 Aspirin 81 Mg Tab Chew PO 81 mg QDAY SILVANO Administration Atorvastatin Calcium 80 mg 05/04/21 22:00 05/08/21 22:13 Atorvastatin 40 Mg Tab PO 80 mg QHS SILVANO Administration Clopidogrel Bisulfate 75 mg 05/04/21 16:00 05/09/21 10:27 Clopidogrel 75 Mg Tab PO 75 mg QDAY SILVANO Administration Dextrose 50 ml 05/06/21 15:51 Dextrose 50% In Water (25gm) 50 Ml Syringe IV Q30MIN PRN Hypoglycemia Protocol Heparin Sodium (Porcine) 3,000 unit 05/04/21 09:00 05/04/21 10:58 Heparin 10,000 Units/10 Ml Vial IV 3,000 unit DULCE PRN Administration hemodialysis Sodium Chloride 100 mls @ 999 mls/hr 05/04/21 09:00 Nacl 0.9% IV DULCE PRN Hypotension Metronidazole 500 mg in 100 mls @ 100 mls/hr 05/04/21 16:30 05/09/21 08:30 Flagyl 500 Mg/100 Ml IV 100 mls/hr Q8H SILVANO Administration Protocol Cefepime HCl 1 gm in 100 mls @ 200 mls/hr 05/05/21 14:00 05/08/21 16:13 Cefepime/Ns 1 Gm/100 Ml IV Not Given Q24H SILVANO Protocol Fluconazole 200 mg in 100 mls @ 100 mls/hr 05/06/21 16:00 05/08/21 16:17 Diflucan IV 05/13/21 15:59 Not Given Q24H [facility] Protocol Insulin Human Lispro 0 unit 05/07/21 17:00 05/09/21 11:30 Insulin Lispro 100 Unit/Ml SUB-Q 2 unit ACHS SILVANO Administration Protocol Insulin Human NPH 10 unit 05/06/21 17:00 05/09/21 08:00 Insulin Nph, Human 100 Unit/1 Ml SUB-Q 10 unit BIDDIAB SILVANO Administration Magnesium Oxide 400 mg 05/07/21 10:00 05/09/21 10:27 Magnesium Oxide 400 Mg Tab PO 400 mg BID SILVANO Administration Metoclopramide HCl 5 mg 05/09/21 11:30 05/09/21 10:44 Metoclopramide 10 Mg/2 Ml Inj IV 5 mg ACHS SILVANO Administration Metoprolol Succinate 50 mg 05/04/21 17:00 05/09/21 10:27 Metoprolol Succinate Xl 50 Mg Tab PO 50 mg QDAY SILVANO Administration Morphine Sulfate 4 mg 05/04/21 09:00 Morphine 4 Mg/1 Ml Inj IV Q4H PRN Pain , Severe (7-10) Ondansetron HCl 4 mg 05/09/21 10:00 05/09/21 10:25 Ondansetron 4 Mg/2 Ml Inj IV 4 mg Q6H SILVANO Administration Oxycodone/Acetaminophen 1 tab 05/04/21 09:00 05/09/21 02:52 Oxycodone /Acetaminophen 5-325mg Tab PO 1 tab Q6H PRN Administration Pain, Moderate (4-6) Sodium Chloride 10 ml 05/04/21 10:00 05/09/21 10:28 Sodium Chloride 0.9% 10 Ml Flush Syringe IV 10 ml BID SILVANO Administration Sodium Chloride 10 ml 05/04/21 09:00 Sodium Chloride 0.9% 10 Ml Flush Syringe IV PRN PRN LINE FLUSH Sodium Hypochlorite 1 applic 05/08/21 09:00 Sodium Hypochlorite, Dakin's 1/2 Strength (0.25%) 473 Ml Topical Soln TP Q12H PRN Wound Care
--- NOTE | 2021-05-09 13:54 | Event Note ---
Date: 05/09/21 Pt chart reviewed. Patient refused MRI. Afebrile. 56 yo F s/p excisional debridement of right BKA stump, POD 2 1. dehiscence and infection of R BKA surgical wound 2. DM 3. ESRD on HD 4. protein calorie malnutrition Plan: 1. Strict glucose control 2. c/w IV abx. ID consulted 3. knee immobilizer 4. wound cultures pending 5. psychologist private practice consult. Dietary supplements 6. Patient may be discharged once HHC is set up and final abx recs made by ID. She has an appointment scheduled on May 11 to follow up in wound care clinic. Continue wet to dry dressing changes with dakins solution as ordered BID. Thank you, please call with questions.
[2021-05-09] MEDS: CEFEPIME/NS 1 GM/100 ML 1 GM/100 ML BAG IV SCH (14:00)
[2021-05-09] MEDS: FLUCONAZOLE 200 MG 200 MG/100 ML BAG IV SCH (15:10)
[2021-05-10] MEDS: metroNIDAZOLE/NS 500 MG/100 ML 500 MG/100 ML BAG IV SCH ×2 (00:01→14:29)
[2021-05-10] MEDS: ONDANSETRON 4 MG/2 ML INJ IV SCH ×4 (04:03→22:18)
[2021-05-10] MEDS: oxyCODONE /ACETAMINOPHEN 5-325MG TAB PO PRN ×3 (04:37→18:20)
[2021-05-10 05:08] LABS: Basophils # (Auto) 0.1 K/mm3 (0.0-0.1); Eosinophils # (Auto) 0.5 K/mm3 (0.0-0.4); Eosinophils % (Auto) 4.1 % (0.0-4.3); Hematocrit 26.6 % (30.3-42.9); Hemoglobin 8.5 gm/dl (10.1-14.3); Lymphocytes # (Auto) 2.8 K/mm3 (1.2-5.4); Lymphocytes % (Auto) 25.9 % (13.4-35.0); Mean Corpuscular HGB Conc 32 % (30-34); Mean Corpuscular Volume 91 fl (79-97); Monocytes # (Auto) 0.8 K/mm3 (0.0-0.8); Monocytes % (Auto) 7.7 % (0.0-7.3); Platelet Count 238 K/mm3 (140-440); Red Blood Count 2.93 M/mm3 (3.65-5.03)
[2021-05-10 05:10] LABS: Red Cell Distribution Width 21.8 % (13.2-15.2)
[2021-05-10 05:27] LABS: Calcium 8.7 mg/dL (8.4-10.2)
[2021-05-10] MEDS ORDERED: POTASSIUM CHLORIDE ER 20 MEQ TAB PO NR (08:00)
[2021-05-10] MEDS: INSULIN NPH, HUMAN 100 UNIT/1 ML SUB-Q SCH ×2 (08:57→16:56)
[2021-05-10] MEDS: INSULIN LISPRO 100 UNIT/ML SUB-Q SCH ×4 (08:57→22:16)
[2021-05-10] MEDS: METOCLOPRAMIDE 10 MG/2 ML INJ IV SCH ×4 (09:05→22:18)
[2021-05-10] MEDS: amLODIPine 10 MG TAB PO SCH (09:05)
[2021-05-10] MEDS: MAGNESIUM OXIDE 400 MG TAB PO SCH ×2 (09:05→22:18)
[2021-05-10] MEDS: CLOPIDOGREL 75 MG TAB PO SCH (09:05)
[2021-05-10] MEDS: ASPIRIN 81 MG TAB CHEW PO SCH (09:05)
[2021-05-10] MEDS: METOPROLOL SUCCINATE XL 50 MG TAB PO SCH (09:05)
--- NOTE | 2021-05-10 11:39 | Consultation ---
History of Present Illness - Reason for Consult Consult date: 05/10/21 BKA stump infection Requesting physician: ALEE CHAVES - History of Present Illness The patient is a 56-year-old female with ESRD on HD, hypertension, diabetes mellitus type 2, recent right BKA at [facility] [place] in March 2021 admitted with BKA wound dehiscence and stump infection. Patient was seen by general surgery, underwent bedside debridement on 05/07/2021. Debridement was performed to the level of the bone, there was purulent drainage, deep cultures were obtained. Patient refused MRI. Infectious diseases was consulted for antibiotic management. Otherwise afebrile, leukocytosis improving. No new complaints. Review of Systems: General: no fevers,chills or rigors HEENT: no new visual disturbance Respiratory: No cough, sputum, hemoptysis or shortness of breath Cardiovascular: No chest pain, syncope Gastrointestinal: No nausea, vomiting or diarrhea Genitourinary: No dysuria or hematuria Musculoskeletal: No new or worsening neck pain or back pain Neurologic: No headaches, seizures Hematologic: No easy bruising or bleeding Endocrine: No night sweats or acute weight loss Skin: negative for rash, jaundice Psychiatric: No suicidal or homicidal ideation Past History Past Medical History: anemia, diabetes, dialysis, ESRD, hypertension, hyperlipidemia, renal failure Past Surgical History: Other (R below the knee amptuation 2020) Social history: no significant social history Family history: no significant family history Medications and Allergies Allergies Allergy/AdvReac Type Severity Reaction Status Date / Time Penicillins AdvReac Swelling Verified 05/04/21 06:09 Home Medications Medication Instructions Recorded Confirmed Last Taken Type Aspirin [Aspirin BABY CHEW TAB] 81 mg PO QDAY #30 tab.chew 05/16/20 05/05/21 03/08/21 Rx Linaclotide [Linzess] 72 mcg PO QDAY #30 cap 05/16/20 05/05/21 2 Days Ago Rx ~03/08/21 Omeprazole 40 mg PO QDAY #30 05/16/20 05/05/21 2 Days Ago Rx ~03/08/21 Oxycodone HCl/Acetaminophen 1 each PO Q6HR PRN #12 05/16/20 05/05/21 2 Weeks Ago Rx [Percocet 10/325 mg] ~02/24/21 AtorvaSTATin [Lipitor] 80 mg PO QHS 02/20/21 05/05/21 03/09/21 History Insulin Lispro [Humalog] See Protocol SUB-Q ACHS 02/20/21 05/05/21 03/08/21 History NIFEdipine [Nifedipine ER] 90 mg PO DAILY 02/20/21 05/05/21 03/09/21 History Clopidogrel [Plavix] 75 mg PO QDAY #90 tablet 03/10/21 05/05/21 Unknown Rx Metoprolol [Lopressor TAB] 100 mg PO DAILY 03/10/21 05/05/21 03/09/21 History Active Meds: Active Medications Acetaminophen (Acetaminophen 325 Mg Tab) 650 mg PO Q4H PRN PRN Reason: Pain MILD(1-3)/Fever >100.5/MARIE Last Admin: 05/08/21 12:31 Dose: 650 mg Documented by: Amlodipine Besylate (Amlodipine 10 Mg Tab) 10 mg PO QDAY [facility] Last Admin: 05/10/21 09:05 Dose: 10 mg Documented by: Aspirin (Aspirin 81 Mg Tab Chew) 81 mg PO QDAY [facility] Last Admin: 05/10/21 09:05 Dose: 81 mg Documented by: Atorvastatin Calcium (Atorvastatin 40 Mg Tab) 80 mg PO QHS [facility] Last Admin: 05/09/21 21:42 Dose: 80 mg Documented by: Clopidogrel Bisulfate (Clopidogrel 75 Mg Tab) 75 mg PO QDAY [facility] Last Admin: 05/10/21 09:05 Dose: 75 mg Documented by: Dextrose (Dextrose 50% In Water (25gm) 50 Ml Syringe) 50 ml IV Q30MIN PRN; Protocol PRN Reason: Hypoglycemia Heparin Sodium (Porcine) (Heparin 10,000 Units/10 Ml Vial) 3,000 unit IV DULCE PRN PRN Reason: hemodialysis Last Admin: 05/04/21 10:58 Dose: 3,000 unit Documented by: Sodium Chloride (Nacl 0.9%) 100 mls @ 999 mls/hr IV DULCE PRN PRN Reason: Hypotension Metronidazole (Flagyl 500 Mg/100 Ml) 500 mg in 100 mls @ 100 mls/hr IV Q8H SILVANO; Protocol Last Admin: 05/10/21 00:01 Dose: 100 mls/hr Documented by: Cefepime HCl (Cefepime/Ns 1 Gm/100 Ml) 1 gm in 100 mls @ 200 mls/hr IV Q24H SILVANO; Protocol Last Admin: 05/09/21 14:00 Dose: 200 mls/hr Documented by: Fluconazole (Diflucan) 200 mg in 100 mls @ 100 mls/hr IV Q24H [facility] [place]; Protocol Stop: 05/13/21 15:59 Last Admin: 05/09/21 15:10 Dose: 100 mls/hr Documented by: Insulin Human Lispro (Insulin Lispro 100 Unit/Ml) 0 unit SUB-Q ACHS [facility]; Protocol Last Admin: 05/10/21 08:57 Dose: 1 unit Documented by: Insulin Human NPH (Insulin Nph, Human 100 Unit/1 Ml) 10 unit SUB-Q BIDDIAB [facility] Last Admin: 05/10/21 08:57 Dose: 10 unit Documented by: Magnesium Oxide (Magnesium Oxide 400 Mg Tab) 400 mg PO BID [facility] Last Admin: 05/10/21 09:05 Dose: 400 mg Documented by: Metoclopramide HCl (Metoclopramide 10 Mg/2 Ml Inj) 5 mg IV ACHS [facility] Last Admin: 05/10/21 09:05 Dose: 5 mg Documented by: Metoprolol Succinate (Metoprolol Succinate Xl 50 Mg Tab) 50 mg PO QDAY [facility] [place] Last Admin: 05/10/21 09:05 Dose: 50 mg Documented by: Morphine Sulfate (Morphine 4 Mg/1 Ml Inj) 4 mg IV Q4H PRN PRN Reason: Pain , Severe (7-10) Ondansetron HCl (Ondansetron 4 Mg/2 Ml Inj) 4 mg IV Q6H [facility] Last Admin: 05/10/21 09:06 Dose: Not Given Documented by: Oxycodone/Acetaminophen (Oxycodone /Acetaminophen 5-325mg Tab) 1 tab PO Q6H PRN PRN Reason: Pain, Moderate (4-6) Last Admin: 05/10/21 04:37 Dose: 1 tab Documented by: Potassium Chloride (Potassium Chloride Er 20 Meq Tab) 40 meq PO ONCE@0800 NR Stop: 05/10/21 12:00 Last Admin: 05/10/21 09:05 Dose: 40 meq Documented by: Sodium Chloride (Sodium Chloride 0.9% 10 Ml Flush Syringe) 10 ml IV BID [facility] [place] Last Admin: 05/10/21 09:06 Dose: 10 ml Documented by: Sodium Chloride (Sodium Chloride 0.9% 10 Ml Flush Syringe) 10 ml IV PRN PRN PRN Reason: LINE FLUSH Sodium Hypochlorite (Sodium Hypochlorite, Dakin's 1/2 Strength (0.25%) 473 Ml Topical Soln) 1 applic TP Q12H PRN PRN Reason: Wound Care Physical Examination - Physical Exam Narrative exam: Physical Exam: Constitutional: Alert, cooperative. No acute distress Head, Ears, Nose: Normocephalic, atraumatic. External ears, nose normal Eyes: Conjunctivae/corneas clear. No icterus. No ptosis. Neck: Supple, no meningeal signs Cardiovascular: S1, S2 + Respiratory: Good air entry, clear to auscultation bilaterally GI: Soft, non-tender; bowel sounds normal. No peritoneal signs Musculoskeletal: R BKA dressing + Skin: No rash or abscess Hem/Lymphatic: No palpable cervical or supraclavicular nodes. No lymphangitis Psych: Mood ok. Affect normal Neurological: Awake, alert, oriented. No gross abnormality - Constitutional Vitals: Vital Signs Temp Pulse Resp BP Pulse Ox 98.1 F 75 16 159/63 95 05/09/21 21:57 05/10/21 09:05 05/09/21 21:57 05/10/21 09:05 05/09/21 23:00 Temperature -Last 24 Hours Temperature 98.1 F Temperature 98.5 F Results - Labs CBC & Chem 7: 05/10/21 04:19 05/10/21 04:19 Labs: Abnormal lab results 05/09/21 05/09/21 05/10/21 Range/Units 11:35 15:31 04:19 RBC 2.93 L (3.65-5.03) M/mm3 Hgb 8.5 L (10.1-14.3) gm/dl Hct 26.6 L (30.3-42.9) % RDW 21.8 H (13.2-15.2) % Greene % (Auto) 7.7 H (0.0-7.3) % Eos # (Auto) 0.5 H (0.0-0.4) K/mm3 Potassium (3.6-5.0) mmol/L BUN (7-17) mg/dL Creatinine (0.6-1.2) mg/dL Glucose (65-100) mg/dL POC Glucose 221 H 127 H (70-105) mg/dL 05/10/21 05/10/21 Range/Units 04:19 07:26 RBC (3.65-5.03) M/mm3 Hgb (10.1-14.3) gm/dl Hct (30.3-42.9) % RDW (13.2-15.2) % Greene % (Auto) (0.0-7.3) % Eos # (Auto) (0.0-0.4) K/mm3 Potassium 3.4 L (3.6-5.0) mmol/L BUN 36 H (7-17) mg/dL Creatinine 4.2 H (0.6-1.2) mg/dL Glucose 173 H (65-100) mg/dL POC Glucose 183 H (70-105) mg/dL - Imaging and Cardiology Chest x-ray: report reviewed, image reviewed (pulm edema) Assessment and Plan Cultures: 05/04/2021 blood culture: No growth 05/04/2021 superficial culture: Lashawn albicans 05/07/2021 keep wound culture: In process A/P: 56-year-old female with ESRD on HD, hypertension, diabetes mellitus type 2, recent right BKA at [facility] [place] in March 2021 admitted with BKA wound dehiscence and stump infection: #Sepsis secondary to right BKA stump infection, abscess: Status post bedside debridement on 05/07/2021, deep cultures pending. Debridement was performed to the level of the bone, there was purulent drainage, patient refused MRI. #Diabetes mellitus, uncontrolled #ESRD on HD: Renally dose antibiotics. #Peripheral vascular disease: Patient has been evaluated by vascular surgery. Recs: Lashawn and superficial culture is likely colonization 05/07/2021 cultures are still in process, continue renally adjusted cefepime, vancomycin for now Flagyl discontinued Since patient refused MRI, debridement down to the level of bone, best to treat as presumed osteomyelitis, will need to be set up with IV antibiotics at hemodialysis once cultures are finalized wound care and tight glycemic control Dr. Remi jc tomorrow William Doyle MD, FACP [facility] O: [phone] F: [phone]
--- NOTE | 2021-05-10 11:45 | Progress Note ---
Assessment and Plan 1. ESRD: Patient is on maintenance hemodialysis three times a week, MWF schedule. Meds dosage based on GFR. Last outpatient HD 05/01. Hemodialysis: 05/04, 05/05(UF only), 05/06, 05/08. 2. FEN: Volume overload, improved - UF with HD. Replete lytes. Monitor lytes and volume status. 3. Acute hypoxic resp failure: CXR showed volume overload. Volume control thru HD. Improved, now on RA. 4. R BKA stump wound infection: IV abx. S/p wound debridement 05/07. Followed by General surgery and ID. 5. Anemia, POA: Epogen with HD as needed. Monitor. 6. Hypertension: Adjust meds as needed. Monitor. 7. DM type 2. Subjective: Patient was not examined today. However the examination findings from other providers noted. The current and previous medical records are reviewed in detail as are laboratory and imaging data reviewed when appropriate. Medications being given are also reviewed. In addition the case has been discussed with the attending hospitalist and the nurse when needed. New renal recommendations as above. General Appearance: Subjective Date of service: 05/10/21 Objective - Vital Signs Vital signs: Vital Signs - 12hr 05/10/21 09:05 Pulse Rate 75 Blood Pressure 159/63 - Lab 05/11/21 09:24 05/11/21 09:24 Most recent lab results ABG pH 7.336 (7.320-7.450) 05/04/21 Unknown ABG O2 Saturation 82.3 (0-100) 05/04/21 Unknown Calcium 8.7 mg/dL (8.4-10.2) 05/10/21 04:19 Phosphorus 2.70 mg/dL (2.5-4.5) 05/10/21 04:19 Magnesium 1.90 mg/dL (1.7-2.3) 05/10/21 04:19 Medications & Allergies - Medications Allergies/Adverse Reactions: Allergies Penicillins Adverse Reaction (Verified 05/04/21 06:09) Swelling Home Medications: Home Medications Medication Instructions Recorded Confirmed Last Taken Type Aspirin [Aspirin BABY CHEW TAB] 81 mg PO QDAY #30 tab.chew 05/16/20 05/05/21 03/08/21 Rx Linaclotide [Linzess] 72 mcg PO QDAY #30 cap 05/16/20 05/05/21 2 Days Ago Rx ~03/08/21 Omeprazole 40 mg PO QDAY #30 05/16/20 05/05/21 2 Days Ago Rx ~03/08/21 Oxycodone HCl/Acetaminophen 1 each PO Q6HR PRN #12 05/16/20 05/05/21 2 Weeks Ago Rx [Percocet 10/325 mg] ~02/24/21 AtorvaSTATin [Lipitor] 80 mg PO QHS 02/20/21 05/05/21 03/09/21 History Insulin Lispro [Humalog] See Protocol SUB-Q ACHS 02/20/21 05/05/21 03/08/21 History NIFEdipine [Nifedipine ER] 90 mg PO DAILY 02/20/21 05/05/21 03/09/21 History Clopidogrel [Plavix] 75 mg PO QDAY #90 tablet 03/10/21 05/05/21 Unknown Rx Metoprolol [Lopressor TAB] 100 mg PO DAILY 03/10/21 05/05/21 03/09/21 History Active Medications: Generic Name Dose Route Start Last Admin Trade Name Freq PRN Reason Stop Dose Admin Acetaminophen 650 mg 05/04/21 09:00 05/08/21 12:31 Acetaminophen 325 Mg Tab PO 650 mg Q4H PRN Administration Pain MILD(1-3)/Fever >100.5/MARIE Amlodipine Besylate 10 mg 05/10/21 10:00 05/10/21 09:05 Amlodipine 10 Mg Tab PO 10 mg QDAY SILVANO Administration Aspirin 81 mg 05/05/21 10:00 05/10/21 09:05 Aspirin 81 Mg Tab Chew PO 81 mg QDAY SILVANO Administration Atorvastatin Calcium 80 mg 05/04/21 22:00 05/09/21 21:42 Atorvastatin 40 Mg Tab PO 80 mg QHS SILVANO Administration Clopidogrel Bisulfate 75 mg 05/04/21 16:00 05/10/21 09:05 Clopidogrel 75 Mg Tab PO 75 mg QDAY SILVANO Administration Dextrose 50 ml 05/06/21 15:51 Dextrose 50% In Water (25gm) 50 Ml Syringe IV Q30MIN PRN Hypoglycemia Protocol Heparin Sodium (Porcine) 3,000 unit 05/04/21 09:00 05/04/21 10:58 Heparin 10,000 Units/10 Ml Vial IV 3,000 unit DULCE PRN Administration hemodialysis Sodium Chloride 100 mls @ 999 mls/hr 05/04/21 09:00 Nacl 0.9% IV DULCE PRN Hypotension Cefepime HCl 1 gm in 100 mls @ 200 mls/hr 05/05/21 14:00 05/09/21 14:00 Cefepime/Ns 1 Gm/100 Ml IV 200 mls/hr Q24H SILVANO Administration Protocol Fluconazole 200 mg in 100 mls @ 100 mls/hr 05/06/21 16:00 05/09/21 15:10 Diflucan IV 05/13/21 15:59 100 mls/hr Q24H SILVANO Administration Protocol Insulin Human Lispro 0 unit 05/07/21 17:00 05/10/21 08:57 Insulin Lispro 100 Unit/Ml SUB-Q 1 unit ACHS SILVANO Administration Protocol Insulin Human NPH 10 unit 05/06/21 17:00 05/10/21 08:57 Insulin Nph, Human 100 Unit/1 Ml SUB-Q 10 unit BIDDIAB SILVANO Administration Magnesium Oxide 400 mg 05/07/21 10:00 05/10/21 09:05 Magnesium Oxide 400 Mg Tab PO 400 mg BID SILVANO Administration Metoclopramide HCl 5 mg 05/09/21 11:30 05/10/21 09:05 Metoclopramide 10 Mg/2 Ml Inj IV 5 mg ACHS SILVANO Administration Metoprolol Succinate 50 mg 05/04/21 17:00 05/10/21 09:05 Metoprolol Succinate Xl 50 Mg Tab PO 50 mg QDAY SILVANO Administration Morphine Sulfate 4 mg 05/04/21 09:00 Morphine 4 Mg/1 Ml Inj IV Q4H PRN Pain , Severe (7-10) Ondansetron HCl 4 mg 05/09/21 10:00 05/10/21 09:06 Ondansetron 4 Mg/2 Ml Inj IV Not Given Q6H SILVANO Oxycodone/Acetaminophen 1 tab 05/04/21 09:00 05/10/21 04:37 Oxycodone /Acetaminophen 5-325mg Tab PO 1 tab Q6H PRN Administration Pain, Moderate (4-6) Potassium Chloride 40 meq 05/10/21 08:00 05/10/21 09:05 Potassium Chloride Er 20 Meq Tab PO 05/10/21 12:00 40 meq ONCE@0800 NR Administration Sodium Chloride 10 ml 05/04/21 10:00 05/10/21 09:06 Sodium Chloride 0.9% 10 Ml Flush Syringe IV 10 ml BID SILVANO Administration Sodium Chloride 10 ml 05/04/21 09:00 Sodium Chloride 0.9% 10 Ml Flush Syringe IV PRN PRN LINE FLUSH Sodium Hypochlorite 1 applic 05/08/21 09:00 Sodium Hypochlorite, Dakin's 1/2 Strength (0.25%) 473 Ml Topical Soln TP Q12H PRN Wound Care
--- NOTE | 2021-05-10 12:16 | Event Note ---
Date: 05/10/21 Patient is now agreeable to MRI, MRI ordered
--- NOTE | 2021-05-10 14:08 | Progress Note ---
Assessment and Plan Assessment and plan: 56-year-old woman history of ESRD on HD, hypertension, T2DM, and recent right BKA who presented with nausea, vomiting and surgical wound infection. #Right BKA stump infection #Diabetic wound infection -Patient reported R BKA performed at [facility] -Has not followed up with wound care or surgery post discharge -Surgery consulted, recs appreciated. Patient underwent bedside debridement with general surgery (05/07/2021). Pending wound cultures. -Will likely be discharged with wound VAC and wound care follow-up (per general surgery note) -continue vancomycin, cefepime and flagyl for now (started on 05/04/2021). -Wound culture revealing Lashawn albicans (likely colonizationper ID). Discontinued IV fluconazole (started on 05/06/2021-05/10/2021) -ID on board regarding antibiotic management; appreciate recs -Pending MRI for evaluation of possible osteomyelitis of right BKA #Nausea and vomiting-resolved -Scheduling IV Reglan every 6 hours. As needed IV Zofran 4 mg every 6 hours. #Acute hypoxic respiratory failure-resolved -Likely secondary to volume overload. Being treated with repeated hemodialysis sessions. -Continue to monitor #ESRD on HD -HD MWF outpatient -Nephrology consulted; appreciate recs #Type 2 diabetes, [id number] -Patient reports having insulin pump in place, currently not taking any insulin -Continue NPH 10 units every 12 hours with SSI -Goal blood sugar less than 180 while inpatient #Elevated troponin -Troponin T 0.068, elevation likely due to ESRD -will repeat #Leukocytosis-resolved -WBC 17.8-->12.8-->10.4 -Chest x-ray suggestive of vascular congestion -Blood cultures with NGTD x2. Deep wound culture revealed "light growth" of Lashawn albicans. -Likely secondary to infection #Normocytic anemia -Hemoglobin 7.4; Likely secondary to ESRD -H&H 9.3/27.7 last visit -We will transfuse for hemoglobin less than 7 -Epogen with dialysis #Peripheral vascular disease -Lower extremities arterial Doppler performed -Resume home aspirin 81 mg daily, Plavix 75 mg daily, and statin #Hypertension-stable -Continue nifedipine 90 mg daily and Lopressor 50 daily #Discharge planning -Pending final antibiotic recommendations after wound cultures finalize -Patient will be discharged with p.o. wound VAC and close follow-up with wound care clinic Disposition Plan: Continue medical management; pending discharge Total Time Spent with Patient (Minutes): 35 History Interval history: The patient was previously complaining about nausea and vomiting that has since resolved. The patient feels back to her baseline. Hospitalist Physical - Constitutional Vitals: Temp Pulse Resp BP Pulse Ox 98.0 F 72 18 144/54 98 05/10/21 11:46 05/10/21 11:46 05/10/21 12:12 05/10/21 11:46 05/10/21 11:46 General appearance: Present: no acute distress, well-nourished - EENT Eyes: Present: PERRL, EOM intact ENT: hearing intact, clear oral mucosa, dentition normal - Neck Neck: Present: supple, normal ROM - Respiratory Respiratory effort: normal - Cardiovascular Rhythm: regular Heart Sounds: Present: S1 & S2 - Extremities Extremities: no ischemia, pulses intact, pulses symmetrical, No edema, normal temperature, normal color Extremity abnormal: deformity (Right BKA wrapped and Kerlix bandage) Peripheral Pulses: within normal limits - Abdominal General gastrointestinal: soft, non-tender, non-distended, normal bowel sounds - Integumentary Integumentary: Present: clear, warm, dry - Psychiatric Psychiatric: appropriate mood/affect, intact judgment & insight, memory intact, cooperative - Neurologic Neurologic: CNII-XII intact, moves all extremities - Allied Health Allied health notes reviewed: nursing HEART Score - HEART Score Troponin: Troponin T 0.066 ng/mL (0.00-0.029) H 05/04/21 23:36 Results - Labs CBC & Chem 7: 05/10/21 04:19 05/10/21 04:19 Labs: Laboratory Last Values WBC 11.0 K/mm3 (4.5-11.0) 05/10/21 04:19 RBC 2.93 M/mm3 (3.65-5.03) L 05/10/21 04:19 Hgb 8.5 gm/dl (10.1-14.3) L 05/10/21 04:19 Hct 26.6 % (30.3-42.9) L 05/10/21 04:19 MCV 91 fl (79-97) 05/10/21 04:19 MCH 29 pg (28-32) 05/10/21 04:19 MCHC 32 % (30-34) 05/10/21 04:19 RDW 21.8 % (13.2-15.2) H 05/10/21 04:19 Plt Count 238 K/mm3 (140-440) 05/10/21 04:19 Lymph % (Auto) 25.9 % (13.4-35.0) 05/10/21 04:19 [place] % (Auto) 7.7 % (0.0-7.3) H 05/10/21 04:19 Eos % (Auto) 4.1 % (0.0-4.3) 05/10/21 04:19 Baso % (Auto) 1.0 % (0.0-1.8) 05/10/21 04:19 Lymph # (Auto) 2.8 K/mm3 (1.2-5.4) 05/10/21 04:19 [place] # (Auto) 0.8 K/mm3 (0.0-0.8) 05/10/21 04:19 Eos # (Auto) 0.5 K/mm3 (0.0-0.4) H 05/10/21 04:19 Baso # (Auto) 0.1 K/mm3 (0.0-0.1) 05/10/21 04:19 Seg Neutrophils % 61.3 % (40.0-70.0) 05/10/21 04:19 Seg Neutrophils # 6.7 K/mm3 (1.8-7.7) 05/10/21 04:19 PT 14.8 Sec. (12.2-14.9) 05/04/21 06:38 INR 1.11 (0.87-1.13) 05/04/21 06:38 ABG pH 7.336 (7.320-7.450) 05/04/21 Unknown POC ABG pCO2 49.2 mmHg (32.0-48.0) H 05/04/21 Unknown POC ABG pO2 54.9 mmHg (83-108) L 05/04/21 Unknown POC ABG HCO3 25.7 05/04/21 Unknown ABG O2 Saturation 82.3 (0-100) 05/04/21 Unknown ABG O2 Content Not Reportable 05/04/21 Unknown POC ABG Base Excess -0.3 05/04/21 Unknown ABG Hemoglobin 8.24 (12.0-17.5) L 05/04/21 Unknown ABG Oxyhemoglobin 80.4 (94-98) L 05/04/21 Unknown ABG Methemoglobin 0.3 (0.0-1.5) 05/04/21 Unknown ABG Sodium Not Reportable 05/04/21 Unknown ABG Potassium Not Reportable 05/04/21 Unknown ABG Chloride Not Reportable 05/04/21 Unknown ABG Glucose Not Reportable 05/04/21 Unknown VBG pH 7.365 (7.320-7.420) 05/04/21 06:38 Carboxyhemoglobin 2.1 (0.5-1.5) H 05/04/21 Unknown FiO2 % 100 05/04/21 Unknown Sodium 139 mmol/L (137-145) 05/10/21 04:19 Potassium 3.4 mmol/L (3.6-5.0) L 05/10/21 04:19 Chloride 100.8 mmol/L (98-107) 05/10/21 04:19 Carbon Dioxide 25 mmol/L (22-30) 05/10/21 04:19 Anion Gap 17 mmol/L 05/10/21 04:19 BUN 36 mg/dL (7-17) H 05/10/21 04:19 Creatinine 4.2 mg/dL (0.6-1.2) H 05/10/21 04:19 Estimated GFR 13 ml/min 05/10/21 04:19 BUN/Creatinine Ratio 9 % 05/10/21 04:19 Glucose 173 mg/dL (65-100) H 05/10/21 04:19 POC Glucose 271 mg/dL (70-105) H 05/10/21 11:44 Hemoglobin A1c 7.3 % (4-6) H 05/07/21 04:30 Lactic Acid 1.10 mmol/L (0.7-2.0) 05/04/21 07:53 Calcium 8.7 mg/dL (8.4-10.2) 05/10/21 04:19 Phosphorus 2.70 mg/dL (2.5-4.5) 05/10/21 04:19 Magnesium 1.90 mg/dL (1.7-2.3) 05/10/21 04:19 Total Creatine Kinase 73 units/L (30-135) 05/04/21 06:38 Troponin T 0.066 ng/mL (0.00-0.029) H 05/04/21 23:36 Prealbumin 0.137 g/L (0.200-0.400) L 05/07/21 04:00 Triglycerides 102 mg/dL (2-149) 05/04/21 06:38 Cholesterol 98 mg/dL (50-199) 05/04/21 06:38 LDL Cholesterol Direct 37 mg/dL (50-130) L 05/04/21 06:38 HDL Cholesterol 37 mg/dL (40-59) L 05/04/21 06:38 Cholesterol/HDL Ratio 2.64 % 05/04/21 06:38 Arterial Blood Glucose Not Reportable 05/04/21 Unknown Random Vancomycin 29.2 ug/mL (0-40.0) 05/07/21 05:00 Coronavirus (PCR) Negative (Negative) 05/06/21 Unknown Hepatitis A IgM Ab Non-reactive (NonReactive) 05/04/21 11:05 Hep Bs Antigen Nonreactive (Negative) 05/04/21 11:05 Hep B Core IgM Ab Non-reactive (NonReactive) 05/04/21 11:05 Hepatitis C Antibody Non-reactive (NonReactive) 05/04/21 11:05 Microbiology: Microbiology 05/07/21 13:13 Wound - Deep Wound Culture - Preliminary Vera/IV: Voiding Method Bedside Commode Active Medications - Current Medications Current Medications: Generic Name Dose Route Start Last Admin Trade Name Freq PRN Reason Stop Dose Admin Acetaminophen 650 mg 05/04/21 09:00 05/08/21 12:31 Acetaminophen 325 Mg Tab PO 650 mg Q4H PRN Administration Pain MILD(1-3)/Fever >100.5/MARIE Amlodipine Besylate 10 mg 05/10/21 10:00 05/10/21 09:05 Amlodipine 10 Mg Tab PO 10 mg QDAY SILVANO Administration Aspirin 81 mg 05/05/21 10:00 05/10/21 09:05 Aspirin 81 Mg Tab Chew PO 81 mg QDAY SILVANO Administration Atorvastatin Calcium 80 mg 05/04/21 22:00 05/09/21 21:42 Atorvastatin 40 Mg Tab PO 80 mg QHS SILVANO Administration Clopidogrel Bisulfate 75 mg 05/04/21 16:00 05/10/21 09:05 Clopidogrel 75 Mg Tab PO 75 mg QDAY SILVANO Administration Dextrose 50 ml 05/06/21 15:51 Dextrose 50% In Water (25gm) 50 Ml Syringe IV Q30MIN PRN Hypoglycemia Protocol Heparin Sodium (Porcine) 3,000 unit 05/04/21 09:00 05/04/21 10:58 Heparin 10,000 Units/10 Ml Vial IV 3,000 unit DULCE PRN Administration hemodialysis Sodium Chloride 100 mls @ 999 mls/hr 05/04/21 09:00 Nacl 0.9% IV DULCE PRN Hypotension Cefepime HCl 1 gm in 100 mls @ 200 mls/hr 05/05/21 14:00 05/09/21 14:00 Cefepime/Ns 1 Gm/100 Ml IV 200 mls/hr Q24H SILVANO Administration Protocol Insulin Human Lispro 0 unit 05/07/21 17:00 05/10/21 12:13 Insulin Lispro 100 Unit/Ml SUB-Q 4 unit ACHS SILVANO Administration Protocol Insulin Human NPH 10 unit 05/06/21 17:00 05/10/21 08:57 Insulin Nph, Human 100 Unit/1 Ml SUB-Q 10 unit BIDDIAB SILVANO Administration Magnesium Oxide 400 mg 05/07/21 10:00 05/10/21 09:05 Magnesium Oxide 400 Mg Tab PO 400 mg BID SILVANO Administration Metoclopramide HCl 5 mg 05/09/21 11:30 05/10/21 12:14 Metoclopramide 10 Mg/2 Ml Inj IV Not Given ACHS [facility] Metoprolol Succinate 50 mg 05/04/21 17:00 05/10/21 09:05 Metoprolol Succinate Xl 50 Mg Tab PO 50 mg QDAY SILVANO Administration Morphine Sulfate 4 mg 05/04/21 09:00 Morphine 4 Mg/1 Ml Inj IV Q4H PRN Pain , Severe (7-10) Ondansetron HCl 4 mg 05/09/21 10:00 05/10/21 09:06 Ondansetron 4 Mg/2 Ml Inj IV Not Given Q6H SILVANO Oxycodone/Acetaminophen 1 tab 05/04/21 09:00 05/10/21 12:12 Oxycodone /Acetaminophen 5-325mg Tab PO 1 tab Q6H PRN Administration Pain, Moderate (4-6) Sodium Chloride 10 ml 05/04/21 10:00 05/10/21 09:06 Sodium Chloride 0.9% 10 Ml Flush Syringe IV 10 ml BID SILVANO Administration Sodium Chloride 10 ml 05/04/21 09:00 Sodium Chloride 0.9% 10 Ml Flush Syringe IV PRN PRN LINE FLUSH Sodium Hypochlorite 1 applic 05/08/21 09:00 Sodium Hypochlorite, Dakin's 1/2 Strength (0.25%) 473 Ml Topical Soln TP Q12H PRN Wound Care Nutrition/Malnutrition Assess - Dietary Evaluation Nutrition/Malnutrition Findings: Nutrition Notes Start: 05/07/21 18:22 Freq: Status: Active Protocol: Document 05/08/21 09:07 ASIM (Rec: 05/08/21 09:44 ASIM [id number]) Nutrition Notes Need for Assessment generated from: MD Order Initial or Follow up Assessment Current Diagnosis CKD (stage V CKD),Diabetes, Hypertension,Respiratory Failure Other Pertinent Diagnosis Wound Infection (R BKA) Current Diet Renal Diet, Supplements BID Labs/Tests 05/08: BUN 36, Cr 4.1, Glu 108 . Pertinent Medications 05/08; Reviewed. Height 5 ft 5 in Weight 81.64 kg [place] Body Weight (kg) 56.81 BMI 29.9 Intake Prior to Admission Good Weight Status Overweight Percent of energy/protein needs met: Prescribed Renal Diet provides for energy/protein nedds ( 2072 Kcal/77 g) during LOS. BID Supplements provide additional 520 Kcal/21.6 g. Burn Absent Trauma Absent GI Symptoms None Food Allergy No Skin Integrity/Comment Integumentary; clear, warm,dry . Current % PO Good (75-100%) Minimum of two criteria No physical signs of malnutrition #1 Nutrition Diagnosis Increased nutrient needs ( specify in comment below) Comments: Wound infection (R BKA) and surgery. Etiology Transient excess needs for energy/protein to support wound healing and surgery As Evidenced by Signs and Symptoms Pt having debridement of infected wound as per pregress notes. Is patient on ventilator? No Is Patient Ambulatory and/or Out of Bed Yes [facility] [ 1816.464 [id number]] Kcal/Kg value to use for calculation 30 Approximate Energy Requirements Using 2449 kcal/Kg Calculation Used for Recommendations Kcal/kg Additional Notes Protein: 1.2-1.4 g/Kg/day; 68- 80 g/day; 272-320 Kcal (from IBW). Fluids: 1.0 ml/Kcal, or as per MD. Nutrition Intervention Change Diet Order: Continue prescribed Renal Diet . Add Supplement/Snack (indicate name/kcal 2- 8.0 fl oz supplements ( /protein ) Gagan Handley) BID Provides kCal: 520 Provides Protein (gm) 22 Goal #1 Support transient exeptional energy/protein needs for wound healing during LOS. Goal #2 Maintain body weight within +/ -3% of current BWt during LOS. Goal #3 Achieve and maintain acceptable chemistry lab values during LOS. Follow-Up By: 05/14/21 Additional Comments Continue monitoring acceptance of food, % PO intake of meals , hydration, and BM. - Attestation Statement I have reviewed and agreed w/ Malnutrition eval & tx plan: Yes
[2021-05-10] MEDS: CEFEPIME/NS 1 GM/100 ML 1 GM/100 ML BAG IV SCH (14:29)
[2021-05-11] MEDS: oxyCODONE /ACETAMINOPHEN 5-325MG TAB PO PRN ×4 (00:37→21:20)
[2021-05-11] MEDS: ONDANSETRON 4 MG/2 ML INJ IV SCH ×4 (05:00→22:31)
[2021-05-11] MEDS: INSULIN LISPRO 100 UNIT/ML SUB-Q SCH ×4 (08:26→22:31)
[2021-05-11] MEDS: METOCLOPRAMIDE 10 MG/2 ML INJ IV SCH ×4 (08:30→21:19)
[2021-05-11] MEDS: INSULIN NPH, HUMAN 100 UNIT/1 ML SUB-Q SCH ×2 (08:45→17:39)
[2021-05-11 09:54] LABS: Hemoglobin 8.6 gm/dl (10.1-14.3); Mean Corpuscular HGB Conc 32 % (30-34); Mean Corpuscular Volume 93 fl (79-97); Platelet Count 218 K/mm3 (140-440); Red Blood Count 2.89 M/mm3 (3.65-5.03)
[2021-05-11] MEDS: MAGNESIUM OXIDE 400 MG TAB PO SCH ×2 (10:00→21:19)
[2021-05-11] MEDS: ASPIRIN 81 MG TAB CHEW PO SCH (10:00)
[2021-05-11] MEDS: amLODIPine 10 MG TAB PO SCH (10:00)
[2021-05-11 10:03] LABS: Red Cell Distribution Width 23.9 % (13.2-15.2)
[2021-05-11 10:16] LABS: Calcium 8.2 mg/dL (8.4-10.2)
--- NOTE | 2021-05-11 11:01 | Magnetic Resonance Report ---
MR RIGHT LOWER EXTREMITY WITHOUT CONTRAST HISTORY: Right [id number] amputation, evaluate for stump infection/osteomyelitis. COMPARISON: Right knee films dated 05/04/2021 TECHNIQUE: Routine non-contrast MRI of the right lower extremity obtained. CONTRAST: None. FINDINGS: Bone Marrow: Red marrow reconversion changes are suspected in the distal femur and remaining proximal tibia and fibula. Subtle decreased T1 signal and bone marrow edema is identified in the distal tip o f the remaining tibia and fibula highly concerning for acute osteomyelitis. The remaining right fibul a appears slightly more affected. Muscles and Subcutaneous soft tissues: There is mild diffuse edema throughout the distal stump soft t issues which probably represents cellulitis/myositis. There appears to be a small unorganized fluid c ollection adjacent to the distal tip of the fibula measuring up to 1.8 x 1.6 x 1.0 cm. This could rep resent early abscess formation. There is also a large soft tissue defect in the anterior soft tissues which extends to bone of the distal tibial stump. Additional Findings: None. IMPRESSION: Findings highly suggestive of early osteomyelitis of the distal tibia and fibula stump as described. Cellulitis. Small fluid collection is identified adjacent to the distal tip of the right fibula which could repre sent early soft tissue abscess formation. Red marrow reconversion changes most likely related to hematopoietic demand. Signer Name: Mil Paez Jr, MD Signed: 05/11/2021 10:56 AM Workstation Name: [id number]
--- NOTE | 2021-05-11 11:25 | Progress Note ---
Assessment and Plan Cultures: 05/04/2021 blood culture: No growth 05/04/2021 superficial culture: Lashawn albicans 05/07/2021 keep wound culture: In process A/P: 56-year-old female with ESRD on HD, hypertension, diabetes mellitus type 2, recent right BKA at [facility] in March 2021 admitted with BKA wound dehiscence and stump infection: #Sepsis secondary to right BKA stump infection, abscess: Status post bedside debridement on 05/07/2021, deep cultures pending. Debridement was performed to the level of the bone, there was purulent drainage, patient refused MRI. #Diabetes mellitus, uncontrolled #ESRD on HD: Renally dose antibiotics. #Peripheral vascular disease: Patient has been evaluated by vascular surgery. Recs: Lashawn and superficial culture is likely colonization 05/07/2021 cultures are still in process, continue renally adjusted cefepime, vancomycin for now Flagyl discontinued MRI with early ostoemyleitis and possible abscess. Will treat for 6 weeks with HD antibiotics. Recommend surgical evaluation for possible abscess. wound care and tight glycemic control Quiana Khalil MD [facility] O: [phone] F: [phone] Subjective Date of service: 05/11/21 Interval history: Afebrile, normal white count. Imaging personally reviewed: Right lower extremity MRI: Likely early osteomyelitis, possible abscess development. Objective - Exam Narrative Exam: Physical Exam: Constitutional: Alert, cooperative. No acute distress Head, Ears, Nose: Normocephalic, atraumatic. External ears, nose normal Eyes: Conjunctivae/corneas clear. No icterus. No ptosis. Neck: Supple, no meningeal signs Cardiovascular: S1, S2 + Respiratory: Good air entry, clear to auscultation bilaterally GI: Soft, non-tender; bowel sounds normal. No peritoneal signs Musculoskeletal: R BKA dressing + Skin: No rash or abscess Hem/Lymphatic: No palpable cervical or supraclavicular nodes. No lymphangitis Psych: Mood ok. Affect normal Neurological: Awake, alert, oriented. No gross abnormality - Constitutional Vitals: Vital Signs Temp Pulse Resp BP Pulse Ox 97.8 F 72 16 137/51 97 05/11/21 05:18 05/11/21 05:18 05/11/21 05:18 05/11/21 09:09 05/11/21 10:00 Temperature -Last 24 Hours Temperature 97.8 F Temperature 98.3 F Temperature 98.3 F Temperature 98.2 F Temperature 98.0 F - Labs CBC & Chem 7: 05/11/21 09:24 05/11/21 09:24 Labs: Abnormal lab results 05/10/21 05/10/21 05/10/21 Range/Units 11:44 15:50 21:43 RBC (3.65-5.03) M/mm3 Hgb (10.1-14.3) gm/dl Hct (30.3-42.9) % RDW (13.2-15.2) % Sodium (137-145) mmol/L Carbon Dioxide (22-30) mmol/L BUN (7-17) mg/dL Creatinine (0.6-1.2) mg/dL Glucose (65-100) mg/dL POC Glucose 271 H 153 H 234 H (70-105) mg/dL Calcium (8.4-10.2) mg/dL 05/11/21 05/11/21 05/11/21 Range/Units 07:40 09:24 09:24 RBC 2.89 L (3.65-5.03) M/mm3 Hgb 8.6 L (10.1-14.3) gm/dl Hct 27.0 L (30.3-42.9) % RDW 23.9 H (13.2-15.2) % Sodium 135 L (137-145) mmol/L Carbon Dioxide 19 L (22-30) mmol/L BUN 44 H (7-17) mg/dL Creatinine 5.0 H (0.6-1.2) mg/dL Glucose 174 H (65-100) mg/dL POC Glucose 109 H (70-105) mg/dL Calcium 8.2 L (8.4-10.2) mg/dL
--- NOTE | 2021-05-11 14:05 | Progress Note ---
Assessment and Plan Assessment and plan: 56-year-old woman history of ESRD on HD, hypertension, T2DM, and recent right BKA who presented with nausea, vomiting and surgical wound infection. #Right BKA stump infection #Diabetic wound infection -Patient reported R BKA performed at [facility] -Has not followed up with wound care or surgery post discharge -Surgery consulted, recs appreciated. Patient underwent bedside debridement with general surgery (05/07/2021). Wound cultures only revealing Lashawn (likely colonization). -Will likely be discharged with wound VAC and wound care follow-up (per general surgery note) -continue vancomycin, cefepime and flagyl for now (started on 05/04/2021). -Wound culture revealing Lashawn albicans (likely colonizationper ID). Discontinued IV fluconazole (started on 05/06/2021-05/10/2021) -ID on board regarding antibiotic management; appreciate recs -MRI of right lower extremity revealing osteomyelitis and the development of possible abscess formation at the distal fibula. -Patient is medically cleared for discharge; pending final recommendations of antibiotic course from ID #Nausea and vomiting-resolved -Scheduling IV Reglan every 6 hours. As needed IV Zofran 4 mg every 6 hours. #Acute hypoxic respiratory failure-resolved -Likely secondary to volume overload. Being treated with repeated hemodialysis sessions. -Continue to monitor #ESRD on HD -HD MWF outpatient -Nephrology consulted; appreciate recs #Type 2 diabetes, djuzwat-fatgblnxa-dxsco-stable -Patient reports having insulin pump in place, currently not taking any insulin -Continue NPH 10 units every 12 hours with SSI -Goal blood sugar less than 180 while inpatient #Elevated troponin -Troponin T 0.068, elevation likely due to ESRD -will repeat #Leukocytosis-resolved -WBC 17.8-->12.8-->10.4 -Chest x-ray suggestive of vascular congestion -Blood cultures with NGTD x2. Deep wound culture revealed "light growth" of Lashawn albicans. -Likely secondary to infection #Normocytic anemia -Hemoglobin 7.4; Likely secondary to ESRD -H&H 9.3/27.7 last visit -We will transfuse for hemoglobin less than 7 -Epogen with dialysis #Peripheral vascular disease -Lower extremities arterial Doppler performed -Resume home aspirin 81 mg daily, Plavix 75 mg daily, and statin #Hypertension-stable -Continue nifedipine 90 mg daily and Lopressor 50 daily #Discharge planning -Pending final antibiotic recommendations; wound cultures showed no significant growth -Patient will be discharged with wound VAC and close follow-up with wound care clinic Disposition Plan: Pending discharge Total Time Spent with Patient (Minutes): 40 History Interval history: No acute events over night. The patient denies fevers, chills, nausea, vomiting, abdominal pain, chest pain/pressure, shortness of breath, urinary symptoms, weakness, or confusion. Hospitalist Physical - Constitutional Vitals: Temp Pulse Resp BP Pulse Ox 97.8 F 72 16 137/51 97 05/11/21 05:18 05/11/21 05:18 05/11/21 05:18 05/11/21 09:09 05/11/21 10:00 General appearance: Present: no acute distress, well-nourished - EENT Eyes: Present: PERRL, EOM intact ENT: hearing intact, clear oral mucosa, dentition normal - Neck Neck: Present: supple, normal ROM - Respiratory Respiratory effort: normal - Cardiovascular Rhythm: regular Heart Sounds: Present: S1 & S2 - Extremities Extremities: no ischemia, pulses intact, pulses symmetrical, normal temperature, normal color Extremity abnormal: deformity (Right BKA) Peripheral Pulses: within normal limits - Abdominal General gastrointestinal: soft, non-tender, non-distended, normal bowel sounds - Integumentary Integumentary: Present: clear, warm, dry - Psychiatric Psychiatric: appropriate mood/affect, intact judgment & insight, memory intact, cooperative - Neurologic Neurologic: CNII-XII intact, moves all extremities - Allied Health Allied health notes reviewed: nursing HEART Score - HEART Score Troponin: Troponin T 0.066 ng/mL (0.00-0.029) H 05/04/21 23:36 Results - Labs CBC & Chem 7: 05/11/21 09:24 05/11/21 09:24 Labs: Laboratory Last Values WBC 10.9 K/mm3 (4.5-11.0) 05/11/21 09:24 RBC 2.89 M/mm3 (3.65-5.03) L 05/11/21 09:24 Hgb 8.6 gm/dl (10.1-14.3) L 05/11/21 09:24 Hct 27.0 % (30.3-42.9) L 05/11/21 09:24 MCV 93 fl (79-97) 05/11/21 09:24 MCH 30 pg (28-32) 05/11/21 09:24 MCHC 32 % (30-34) 05/11/21 09:24 RDW 23.9 % (13.2-15.2) H 05/11/21 09:24 Plt Count 218 K/mm3 (140-440) 05/11/21 09:24 Lymph % (Auto) 25.9 % (13.4-35.0) 05/10/21 04:19 [place] % (Auto) 7.7 % (0.0-7.3) H 05/10/21 04:19 Eos % (Auto) 4.1 % (0.0-4.3) 05/10/21 04:19 Baso % (Auto) 1.0 % (0.0-1.8) 05/10/21 04:19 Lymph # (Auto) 2.8 K/mm3 (1.2-5.4) 05/10/21 04:19 [place] # (Auto) 0.8 K/mm3 (0.0-0.8) 05/10/21 04:19 Eos # (Auto) 0.5 K/mm3 (0.0-0.4) H 05/10/21 04:19 Baso # (Auto) 0.1 K/mm3 (0.0-0.1) 05/10/21 04:19 Seg Neutrophils % 61.3 % (40.0-70.0) 05/10/21 04:19 Seg Neutrophils # 6.7 K/mm3 (1.8-7.7) 05/10/21 04:19 PT 14.8 Sec. (12.2-14.9) 05/04/21 06:38 INR 1.11 (0.87-1.13) 05/04/21 06:38 ABG pH 7.336 (7.320-7.450) 05/04/21 Unknown POC ABG pCO2 49.2 mmHg (32.0-48.0) H 05/04/21 Unknown POC ABG pO2 54.9 mmHg (83-108) L 05/04/21 Unknown POC ABG HCO3 25.7 05/04/21 Unknown ABG O2 Saturation 82.3 (0-100) 05/04/21 Unknown ABG O2 Content Not Reportable 05/04/21 Unknown POC ABG Base Excess -0.3 05/04/21 Unknown ABG Hemoglobin 8.24 (12.0-17.5) L 05/04/21 Unknown ABG Oxyhemoglobin 80.4 (94-98) L 05/04/21 Unknown ABG Methemoglobin 0.3 (0.0-1.5) 05/04/21 Unknown ABG Sodium Not Reportable 05/04/21 Unknown ABG Potassium Not Reportable 05/04/21 Unknown ABG Chloride Not Reportable 05/04/21 Unknown ABG Glucose Not Reportable 05/04/21 Unknown VBG pH 7.365 (7.320-7.420) 05/04/21 06:38 Carboxyhemoglobin 2.1 (0.5-1.5) H 05/04/21 Unknown FiO2 % 100 05/04/21 Unknown Sodium 135 mmol/L (137-145) L 05/11/21 09:24 Potassium 4.4 mmol/L (3.6-5.0) D 05/11/21 09:24 Chloride 101.2 mmol/L (98-107) 05/11/21 09:24 Carbon Dioxide 19 mmol/L (22-30) L 05/11/21 09:24 Anion Gap 19 mmol/L 05/11/21 09:24 BUN 44 mg/dL (7-17) H 05/11/21 09:24 Creatinine 5.0 mg/dL (0.6-1.2) H 05/11/21 09:24 Estimated GFR 11 ml/min 05/11/21 09:24 BUN/Creatinine Ratio 9 % 05/11/21 09:24 Glucose 174 mg/dL (65-100) H 05/11/21 09:24 POC Glucose 109 mg/dL (70-105) H 05/11/21 07:40 Hemoglobin A1c 7.3 % (4-6) H 05/07/21 04:30 Lactic Acid 1.10 mmol/L (0.7-2.0) 05/04/21 07:53 Calcium 8.2 mg/dL (8.4-10.2) L 05/11/21 09:24 Phosphorus 2.70 mg/dL (2.5-4.5) 05/10/21 04:19 Magnesium 1.90 mg/dL (1.7-2.3) 05/10/21 04:19 Total Creatine Kinase 73 units/L (30-135) 05/04/21 06:38 Troponin T 0.066 ng/mL (0.00-0.029) H 05/04/21 23:36 Prealbumin 0.137 g/L (0.200-0.400) L 05/07/21 04:00 Triglycerides 102 mg/dL (2-149) 05/04/21 06:38 Cholesterol 98 mg/dL (50-199) 05/04/21 06:38 LDL Cholesterol Direct 37 mg/dL (50-130) L 05/04/21 06:38 HDL Cholesterol 37 mg/dL (40-59) L 05/04/21 06:38 Cholesterol/HDL Ratio 2.64 % 05/04/21 06:38 Arterial Blood Glucose Not Reportable 05/04/21 Unknown Random Vancomycin 12.9 ug/mL (0-40.0) 05/11/21 04:05 Coronavirus (PCR) Negative (Negative) 05/06/21 Unknown Hepatitis A IgM Ab Non-reactive (NonReactive) 05/04/21 11:05 Hep Bs Antigen Nonreactive (Negative) 05/04/21 11:05 Hep B Core IgM Ab Non-reactive (NonReactive) 05/04/21 11:05 Hepatitis C Antibody Non-reactive (NonReactive) 05/04/21 11:05 Microbiology: Microbiology 05/07/21 13:13 Wound - Deep Wound Culture - Final Lashawn Albicans 05/07/21 13:14 Wound - Deep Anaerobic Culture - Final Vera/IV: Voiding Method Bedside Commode Active Medications - Current Medications Current Medications: Generic Name Dose Route Start Last Admin Trade Name Freq PRN Reason Stop Dose Admin Acetaminophen 650 mg 05/04/21 09:00 05/08/21 12:31 Acetaminophen 325 Mg Tab PO 650 mg Q4H PRN Administration Pain MILD(1-3)/Fever >100.5/MARIE Amlodipine Besylate 10 mg 05/10/21 10:00 05/10/21 09:05 Amlodipine 10 Mg Tab PO 10 mg QDAY SILVANO Administration Aspirin 81 mg 05/05/21 10:00 05/10/21 09:05 Aspirin 81 Mg Tab Chew PO 81 mg QDAY SILVANO Administration Atorvastatin Calcium 80 mg 05/04/21 22:00 05/10/21 22:18 Atorvastatin 40 Mg Tab PO 80 mg QHS SILVANO Administration Clopidogrel Bisulfate 75 mg 05/04/21 16:00 05/10/21 09:05 Clopidogrel 75 Mg Tab PO 75 mg QDAY SILVANO Administration Dextrose 50 ml 05/06/21 15:51 Dextrose 50% In Water (25gm) 50 Ml Syringe IV Q30MIN PRN Hypoglycemia Protocol Heparin Sodium (Porcine) 3,000 unit 05/04/21 09:00 05/04/21 10:58 Heparin 10,000 Units/10 Ml Vial IV 3,000 unit DULCE PRN Administration hemodialysis Sodium Chloride 100 mls @ 999 mls/hr 05/04/21 09:00 Nacl 0.9% IV DULCE PRN Hypotension Cefepime HCl 1 gm in 100 mls @ 200 mls/hr 05/11/21 16:00 Cefepime/Ns 1 Gm/100 Ml IV Q24H [facility] Protocol Vancomycin HCl 1 gm in 250 mls @ 166.667 mls/hr 05/11/21 18:00 Vancomycin/Ns 1 Gm/250 Ml IV [id number] [facility] Insulin Human Lispro 0 unit 05/07/21 17:00 05/11/21 08:26 Insulin Lispro 100 Unit/Ml SUB-Q Not Given ACHS [facility] Protocol Insulin Human NPH 10 unit 05/06/21 17:00 05/11/21 08:45 Insulin Nph, Human 100 Unit/1 Ml SUB-Q 10 unit BIDDIAB [facility] Administration Magnesium Oxide 400 mg 05/07/21 10:00 05/10/21 22:18 Magnesium Oxide 400 Mg Tab PO 400 mg BID SILVANO Administration Metoclopramide HCl 5 mg 05/09/21 11:30 05/10/21 22:18 Metoclopramide 10 Mg/2 Ml Inj IV 5 mg ACHS SILVANO Administration Metoprolol Succinate 50 mg 05/04/21 17:00 05/10/21 09:05 Metoprolol Succinate Xl 50 Mg Tab PO 50 mg QDAY [facility] Administration Morphine Sulfate 4 mg 05/04/21 09:00 Morphine 4 Mg/1 Ml Inj IV Q4H PRN Pain , Severe (7-10) Ondansetron HCl 4 mg 05/09/21 10:00 05/11/21 05:00 Ondansetron 4 Mg/2 Ml Inj IV 4 mg Q6H SILVANO Administration Oxycodone/Acetaminophen 1 tab 05/04/21 09:00 05/11/21 09:08 Oxycodone /Acetaminophen 5-325mg Tab PO 1 tab Q6H PRN Administration Pain, Moderate (4-6) Sodium Chloride 10 ml 05/04/21 10:00 05/10/21 22:19 Sodium Chloride 0.9% 10 Ml Flush Syringe IV 10 ml BID SILVANO Administration Sodium Chloride 10 ml 05/04/21 09:00 Sodium Chloride 0.9% 10 Ml Flush Syringe IV PRN PRN LINE FLUSH Sodium Hypochlorite 1 applic 05/08/21 09:00 Sodium Hypochlorite, Dakin's 1/2 Strength (0.25%) 473 Ml Topical Soln TP Q12H PRN Wound Care Nutrition/Malnutrition Assess - Dietary Evaluation Nutrition/Malnutrition Findings: Nutrition Notes Start: 05/07/21 18:22 Freq: Status: Active Protocol: Document 05/08/21 09:07 ASIM (Rec: 05/08/21 09:44 ASMI [id number]) Nutrition Notes Need for Assessment generated from: MD Order Initial or Follow up Assessment Current Diagnosis CKD (stage V CKD),Diabetes, Hypertension,Respiratory Failure Other Pertinent Diagnosis Wound Infection (R BKA) Current Diet Renal Diet, Supplements BID Labs/Tests 05/08: BUN 36, Cr 4.1, Glu 108 . Pertinent Medications 05/08; Reviewed. Height 5 ft 5 in Weight 81.64 kg [place] Body Weight (kg) 56.81 BMI 29.9 Intake Prior to Admission Good Weight Status Overweight Percent of energy/protein needs met: Prescribed Renal Diet provides for energy/protein nedds ( 2072 Kcal/77 g) during LOS. BID Supplements provide additional 520 Kcal/21.6 g. Burn Absent Trauma Absent GI Symptoms None Food Allergy No Skin Integrity/Comment Integumentary; clear, warm,dry . Current % PO Good (75-100%) Minimum of two criteria No physical signs of malnutrition #1 Nutrition Diagnosis Increased nutrient needs ( specify in comment below) Comments: Wound infection (R BKA) and surgery. Etiology Transient excess needs for energy/protein to support wound healing and surgery As Evidenced by Signs and Symptoms Pt having debridement of infected wound as per pregress notes. Is patient on ventilator? No Is Patient Ambulatory and/or Out of Bed Yes [facility] [ 1816.464 [id number]] Kcal/Kg value to use for calculation 30 Approximate Energy Requirements Using 2449 kcal/Kg Calculation Used for Recommendations Kcal/kg Additional Notes Protein: 1.2-1.4 g/Kg/day; 68- 80 g/day; 272-320 Kcal (from IBW). Fluids: 1.0 ml/Kcal, or as per MD. Nutrition Intervention Change Diet Order: Continue prescribed Renal Diet . Add Supplement/Snack (indicate name/kcal 2- 8.0 fl oz supplements ( /protein ) NepGagan griggs) BID Provides kCal: 520 Provides Protein (gm) 22 Goal #1 Support transient exeptional energy/protein needs for wound healing during LOS. Goal #2 Maintain body weight within +/ -3% of current BWt during LOS. Goal #3 Achieve and maintain acceptable chemistry lab values during LOS. Follow-Up By: 05/14/21 Additional Comments Continue monitoring acceptance of food, % PO intake of meals , hydration, and BM. - Attestation Statement I have reviewed and agreed w/ Malnutrition eval & tx plan: Yes
--- NOTE | 2021-05-11 14:16 | Progress Note ---
Assessment and Plan 1. ESRD: Patient is on maintenance hemodialysis three times a week, MWF schedule. Meds dosage based on GFR. Last outpatient HD 05/01. Hemodialysis: 05/04, 05/05(UF only), 05/06, 05/08. HD today. 2. FEN: Volume overload, improved - UF with HD. Replete lytes. Monitor lytes and volume status. 3. Acute hypoxic resp failure: CXR showed volume overload. Volume control thru HD. Improved, now on RA. 4. R BKA stump wound infection: IV abx. Wound debridement 05/07. Followed by General Surgery and ID. 5. Anemia, POA: Epogen with HD as needed. Monitor. 6. Hypertension: Adjust meds as needed. Monitor. 7. DM type 2. Subjective: Patient was seen and examined at the bedside. Doing ok. General Appearance: General appearance: well-developed, appears stated age, in distress HEENT: ATNC, pupils equal Neck: trachea midline Respiratory: ctab Heart: regular, S1S2, no murmur Abdomen: soft, bowel sounds heard, not tender Integumentary: no rash, warm and dry Neurologic: AO, able to move extremities Ext: R BKA stump dressing Hemodialysis access: R arm AVG Subjective Date of service: 05/11/21 Objective - Vital Signs Vital signs: Vital Signs - 12hr 05/11/21 05/11/21 05/11/21 05:18 09:09 10:00 Temperature 97.8 F Pulse Rate 72 Respiratory 16 Rate Blood Pressure 152/53 Blood Pressure 137/51 [Left] O2 Sat by Pulse 94 97 Oximetry - Lab 05/11/21 09:24 05/11/21 09:24 Most recent lab results ABG pH 7.336 (7.320-7.450) 05/04/21 Unknown ABG O2 Saturation 82.3 (0-100) 05/04/21 Unknown Calcium 8.2 mg/dL (8.4-10.2) L 05/11/21 09:24 Phosphorus 2.70 mg/dL (2.5-4.5) 05/10/21 04:19 Magnesium 1.90 mg/dL (1.7-2.3) 05/10/21 04:19 Medications & Allergies - Medications Allergies/Adverse Reactions: Allergies Penicillins Adverse Reaction (Verified 05/04/21 06:09) Swelling Home Medications: Home Medications Medication Instructions Recorded Confirmed Last Taken Type Aspirin [Aspirin BABY CHEW TAB] 81 mg PO QDAY #30 tab.chew 05/16/20 05/05/21 03/08/21 Rx Linaclotide [Linzess] 72 mcg PO QDAY #30 cap 05/16/20 05/05/21 2 Days Ago Rx ~03/08/21 Omeprazole 40 mg PO QDAY #30 05/16/20 05/05/21 2 Days Ago Rx ~03/08/21 Oxycodone HCl/Acetaminophen 1 each PO Q6HR PRN #12 05/16/20 05/05/21 2 Weeks Ago Rx [Percocet 10/325 mg] ~02/24/21 AtorvaSTATin [Lipitor] 80 mg PO QHS 02/20/21 05/05/21 03/09/21 History Insulin Lispro [Humalog] See Protocol SUB-Q ACHS 02/20/21 05/05/21 03/08/21 History NIFEdipine [Nifedipine ER] 90 mg PO DAILY 02/20/21 05/05/21 03/09/21 History Clopidogrel [Plavix] 75 mg PO QDAY #90 tablet 03/10/21 05/05/21 Unknown Rx Metoprolol [Lopressor TAB] 100 mg PO DAILY 03/10/21 05/05/21 03/09/21 History Active Medications: Generic Name Dose Route Start Last Admin Trade Name Freq PRN Reason Stop Dose Admin Acetaminophen 650 mg 05/04/21 09:00 05/08/21 12:31 Acetaminophen 325 Mg Tab PO 650 mg Q4H PRN Administration Pain MILD(1-3)/Fever >100.5/MARIE Amlodipine Besylate 10 mg 05/10/21 10:00 05/10/21 09:05 Amlodipine 10 Mg Tab PO 10 mg QDAY SILVANO Administration Aspirin 81 mg 05/05/21 10:00 05/10/21 09:05 Aspirin 81 Mg Tab Chew PO 81 mg QDAY SILVANO Administration Atorvastatin Calcium 80 mg 05/04/21 22:00 05/10/21 22:18 Atorvastatin 40 Mg Tab PO 80 mg QHS SILVANO Administration Clopidogrel Bisulfate 75 mg 05/04/21 16:00 05/10/21 09:05 Clopidogrel 75 Mg Tab PO 75 mg QDAY SILVANO Administration Dextrose 50 ml 05/06/21 15:51 Dextrose 50% In Water (25gm) 50 Ml Syringe IV Q30MIN PRN Hypoglycemia Protocol Heparin Sodium (Porcine) 3,000 unit 05/04/21 09:00 05/04/21 10:58 Heparin 10,000 Units/10 Ml Vial IV 3,000 unit DULCE PRN Administration hemodialysis Sodium Chloride 100 mls @ 999 mls/hr 05/04/21 09:00 Nacl 0.9% IV DULCE PRN Hypotension Cefepime HCl 1 gm in 100 mls @ 200 mls/hr 05/11/21 16:00 Cefepime/Ns 1 Gm/100 Ml IV Q24H [facility] Protocol Vancomycin HCl 1 gm in 250 mls @ 166.667 mls/hr 05/11/21 18:00 Vancomycin/Ns 1 Gm/250 Ml IV [id number] [facility] Insulin Human Lispro 0 unit 05/07/21 17:00 05/11/21 08:26 Insulin Lispro 100 Unit/Ml SUB-Q Not Given ACHS [facility] Protocol Insulin Human NPH 10 unit 05/06/21 17:00 05/11/21 08:45 Insulin Nph, Human 100 Unit/1 Ml SUB-Q 10 unit BIDDIAB SILVANO Administration Magnesium Oxide 400 mg 05/07/21 10:00 05/10/21 22:18 Magnesium Oxide 400 Mg Tab PO 400 mg BID SILVANO Administration Metoclopramide HCl 5 mg 05/09/21 11:30 05/10/21 22:18 Metoclopramide 10 Mg/2 Ml Inj IV 5 mg ACHS SILVANO Administration Metoprolol Succinate 50 mg 05/04/21 17:00 05/10/21 09:05 Metoprolol Succinate Xl 50 Mg Tab PO 50 mg QDAY SILVANO Administration Morphine Sulfate 4 mg 05/04/21 09:00 Morphine 4 Mg/1 Ml Inj IV Q4H PRN Pain , Severe (7-10) Ondansetron HCl 4 mg 05/09/21 10:00 05/11/21 05:00 Ondansetron 4 Mg/2 Ml Inj IV 4 mg Q6H SILVANO Administration Oxycodone/Acetaminophen 1 tab 05/04/21 09:00 05/11/21 09:08 Oxycodone /Acetaminophen 5-325mg Tab PO 1 tab Q6H PRN Administration Pain, Moderate (4-6) Sodium Chloride 10 ml 05/04/21 10:00 05/10/21 22:19 Sodium Chloride 0.9% 10 Ml Flush Syringe IV 10 ml BID SILVANO Administration Sodium Chloride 10 ml 05/04/21 09:00 Sodium Chloride 0.9% 10 Ml Flush Syringe IV PRN PRN LINE FLUSH Sodium Hypochlorite 1 applic 05/08/21 09:00 Sodium Hypochlorite, Dakin's 1/2 Strength (0.25%) 473 Ml Topical Soln TP Q12H PRN Wound Care
--- NOTE | 2021-05-11 15:39 | Progress Note ---
Assessment and Plan 56 yo F s/p excisional debridement of right BKA stump 05/07/21 1. dehiscence and infection of R BKA surgical wound 2. DM 3. ESRD on HD 4. protein calorie malnutrition MRI RLE - "Findings highly suggestive of early osteomyelitis of the distal tibia and fibula stump as described. Cellulitis. Small fluid collection is identified adjacent to the distal tip of the right fibula which could represent early soft tissue abscess formation. Red marrow reconversion changes most likely related to hemopoietic demand" Pt stable. No abscess on exam - wound is completely open Plan: 1. Strict glucose control 2. abx per ID consult 3. knee immobilizer 4. wound cultures pending 5. Wound care clinic follow up at discharge. Continue wet to dry dressings. Wound not appropriate for wound vac at this time - will reeval as outpatient. Thank you, please call with questions. Will s/o Subjective Date of service: 05/11/21 Narrative: Pt seen and examined. No acute complaints. No f/c Objective Vital Signs - 12hr 05/11/21 05/11/21 05/11/21 05:18 09:09 10:00 Temperature 97.8 F Pulse Rate 72 Respiratory 16 Rate Blood Pressure 152/53 Blood Pressure 137/51 [Left] O2 Sat by Pulse 94 97 Oximetry - General physical appearance Narrative Exam: Gen.: Awake, alert, oriented x3. No apparent distress ENT: Trachea midline. No lymphadenopathy. No scleral icterus or conjunctival pallor CV: S1, S2 present Respiratory: No audible wheezes Extremities: R BKA wound is overall clean with serous drainage. No underlying abscess. Wound is completely open. Packing in place. - Labs 05/11/21 09:24 05/11/21 09:24 Diabetes panel 05/11/21 Range/Units 09:24 Sodium 135 L (137-145) mmol/L Potassium 4.4 D (3.6-5.0) mmol/L Chloride 101.2 (98-107) mmol/L Carbon Dioxide 19 L (22-30) mmol/L BUN 44 H (7-17) mg/dL Creatinine 5.0 H (0.6-1.2) mg/dL Glucose 174 H (65-100) mg/dL Calcium 8.2 L (8.4-10.2) mg/dL Calcium panel 10/11/21 Range/Units 09:24 Calcium 8.2 L (8.4-10.2) mg/dL Pituitary panel 05/11/21 Range/Units 09:24 Sodium 135 L (137-145) mmol/L Potassium 4.4 D (3.6-5.0) mmol/L Chloride 101.2 (98-107) mmol/L Carbon Dioxide 19 L (22-30) mmol/L BUN 44 H (7-17) mg/dL Creatinine 5.0 H (0.6-1.2) mg/dL Glucose 174 H (65-100) mg/dL Calcium 8.2 L (8.4-10.2) mg/dL Adrenal panel 05/11/21 Range/Units 09:24 Sodium 135 L (137-145) mmol/L Potassium 4.4 D (3.6-5.0) mmol/L Chloride 101.2 (98-107) mmol/L Carbon Dioxide 19 L (22-30) mmol/L BUN 44 H (7-17) mg/dL Creatinine 5.0 H (0.6-1.2) mg/dL Glucose 174 H (65-100) mg/dL Calcium 8.2 L (8.4-10.2) mg/dL
[2021-05-11] MEDS ORDERED: CEFEPIME/NS 1 GM/100 ML 1 GM/100 ML BAG IV SCH (16:00)
[2021-05-11 17:27] VITALS: BP 150/54
[2021-05-11] MEDS: METOPROLOL SUCCINATE XL 50 MG TAB PO SCH (17:39)
[2021-05-11] MEDS: CLOPIDOGREL 75 MG TAB PO SCH (17:40)
[2021-05-11] MEDS ORDERED: VANCOMYCIN/NS 1 GM/250 ML 1 GM/250 ML BAG IV SCH (18:00)
[2021-05-12] MEDS: oxyCODONE /ACETAMINOPHEN 5-325MG TAB PO PRN ×3 (03:12→16:51)
[2021-05-12] MEDS: ONDANSETRON 4 MG/2 ML INJ IV SCH (04:09)
[2021-05-12 06:24] LABS: Mean Corpuscular HGB Conc 28 % (30-34); Mean Corpuscular Volume 104 fl (79-97); Platelet Count 184 K/mm3 (140-440); Red Blood Count 2.83 M/mm3 (3.65-5.03)
[2021-05-12 06:27] LABS: Hematocrit 29.5 % (30.3-42.9); Hemoglobin 8.4 gm/dl (10.1-14.3); Red Cell Distribution Width 25.9 % (13.2-15.2)
--- NOTE | 2021-05-12 08:16 | Discharge Summary ---
Providers - Providers Date of Admission: 05/04/21 07:47 Date of discharge: 05/12/21 Attending physician: LEILANI AMEZQUITA MD 05/04/21 07:27 Consult to Physician [CONS] Urgent Comment: Consulting Provider: ALLA SALAMANCA Physician Instructions: Reason For Exam: infected wound 05/04/21 07:28 Consult to Physician [CONS] Urgent Comment: Consulting Provider: TERESSA RAYA Physician Instructions: Reason For Exam: esrd 05/04/21 17:01 Consult to Wound/ET Nurse [CONS] Routine Reason For Exam: wound eval right BKA 05/06/21 07:53 Consult to Physician [CONS] Routine Comment: Consulting Provider: SUKHDEEP ROBERTS Physician Instructions: Reason For Exam: Diabetic stump infection 05/07/21 06:30 Physical Therapy Evaluation and Treat [CONS] Routine Comment: Reason For Exam: Assess ability to do ADLs. 05/08/21 17:48 Consult to Dietitian/Nutrition [CONS] Routine Physician Instructions: Reason For Exam: Reason for Consult: Malnutrition 05/09/21 07:40 Consult to Physician [CONS] Routine Comment: Consulting Provider: ATIYA ASHFORD Physician Instructions: Reason For Exam: Diabetic infection of right BKA 05/11/21 14:04 Consult to Case Management [CONS] Routine Services Needed at Discharge: Home Health Services Notified:: CM Additional Physician Instructions: Quiana Khalil MD [facility] ([facility] M: [phone] O: [phone] F: [phone] Outpatient parenteral antibiotic therapy orders Diagnosis: Right stump osteomyelitis Antibiotic administration: cefepime 2g qith HD and vancomycin 1g with HD until 06/15/2021 Line: HD Lab monitoring: CBC with differential, BUN, creatinine, LFTs, vancomycin trough, CRP once per week preferably on Tuesday or Tuesday Vancomycin: Check creatinine and va ncomycin trough every Tuesday and , fax results to [phone] For critical labs, call office: [phone] Quiana Khalil Hospitalization Reason for admission: Surgical site infection Condition: Fair Hospital course: 56-year-old woman history of ESRD on HD, hypertension, type 2 diabetes and a recent right below-knee amputation who presented with nausea, vomiting and opening in her surgical wound. She was admitted for a right below the knee stump infection. Surgery was consulted and she was started on vancomycin, cefepime and Flagyl. Nephrology was also consulted and she was dialyzed on her Tuesday, Tuesday, Tuesday schedule. She underwent bedside debridement on 05/07. Wound culture grew Lashawn which was likely colonization. She remained stable, with resolution of leukocytosis. She was discharged with a 6 week course of antibiotics to be given during hemodialysis of vancomycin and cefepime. Disposition: HOME / SELF CARE / HOMELESS Final Discharge Diagnosis (Prints w/discharge instructions): Osteomyelitis. Right surgical stump infection Time spent for discharge: 20 minutes Core Measure Documentation - Palliative Care Palliative Care/ Comfort Measures: Not Applicable - Core Measures Any of the following diagnoses?: none Exam - Physical Exam Narrative exam: GENERAL: Well-developed well-nourished. Lying in bed in no acute distress. HEENT: Normocephalic. Atraumatic. CHEST/LUNGS: Bilateral rales. HEART/CARDIOVASCULAR: RRR. No murmur, rubs or gallops appreciated. ABDOMEN: +BS. NT/ND. NEURO: No focal motor deficit. Follows all commands. EXTREMITIES: Right BKA stump with dressing C/D/I. Left lower extremity with normal range of motion. PSYCH: Cooperative. - Constitutional Vitals: Temp Pulse Resp BP Pulse Ox 98.8 F 83 17 150/54 98 05/11/21 17:12 05/11/21 17:12 05/12/21 03:57 05/11/21 17:12 05/12/21 03:57 Plan Activity: advance as tolerated Weight Bearing Status: Non-Weight Bearing Diet: renal Wound: per wound nurse instructions Care Plan Goals: Follow-up with wound care and surgery outpatient. Keep blood sugars greater than 80 and less than 180 to promote wound healing. Continue dialysis Tuesday, Tuesday, and Fridays. You will receive antibiotics during your dialysis sessions. Assessment: Improved. Patient status post debridement of right stump. MRI showed findings of early osteomyelitis. Patient will be discharged with antibiotics to be given during HD sessions. Follow up with: JOSE VALENZUELA MSN,TERRITORY BUSINESS MANAGER-BC [Other] - 3-5 Days SUKHDEEP ROBERTS DO [Staff Physician] - 10 Days Prescriptions: Lancets/Blood Glucose Strips [Gojji Lancet 30G-Gluc Tst Strp] 1 each MC DAILY 30 Days #1 combo..pkg Syringe with Needle, 5 ml [Luer-Chase Syringe-Needle] 1 each MC BID 30 Days #60 disp.syrin Other Discharge Orders: Glucometer (Amb) Location: None Selected
[2021-05-12] MEDS: INSULIN LISPRO 100 UNIT/ML SUB-Q SCH (08:59)
--- NOTE | 2021-05-12 09:16 | Progress Note ---
Assessment and Plan 1. ESRD: Patient is on maintenance hemodialysis three times a week, MWF schedule. Meds dosage based on GFR. Last outpatient HD 05/01. Hemodialysis: 05/04, 05/05(UF only), 05/06, 05/08, 05/11. 2. FEN: Volume overload, improved - UF with HD. Replete lytes. Monitor lytes and volume status. 3. Acute hypoxic resp failure: CXR showed volume overload. Volume control thru HD. Improved, now on RA. 4. R BKA stump wound infection: Wound debridement 05/07. Followed by General Surgery and ID. 5. Anemia, POA: Epogen with HD as needed. Monitor. 6. Hypertension: Adjust meds as needed. Monitor. 7. DM type 2. Subjective: Patient was seen and examined at the bedside. Doing ok. General Appearance: General appearance: well-developed, appears stated age, in distress HEENT: ATNC, pupils equal Neck: trachea midline Respiratory: ctab Heart: regular, S1S2, no murmur Abdomen: soft, bowel sounds heard, not tender Integumentary: no rash, warm and dry Neurologic: AO, able to move extremities Ext: R BKA stump plastic cast Hemodialysis access: R arm AVG Subjective Date of service: 05/12/21 Objective - Vital Signs Vital signs: Vital Signs - 12hr 05/12/21 03:57 Respiratory 17 Rate O2 Sat by Pulse 98 Oximetry - Lab 05/12/21 05:40 05/12/21 05:40 Most recent lab results ABG pH 7.336 (7.320-7.450) 05/04/21 Unknown ABG O2 Saturation 82.3 (0-100) 05/04/21 Unknown Calcium 8.0 mg/dL (8.4-10.2) L 05/12/21 05:40 Phosphorus 2.90 mg/dL (2.5-4.5) 05/12/21 05:40 Magnesium 1.90 mg/dL (1.7-2.3) 05/12/21 05:40 Medications & Allergies - Medications Allergies/Adverse Reactions: Allergies Penicillins Adverse Reaction (Verified 05/04/21 06:09) Swelling Home Medications: Home Medications Medication Instructions Recorded Confirmed Last Taken Type Aspirin [Aspirin BABY CHEW TAB] 81 mg PO QDAY #30 tab.chew 10/05/05/21 03/08/21 Rx Linaclotide [Linzess] 72 mcg PO QDAY #30 cap 05/16/20 05/05/21 2 Days Ago Rx ~03/08/21 AtorvaSTATin [Lipitor] 80 mg PO QHS 02/20/21 05/05/21 03/09/21 History Insulin Lispro [Humalog] See Protocol SUB-Q ACHS 02/20/21 05/05/21 03/08/21 History Clopidogrel [Plavix] 75 mg PO QDAY #90 tablet 03/10/21 05/05/21 Unknown Rx Aspirin [Aspirin BABY CHEW TAB] 81 mg PO QDAY 30 Days #30 tab.chew 05/12/21 Unknown Rx AtorvaSTATin [Lipitor] 80 mg PO QHS 30 Days #30 tablet 05/12/21 Unknown Rx Clopidogrel [Plavix] 75 mg PO QDAY 30 Days #30 tablet 05/12/21 Unknown Rx Insulin NPH, Human [NovoLIN N] 8 unit SUB-Q BIDDIAB 30 Days #500 05/12/21 Unknown Rx units Lancets/Blood Glucose Strips 1 each MC DAILY 30 Days #1 05/12/21 Unknown Rx [Gojji Lancet 30G-Gluc Tst Strp] combo..pkg Lispro Insulin [HumaLOG] 0 unit SUB-Q ACHS units 05/12/21 Unknown Rx Magnesium Oxide [Mag-Ox] 400 mg PO BID 30 Days #60 tablet 05/12/21 Unknown Rx Metoprolol Xl [Metoprolol 50 mg PO QDAY 30 Days #30 tablet 05/12/21 Unknown Rx SUCCINATE ER TAB] Syringe with Needle, 5 ml 1 each MC BID 30 Days #60 05/12/21 Unknown Rx [Luer-Chase Syringe-Needle] disp.syrin amLODIPine 10 mg PO QDAY 30 Days #30 tablet 05/12/21 Unknown Rx Active Medications: Generic Name Dose Route Start Last Admin Trade Name Freq PRN Reason Stop Dose Admin Acetaminophen 650 mg 05/04/21 09:00 05/08/21 12:31 Acetaminophen 325 Mg Tab PO 650 mg Q4H PRN Administration Pain MILD(1-3)/Fever >100.5/MARIE Amlodipine Besylate 10 mg 05/10/21 10:00 05/11/21 10:00 Amlodipine 10 Mg Tab PO Not Given QDAY SILVANO Aspirin 81 mg 05/05/21 10:00 05/11/21 10:00 Aspirin 81 Mg Tab Chew PO Not Given QDAY SILVANO Atorvastatin Calcium 80 mg 05/04/21 22:00 05/11/21 21:20 Atorvastatin 40 Mg Tab PO 80 mg QHS SILVANO Administration Clopidogrel Bisulfate 75 mg 05/04/21 16:00 05/11/21 17:40 Clopidogrel 75 Mg Tab PO 75 mg QDAY SILVANO Administration Dextrose 50 ml 05/06/21 15:51 Dextrose 50% In Water (25gm) 50 Ml Syringe IV Q30MIN PRN Hypoglycemia Protocol Heparin Sodium (Porcine) 3,000 unit 05/04/21 09:00 05/04/21 10:58 Heparin 10,000 Units/10 Ml Vial IV 3,000 unit DULCE PRN Administration hemodialysis Sodium Chloride 100 mls @ 999 mls/hr 05/04/21 09:00 Nacl 0.9% IV DULCE PRN Hypotension Cefepime HCl 1 gm in 100 mls @ 200 mls/hr 05/11/21 16:00 05/11/21 17:35 Cefepime/Ns 1 Gm/100 Ml IV 200 mls/hr Q24H SILVANO Administration Protocol Vancomycin HCl 1 gm in 250 mls @ 166.667 mls/hr 05/11/21 18:00 05/11/21 18:27 Vancomycin/Ns 1 Gm/250 Ml IV 166.667 mls/hr [email or web address] SILVANO Administration Insulin Human Lispro 0 unit 05/07/21 17:00 05/11/21 22:31 Insulin Lispro 100 Unit/Ml SUB-Q 4 unit ACHS SILVANO Administration Protocol Insulin Human NPH 10 unit 05/06/21 17:00 05/11/21 17:39 Insulin Nph, Human 100 Unit/1 Ml SUB-Q 10 unit BIDDIAB SILVANO Administration Magnesium Oxide 400 mg 05/07/21 10:00 05/11/21 21:19 Magnesium Oxide 400 Mg Tab PO 400 mg BID SILVANO Administration Metoclopramide HCl 5 mg 05/09/21 11:30 05/11/21 21:19 Metoclopramide 10 Mg/2 Ml Inj IV 5 mg ACHS SILVANO Administration Metoprolol Succinate 50 mg 05/04/21 17:00 05/11/21 17:39 Metoprolol Succinate Xl 50 Mg Tab PO 50 mg QDAY SILVANO Administration Morphine Sulfate 4 mg 05/04/21 09:00 Morphine 4 Mg/1 Ml Inj IV Q4H PRN Pain , Severe (7-10) Ondansetron HCl 4 mg 05/09/21 10:00 05/12/21 04:09 Ondansetron 4 Mg/2 Ml Inj IV Not Given Q6H SILVANO Oxycodone/Acetaminophen 1 tab 05/04/21 09:00 05/12/21 03:12 Oxycodone /Acetaminophen 5-325mg Tab PO 1 tab Q6H PRN Administration Pain, Moderate (4-6) Sodium Chloride 10 ml 05/04/21 10:00 05/11/21 21:26 Sodium Chloride 0.9% 10 Ml Flush Syringe IV 10 ml BID SILVANO Administration Sodium Chloride 10 ml 05/04/21 09:00 Sodium Chloride 0.9% 10 Ml Flush Syringe IV PRN PRN LINE FLUSH Sodium Hypochlorite 1 applic 05/08/21 09:00 Sodium Hypochlorite, Dakin's 1/2 Strength (0.25%) 473 Ml Topical Soln TP Q12H PRN Wound Care
--- NOTE | 2021-05-12 10:25 | Progress Note ---
Assessment and Plan Cultures: 05/04/2021 blood culture: No growth 05/04/2021 superficial culture: Lashawn albicans 05/07/2021 keep wound culture: In process A/P: 56-year-old female with ESRD on HD, hypertension, diabetes mellitus type 2, recent right BKA at [facility] in March 2021 admitted with BKA wound dehiscence and stump infection: #Sepsis secondary to right BKA stump infection, abscess: Status post bedside debridement on 05/07/2021, deep cultures pending. Debridement was performed to the level of the bone, there was purulent drainage, patient refused MRI. #Diabetes mellitus, uncontrolled #ESRD on HD: Renally dose antibiotics. #Peripheral vascular disease: Patient has been evaluated by vascular surgery. Recs: Lashawn and superficial culture is likely colonization 05/07/2021 cultures are still in process, continue renally adjusted cefepime, vancomycin for now Flagyl discontinued MRI with early ostoemyleitis and possible abscess. Will treat for 6 weeks with HD antibiotics. Case management consulted for vancomycin 1g qith HD and cefepime 2g with HD for 6 weeks Recommend surgical evaluation for possible abscess. wound care and tight glycemic control OK for DC from ID perspective when HD antibiotics arranged. Quiana Khalil MD [facility] O: [phone] F: [phone] Subjective Date of service: 05/12/21 Interval history: Afebrile, normal white count Objective - Exam Narrative Exam: Physical Exam: Constitutional: Alert, cooperative. No acute distress Head, Ears, Nose: Normocephalic, atraumatic. External ears, nose normal Eyes: Conjunctivae/corneas clear. No icterus. No ptosis. Neck: Supple, no meningeal signs Cardiovascular: S1, S2 + Respiratory: Good air entry, clear to auscultation bilaterally GI: Soft, non-tender; bowel sounds normal. No peritoneal signs Musculoskeletal: R BKA dressing + Skin: No rash or abscess Hem/Lymphatic: No palpable cervical or supraclavicular nodes. No lymphangitis Psych: Mood ok. Affect normal Neurological: Awake, alert, oriented. No gross abnormality - Constitutional Vitals: Vital Signs Temp Pulse Resp BP Pulse Ox 98.8 F 83 17 150/54 98 05/11/21 17:12 05/11/21 17:12 05/12/21 03:57 05/11/21 17:12 05/12/21 03:57 Temperature -Last 24 Hours Temperature 98.8 F Temperature 98.2 F Temperature 98.2 F - Labs CBC & Chem 7: 05/12/21 05:40 05/12/21 05:40 Labs: Abnormal lab results 05/11/21 05/11/21 05/11/21 Range/Units 09:24 16:53 22:12 RBC (3.65-5.03) M/mm3 Hgb (10.1-14.3) gm/dl Hct (30.3-42.9) % MCV (79-97) fl MCHC (30-34) % RDW (13.2-15.2) % Sodium (137-145) mmol/L Chloride (98-107) mmol/L BUN (7-17) mg/dL Creatinine 5.0 H (0.6-1.2) mg/dL Glucose (65-100) mg/dL POC Glucose 284 H 253 H (70-105) mg/dL Calcium (8.4-10.2) mg/dL 05/12/21 05/12/21 05/12/21 Range/Units 05:40 05:40 07:35 RBC 2.83 L (3.65-5.03) M/mm3 Hgb 8.4 L (10.1-14.3) gm/dl Hct 29.5 L (30.3-42.9) % MCV 104 H (79-97) fl MCHC 28 L (30-34) % RDW 25.9 H (13.2-15.2) % Sodium 135 L (137-145) mmol/L Chloride 96.8 L (98-107) mmol/L BUN 30 H (7-17) mg/dL Creatinine 3.3 H (0.6-1.2) mg/dL Glucose 127 H (65-100) mg/dL POC Glucose 116 H (70-105) mg/dL Calcium 8.0 L (8.4-10.2) mg/dL
[2021-05-12 10:54] LABS: Anisocytosis 2+; Hypochromasia Few; Platelet Estimate Consistent w Auto; Total Cells Counted 100
[2021-05-12] MEDS: METOCLOPRAMIDE 10 MG/2 ML INJ IV SCH (10:57)
[2021-05-12] MEDS: MAGNESIUM OXIDE 400 MG TAB PO SCH (10:58)
[2021-05-12] MEDS: ASPIRIN 81 MG TAB CHEW PO SCH (10:58)
[2021-05-12] MEDS: amLODIPine 10 MG TAB PO SCH (10:58)
[2021-05-12] MEDS: CLOPIDOGREL 75 MG TAB PO SCH (10:58)
[2021-05-12] MEDS: METOPROLOL SUCCINATE XL 50 MG TAB PO SCH (10:58)
[2021-05-12] MEDS: INSULIN NPH, HUMAN 100 UNIT/1 ML SUB-Q SCH (10:59)
--- NOTE | 2021-05-21 10:07 | Electrocardiograph Report ---
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
== END 2021-05-12 17:25 | disposition home health service (06) | DRG 492 ==
LOC: ED 06:03 → OBSVTOIN 07:47 → 3A 07:47 → UNDOADMOB 10:39 → 3A 10:39
PROVIDERS: ADMIT Student in an Organized Health Care Education/Training Program; ATTEND Student in an Organized Health Care Education/Training Program
PROC: 4A033R1 Measurement of Arterial Saturation, Peripheral, Percutaneous Approach (ICD-10-PCS; 2021-05-04)
PROC: 5A1D70Z Performance of Urinary Filtration, Intermittent, Less than 6 Hours Per Day (ICD-10-PCS; principal; 2021-05-06)
PROC: 0QBG0ZZ Excision of Right Tibia, Open Approach (ICD-10-PCS; 2021-05-07)
PROC: 5A1D70Z Performance of Urinary Filtration, Intermittent, Less than 6 Hours Per Day (ICD-10-PCS; 2021-05-08)
PROC: 5A1D70Z Performance of Urinary Filtration, Intermittent, Less than 6 Hours Per Day (ICD-10-PCS; 2021-05-11)
DX: T87.43 Infection of amputation stump, right lower extremity (principal); A41.9 Sepsis, unspecified organism; N18.6 End stage renal disease; J96.01 Acute respiratory failure with hypoxia; I13.2 Hypertensive heart and chronic kidney disease with heart failure and with stage 5 chronic kidney disease, or end stage renal disease; E46 Unspecified protein-calorie malnutrition; Z99.2 Dependence on renal dialysis; D63.1 Anemia in chronic kidney disease; Z20.822 Contact with and (suspected) exposure to COVID-19; Z86.73 Personal history of transient ischemic attack (TIA), and cerebral infarction without residual deficits; I50.9 Heart failure, unspecified; K21.9 Gastro-esophageal reflux disease without esophagitis; E11.22 Type 2 diabetes mellitus with diabetic chronic kidney disease; E11.40 Type 2 diabetes mellitus with diabetic neuropathy, unspecified; Z79.82 Long term (current) use of aspirin; Z90.49 Acquired absence of other specified parts of digestive tract; D64.9 Anemia, unspecified; E11.51 Type 2 diabetes mellitus with diabetic peripheral angiopathy without gangrene; Z68.30 Body mass index [BMI] 30.0-30.9, adult; Y83.8 Other surgical procedures as the cause of abnormal reaction of the patient, or of later complication, without mention of misadventure at the time of the procedure
CPT/HCPCS: 36415; 36600; 71045; 73721; 80048; 80061; 80074; 80202; 82140; 82550; 82805; 82962; 83036; 83735; 84100; 84134; 84484; 85007; 85025; 85027; 85610; 87040; 87075; 87116; 93005; 94660; 94760; G0378; J0692; J0885; J1450; J1644; J1815; J1940; J2060; J2270; J2405; J2765; J3370; J7040; U0003

== ENCOUNTER 2021-05-16 23:38 | Inpatient (IN) | payer MEDICARE ==
--- NOTE | 2021-05-17 00:20 | Emergency Department Report ---
ED Shortness of Breath HPI - General Stated Complaint: SHORTNESS OF BREATH Time Seen by Provider: 05/17/21 00:05 - History of Present Illness Initial Comments: 56-year-old female, history of CHF, ESRD ([facility] dialysis schedule), diabetes, hypertension, presents to ED with shortness of breath x2 days. Patient reports it is worse with supine position. She denies any chest pain, fever, cough. Patient was last dialyzed on yesterday. Patient is currently 85% on room air. Automotive Refinisher: Selin Nephrology: Moise BARRAGAN Complaint: shortness of breath -: Last night Severity: moderate Consistency: intermittent Improves With: upright position Worsens With: lying flat Known History Of: congestive heart failure, other (ESRD) Treatments Prior to Arrival: oxygen - Related Data Home Medications Medication Instructions Recorded Confirmed Last Taken AtorvaSTATin [Lipitor] 80 mg PO QHS 02/20/21 05/05/21 03/09/21 Insulin Lispro [Humalog] See Protocol SUB-Q ACHS 02/20/21 05/05/21 03/08/21 Previous Rx's Medication Instructions Recorded Last Taken Type Aspirin [Aspirin BABY CHEW TAB] 81 mg PO QDAY #30 tab.chew 05/16/20 03/08/21 Rx Linaclotide [Linzess] 72 mcg PO QDAY #30 cap 05/16/20 2 Days Ago Rx ~03/08/21 Clopidogrel [Plavix] 75 mg PO QDAY #90 tablet 03/10/21 Unknown Rx Aspirin [Aspirin BABY CHEW TAB] 81 mg PO QDAY 30 Days #30 tab.chew 05/12/21 Unknown Rx AtorvaSTATin [Lipitor] 80 mg PO QHS 30 Days #30 tablet 05/12/21 Unknown Rx Clopidogrel [Plavix] 75 mg PO QDAY 30 Days #30 tablet 05/12/21 Unknown Rx Insulin NPH, Human [NovoLIN N] 8 unit SUB-Q BIDDIAB 30 Days #500 05/12/21 Unknown Rx units Lancets/Blood Glucose Strips 1 each MC DAILY 30 Days #1 05/12/21 Unknown Rx [Gojji Lancet 30G-Gluc Tst Strp] combo..pkg Lispro Insulin [HumaLOG] 0 unit SUB-Q ACHS units 05/12/21 Unknown Rx Magnesium Oxide [Mag-Ox] 400 mg PO BID 30 Days #60 tablet 05/12/21 Unknown Rx Metoprolol Xl [Metoprolol 50 mg PO QDAY 30 Days #30 tablet 05/12/21 Unknown Rx SUCCINATE ER TAB] Syringe with Needle, 5 ml 1 each MC BID 30 Days #60 05/12/21 Unknown Rx [Luer-Chase Syringe-Needle] disp.syrin amLODIPine 10 mg PO QDAY 30 Days #30 tablet 05/12/21 Unknown Rx Allergies Allergy/AdvReac Type Severity Reaction Status Date / Time Penicillins AdvReac Swelling Verified 05/17/21 03:10 ED Review of Systems ROS: Stated complaint: SHORTNESS OF BREATH Other details as noted in HPI Comment: All other systems reviewed and negative Constitutional: denies: fever Respiratory: orthopnea, shortness of breath. denies: cough Cardiovascular: denies: chest pain ED Past Medical Hx - Past Medical History Hx Hypertension: Yes Hx CVA: Yes (2010 no deficiets) Hx Heart Attack/AMI: No Hx Congestive Heart Failure: Yes Hx Diabetes: Yes Hx GERD: Yes (2012) Hx Liver Disease: No Hx Renal Disease: Yes (DIALYSIS- MWF) Hx Sickle Cell Disease: No Hx Arthritis: Yes (LT SIDE BODY AND SHOULDER) Hx Headaches / Migraines: No Hx Seizures: No Hx Kidney Stones: No Hx Asthma: No Hx COPD: No Hx Tuberculosis: No Hx HIV: No Additional medical history: neuropathy. Denied history of VTE - Surgical History Hx Pacemaker: No Hx Internal Defibrillator: No Hx Cholecystectomy: Yes Additional Surgical History: ; rt knee surgery 2013 - Social History Smoking Status: Never Smoker - Medications Home Medications: Home Medications Medication Instructions Recorded Confirmed Last Taken Type Aspirin [Aspirin BABY CHEW TAB] 81 mg PO QDAY #30 tab.chew 05/16/20 05/05/21 03/08/21 Rx Linaclotide [Linzess] 72 mcg PO QDAY #30 cap 05/16/20 05/05/21 2 Days Ago Rx ~03/08/21 AtorvaSTATin [Lipitor] 80 mg PO QHS 02/20/21 05/05/21 03/09/21 History Insulin Lispro [Humalog] See Protocol SUB-Q ACHS 02/20/21 05/05/21 03/08/21 History Clopidogrel [Plavix] 75 mg PO QDAY #90 tablet 03/10/21 05/05/21 Unknown Rx Aspirin [Aspirin BABY CHEW TAB] 81 mg PO QDAY 30 Days #30 tab.chew 05/12/21 Unknown Rx AtorvaSTATin [Lipitor] 80 mg PO QHS 30 Days #30 tablet 05/12/21 Unknown Rx Clopidogrel [Plavix] 75 mg PO QDAY 30 Days #30 tablet 05/12/21 Unknown Rx Insulin NPH, Human [NovoLIN N] 8 unit SUB-Q BIDDIAB 30 Days #500 05/12/21 Unknown Rx units Lancets/Blood Glucose Strips 1 each MC DAILY 30 Days #1 05/12/21 Unknown Rx [Gojji Lancet 30G-Gluc Tst Strp] combo..pkg Lispro Insulin [HumaLOG] 0 unit SUB-Q ACHS units 05/12/21 Unknown Rx Magnesium Oxide [Mag-Ox] 400 mg PO BID 30 Days #60 tablet 05/12/21 Unknown Rx Metoprolol Xl [Metoprolol 50 mg PO QDAY 30 Days #30 tablet 05/12/21 Unknown Rx SUCCINATE ER TAB] Syringe with Needle, 5 ml 1 each MC BID 30 Days #60 05/12/21 Unknown Rx [Luer-Chase Syringe-Needle] disp.syrin amLODIPine 10 mg PO QDAY 30 Days #30 tablet 05/12/21 Unknown Rx ED Physical Exam - General General appearance: alert - Head Head exam: Present: atraumatic, normocephalic - Eye Eye exam: Present: normal appearance, EOMI - ENT ENT exam: Present: mucous membranes moist - Neck Neck exam: Present: normal inspection - Respiratory Respiratory exam: Present: respiratory distress, rales, other (Slightly tachypneic) - Cardiovascular Cardiovascular Exam: Present: regular rate, normal rhythm - GI/Abdominal GI/Abdominal exam: Present: soft. Absent: distended, tenderness - Extremities Exam Extremities exam: Present: other (Right BKA present with open wound to the stump) - Neurological Exam Neurological exam: Present: alert, oriented X3 - Psychiatric Psychiatric exam: Present: normal affect, normal mood - Skin Skin exam: Present: warm, dry, intact, normal color ED Course Vital Signs 05/17/21 05/17/21 05/17/21 00:15 00:20 00:31 Temperature 99.2 F Pulse Rate 92 H 93 H 91 H Respiratory 19 19 34 H Rate Blood Pressure 143/61 153/59 Blood Pressure 143/61 [Left] O2 Sat by Pulse 92 100 100 Oximetry 05/17/21 05/17/21 05/17/21 00:45 01:01 01:15 Temperature Pulse Rate 93 H 90 92 H Respiratory 18 31 H 23 Rate Blood Pressure 150/59 148/61 147/56 Blood Pressure [Left] O2 Sat by Pulse 100 100 100 Oximetry 05/17/21 05/17/21 05/17/21 01:31 01:45 02:01 Temperature Pulse Rate 90 89 91 H Respiratory 13 28 H 14 Rate Blood Pressure 147/51 142/51 148/61 Blood Pressure [Left] O2 Sat by Pulse 97 99 97 Oximetry 05/17/21 05/17/21 05/17/21 02:15 02:31 03:01 Temperature Pulse Rate 92 H 94 H 96 H Respiratory 32 H 35 H 36 H Rate Blood Pressure 156/59 155/66 156/76 Blood Pressure [Left] O2 Sat by Pulse 94 92 99 Oximetry 05/17/21 05/17/21 05/17/21 03:15 03:31 04:48 Temperature Pulse Rate 95 H 96 H Respiratory 39 H 40 H 18 Rate Blood Pressure 164/63 173/70 Blood Pressure [Left] O2 Sat by Pulse 99 97 Oximetry ED Medical Decision Making - Lab Data Result diagrams: 05/17/21 00:27 05/17/21 00:27 - EKG Data -: EKG Interpreted by Mt EKG shows normal: sinus rhythm, axis, intervals, QRS complexes Rate: normal - EKG Data Interpretation: nonspecific ST-T wave marielena - Radiology Data Radiology results: report reviewed, image reviewed - Medical Decision Making 56-year-old female presents to ED with complaint of orthopnea. Patient has rales on exam. O2 sats 85% on room air. Patient currently on nonrebreather. She does not appear to be in any respiratory distress. She was slightly tachypneic upon arrival, however this has resolved. Chest x-ray shows worsening multifocal airspace opacities as compared to chest x-ray from almost 2 weeks ago. At that time patient underwent COVID-19 testing and it was negative. Patient has an BNP of 13,000, symptoms likely secondary to pulmonary edema. Patient given a dose of Lasix for diuresis as she reports that she is not anuric. Patient will be admitted to hospitalist, Dr. Wilson, for further management. - Differential Diagnosis Pulmonary edema, pneumonia Critical Care Time: Yes Critical care attestation.: If time is entered above; I have spent that time in minutes in the direct care of this critically ill patient, excluding procedure time. ED Disposition Clinical Impression: Acute respiratory failure with hypoxia, Pulmonary edema Disposition: ADMITTED INPATIENT Is pt being admited?: Yes Condition: Stable Time of Disposition: 01:54
--- NOTE | 2021-05-17 00:46 | XRay Report ---
CHEST 1 VIEW 05/16/2021 11:36 PM INDICATION / CLINICAL INFORMATION: SOB. COMPARISON: 05/04/2021 FINDINGS: SUPPORT DEVICES: None. HEART / MEDIASTINUM: No significant abnormality. LUNGS / PLEURA: There is interval worsening of multifocal airspace opacities. No pneumothorax. ADDITIONAL FINDINGS: No significant additional findings. IMPRESSION: 1. Interval worsening of multifocal airspace opacities. Signer Name: Manoj Rush DO Signed: 05/17/2021 12:42 AM Workstation Name: [id number]
[2021-05-17 01:02] LABS: Basophils # (Auto) 0.2 K/mm3 (0.0-0.1); Basophils % (Auto) 1.1 % (0.0-1.8); Eosinophils # (Auto) 0.1 K/mm3 (0.0-0.4); Eosinophils % (Auto) 0.6 % (0.0-4.3); Hematocrit 26.8 % (30.3-42.9); Hemoglobin 8.6 gm/dl (10.1-14.3); Lymphocytes # (Auto) 1.2 K/mm3 (1.2-5.4); Lymphocytes % (Auto) 8.6 % (13.4-35.0); Mean Corpuscular HGB Conc 32 % (30-34); Mean Corpuscular Volume 92 fl (79-97); Monocytes # (Auto) 0.8 K/mm3 (0.0-0.8); Platelet Count 179 K/mm3 (140-440); Red Blood Count 2.93 M/mm3 (3.65-5.03)
[2021-05-17 01:03] LABS: Calcium 8.7 mg/dL (8.4-10.2)
[2021-05-17 01:07] LABS: Alanine Aminotransferase 11 units/L (7-56); Albumin 3.2 g/dL (3.9-5)
[2021-05-17 01:10] LABS: INR 1.07 (0.87-1.13)
[2021-05-17 01:12] LABS: Red Cell Distribution Width 22.9 % (13.2-15.2)
[2021-05-17 01:14] LABS: Bilirubin,Direct < 0.2 mg/dL (0-0.2)
[2021-05-17] MEDS ORDERED: FUROSEMIDE 40 MG/4 ML INJ IV ONE (01:50)
[2021-05-17] MEDS ORDERED: ONDANSETRON 4 MG/2 ML INJ IV PRN (02:07)
[2021-05-17] MEDS ORDERED: NALOXONE 0.4 MG/1 ML INJ IV PRN (02:07)
[2021-05-17] MEDS ORDERED: MORPHINE 2 MG/1 ML INJ IV PRN (02:07)
[2021-05-17] MEDS ORDERED: ALUM-MAG HYDROXIDE-SIMETHICONE 200-200-20MG/5ML ORAL LIQD 30 ML PO PRN (02:07)
[2021-05-17] MEDS ORDERED: MAGNESIUM HYDROXIDE (MOM) ORAL LIQD UDC PO PRN (02:07)
[2021-05-17] MEDS ORDERED: ACETAMINOPHEN 325 MG TAB PO PRN (02:07)
[2021-05-17] MEDS ORDERED: SENNOSIDES 8.6 MG TAB PO PRN (02:07)
[2021-05-17 02:21] LABS: Chol/HDL Ratio 2.21 %
--- NOTE | 2021-05-17 02:33 | History and Physical Report ---
History of Present Illness Date of examination: 05/17/21 Date of admission: Chief complaint: Shortness of breath with hypoxia History of present illness: This is a 56-year-old female seen in ED at bedside. Patient was recently discharged from hospital. She has history of CHF, ESRD ([facility] dialysis schedule), diabetes, hypertension and she presents to ED with shortness of breath x2 days. Patient reports it is worse with supine position. She denies any chest pain. Patient was last dialyzed on yesterday. Patient is currently rebreather mask at the time of this assessment. She admits tobacco use but denies chronic alcohol and illicit drug use. Chest x-ray showed worsening of multifocal airspace opacities. Past History Past Medical History: diabetes, ESRD, heart failure, hypertension, hyperlipidemia Social history: lives with family, smoking, full code. denies: alcohol abuse, prescription drug abuse, IV drug use Family history: no significant family history Medications and Allergies Allergies Allergy/AdvReac Type Severity Reaction Status Date / Time Penicillins AdvReac Swelling Verified 05/04/21 06:09 Home Medications Medication Instructions Recorded Confirmed Last Taken Type Aspirin [Aspirin BABY CHEW TAB] 81 mg PO QDAY #30 tab.chew 05/16/20 05/05/21 03/08/21 Rx Linaclotide [Linzess] 72 mcg PO QDAY #30 cap 05/16/20 05/05/21 2 Days Ago Rx ~03/08/21 AtorvaSTATin [Lipitor] 80 mg PO QHS 02/20/21 05/05/21 03/09/21 History Insulin Lispro [Humalog] See Protocol SUB-Q ACHS 02/20/21 05/05/21 03/08/21 History Clopidogrel [Plavix] 75 mg PO QDAY #90 tablet 03/10/21 05/05/21 Unknown Rx Aspirin [Aspirin BABY CHEW TAB] 81 mg PO QDAY 30 Days #30 tab.chew 05/12/21 Unknown Rx AtorvaSTATin [Lipitor] 80 mg PO QHS 30 Days #30 tablet 05/12/21 Unknown Rx Clopidogrel [Plavix] 75 mg PO QDAY 30 Days #30 tablet 05/12/21 Unknown Rx Insulin NPH, Human [NovoLIN N] 8 unit SUB-Q BIDDIAB 30 Days #500 05/12/21 Unknown Rx units Lancets/Blood Glucose Strips 1 each MC DAILY 30 Days #1 05/12/21 Unknown Rx [Gojji Lancet 30G-Gluc Tst Strp] combo..pkg Lispro Insulin [HumaLOG] 0 unit SUB-Q ACHS units 05/12/21 Unknown Rx Magnesium Oxide [Mag-Ox] 400 mg PO BID 30 Days #60 tablet 05/12/21 Unknown Rx Metoprolol Xl [Metoprolol 50 mg PO QDAY 30 Days #30 tablet 05/12/21 Unknown Rx SUCCINATE ER TAB] Syringe with Needle, 5 ml 1 each MC BID 30 Days #60 05/12/21 Unknown Rx [Luer-Chase Syringe-Needle] disp.syrin amLODIPine 10 mg PO QDAY 30 Days #30 tablet 05/12/21 Unknown Rx Active Meds: Active Medications Acetaminophen (Acetaminophen 325 Mg Tab) 650 mg PO Q4H PRN PRN Reason: Pain MILD(1-3)/Fever >100.5/MARIE Al Hydrox/Mg Hydrox/Simethicone (Alum-Mag Hydroxide-Simethicone [phone]/5ml Oral Liqd 30 Ml) 30 ml PO Q4H PRN PRN Reason: Indigestion Amlodipine Besylate (Amlodipine 10 Mg Tab) 10 mg PO QDAY [facility] Aspirin (Aspirin 81 Mg Tab Chew) 81 mg PO QDAY [facility] Atorvastatin Calcium (Atorvastatin 40 Mg Tab) 80 mg PO QHS [facility] Clopidogrel Bisulfate (Clopidogrel 75 Mg Tab) 75 mg PO QDAY [facility] Cefepime HCl (Cefepime/Ns 2 Gm/100 Ml) 2 gm in 100 mls @ 200 mls/hr IV Q12H [facility]; Protocol Insulin Human Lispro (Insulin Lispro 100 Unit/Ml) 0 unit SUB-Q ACHS [facility]; Protocol Insulin Human NPH (Insulin Nph, Human 100 Unit/1 Ml) 8 unit SUB-Q BIDDIAB [facility] Magnesium Hydroxide (Magnesium Hydroxide (Mom) Oral Liqd Udc) 30 ml PO Q4H PRN PRN Reason: Constipation Metoprolol Succinate (Metoprolol Succinate Xl 50 Mg Tab) 50 mg PO QDAY [facility] Morphine Sulfate (Morphine 2 Mg/1 Ml Inj) 2 mg IV Q4H PRN PRN Reason: Pain, Moderate (4-6) Morphine Sulfate (Morphine 4 Mg/1 Ml Inj) 4 mg IV Q4H PRN PRN Reason: Pain , Severe (7-10) Naloxone HCl (Naloxone 0.4 Mg/1 Ml Inj) 0.1 mg IV Q2MIN PRN PRN Reason: Res Rate </= 8 or 02 SAT < 92% Ondansetron HCl (Ondansetron 4 Mg/2 Ml Inj) 4 mg IV Q8H PRN PRN Reason: Nausea And Vomiting Oxycodone/Acetaminophen (Oxycodone /Acetaminophen 5-325mg Tab) 1 tab PO Q6H PRN PRN Reason: Pain, Moderate (4-6) Senna (Sennosides 8.6 Mg Tab) 8.6 mg PO Q12HR PRN PRN Reason: Constipation Sodium Chloride (Sodium Chloride 0.9% 10 Ml Flush Syringe) 10 ml IV BID [facility] Review of Systems Constitutional: fatigue, weakness Ears, nose, mouth and throat: no epistaxis, no bleeding gums Cardiovascular: dyspnea on exertion, high blood pressure Respiratory: shortness of breath Rectal: no itching, no hemorrhoids Integumentary: no rash, no pruritis, no redness Psychiatric: anxiety Hematologic/Lymphatic: no easy bruising, no easy bleeding, no lymphadenopathy, no lymphedema Allergic/Immunologic: no urticaria Exam - Constitutional Vitals: Temp Pulse Resp BP Pulse Ox 99.2 F 89 28 H 142/51 99 05/17/21 00:20 05/17/21 01:45 05/17/21 01:45 05/17/21 01:45 05/17/21 01:45 General appearance: Present: mild distress, well-nourished - EENT Eyes: Present: PERRL ENT: hearing intact, clear oral mucosa - Neck Neck: Present: supple, normal ROM - Respiratory Respiratory effort: labored, accessory muscle use Respiratory: bilateral: CTA, diminished - Cardiovascular Heart Sounds: Present: S1 & S2. Absent: rub, click - Extremities Extremities: pulses symmetrical, No edema Peripheral Pulses: within normal limits - Abdominal General gastrointestinal: Present: soft, non-tender, non-distended, normal bowel sounds Female genitourinary: Present: normal - Integumentary Integumentary: Present: clear, warm, dry - Musculoskeletal Musculoskeletal: gait normal, strength equal bilaterally - Psychiatric Psychiatric: appropriate mood/affect, intact judgment & insight, cooperative - Neurologic Neurologic: CNII-XII intact, moves all extremities - Allied Health Allied health notes reviewed: nursing HEART Score - HEART Score Troponin: Troponin T 0.075 ng/mL (0.00-0.029) H 05/17/21 00:27 Results - Labs CBC & Chem 7: 05/17/21 00:27 05/17/21 00:27 Labs: Abnormal lab results 05/17/21 05/17/21 05/17/21 Range/Units 00:27 00:27 00:27 WBC 14.0 H (4.5-11.0) K/mm3 RBC 2.93 L (3.65-5.03) M/mm3 Hgb 8.6 L (10.1-14.3) gm/dl Hct 26.8 L (30.3-42.9) % RDW 22.9 H (13.2-15.2) % Lymph % (Auto) 8.6 L (13.4-35.0) % Baso # (Auto) 0.2 H (0.0-0.1) K/mm3 Seg Neutrophils % 83.7 H (40.0-70.0) % Seg Neutrophils # 11.7 H (1.8-7.7) K/mm3 PT 15.1 H (12.2-14.9) Sec. BUN 26 H (7-17) mg/dL Creatinine 3.3 H (0.6-1.2) mg/dL Glucose 212 H (65-100) mg/dL Troponin T 0.075 H (0.00-0.029) ng/mL NT-Pro-B Natriuret Pep (0-900) pg/mL Albumin (3.9-5) g/dL LDL Cholesterol Direct 46 L (50-130) mg/dL 05/17/21 Range/Units 00:27 WBC (4.5-11.0) K/mm3 RBC (3.65-5.03) M/mm3 Hgb (10.1-14.3) gm/dl Hct (30.3-42.9) % RDW (13.2-15.2) % Lymph % (Auto) (13.4-35.0) % Baso # (Auto) (0.0-0.1) K/mm3 Seg Neutrophils % (40.0-70.0) % Seg Neutrophils # (1.8-7.7) K/mm3 PT (12.2-14.9) Sec. BUN (7-17) mg/dL Creatinine (0.6-1.2) mg/dL Glucose (65-100) mg/dL Troponin T (0.00-0.029) ng/mL NT-Pro-B Natriuret Pep 65648 H (0-900) pg/mL Albumin 3.2 L (3.9-5) g/dL LDL Cholesterol Direct (50-130) mg/dL Assessment and Plan - Patient Problems (1) Acute respiratory failure with hypoxia Current Visit: No Status: Acute Plan to address problem: Respiratory care bronchodilator with Continue oxygen supplement, ABG [employer] consulted Chest x-ray showed worsening of multifocal airspace opacities. (2) ESRD (end stage renal disease) on dialysis Current Visit: No Status: Acute Plan to address problem: Consult placed to nephrology for dialysis. Patient gets dialysis on Mondays, Wednesdays and Fridays. (3) Pneumonia Current Visit: No Status: Acute Plan to address problem: Patient is recently discharged from the hospital CT of the chest showed worsening lung opacity Start cefepime and consult pharmacy for vancomycin dosing (4) Diabetes mellitus Current Visit: No Status: Acute Plan to address problem: We will monitor Accu-Cheks with sliding scale protocol Resume home antiglycemic agents (5) Hypertension Current Visit: No Status: Acute Plan to address problem: Monitor blood pressure Resume home antihypertensive. (6) PAD (peripheral artery disease) Current Visit: No Status: Acute Plan to address problem: Resume home statin (7) Acute on chronic diastolic (congestive) heart failure Current Visit: No Status: Acute Plan to address problem: Continue cardioprotective protective measures Beta-lea, statin, and antiplatelet (8) DVT prophylaxis Current Visit: No Status: Acute Plan to address problem: Subcutaneous heparin
[2021-05-17] MEDS ORDERED: VANCOMYCIN PHARMACY TO DOSE IV SCH (03:00)
[2021-05-17] MEDS ORDERED: VANCOMYCIN 1,750 MG in SODIUM CHLORIDE 0.9% 500 ML 500 ML IV ONE (03:10)
[2021-05-17] MEDS: MORPHINE 4 MG/1 ML INJ IV PRN ×2 (04:42→21:55)
[2021-05-17] MEDS: oxyCODONE /ACETAMINOPHEN 5-325MG TAB PO PRN ×2 (04:48→14:57)
[2021-05-17] MEDS ORDERED: CEFEPIME/NS 2 GM/100 ML 2 GM/100 ML BAG IV SCH (06:00)
[2021-05-17] MEDS: INSULIN LISPRO 100 UNIT/ML SUB-Q SCH ×4 (08:32→21:43)
[2021-05-17] MEDS: amLODIPine 10 MG TAB PO SCH (10:12)
[2021-05-17] MEDS: HEPARIN 5,000 UNIT/1 ML VIAL SUB-Q SCH ×2 (10:12→21:42)
[2021-05-17] MEDS: CLOPIDOGREL 75 MG TAB PO SCH (10:12)
[2021-05-17] MEDS: ASPIRIN 81 MG TAB CHEW PO SCH (10:12)
[2021-05-17] MEDS: METOPROLOL SUCCINATE XL 50 MG TAB PO SCH (10:12)
--- NOTE | 2021-05-17 10:17 | Event Note ---
Date: 05/17/21 Patient seen and examined 50 minutes of tobacco cessation counseling done fever verbalized understanding. Will obtain ID consult to assist with IV antibiotics as patient states that she does not believe she got appropriate dose of IV antibiotics at her dialysis center. Chest x-ray reviewed shows bilateral infiltrates discussed with the patient she remains on nonrebreather at this time if no improvement in a.m. we will obtain pulmonary consultation.
--- NOTE | 2021-05-17 13:09 | Consultation ---
History of Present Illness - Reason for Consult Consult date: 05/17/21 end stage renal disease - History of Present Illness The patient is a 56 YO female well known to our service with history significant for DM type 2, HTN, Asthma, Anemia, HFpEF, Tobacco use, ESRD on HD (MWF) and recent R BKA who presented to [facility] ED 05/17 with c/o worsening sob. The symptoms started yesterday but got worse later in the day prompted her come to the ED. Patient reports orthopnea. She denies any chest pain, fever, chills, chest pain, abdominal pain, dizziness or syncope. Patient was last dialyzed 2 days ago. Patient was on NRB mask at the time of this assessment. She admits tobacco use but denies alcohol and illicit drug use. Chest x-ray showed worsening of multifocal airspace opacities. Labs reviewed. Pt was admitted for further evaluation. Nephrology was consulted for ESRD management. Past History Past Medical History: diabetes, ESRD, heart failure, hypertension, hyperlipidemia Social history: lives with family, smoking, full code. denies: alcohol abuse, prescription drug abuse, IV drug use Family history: no significant family history Medications and Allergies Allergies Allergy/AdvReac Type Severity Reaction Status Date / Time Penicillins AdvReac Swelling Verified 05/17/21 03:10 Home Medications Medication Instructions Recorded Confirmed Last Taken Type Aspirin [Aspirin BABY CHEW TAB] 81 mg PO QDAY #30 tab.chew 05/16/20 05/05/21 03/08/21 Rx Linaclotide [Linzess] 72 mcg PO QDAY #30 cap 05/16/20 05/05/21 2 Days Ago Rx ~03/08/21 AtorvaSTATin [Lipitor] 80 mg PO QHS 02/20/21 05/05/21 03/09/21 History Insulin Lispro [Humalog] See Protocol SUB-Q ACHS 02/20/21 05/05/21 03/08/21 History Clopidogrel [Plavix] 75 mg PO QDAY #90 tablet 03/10/21 05/05/21 Unknown Rx Aspirin [Aspirin BABY CHEW TAB] 81 mg PO QDAY 30 Days #30 tab.chew 05/12/21 Unknown Rx AtorvaSTATin [Lipitor] 80 mg PO QHS 30 Days #30 tablet 05/12/21 Unknown Rx Clopidogrel [Plavix] 75 mg PO QDAY 30 Days #30 tablet 05/12/21 Unknown Rx Insulin NPH, Human [NovoLIN N] 8 unit SUB-Q BIDDIAB 30 Days #500 05/12/21 Unkn own Rx units Lancets/Blood Glucose Strips 1 each MC DAILY 30 Days #1 05/12/21 Unknown Rx [Gojji Lancet 30G-Gluc Tst Strp] combo..pkg Lispro Insulin [HumaLOG] 0 unit SUB-Q ACHS units 05/12/21 Unknown Rx Magnesium Oxide [Mag-Ox] 400 mg PO BID 30 Days #60 tablet 05/12/21 Unknown Rx Metoprolol Xl [Metoprolol 50 mg PO QDAY 30 Days #30 tablet 05/12/21 Unknown Rx SUCCINATE ER TAB] Syringe with Needle, 5 ml 1 each MC BID 30 Days #60 05/12/21 Unknown Rx [Luer-Chase Syringe-Needle] disp.syrin amLODIPine 10 mg PO QDAY 30 Days #30 tablet 05/12/21 Unknown Rx Active Meds: Active Medications Acetaminophen (Acetaminophen 325 Mg Tab) 650 mg PO Q4H PRN PRN Reason: Pain MILD(1-3)/Fever >100.5/MARIE Al Hydrox/Mg Hydrox/Simethicone (Alum-Mag Hydroxide-Simethicone [phone]/5ml Oral Liqd 30 Ml) 30 ml PO Q4H PRN PRN Reason: Indigestion Amlodipine Besylate (Amlodipine 10 Mg Tab) 10 mg PO QDAY [facility] Last Admin: 05/17/21 10:12 Dose: 10 mg Documented by: Aspirin (Aspirin 81 Mg Tab Chew) 81 mg PO QDAY [facility] Last Admin: 05/17/21 10:12 Dose: 81 mg Documented by: Atorvastatin Calcium (Atorvastatin 40 Mg Tab) 80 mg PO QHS [facility] Clopidogrel Bisulfate (Clopidogrel 75 Mg Tab) 75 mg PO QDAY [facility] Last Admin: 05/17/21 10:12 Dose: 75 mg Documented by: Heparin Sodium (Porcine) (Heparin 5,000 Unit/1 Ml Vial) 5,000 unit SUB-Q Q12HR [facility] Last Admin: 05/17/21 10:12 Dose: 5,000 unit Documented by: Cefepime HCl 0.5 gm/ Sodium (Chloride) 100 mls @ 200 mls/hr IV Q24H [facility] Insulin Human Lispro (Insulin Lispro 100 Unit/Ml) 0 unit SUB-Q ACHS [facility]; Protocol Last Admin: 05/17/21 11:50 Dose: 2 unit Documented by: Insulin Human NPH (Insulin Nph, Human 100 Unit/1 Ml) 8 unit SUB-Q BIDDIAB [facility] Magnesium Hydroxide (Magnesium Hydroxide (Mom) Oral Liqd Udc) 30 ml PO Q4H PRN PRN Reason: Constipation Metoprolol Succinate (Metoprolol Succinate Xl 50 Mg Tab) 50 mg PO QDAY@0800 [facility] Last Admin: 05/17/21 10:12 Dose: 50 mg Documented by: Morphine Sulfate (Morphine 2 Mg/1 Ml Inj) 2 mg IV Q4H PRN PRN Reason: Pain, Moderate (4-6) Morphine Sulfate (Morphine 4 Mg/1 Ml Inj) 4 mg IV Q4H PRN PRN Reason: Pain , Severe (7-10) Naloxone HCl (Naloxone 0.4 Mg/1 Ml Inj) 0.1 mg IV Q2MIN PRN PRN Reason: Res Rate </= 8 or 02 SAT < 92% Ondansetron HCl (Ondansetron 4 Mg/2 Ml Inj) 4 mg IV Q8H PRN PRN Reason: Nausea And Vomiting Oxycodone/Acetaminophen (Oxycodone /Acetaminophen 5-325mg Tab) 1 tab PO Q6H PRN PRN Reason: Pain, Moderate (4-6) Last Admin: 05/17/21 04:48 Dose: 1 tab Documented by: Senna (Sennosides 8.6 Mg Tab) 8.6 mg PO Q12HR PRN PRN Reason: Constipation Sodium Chloride (Sodium Chloride 0.9% 10 Ml Flush Syringe) 10 ml IV BID [facility] Last Admin: 05/17/21 10:13 Dose: Not Given Documented by: Exam - Vital Signs Vital signs: Vital Signs Pulse Resp BP Pulse Ox 92 H 19 143/61 92 05/17/21 00:15 05/17/21 00:15 05/17/21 00:15 05/17/21 00:15 Results - Lab Results 05/17/21 00:27 05/17/21 00:27 Most recent lab results Calcium 8.7 mg/dL (8.4-10.2) 05/17/21 00:27 Assessment and Plan 1. ESRD: Patient is on maintenance hemodialysis three times a week, MWF schedule. Meds dosage based on GFR. Last outpatient HD 05/16. Hemodialysis: today. 2. FEN: Volume overload, UF with HD as tolerated. Monitor lytes and volume status. 3. Acute hypoxic resp failure: CXR showed volume overload. Volume control thru HD. Currently on NRB. Followed by Pulmonary. 4. 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 Per ID 6 weeks of antibiotics with dialysis. 5. Anemia, POA: Epogen with HD as needed. Monitor. 6. Hypertension: Adjust meds as needed. Monitor. 7. DM type 2. 8. Counseled to quit smoking. Subjective: Patient was seen and examined at the bedside. General Appearance: General appearance: well-developed, appears stated age, slight resp distress, on NRB HEENT: ATNC, pupils equal Neck: trachea midline Respiratory: bilateral rales heard Heart: regular, S1S2, no murmur Abdomen: soft, bowel sounds heard, not tender Integumentary: R BKA stump large wound Neurologic: AO, able to move extremities Ext: R BKA stump wound, no edema Hemodialysis access: R arm AVG
--- NOTE | 2021-05-17 13:50 | Consultation ---
History of Present Illness Consult date: 05/17/21 Reason for consult: dyspnea, hypoxemia History of present illness: This is a 56-year-old female seen in ED at bedside. Patient was recently disc harged from hospital. She has history of CHF, ESRD ([facility] dialysis schedule), diabetes, hypertension and she presents to ED with shortness of breath x2 days. Patient reports it is worse with supine position. She denies any chest pain. Patient was last dialyzed on yesterday. Patient is currently rebreather mask at the time of this assessment. She admits tobacco use but denies chronic alcohol and illicit drug use. Chest x-ray showed worsening of multifocal airspace opacities suggestive of pulmonary edema. Patient has history of right BKA with stump is still healing. She denied any fever chills no significant cough. She has diabetes hypertension, congestive heart failure and end-stage renal disease on dialysis. Patient denied any snoring has not been diagnosed with obstructive sleep apnea. Past History Past Medical History: diabetes, ESRD, heart failure, hypertension, hyperlipidemia Social history: lives with family, smoking, full code. denies: alcohol abuse, prescription drug abuse, IV drug use Family history: no significant family history Medications and Allergies Allergies Allergy/AdvReac Type Severity Reaction Status Date / Time Penicillins AdvReac Swelling Verified 05/17/21 03:10 Home Medications Medication Instructions Recorded Confirmed Last Taken Type Aspirin [Aspirin BABY CHEW TAB] 81 mg PO QDAY #30 tab.chew 05/16/20 05/05/21 03/08/21 Rx Linaclotide [Linzess] 72 mcg PO QDAY #30 cap 05/16/20 05/05/21 2 Days Ago Rx ~03/08/21 AtorvaSTATin [Lipitor] 80 mg PO QHS 02/20/21 05/05/21 03/09/21 History Insulin Lispro [Humalog] See Protocol SUB-Q ACHS 02/20/21 05/05/21 03/08/21 Hi story Clopidogrel [Plavix] 75 mg PO QDAY #90 tablet 03/10/21 05/05/21 Unknown Rx Aspirin [Aspirin BABY CHEW TAB] 81 mg PO QDAY 30 Days #30 tab.chew 05/12/21 Unknown Rx AtorvaSTATin [Lipitor] 80 mg PO QHS 30 Days #30 tablet 05/12/21 Unknown Rx Clopidogrel [Plavix] 75 mg PO QDAY 30 Days #30 tablet 05/12/21 Unknown Rx Insulin NPH, Human [NovoLIN N] 8 unit SUB-Q BIDDIAB 30 Days #500 05/12/21 Unknown Rx units Lancets/Blood Glucose Strips 1 each MC DAILY 30 Days #1 05/12/21 Unknown Rx [Gojji Lancet 30G-Gluc Tst Strp] combo..pkg Lispro Insulin [HumaLOG] 0 unit SUB-Q ACHS units 05/12/21 Unknown Rx Magnesium Oxide [Mag-Ox] 400 mg PO BID 30 Days #60 tablet 05/12/21 Unknown Rx Metoprolol Xl [Metoprolol 50 mg PO QDAY 30 Days #30 tablet 05/12/21 Unknown Rx SUCCINATE ER TAB] Syringe with Needle, 5 ml 1 each MC BID 30 Days #60 05/12/21 Unknown Rx [Luer-Chase Syringe-Needle] disp.syrin amLODIPine 10 mg PO QDAY 30 Days #30 tablet 05/12/21 Unknown Rx Active Meds: Active Medications Acetaminophen (Acetaminophen 325 Mg Tab) 650 mg PO Q4H PRN PRN Reason: Pain MILD(1-3)/Fever >100.5/MARIE Al Hydrox/Mg Hydrox/Simethicone (Alum-Mag Hydroxide-Simethicone [phone]/5ml Oral Liqd 30 Ml) 30 ml PO Q4H PRN PRN Reason: Indigestion Amlodipine Besylate (Amlodipine 10 Mg Tab) 10 mg PO QDAY [facility] Last Admin: 05/17/21 10:12 Dose: 10 mg Documented by: Aspirin (Aspirin 81 Mg Tab Chew) 81 mg PO QDAY [facility] Last Admin: 05/17/21 10:12 Dose: 81 mg Documented by: Atorvastatin Calcium (Atorvastatin 40 Mg Tab) 80 mg PO QHS [facility] Clopidogrel Bisulfate (Clopidogrel 75 Mg Tab) 75 mg PO QDAY [facility] Last Admin: 05/17/21 10:12 Dose: 75 mg Documented by: Heparin Sodium (Porcine) (Heparin 5,000 Unit/1 Ml Vial) 5,000 unit SUB-Q Q12HR [facility] Last Admin: 05/17/21 10:12 Dose: 5,000 unit Documented by: Cefepime HCl 0.5 gm/ Sodium (Chloride) 100 mls @ 200 mls/hr IV Q24H [facility] Insulin Human Lispro (Insulin Lispro 100 Unit/Ml) 0 unit SUB-Q ACHS [facility]; Protocol Last Admin: 05/17/21 11:50 Dose: 2 unit Documented by: Insulin Human NPH (Insulin Nph, Human 100 Unit/1 Ml) 8 unit SUB-Q BIDDIAB [facility] Magnesium Hydroxide (Magnesium Hydroxide (Mom) Oral Liqd Udc) 30 ml PO Q4H PRN PRN Reason: Constipation Metoprolol Succinate (Metoprolol Succinate Xl 50 Mg Tab) 50 mg PO QDAY@0800 [facility] Last Admin: 05/17/21 10:12 Dose: 50 mg Documented by: Morphine Sulfate (Morphine 2 Mg/1 Ml Inj) 2 mg IV Q4H PRN PRN Reason: Pain, Moderate (4-6) Morphine Sulfate (Morphine 4 Mg/1 Ml Inj) 4 mg IV Q4H PRN PRN Reason: Pain , Severe (7-10) Naloxone HCl (Naloxone 0.4 Mg/1 Ml Inj) 0.1 mg IV Q2MIN PRN PRN Reason: Res Rate </= 8 or 02 SAT < 92% Ondansetron HCl (Ondansetron 4 Mg/2 Ml Inj) 4 mg IV Q8H PRN PRN Reason: Nausea And Vomiting Oxycodone/Acetaminophen (Oxycodone /Acetaminophen 5-325mg Tab) 1 tab PO Q6H PRN PRN Reason: Pain, Moderate (4-6) Last Admin: 05/17/21 04:48 Dose: 1 tab Documented by: Senna (Sennosides 8.6 Mg Tab) 8.6 mg PO Q12HR PRN PRN Reason: Constipation Sodium Chloride (Sodium Chloride 0.9% 10 Ml Flush Syringe) 10 ml IV BID [facility] Last Admin: 05/17/21 10:13 Dose: Not Given Documented by: Review of Systems All systems: negative Breasts: deferred Cardiovascular: shortness of breath, dyspnea on exertion, high blood pressure Respiratory: shortness of breath, dyspnea on exertion Musculoskeletal: prior amputations (Right BKA) Physical Examination Vital signs: Vital Signs Pulse Resp BP Pulse Ox 92 H 19 143/61 92 05/17/21 00:15 05/17/21 00:15 05/17/21 00:15 05/17/21 00:15 General appearance: no acute distress, other (Morbidly obese on nonrebreather mask) Eyes: non-icteric ENT: oropharynx moist, other (Somewhat crowded) Neck: supple, no lymphadenopathy Ascultation: Bilateral: rhonchi Cardiovascular: regular rate and rhythm Gastrointestinal: normoactive bowel sounds, soft, non-tender Extremities: no cyanosis, edema (1+ left lower extremity), other (Right BKA) Musculoskeletal: other (Right BKA) Gait: other normal mental status, CN II-XII normal mood appropriate Results - Laboratory Findings CBC and BMP: 05/17/21 00:27 05/17/21 00:27 PT/INR, D-dimer PT 15.1 Sec. (12.2-14.9) H 05/17/21 00:27 INR 1.07 (0.87-1.13) 05/17/21 00:27 Abnormal lab findings: Abnormal Labs 05/17/21 05/17/21 05/17/21 00:27 00:27 00:27 WBC 14.0 H RBC 2.93 L Hgb 8.6 L Hct 26.8 L RDW 22.9 H Lymph % (Auto) 8.6 L Baso # (Auto) 0.2 H Seg Neutrophils % 83.7 H Seg Neutrophils # 11.7 H PT 15.1 H BUN 26 H Creatinine 3.3 H Glucose 212 H POC Glucose Troponin T 0.075 H NT-Pro-B Natriuret Pep Albumin LDL Cholesterol Direct 46 L 05/17/21 05/17/21 05/17/21 00:27 07:23 11:25 WBC RBC Hgb Hct RDW Lymph % (Auto) Baso # (Auto) Seg Neutrophils % Seg Neutrophils # PT BUN Creatinine Glucose POC Glucose 275 H 216 H Troponin T NT-Pro-B Natriuret Pep 07511 H Albumin 3.2 L LDL Cholesterol Direct - Diagnostic Findings Chest x-ray: image reviewed (Changes highly suggestive of bilateral pulmonary edema) Assessment and Plan Impression: Acute hypoxic respiratory failure Acute pulmonary edema probably related to combination of end-stage renal disease and congestive heart failure. congestive heart failure End-stage renal disease on hemodialysis Diabetes mellitus Hypertension Status post recent right BKA Suspect obstructive sleep apnea/Valentin-Case respiration Recommendation: Agree with echocardiogram. Need for urgent dialysis as per nephrology. We will monitor her closely. High risk for obstructive sleep apnea and Valentin-Case respiration. Recommend PSG as outpatient.
[2021-05-17] MEDS ORDERED: SODIUM CHLORIDE 0.9% 100 ML IV PRN (14:50)
--- NOTE | 2021-05-17 15:03 | Consultation ---
History of Present Illness Consult date: 05/17/21 Consult reason: shortness of breath History of present illness: 56 year old female presenting with shortness of breath. CXR showing pulmonary edema. Patient known chronic DHF and now on HD for ESRD x 1 year. She is compliant with HD and medical therapy. Past History Past Medical History: diabetes, ESRD, heart failure, hypertension, hyperlipidemia Social history: lives with family, smoking, full code. denies: alcohol abuse, prescription drug abuse, IV drug use Family history: no significant family history Medications and Allergies Allergies Allergy/AdvReac Type Severity Reaction Status Date / Time Penicillins AdvReac Swelling Verified 05/17/21 03:10 Home Medications Medication Instructions Recorded Confirmed Last Taken Type Aspirin [Aspirin BABY CHEW TAB] 81 mg PO QDAY #30 tab.chew 05/16/20 05/05/21 03/08/21 Rx Linaclotide [Linzess] 72 mcg PO QDAY #30 cap 05/16/20 05/05/21 2 Days Ago Rx ~03/08/21 AtorvaSTATin [Lipitor] 80 mg PO QHS 02/20/21 05/05/21 03/09/21 History Insulin Lispro [Humalog] See Protocol SUB-Q ACHS 02/20/21 05/05/21 03/08/21 History Clopidogrel [Plavix] 75 mg PO QDAY #90 tablet 03/10/21 05/05/21 Unknown Rx Aspirin [Aspirin BABY CHEW TAB] 81 mg PO QDAY 30 Days #30 tab.chew 05/12/21 Unknown Rx AtorvaSTATin [Lipitor] 80 mg PO QHS 30 Days #30 tablet 05/12/21 Unknown Rx Clopidogrel [Plavix] 75 mg PO QDAY 30 Days #30 tablet 05/12/21 Unknown Rx Insulin NPH, Human [NovoLIN N] 8 unit SUB-Q BIDDIAB 30 Days #500 05/12/21 Unknown Rx units Lancets/Blood Glucose Strips 1 each MC DAILY 30 Days #1 05/12/21 Unknown Rx [Gojji Lancet 30G-Gluc Tst Strp] combo..pkg Lispro Insulin [HumaLOG] 0 unit SUB-Q ACHS units 05/12/21 Unknown Rx Magnesium Oxide [Mag-Ox] 400 mg PO BID 30 Days #60 tablet 05/12/21 Unknown Rx Metoprolol Xl [Metoprolol 50 mg PO QDAY 30 Days #30 tablet 05/12/21 Unknown Rx SUCCINATE ER TAB] Syringe with Needle, 5 ml 1 each MC BID 30 Days #60 05/12/21 Unknown Rx [Luer-Chase Syringe-Needle] disp.syrin amLODIPine 10 mg PO QDAY 30 Days #30 tablet 05/12/21 Unknown Rx Active Meds: Active Medications Acetaminophen (Acetaminophen 325 Mg Tab) 650 mg PO Q4H PRN PRN Reason: Pain MILD(1-3)/Fever >100.5/MARIE Al Hydrox/Mg Hydrox/Simethicone (Alum-Mag Hydroxide-Simethicone [phone]/5ml Oral Liqd 30 Ml) 30 ml PO Q4H PRN PRN Reason: Indigestion Amlodipine Besylate (Amlodipine 10 Mg Tab) 10 mg PO QDAY [facility] Last Admin: 05/17/21 10:12 Dose: 10 mg Documented by: Aspirin (Aspirin 81 Mg Tab Chew) 81 mg PO QDAY [facility] Last Admin: 05/17/21 10:12 Dose: 81 mg Documented by: Atorvastatin Calcium (Atorvastatin 40 Mg Tab) 80 mg PO QHS [facility] Clopidogrel Bisulfate (Clopidogrel 75 Mg Tab) 75 mg PO QDAY [facility] Last Admin: 05/17/21 10:12 Dose: 75 mg Documented by: Heparin Sodium (Porcine) (Heparin 5,000 Unit/1 Ml Vial) 5,000 unit SUB-Q Q12HR [facility] Last Admin: 05/17/21 10:12 Dose: 5,000 unit Documented by: Heparin Sodium (Porcine) (Heparin 10,000 Units/10 Ml Vial) 3,000 unit IV DULCE PRN PRN Reason: hemodialysis Cefepime HCl 0.5 gm/ Sodium (Chloride) 100 mls @ 200 mls/hr IV Q24H [facility] Sodium Chloride (Nacl 0.9%) 100 mls @ 999 mls/hr IV DULCE PRN PRN Reason: Hypotension Insulin Human Lispro (Insulin Lispro 100 Unit/Ml) 0 unit SUB-[facility]; Protocol Last Admin: 05/17/21 11:50 Dose: 2 unit Documented by: Insulin Human NPH (Insulin Nph, Human 100 Unit/1 Ml) 8 unit SUB-Q BIDDIAB [facility] Magnesium Hydroxide (Magnesium Hydroxide (Mom) Oral Liqd Udc) 30 ml PO Q4H PRN PRN Reason: Constipation Metoprolol Succinate (Metoprolol Succinate Xl 50 Mg Tab) 50 mg PO QDAY@0800 [facility] Last Admin: 05/17/21 10:12 Dose: 50 mg Documented by: Morphine Sulfate (Morphine 2 Mg/1 Ml Inj) 2 mg IV Q4H PRN PRN Reason: Pain, Moderate (4-6) Morphine Sulfate (Morphine 4 Mg/1 Ml Inj) 4 mg IV Q4H PRN PRN Reason: Pain , Severe (7-10) Naloxone HCl (Naloxone 0.4 Mg/1 Ml Inj) 0.1 mg IV Q2MIN PRN PRN Reason: Res Rate </= 8 or 02 SAT < 92% Ondansetron HCl (Ondansetron 4 Mg/2 Ml Inj) 4 mg IV Q8H PRN PRN Reason: Nausea And Vomiting Oxycodone/Acetaminophen (Oxycodone /Acetaminophen 5-325mg Tab) 1 tab PO Q6H PRN PRN Reason: Pain, Moderate (4-6) Last Admin: 05/17/21 04:48 Dose: 1 tab Documented by: Senna (Sennosides 8.6 Mg Tab) 8.6 mg PO Q12HR PRN PRN Reason: Constipation Sodium Chloride (Sodium Chloride 0.9% 10 Ml Flush Syringe) 10 ml IV BID [facility] Last Admin: 05/17/21 10:13 Dose: Not Given Documented by: Review of Systems All systems: negative Physical Examination Vital Signs Pulse Resp BP Pulse Ox 92 H 19 143/61 92 05/17/21 00:15 05/17/21 00:15 05/17/21 00:15 05/17/21 00:15 General appearance: no acute distress Cardiac: Positive: Reg Rate and Rhythm Lungs: Positive: Decreased Breath Sounds Abdomen: Positive: Soft Extremities: Absent: edema Results 05/17/21 00:27 05/17/21 00:27 Cardiac Enzymes 05/17/21 Range/Units 00:27 AST 12 (5-40) units/L Coagulation 05/17/21 Range/Units 00:27 PT 15.1 H (12.2-14.9) Sec. INR 1.07 (0.87-1.13) APTT 32.0 (24.2-36.6) Sec. Lipids 05/17/21 Range/Units 00:27 Triglycerides 78 (2-149) mg/dL Cholesterol 115 (50-199) mg/dL HDL Cholesterol 52 (40-59) mg/dL Cholesterol/HDL Ratio 2.21 % CBC 05/17/21 Range/Units 00:27 WBC 14.0 H (4.5-11.0) K/mm3 RBC 2.93 L (3.65-5.03) M/mm3 Hgb 8.6 L (10.1-14.3) gm/dl Hct 26.8 L (30.3-42.9) % Plt Count 179 (140-440) K/mm3 Lymph # (Auto) 1.2 (1.2-5.4) K/mm3 [place] # (Auto) 0.8 (0.0-0.8) K/mm3 Eos # (Auto) 0.1 (0.0-0.4) K/mm3 Baso # (Auto) 0.2 H (0.0-0.1) K/mm3 Comprehensive Metabolic Panel 05/17/21 05/17/21 Range/Units 00:27 00:27 Sodium 142 D (137-145) mmol/L Potassium 3.7 (3.6-5.0) mmol/L Chloride 100.7 (98-107) mmol/L Carbon Dioxide 25 (22-30) mmol/L BUN 26 H (7-17) mg/dL Creatinine 3.3 H (0.6-1.2) mg/dL Glucose 212 H (65-100) mg/dL Calcium 8.7 (8.4-10.2) mg/dL Direct Bilirubin < 0.2 (0-0.2) mg/dL Indirect Bilirubin 0.3 mg/dL AST 12 (5-40) units/L ALT 11 (7-56) units/L Alkaline Phosphatase 122 (35-129) units/L Total Protein 6.4 (6.3-8.2) g/dL Albumin 3.2 L (3.9-5) g/dL - EKG Interpretation EKG: sinus rhythm EKG interpretations - Telemetry EKG Rhythm: Sinus Rhythm Assessment and Plan Acute on chronic diastolic heart failure Echo 05/2020 showing normal LVEF with Grade 2 DDx MPI 06/2019 showing normal perfusion ESRD on HD Type II DM Insulin dependent 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
--- NOTE | 2021-05-17 16:07 | Consultation ---
History of Present Illness - Reason for Consult Consult date: 05/17/21 - History of Present Illness 56-year-old female past medical history diabetes, ESRD on HD, heart failure, hypertension presented to the hospital with shortness of breath for the past few days. Of note she was recently here and had a right BKA stump infection with abscess. She had a bedside debridement performed on 05/07/2021. She was discharged with renally adjusted cefepime vancomycin for early osteomyelitis of the stump. Afebrile since admission with a white count of 14, which was normal on discharge. Blood cultures no growth so far. Imaging personally reviewed: Chest x-ray: Multifocal airspace opacities. Review of Systems: Bold if positive, otherwise negative General: fevers, chills, rigors HEENT: visual disturbance, diplopia, eye pain Respiratory: cough, sputum, hemoptysis, shortness of breath Cardiovascular: chest pain, syncope Gastrointestinal: nausea, vomiting, diarrhea, abdominal pain Genitourinary: dysuria, hematuria, flank pain Musculoskeletal: neck pain, back pain, joint pain, edema Neurologic: headaches, seizures Hematologic: easy bruising or bleeding Endocrine: night sweats, acute weight loss Skin: rash, jaundice, redness Psychiatric: suicidal, homicidal ideation Past History Past Medical History: diabetes, ESRD, heart failure, hypertension, hyperlipidemia Social history: lives with family, smoking, full code. denies: alcohol abuse, prescription drug abuse, IV drug use Family history: no significant family history Medications and Allergies Allergies Allergy/AdvReac Type Severity Reaction Status Date / Time Penicillins AdvReac Swelling Verified 05/17/21 03:10 Home Medications Medication Instructions Recorded Confirmed Last Taken Type Aspirin [Aspirin BABY CHEW TAB] 81 mg PO QDAY #30 tab.chew 05/16/20 05/05/21 03/08/21 Rx Linaclotide [Linzess] 72 mcg PO QDAY #30 cap 05/16/20 05/05/21 2 Days Ago Rx ~03/08/21 AtorvaSTATin [Lipitor] 80 mg PO QHS 02/20/21 05/05/21 03/09/21 History Insulin Lispro [Humalog] See Protocol SUB-Q ACHS 02/20/21 05/05/21 03/08/21 History Clopidogrel [Plavix] 75 mg PO QDAY #90 tablet 03/10/21 05/05/21 Unknown Rx Aspirin [Aspirin BABY CHEW TAB] 81 mg PO QDAY 30 Days #30 tab.chew 05/12/21 Unknown Rx AtorvaSTATin [Lipitor] 80 mg PO QHS 30 Days #30 tablet 05/12/21 Unknown Rx Clopidogrel [Plavix] 75 mg PO QDAY 30 Days #30 tablet 05/12/21 Unknown Rx Insulin NPH, Human [NovoLIN N] 8 unit SUB-Q BIDDIAB 30 Days #500 05/12/21 Unknown Rx units Lancets/Blood Glucose Strips 1 each MC DAILY 30 Days #1 05/12/21 Unknown Rx [Gojji Lancet 30G-Gluc Tst Strp] combo..pkg Lispro Insulin [HumaLOG] 0 unit SUB-Q ACHS units 05/12/21 Unknown Rx Magnesium Oxide [Mag-Ox] 400 mg PO BID 30 Days #60 tablet 05/12/21 Unknown Rx Metoprolol Xl [Metoprolol 50 mg PO QDAY 30 Days #30 tablet 05/12/21 Unknown Rx SUCCINATE ER TAB] Syringe with Needle, 5 ml 1 each MC BID 30 Days #60 05/12/21 Unknown Rx [Luer-Chase Syringe-Needle] disp.syrin amLODIPine 10 mg PO QDAY 30 Days #30 tablet 05/12/21 Unknown Rx Active Meds: Active Medications Acetaminophen (Acetaminophen 325 Mg Tab) 650 mg PO Q4H PRN PRN Reason: Pain MILD(1-3)/Fever >100.5/MARIE Al Hydrox/Mg Hydrox/Simethicone (Alum-Mag Hydroxide-Simethicone [phone]/5ml Oral Liqd 30 Ml) 30 ml PO Q4H PRN PRN Reason: Indigestion Amlodipine Besylate (Amlodipine 10 Mg Tab) 10 mg PO QDAY [facility] Last Admin: 05/17/21 10:12 Dose: 10 mg Documented by: Aspirin (Aspirin 81 Mg Tab Chew) 81 mg PO QDAY [facility] Last Admin: 05/17/21 10:12 Dose: 81 mg Documented by: Atorvastatin Calcium (Atorvastatin 40 Mg Tab) 80 mg PO QHS [facility] Clopidogrel Bisulfate (Clopidogrel 75 Mg Tab) 75 mg PO QDAY [facility] Last Admin: 05/17/21 10:12 Dose: 75 mg Documented by: Heparin Sodium (Porcine) (Heparin 5,000 Unit/1 Ml Vial) 5,000 unit SUB-Q Q12HR [facility] Last Admin: 05/17/21 10:12 Dose: 5,000 unit Documented by: Heparin Sodium (Porcine) (Heparin 10,000 Units/10 Ml Vial) 3,000 unit IV DULCE PRN PRN Reason: hemodialysis Cefepime HCl 0.5 gm/ Sodium (Chloride) 100 mls @ 200 mls/hr IV Q24H [facility] Sodium Chloride (Nacl 0.9%) 100 mls @ 999 mls/hr IV DULCE PRN PRN Reason: Hypotension Insulin Human Lispro (Insulin Lispro 100 Unit/Ml) 0 unit SUB-Q ACHS [facility]; Protocol Last Admin: 05/17/21 11:50 Dose: 2 unit Documented by: Insulin Human NPH (Insulin Nph, Human 100 Unit/1 Ml) 8 unit SUB-Q BIDDIAB [facility] Magnesium Hydroxide (Magnesium Hydroxide (Mom) Oral Liqd Udc) 30 ml PO Q4H PRN PRN Reason: Constipation Metoprolol Succinate (Metoprolol Succinate Xl 50 Mg Tab) 50 mg PO QDAY@0800 [facility] Last Admin: 05/17/21 10:12 Dose: 50 mg Documented by: Morphine Sulfate (Morphine 2 Mg/1 Ml Inj) 2 mg IV Q4H PRN PRN Reason: Pain, Moderate (4-6) Morphine Sulfate (Morphine 4 Mg/1 Ml Inj) 4 mg IV Q4H PRN PRN Reason: Pain , Severe (7-10) Naloxone HCl (Naloxone 0.4 Mg/1 Ml Inj) 0.1 mg IV Q2MIN PRN PRN Reason: Res Rate </= 8 or 02 SAT < 92% Ondansetron HCl (Ondansetron 4 Mg/2 Ml Inj) 4 mg IV Q8H PRN PRN Reason: Nausea And Vomiting Oxycodone/Acetaminophen (Oxycodone /Acetaminophen 5-325mg Tab) 1 tab PO Q6H PRN PRN Reason: Pain, Moderate (4-6) Last Admin: 05/17/21 14:57 Dose: 1 tab Documented by: Senna (Sennosides 8.6 Mg Tab) 8.6 mg PO Q12HR PRN PRN Reason: Constipation Sodium Chloride (Sodium Chloride 0.9% 10 Ml Flush Syringe) 10 ml IV BID [facility] Last Admin: 05/17/21 10:13 Dose: Not Given Documented by: Physical Examination - Physical Exam Narrative exam: Physical Exam: Constitutional: Alert, cooperative. No acute distress Head, Ears, Nose: Normocephalic, atraumatic. External ears, nose normal Eyes: Conjunctivae/corneas clear. No icterus. No ptosis. Neck: Supple, no meningeal signs Oral: dentition fair, no thrush Cardiovascular: S1, S2 normal. Respiratory: Good air entry, clear to auscultation bilaterally GI: Soft, non-tender; bowel sounds normal. No peritoneal signs. Musculoskeletal: Left BKA with open wound. Skin: No rash or abscess Hem/Lymphatic: No palpable cervical or supraclavicular nodes. No lymphangitis Psych: Mood ok. Affect normal Neurological: Awake, alert, oriented. No gross abnormality - Constitutional Vitals: Vital Signs Temp Pulse Resp BP Pulse Ox 98.2 F 87 17 158/62 98 05/17/21 10:11 05/17/21 12:00 05/17/21 14:57 05/17/21 10:11 05/17/21 12:00 Temperature -Last 24 Hours Temperature 98.2 F Temperature 99.9 F Temperature 99.2 F Results - Labs CBC & Chem 7: 05/17/21 00:27 05/17/21 00:27 Labs: Abnormal lab results 05/17/21 05/17/21 05/17/21 Range/Units 00:27 00:27 00:27 WBC 14.0 H (4.5-11.0) K/mm3 RBC 2.93 L (3.65-5.03) M/mm3 Hgb 8.6 L (10.1-14.3) gm/dl Hct 26.8 L (30.3-42.9) % RDW 22.9 H (13.2-15.2) % Lymph % (Auto) 8.6 L (13.4-35.0) % Baso # (Auto) 0.2 H (0.0-0.1) K/mm3 Seg Neutrophils % 83.7 H (40.0-70.0) % Seg Neutrophils # 11.7 H (1.8-7.7) K/mm3 PT 15.1 H (12.2-14.9) Sec. BUN 26 H (7-17) mg/dL Creatinine 3.3 H (0.6-1.2) mg/dL Glucose 212 H (65-100) mg/dL POC Glucose (70-105) mg/dL Troponin T 0.075 H (0.00-0.029) ng/mL NT-Pro-B Natriuret Pep (0-900) pg/mL Albumin (3.9-5) g/dL LDL Cholesterol Direct 46 L (50-130) mg/dL 05/17/21 05/17/21 05/17/21 Range/Units 00:27 07:23 11:25 WBC (4.5-11.0) K/mm3 RBC (3.65-5.03) M/mm3 Hgb (10.1-14.3) gm/dl Hct (30.3-42.9) % RDW (13.2-15.2) % Lymph % (Auto) (13.4-35.0) % Baso # (Auto) (0.0-0.1) K/mm3 Seg Neutrophils % (40.0-70.0) % Seg Neutrophils # (1.8-7.7) K/mm3 PT (12.2-14.9) Sec. BUN (7-17) mg/dL Creatinine (0.6-1.2) mg/dL Glucose (65-100) mg/dL POC Glucose 275 H 216 H (70-105) mg/dL Troponin T (0.00-0.029) ng/mL NT-Pro-B Natriuret Pep 98486 H (0-900) pg/mL Albumin 3.2 L (3.9-5) g/dL LDL Cholesterol Direct (50-130) mg/dL Assessment and Plan Cultures: Blood culture no growth so far A/P: 56-year-old female past medical history diabetes, ESRD on HD, heart failure, hypertension admitted with pneumonia #Multifocal pneumonia: Worsening since previous admission. Has been on vancomycin and cefepime with dialysis for her stump osteomyelitis. Worsening leukocytosis from previous. #Left BKA stump osteomyelitis: Plan for 6 weeks antibiotics with dialysis. Seen on previous MRI during last admission. #ESRD on HD: Renally dose antibiotics #Diabetes: tight glycemic control for best outcomes. Recs: -Continue vancomycin dosed per pharmacy, goal trough 10-20 -Escalated cefepime to meropenem as she developed the symptoms while on cefepime. -Follow blood culture Thank you for the consult, we will continue to follow. Quiana Khalil MD [facility] O: [phone] F: [phone]
[2021-05-17] MEDS: INSULIN NPH, HUMAN 100 UNIT/1 ML SUB-Q SCH ×2 (16:42→21:39)
[2021-05-17] MEDS: HEPARIN 10,000 UNITS/10 ML VIAL IV PRN (19:32)
[2021-05-17] MEDS: MEROPENEM/NS 500 MG/50 ML 500 MG/50 ML BAG IV SCH (20:29)
[2021-05-18] MEDS ORDERED: CEFEPIME 0.5 GM in SODIUM CHLORIDE 0.9% 100 ML IV SCH (06:00)
[2021-05-18] MEDS: INSULIN LISPRO 100 UNIT/ML SUB-Q SCH ×4 (07:30→21:42)
[2021-05-18] MEDS: INSULIN NPH, HUMAN 100 UNIT/1 ML SUB-Q SCH ×2 (07:30→17:57)
[2021-05-18] MEDS ORDERED: SODIUM CHLORIDE 0.9% 100 ML IV PRN (07:50)
[2021-05-18 08:20] LABS: Basophils # (Auto) 0.2 K/mm3 (0.0-0.1); Basophils % (Auto) 1.4 % (0.0-1.8); Eosinophils # (Auto) 0.3 K/mm3 (0.0-0.4); Eosinophils % (Auto) 2.6 % (0.0-4.3); Hematocrit 23.2 % (30.3-42.9); Hemoglobin 7.7 gm/dl (10.1-14.3); Lymphocytes # (Auto) 1.8 K/mm3 (1.2-5.4); Lymphocytes % (Auto) 15.3 % (13.4-35.0); Mean Corpuscular HGB Conc 33 % (30-34); Mean Corpuscular Volume 90 fl (79-97); Monocytes # (Auto) 0.9 K/mm3 (0.0-0.8); Monocytes % (Auto) 7.1 % (0.0-7.3); Platelet Count 183 K/mm3 (140-440); Red Blood Count 2.58 M/mm3 (3.65-5.03)
[2021-05-18] MEDS: oxyCODONE /ACETAMINOPHEN 5-325MG TAB PO PRN ×3 (08:20→21:36)
[2021-05-18] MEDS: HEPARIN 10,000 UNITS/10 ML VIAL IV PRN (08:30)
[2021-05-18 08:39] LABS: Albumin 2.7 g/dL (3.9-5); Calcium 8.5 mg/dL (8.4-10.2)
[2021-05-18 08:43] LABS: Red Cell Distribution Width 22.5 % (13.2-15.2)
[2021-05-18] MEDS: HEPARIN 5,000 UNIT/1 ML VIAL SUB-Q SCH ×2 (10:00→21:35)
--- NOTE | 2021-05-18 11:48 | Progress Note ---
Assessment and Plan Assessment and plan: This is a 56-year-old female seen in ED at bedside. Patient was recently discharged from hospital. She has history of CHF, ESRD ([facility] dialysis schedule), diabetes, hypertension and she presents to ED with shortness of breath x2 days. Patient reports it is worse with supine position. She denies any chest pain. Patient was last dialyzed on yesterday. Patient is currently rebreather mask at the time of this assessment. She admits tobacco use but denies chronic alcohol and illicit drug use. Chest x-ray showed worsening of multifocal airspace opacities. 05/18: Patient seen and examined today, clinically showing some improvement, counselling provided about tobacco use- 15 mins. Patient getting HD today. Cardiology planning for ischemic work up prior to discharge I had consulted ID yesterday as patient has was discharged with renally adjusted cefepime vancomycin for early osteomyelitis of the stump for continuation of therapy. If despite HD she remains with severe respiratory distress will get ABG. For now I have asked to wean her down to [place]. She is high risk for home oxygen due to continued Tobacco use. 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 (2) ESRD (end stage renal disease) on dialysis Current Visit: No Status: Acute Plan to address problem: Consult placed to nephrology for dialysis. Patient gets dialysis on Mondays, Wednesdays and Fridays. (3)Multifocal Pneumonia Current Visit: No Status: Acute Plan to address problem: Patient is recently discharged from the hospital CT of the chest showed worsening lung opacity Start cefepime and consult pharmacy for vancomycin dosing (4) Diabetes mellitus Current Visit: No Status: Acute Plan to address problem: We will monitor Accu-Cheks with sliding scale protocol Resume home antiglycemic agents (5) Hypertension Current Visit: No Status: Acute Plan to address problem: Monitor blood pressure Resume home antihypertensive. 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 (9) Left BKA stump osteomyelitis (10) Anemia (11) DVT prophylaxis Current Visit: No Status: Acute Plan to address problem: Subcutaneous heparin History Interval history: Patient seen and examined, down to Venti-Mask. Continue supportive care. Hospitalist Physical - Physical exam Narrative exam: General appearance: Present: mild distress, well-nourished - EENT Eyes: Present: PERRL ENT: hearing intact, clear oral mucosa - Neck Neck: Present: supple, normal ROM - Respiratory Respiratory effort: labored, accessory muscle use Respiratory: bilateral: CTA, diminished - Cardiovascular Heart Sounds: Present: S1 & S2. Absent: rub, click - Extremities Extremities: pulses symmetrical, left BKA Peripheral Pulses: within normal limits - Abdominal General gastrointestinal: Present: soft, non-tender, non-distended, normal bowel sounds Female genitourinary: Present: normal - Integumentary Integumentary: Present: stump with dressing on left, otherwise right sided clear, warm, dry - Musculoskeletal Musculoskeletal: gait not tested - Psychiatric Psychiatric: appropriate mood/affect, intact judgment & insight, cooperative - Neurologic Neurologic: CNII-XII intact, moves all extremities - Allied Health Allied health notes reviewed: nursing - Constitutional Vitals: Temp Pulse Resp BP Pulse Ox 99.6 F 82 20 124/50 93 05/18/21 08:30 05/18/21 10:15 05/18/21 08:30 05/18/21 10:15 05/18/21 08:30 General appearance: Present: no acute distress HEART Score - HEART Score Troponin: Troponin T 0.075 ng/mL (0.00-0.029) H 05/17/21 00:27 Results - Labs CBC & Chem 7: 05/18/21 07:21 05/18/21 07:21 Labs: Laboratory Last Values WBC 12.0 K/mm3 (4.5-11.0) H 05/18/21 07:21 RBC 2.58 M/mm3 (3.65-5.03) L 05/18/21 07:21 Hgb 7.7 gm/dl (10.1-14.3) L 05/18/21 07:21 Hct 23.2 % (30.3-42.9) L 05/18/21 07:21 MCV 90 fl (79-97) 05/18/21 07:21 MCH 30 pg (28-32) 05/18/21 07:21 MCHC 33 % (30-34) 05/18/21 07:21 RDW 22.5 % (13.2-15.2) H 05/18/21 07:21 Plt Count 183 K/mm3 (140-440) 05/18/21 07:21 Lymph % (Auto) 15.3 % (13.4-35.0) 05/18/21 07:21 [place] % (Auto) 7.1 % (0.0-7.3) 05/18/21 07:21 Eos % (Auto) 2.6 % (0.0-4.3) 05/18/21 07:21 Baso % (Auto) 1.4 % (0.0-1.8) 05/18/21 07:21 Lymph # (Auto) 1.8 K/mm3 (1.2-5.4) 05/18/21 07:21 [place] # (Auto) 0.9 K/mm3 (0.0-0.8) H 05/18/21 07:21 Eos # (Auto) 0.3 K/mm3 (0.0-0.4) 05/18/21 07:21 Baso # (Auto) 0.2 K/mm3 (0.0-0.1) H 05/18/21 07:21 Seg Neutrophils % 73.6 % (40.0-70.0) H 05/18/21 07:21 Seg Neutrophils # 8.8 K/mm3 (1.8-7.7) H 05/18/21 07:21 PT 15.1 Sec. (12.2-14.9) H 05/17/21 00:27 INR 1.07 (0.87-1.13) 05/17/21 00:27 APTT 32.0 Sec. (24.2-36.6) 05/17/21 00:27 Sodium 139 mmol/L (137-145) 05/18/21 07:21 Potassium 3.6 mmol/L (3.6-5.0) 05/18/21 07:21 Chloride 99.5 mmol/L (98-107) 05/18/21 07:21 Carbon Dioxide 24 mmol/L (22-30) 05/18/21 07:21 Anion Gap 19 mmol/L 05/18/21 07:21 BUN 37 mg/dL (7-17) H 05/18/21 07:21 Creatinine 4.3 mg/dL (0.6-1.2) H 05/18/21 07:21 Estimated GFR 13 ml/min 05/18/21 07:21 BUN/Creatinine Ratio 9 % 05/18/21 07:21 Glucose 138 mg/dL (65-100) H 05/18/21 07:21 POC Glucose 154 mg/dL (70-105) H 05/17/21 21:38 Calcium 8.5 mg/dL (8.4-10.2) 05/18/21 07:21 Total Bilirubin 1.10 mg/dL (0.1-1.2) 05/18/21 07:21 Direct Bilirubin < 0.2 mg/dL (0-0.2) 05/17/21 00:27 Indirect Bilirubin 0.3 mg/dL 05/17/21 00:27 AST 11 units/L (5-40) 05/18/21 07:21 ALT 9 units/L (7-56) 05/18/21 07:21 Alkaline Phosphatase 111 units/L (35-129) 05/18/21 07:21 Troponin T 0.075 ng/mL (0.00-0.029) H 05/17/21 00:27 NT-Pro-B Natriuret Pep 88200 pg/mL (0-900) H 05/17/21 00:27 Total Protein 6.4 g/dL (6.3-8.2) 05/18/21 07:21 Albumin 2.7 g/dL (3.9-5) L 05/18/21 07:21 Albumin/Globulin Ratio 0.7 % 05/18/21 07:21 Triglycerides 78 mg/dL (2-149) 05/17/21 00:27 Cholesterol 115 mg/dL (50-199) 05/17/21 00:27 LDL Cholesterol Direct 46 mg/dL (50-130) L 05/17/21 00:27 HDL Cholesterol 52 mg/dL (40-59) 05/17/21 00:27 Cholesterol/HDL Ratio 2.21 % 05/17/21 00:27 Random Vancomycin 26.5 ug/mL (0-40.0) 05/18/21 07:21 Microbiology: Microbiology 05/17/21 13:35 Peripheral/Venous Blood Culture - Preliminary Culture in Progress 05/17/21 13:50 Peripheral/Venous Blood Culture - Preliminary Culture in Progress Active Medications - Current Medications Current Medications: Generic Name Dose Route Start Last Admin Trade Name Freq PRN Reason Stop Dose Admin Acetaminophen 650 mg 05/17/21 02:07 Acetaminophen 325 Mg Tab PO Q4H PRN Pain MILD(1-3)/Fever >100.5/MARIE Al Hydrox/Mg Hydrox/Simethicone 30 ml 05/17/21 02:07 Alum-Mag Hydroxide-Simethicone [id number]/5ml Oral Liqd 30 Ml PO Q4H PRN Indigestion Amlodipine Besylate 10 mg 05/17/21 10:00 05/17/21 10:12 Amlodipine 10 Mg Tab PO 10 mg QDAY SILVANO Administration Aspirin 81 mg 05/17/21 10:00 05/17/21 10:12 Aspirin 81 Mg Tab Chew PO 81 mg QDAY SILVANO Administration Atorvastatin Calcium 80 mg 05/17/21 22:00 05/17/21 21:43 Atorvastatin 40 Mg Tab PO 80 mg QHS SILVANO Administration Clopidogrel Bisulfate 75 mg 05/17/21 10:00 05/17/21 10:12 Clopidogrel 75 Mg Tab PO 75 mg QDAY SILVANO Administration Heparin Sodium (Porcine) 5,000 unit 05/17/21 10:00 05/17/21 21:42 Heparin 5,000 Unit/1 Ml Vial SUB-Q 5,000 unit Q12HR SILVANO Administration Heparin Sodium (Porcine) 3,000 unit 05/17/21 14:50 05/18/21 08:30 Heparin 10,000 Units/10 Ml Vial IV 3,000 unit DULCE PRN Administration hemodialysis Meropenem 500 mg in 50 mls @ 50 mls/hr 05/17/21 18:00 05/17/21 20:29 Merrem/Ns 500 Mg/50 Ml IV 50 mls/hr Q24H SILVANO Administration Sodium Chloride 100 mls @ 999 mls/hr 05/18/21 07:50 Nacl 0.9% IV DULCE PRN Hypotension Insulin Human Lispro 0 unit 05/17/21 07:30 05/18/21 07:30 Insulin Lispro 100 Unit/Ml SUB-Q Not Given ACHS [facility] Protocol Insulin Human NPH 8 unit 05/17/21 08:00 10/18/21 07:30 Insulin Nph, Human 100 Unit/1 Ml SUB-Q Not Given BIDDIAB SILVANO Magnesium Hydroxide 30 ml 05/17/21 02:07 Magnesium Hydroxide (Mom) Oral Liqd Udc PO Q4H PRN Constipation Metoprolol Succinate 50 mg 05/17/21 08:00 05/17/21 10:12 Metoprolol Succinate Xl 50 Mg Tab PO 50 mg QDAY@0800 SILVANO Administration Morphine Sulfate 2 mg 05/17/21 02:07 Morphine 2 Mg/1 Ml Inj IV Q4H PRN Pain, Moderate (4-6) Morphine Sulfate 4 mg 05/17/21 02:07 05/17/21 21:55 Morphine 4 Mg/1 Ml Inj IV 4 mg Q4H PRN Administration Pain , Severe (7-10) Naloxone HCl 0.1 mg 05/17/21 02:07 Naloxone 0.4 Mg/1 Ml Inj IV Q2MIN PRN Res Rate </= 8 or 02 SAT < 92% Ondansetron HCl 4 mg 05/17/21 02:07 Ondansetron 4 Mg/2 Ml Inj IV Q8H PRN Nausea And Vomiting Oxycodone/Acetaminophen 1 tab 05/17/21 02:07 05/18/21 08:20 Oxycodone /Acetaminophen 5-325mg Tab PO 1 tab Q6H PRN Administration Pain, Moderate (4-6) Senna 8.6 mg 05/17/21 02:07 Sennosides 8.6 Mg Tab PO Q12HR PRN Constipation Sodium Chloride 10 ml 05/17/21 10:00 05/17/21 21:43 Sodium Chloride 0.9% 10 Ml Flush Syringe IV 10 ml BID SILVANO Administration Nutrition/Malnutrition Assess - Dietary Evaluation Nutrition/Malnutrition Findings: Nutrition Notes Start: 05/17/21 11:21 Freq: Status: Active Protocol: Document 05/17/21 11:21 YANELIS (Rec: 05/17/21 11:28 YANELIS [email or web address]) Nutrition Notes Need for Assessment generated 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 Pt recently D/C from this hospital; assessed by RD on (prescribed Nepro and Gagan BID for wound healing). Pt consumed 93% of meals during recent admission. Burn Absent Trauma Absent Is patient on ventilator? No Is Patient Ambulatory and/or Out of Bed No REE-([facility]-confined to bed) [phone] Calculation Used for Recommendations [facility] Additional Notes Pro needs >1.2g/kg adjBW: >78g /day Fluid needs 1-1.5L/day Nutrition Intervention Follow-Up By: 05/20/21 Additional Comments F/U: intakes, need for ONS, wound healing
--- NOTE | 2021-05-18 11:56 | Progress Note ---
Assessment and Plan 56 y/o with acute respiratory failure secondary to pulmonary edema, volume overload. 1. Admitted many times before with same presentation, first time pulm has been consulted 2. Fluid management with HD and opitimation of CHF meds if possible 3. No indication for bronchodilator therapy. Subjective Date of service: 05/18/21 Interval history: No acute. Still on Venti mask Objective Vital Signs - 12hr 05/18/21 05/18/21 05/18/21 00:00 02:00 04:11 Temperature 98.2 F Pulse Rate 92 H 86 Respiratory 18 Rate Blood Pressure 127/39 O2 Sat by Pulse 93 86 Oximetry O2 Sat by Pulse Oximetry [ Anterior Bilateral Throughout] O2 Sat by Pulse Oximetry [ Posterior Bilateral Throughout] 05/18/21 05/18/21 05/18/21 08:30 08:40 08:45 Temperature 99.6 F Pulse Rate 86 86 52 L Respiratory 20 Rate Blood Pressure 138/61 130/63 105/37 O2 Sat by Pulse Oximetry O2 Sat by Pulse 93 Oximetry [ Anterior Bilateral Throughout] O2 Sat by Pulse 95 Oximetry [ Posterior Bilateral Throughout] 05/18/21 05/18/21 05/18/21 09:00 09:15 09:30 Temperature Pulse Rate 84 86 84 Respiratory Rate Blood Pressure 142/40 125/57 115/53 O2 Sat by Pulse Oximetry O2 Sat by Pulse Oximetry [ Anterior Bilateral Throughout] O2 Sat by Pulse Oximetry [ Posterior Bilateral Throughout] 05/18/21 05/18/21 05/18/21 09:45 10:00 10:15 Temperature Pulse Rate 79 82 82 Respiratory Rate Blood Pressure 118/44 125/50 124/50 O2 Sat by Pulse Oximetry O2 Sat by Pulse Oximetry [ Anterior Bilateral Throughout] O2 Sat by Pulse Oximetry [ Posterior Bilateral Throughout] Constitutional: no acute distress, other (Morbidly obese on nonrebreather mask) Eyes: non-icteric ENT: oropharynx moist, other (Somewhat crowded) Neck: supple, no lymphadenopathy Ascultation: Bilateral: rhonchi Cardiovascular: regular rate and rhythm Gastrointestinal: normoactive bowel sounds, soft, non-tender Extremities: no cyanosis, edema (1+ left lower extremity), other (Right BKA) Neurologic: normal mental status, CN II-XII normal Psychiatric: mood appropriate CBC and BMP: 05/18/21 07:21 05/18/21 07:21 ABG, PT/INR, D-dimer: PT/INR, D-dimer PT 15.1 Sec. (12.2-14.9) H 05/17/21 00:27 INR 1.07 (0.87-1.13) 05/17/21 00:27 Abnormal lab findings: Abnormal Labs 05/17/21 05/17/21 05/17/21 00:27 00:27 00:27 WBC 14.0 H RBC 2.93 L Hgb 8.6 L Hct 26.8 L RDW 22.9 H Lymph % (Auto) 8.6 L [place] # (Auto) Baso # (Auto) 0.2 H Seg Neutrophils % 83.7 H Seg Neutrophils # 11.7 H PT 15.1 H BUN 26 H Creatinine 3.3 H Glucose 212 H POC Glucose Troponin T 0.075 H NT-Pro-B Natriuret Pep Albumin LDL Cholesterol Direct 46 L 05/17/21 05/17/21 05/17/21 00:27 07:23 11:25 WBC RBC Hgb Hct RDW Lymph % (Auto) [place] # (Auto) Baso # (Auto) Seg Neutrophils % Seg Neutrophils # PT BUN Creatinine Glucose POC Glucose 275 H 216 H Troponin T NT-Pro-B Natriuret Pep 66913 H Albumin 3.2 L LDL Cholesterol Direct 05/17/21 05/17/21 05/18/21 16:27 21:38 07:21 WBC 12.0 H RBC 2.58 L Hgb 7.7 L Hct 23.2 L RDW 22.5 H Lymph % (Auto) [place] # (Auto) 0.9 H Baso # (Auto) 0.2 H Seg Neutrophils % 73.6 H Seg Neutrophils # 8.8 H PT BUN Creatinine Glucose POC Glucose 274 H 154 H Troponin T NT-Pro-B Natriuret Pep Albumin LDL Cholesterol Direct 05/18/21 07:21 WBC RBC Hgb Hct RDW Lymph % (Auto) [place] # (Auto) Baso # (Auto) Seg Neutrophils % Seg Neutrophils # PT BUN 37 H Creatinine 4.3 H Glucose 138 H POC Glucose Troponin T NT-Pro-B Natriuret Pep Albumin 2.7 L LDL Cholesterol Direct
--- NOTE | 2021-05-18 12:23 | Progress Note ---
Assessment and Plan Cultures: Blood culture no growth so far A/P: 56-year-old female past medical history diabetes, ESRD on HD, heart failure, hypertension admitted with pneumonia #Multifocal pneumonia: Worsening since previous admission. Had been on vancomycin and cefepime with dialysis for her stump osteomyelitis. Worsening leukocytosis from previous. Reports she is fully vaccinated against COVID-19. #Right BKA stump osteomyelitis: Planned for 6 weeks antibiotics with dialysis. Seen on previous MRI during last admission. Wound infection. #ESRD on HD: Renally dose antibiotics #Diabetes: tight glycemic control for best outcomes. Recs: -Continue renally dosed meropenem x 5 days -continue IV vancomycin -COVID-19 PCR ordered -when discharged, resume IV Vancomycin + Ceftazidime at dialysis to complete 6 weeks -consult wound care William Doyle MD, FACP [facility] O: [phone] F: [phone] Subjective Date of service: 05/18/21 Interval history: Just got back from dialysis. Denies any complaints. Breathing is better. Reports cough. States she is fully vaccinated. Objective - Exam Narrative Exam: Physical Exam: Constitutional: Alert, cooperative. No acute distress Head, Ears, Nose: Normocephalic, atraumatic. External ears, nose normal Eyes: Conjunctivae/corneas clear. No icterus. No ptosis. Neck: Supple, no meningeal signs Cardiovascular: S1, S2 + Respiratory: Good air entry, clear to auscultation bilaterally GI: Soft, non-tender; bowel sounds normal. No peritoneal signs Musculoskeletal: Right BKA stump in dressing. Skin: No rash or abscess Hem/Lymphatic: No palpable cervical or supraclavicular nodes. No lymphangitis Psych: Mood ok. Affect normal Neurological: Awake, alert, oriented. No gross abnormality - Constitutional Vitals: Vital Signs Temp Pulse Resp BP Pulse Ox 99.6 F 82 20 124/50 97 05/18/21 08:30 05/18/21 10:15 05/18/21 08:30 05/18/21 10:15 05/18/21 11:58 Temperature -Last 24 Hours Temperature 99.6 F Temperature 98.2 F Temperature 98.4 F Temperature 99.5 F Temperature 98.2 F Temperature 99.2 F Temperature 98.4 F - Labs CBC & Chem 7: 05/18/21 07:21 05/18/21 07:21 Labs: Abnormal lab results 05/17/21 05/17/21 05/18/21 Range/Units 16:27 21:38 07:21 WBC 12.0 H (4.5-11.0) K/mm3 RBC 2.58 L (3.65-5.03) M/mm3 Hgb 7.7 L (10.1-14.3) gm/dl Hct 23.2 L (30.3-42.9) % RDW 22.5 H (13.2-15.2) % [place] # (Auto) 0.9 H (0.0-0.8) K/mm3 Baso # (Auto) 0.2 H (0.0-0.1) K/mm3 Seg Neutrophils % 73.6 H (40.0-70.0) % Seg Neutrophils # 8.8 H (1.8-7.7) K/mm3 BUN (7-17) mg/dL Creatinine (0.6-1.2) mg/dL Glucose (65-100) mg/dL POC Glucose 274 H 154 H (70-105) mg/dL Albumin (3.9-5) g/dL 05/18/21 Range/Units 07:21 WBC (4.5-11.0) K/mm3 RBC (3.65-5.03) M/mm3 Hgb (10.1-14.3) gm/dl Hct (30.3-42.9) % RDW (13.2-15.2) % [place] # (Auto) (0.0-0.8) K/mm3 Baso # (Auto) (0.0-0.1) K/mm3 Seg Neutrophils % (40.0-70.0) % Seg Neutrophils # (1.8-7.7) K/mm3 BUN 37 H (7-17) mg/dL Creatinine 4.3 H (0.6-1.2) mg/dL Glucose 138 H (65-100) mg/dL POC Glucose (70-105) mg/dL Albumin 2.7 L (3.9-5) g/dL
[2021-05-18] MEDS: METOPROLOL SUCCINATE XL 50 MG TAB PO SCH (13:04)
[2021-05-18] MEDS: ASPIRIN 81 MG TAB CHEW PO SCH (13:04)
[2021-05-18] MEDS: CLOPIDOGREL 75 MG TAB PO SCH (13:04)
[2021-05-18] MEDS: amLODIPine 10 MG TAB PO SCH (13:04)
--- NOTE | 2021-05-18 13:21 | Progress Note ---
Assessment and Plan - Patient Problems (1) Acute congestive heart failure Current Visit: No Status: Acute Plan to address problem: Patient was admitted with acute pulmonary edema. She has end-stage renal disease on hemodialysis, chronic hypertension and history of heart failure with preserved ejection fraction. On the current echo, there is moderate to severe pulmonary hypertension, no evident mitral valve lesions or prolapse, but there is concern for the valvular disease as a possible etiology of recurrent heart failure. We will proceed with diagnostic coronary angiography following which further recommendation will be made for nonsystolic heart failure management. Subjective Date of service: 05/18/21 Interval history: Patient is on hemodialysis, no new cardiac complaints reported. Echocardiogram today shows normal left ventricular systolic function with ejection fraction 55 to 60%. The most significant findings on echocardiogram moderate to severe mitral regurgitation, mild to moderate dilatation of the left atrium, and moderately severe pulmonary hypertension with PA systolic pressure of 60 to 65%. Objective Vital Signs Temp Pulse Resp BP Pulse Ox Pulse Ox Pulse Ox 05/18/21 13:04 84 140/55 05/18/21 12:00 18 94 05/18/21 11:58 97 05/18/21 10:15 82 124/50 05/18/21 10:00 82 125/50 05/18/21 09:45 79 118/44 05/18/21 09:30 84 115/53 05/18/21 09:15 86 125/57 05/18/21 09:00 84 142/40 05/18/21 08:45 52 L 105/37 05/18/21 08:40 86 130/63 05/18/21 08:30 99.6 F 86 20 138/61 93 95 05/18/21 08:11 89 18 93 05/18/21 04:11 98.2 F 86 18 127/39 86 05/18/21 02:00 92 H 05/18/21 00:00 93 05/17/21 23:37 98.4 F 87 18 134/36 93 05/17/21 22:35 93 05/17/21 21:32 99.5 F 96 H 18 149/64 87 05/17/21 20:59 98.2 F 85 18 139/50 93 95 05/17/21 20:30 88 177/68 05/17/21 20:15 85 163/59 05/17/21 20:00 84 140/28 05/17/21 19:45 83 164/60 05/17/21 19:30 82 156/25 05/17/21 19:15 82 170/56 05/17/21 19:00 81 150/59 05/17/21 18:45 79 156/63 05/17/21 18:35 80 149/62 05/17/21 18:30 99.2 F 61 18 149/68 93 95 05/17/21 17:21 49 L 12 151/72 96 05/17/21 17:11 52 L 13 151/72 97 05/17/21 17:01 50 L 13 151/72 96 05/17/21 16:51 52 L 14 151/72 96 05/17/21 16:41 53 L 15 151/72 97 05/17/21 16:35 151/72 98 05/17/21 16:21 98.4 F 84 20 133/59 88 05/17/21 16:00 87 05/17/21 15:57 15 05/17/21 14:57 17 - Physical Examination General: No Apparent Distress HEENT: Positive: PERRL Neck: Positive: neck supple Cardiac: Positive: Reg Rate and Rhythm Lungs: Positive: Decreased Breath Sounds Neuro: Positive: Grossly Intact Abdomen: Positive: Soft Skin: Positive: Clear Extremities: Absent: edema - Labs and Meds Cardiac Enzymes 05/18/21 Range/Units 07:21 AST 11 (5-40) units/L CBC 05/18/21 Range/Units 07:21 WBC 12.0 H (4.5-11.0) K/mm3 RBC 2.58 L (3.65-5.03) M/mm3 Hgb 7.7 L (10.1-14.3) gm/dl Hct 23.2 L (30.3-42.9) % Plt Count 183 (140-440) K/mm3 Lymph # (Auto) 1.8 (1.2-5.4) K/mm3 [place] # (Auto) 0.9 H (0.0-0.8) K/mm3 Eos # (Auto) 0.3 (0.0-0.4) K/mm3 Baso # (Auto) 0.2 H (0.0-0.1) K/mm3 Comprehensive Metabolic Panel 05/18/21 Range/Units 07:21 Sodium 139 (137-145) mmol/L Potassium 3.6 (3.6-5.0) mmol/L Chloride 99.5 (98-107) mmol/L Carbon Dioxide 24 (22-30) mmol/L BUN 37 H (7-17) mg/dL Creatinine 4.3 H (0.6-1.2) mg/dL Glucose 138 H (65-100) mg/dL Calcium 8.5 (8.4-10.2) mg/dL AST 11 (5-40) units/L ALT 9 (7-56) units/L Alkaline Phosphatase 111 (35-129) units/L Total Protein 6.4 (6.3-8.2) g/dL Albumin 2.7 L (3.9-5) g/dL
--- NOTE | 2021-05-18 14:32 | Progress Note ---
Assessment and Plan 1. ESRD: Patient is on maintenance hemodialysis three times a week, MWF schedule. Meds dosage based on GFR. Last outpatient HD 05/15. Hemodialysis: 05/17(UF only), 05/18. 2. FEN: Volume overload, UF with HD as tolerated. Monitor lytes and volume status. 3. Acute hypoxic resp failure: CXR showed volume overload. Volume control thru HD. Currently on [place] O2. Followed by Pulmonary. 4. 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 Per ID 6 weeks of antibiotics. 5. Anemia, POA: Epogen with HD as needed. Monitor. 6. Hypertension: Adjust meds as needed. Monitor. 7. DM type 2. 8. Counseled to quit smoking. Subjective: Patient was seen and examined at the bedside. General Appearance: General appearance: well-developed, appears stated age, no distress, on NC O2 HEENT: ATNC, pupils equal Neck: trachea midline Respiratory: ctab Heart: regular, S1S2, no murmur Abdomen: soft, bowel sounds heard, not tender Integumentary: R BKA stump large wound Neurologic: AO, able to move extremities Ext: R BKA stump wound, no edema Hemodialysis access: R arm AVG Subjective Date of service: 05/18/21 Objective - Vital Signs Vital signs: Vital Signs - 12hr 05/18/21 05/18/21 05/18/21 04:11 08:11 08:30 Temperature 98.2 F 99.6 F Pulse Rate 86 89 86 Respiratory 18 18 20 Rate Blood Pressure 127/39 138/61 O2 Sat by Pulse 86 93 Oximetry O2 Sat by Pulse 93 Oximetry [ Anterior Bilateral Throughout] O2 Sat by Pulse 95 Oximetry [ Posterior Bilateral Throughout] 05/18/21 05/18/21 05/18/21 08:40 08:45 09:00 Temperature Pulse Rate 86 52 L 84 Respiratory Rate Blood Pressure 130/63 105/37 142/40 O2 Sat by Pulse Oximetry O2 Sat by Pulse Oximetry [ Anterior Bilateral Throughout] O2 Sat by Pulse Oximetry [ Posterior Bilateral Throughout] 05/18/21 05/18/21 05/18/21 09:15 09:30 09:45 Temperature Pulse Rate 86 84 79 Respiratory Rate Blood Pressure 125/57 115/53 118/44 O2 Sat by Pulse Oximetry O2 Sat by Pulse Oximetry [ Anterior Bilateral Throughout] O2 Sat by Pulse Oximetry [ Posterior Bilateral Throughout] 05/18/21 05/18/21 05/18/21 10:00 10:15 10:30 Temperature Pulse Rate 82 82 81 Respiratory Rate Blood Pressure 125/50 124/50 110/51 O2 Sat by Pulse Oximetry O2 Sat by Pulse Oximetry [ Anterior Bilateral Throughout] O2 Sat by Pulse Oximetry [ Posterior Bilateral Throughout] 05/18/21 05/18/21 05/18/21 10:45 11:00 11:15 Temperature Pulse Rate 80 85 82 Respiratory Rate Blood Pressure 113/54 103/33 128/43 O2 Sat by Pulse Oximetry O2 Sat by Pulse Oximetry [ Anterior Bilateral Throughout] O2 Sat by Pulse Oximetry [ Posterior Bilateral Throughout] 05/18/21 05/18/21 05/18/21 11:30 11:50 11:58 Temperature 98.7 F Pulse Rate 82 83 Respiratory 16 Rate Blood Pressure 108/40 120/46 O2 Sat by Pulse 97 Oximetry O2 Sat by Pulse 97 Oximetry [ Anterior Bilateral Throughout] O2 Sat by Pulse 97 Oximetry [ Posterior Bilateral Throughout] 05/18/21 05/18/21 12:00 13:04 Temperature Pulse Rate 84 Respiratory 18 Rate Blood Pressure 140/55 O2 Sat by Pulse 94 Oximetry O2 Sat by Pulse Oximetry [ Anterior Bilateral Throughout] O2 Sat by Pulse Oximetry [ Posterior Bilateral Throughout] - Lab 05/18/21 07:21 05/18/21 07:21 Most recent lab results Calcium 8.5 mg/dL (8.4-10.2) 05/18/21 07:21 Medications & Allergies - Medications Allergies/Adverse Reactions: Allergies Penicillins Allergy (Verified 05/18/21 09:09) Swelling morphine Adverse Reaction (Verified 05/18/21 09:09) Vomiting Home Medications: Home Medications Medication Instructions Recorded Confirmed Last Taken Type Aspirin [Aspirin BABY CHEW TAB] 81 mg PO QDAY #30 tab.chew 05/16/20 05/18/21 05/15/21 Rx AtorvaSTATin [Lipitor] 80 mg PO QHS 02/20/21 05/18/21 05/15/21 History Insulin Lispro [Humalog] See Protocol SUB-Q ACHS 02/20/21 05/18/21 05/07/21 History Insulin NPH, Human [NovoLIN N] 8 unit SUB-Q BIDDIAB 30 Days #500 1005/18/21 05/15/21 Rx units Lancets/Blood Glucose Strips 1 each MC DAILY 30 Days #1 05/12/21 05/18/21 05/15/21 Rx [Gojji Lancet 30G-Gluc Tst Strp] combo..pkg Syringe with Needle, 5 ml 1 each MC BID 30 Days #60 05/12/21 05/18/21 05/15/21 Rx [Luer-Chase Syringe-Needle] disp.syrin Cholecalciferol (Vitamin D3) 50,000 unit PO QWEEK 05/18/21 05/18/21 05/05/21 History [Vitamin D3 50,000UNIT CAP] Linaclotide [Linzess] 72 mcg PO Q48H 05/18/21 05/18/21 05/08/21 History Metoprolol Xl [Metoprolol 100 mg PO QDAY 05/18/21 05/18/21 05/15/21 History SUCCINATE ER TAB] NIFEdipine XL [Procardia Xl] 90 mg PO QDAY 05/18/21 05/18/21 05/15/21 History Active Medications: Generic Name Dose Route Start Last Admin Trade Name Freq PRN Reason Stop Dose Admin Acetaminophen 650 mg 05/17/21 02:07 Acetaminophen 325 Mg Tab PO Q4H PRN Pain MILD(1-3)/Fever >100.5/MARIE Al Hydrox/Mg Hydrox/Simethicone 30 ml 05/17/21 02:07 Alum-Mag Hydroxide-Simethicone [id number]/5ml Oral Liqd 30 Ml PO Q4H PRN Indigestion Amlodipine Besylate 10 mg 05/17/21 10:00 05/18/21 13:04 Amlodipine 10 Mg Tab PO 10 mg QDAY SILVANO Administration Aspirin 81 mg 05/17/21 10:00 05/18/21 13:04 Aspirin 81 Mg Tab Chew PO 81 mg QDAY SILVANO Administration Atorvastatin Calcium 80 mg 05/17/21 22:00 05/17/21 21:43 Atorvastatin 40 Mg Tab PO 80 mg QHS SILVANO Administration Clopidogrel Bisulfate 75 mg 05/17/21 10:00 05/18/21 13:04 Clopidogrel 75 Mg Tab PO 75 mg QDAY SILVANO Administration Heparin Sodium (Porcine) 5,000 unit 05/17/21 10:00 05/18/21 10:00 Heparin 5,000 Unit/1 Ml Vial SUB-Q Not Given Q12HR [facility] Heparin Sodium (Porcine) 3,000 unit 05/17/21 14:50 05/18/21 08:30 Heparin 10,000 Units/10 Ml Vial IV 3,000 unit DULCE PRN Administration hemodialysis Meropenem 500 mg in 50 mls @ 50 mls/hr 05/17/21 18:00 05/17/21 20:29 Merrem/Ns 500 Mg/50 Ml IV 05/21/21 18:59 50 mls/hr Q24H SILVANO Administration Sodium Chloride 100 mls @ 999 mls/hr 05/18/21 07:50 Nacl 0.9% IV DULCE PRN Hypotension Insulin Human Lispro 0 unit 05/17/21 07:30 05/18/21 11:30 Insulin Lispro 100 Unit/Ml SUB-Q Not Given ACHS [facility] Protocol Insulin Human NPH 8 unit 05/17/21 08:00 05/18/21 07:30 Insulin Nph, Human 100 Unit/1 Ml SUB-Q Not Given BIDDIAB [facility] Magnesium Hydroxide 30 ml 05/17/21 02:07 Magnesium Hydroxide (Mom) Oral Liqd Udc PO Q4H PRN Constipation Metoprolol Succinate 50 mg 05/17/21 08:00 05/18/21 13:04 Metoprolol Succinate Xl 50 Mg Tab PO 50 mg QDAY@0800 [facility] Administration Morphine Sulfate 2 mg 05/17/21 02:07 Morphine 2 Mg/1 Ml Inj IV Q4H PRN Pain, Moderate (4-6) Morphine Sulfate 4 mg 05/17/21 02:07 05/17/21 21:55 Morphine 4 Mg/1 Ml Inj IV 4 mg Q4H PRN Administration Pain , Severe (7-10) Naloxone HCl 0.1 mg 05/17/21 02:07 Naloxone 0.4 Mg/1 Ml Inj IV Q2MIN PRN Res Rate </= 8 or 02 SAT < 92% Ondansetron HCl 4 mg 05/17/21 02:07 Ondansetron 4 Mg/2 Ml Inj IV Q8H PRN Nausea And Vomiting Oxycodone/Acetaminophen 1 tab 05/17/21 02:07 05/18/21 08:20 Oxycodone /Acetaminophen 5-325mg Tab PO 1 tab Q6H PRN Administration Pain, Moderate (4-6) Senna 8.6 mg 05/17/21 02:07 Sennosides 8.6 Mg Tab PO Q12HR PRN Constipation Sodium Chloride 10 ml 05/17/21 10:00 05/17/21 21:43 Sodium Chloride 0.9% 10 Ml Flush Syringe IV 10 ml BID SILVANO Administration
[2021-05-18] MEDS: MEROPENEM/NS 500 MG/50 ML 500 MG/50 ML BAG IV SCH (17:54)
[2021-05-19] MEDS: oxyCODONE /ACETAMINOPHEN 5-325MG TAB PO PRN ×2 (06:12→18:22)
--- NOTE | 2021-05-19 07:25 | Progress Note ---
Assessment and Plan Assessment and plan: This is a 56-year-old female seen in ED at bedside. Patient was recently discharged from hospital. She has history of CHF, ESRD ([facility] dialysis schedule), diabetes, hypertension and she presents to ED with shortness of breath x2 days. Patient reports it is worse with supine position. She denies any chest pain. Patient was last dialyzed on yesterday. Patient is currently rebreather mask at the time of this assessment. She admits tobacco use but denies chronic alcohol and illicit drug use. Chest x-ray showed worsening of multifocal airspace opacities. 05/18: Patient seen and examined today, clinically showing some improvement, counselling provided about tobacco use- 15 mins. Patient getting HD today. Cardiology planning for ischemic work up prior to discharge I had consulted ID yesterday as patient has was discharged with renally adjusted cefepime vancomycin for early osteomyelitis of the stump for continuation of therapy. If despite HD she remains with severe respiratory distress will get ABG. For now I have asked to wean her down to [place]. She is high risk for home oxygen due to continued Tobacco use. 05/19: Patient to Field Superintendent today for ischemic work-up. We'll follow up after cath procedure. (1) Acute respiratory failure with hypoxia Current Visit: No Status: Acute Plan to address problem: Respiratory care bronchodilator with Continue oxygen supplement, ABG High Speed Warper Tender consulted Chest x-ray showed worsening of multifocal airspace opacities. (2) ESRD (end stage renal disease) on dialysis Current Visit: No Status: Acute Plan to address problem: Consult placed to nephrology for dialysis. Patient gets dialysis on Mondays, Wednesdays and Fridays. (3)Multifocal Pneumonia Current Visit: No Status: Acute Plan to address problem: Patient is recently discharged from the hospital CT of the chest showed worsening lung opacity Start cefepime and consult pharmacy for vancomycin dosing (4) Diabetes mellitus Current Visit: No Status: Acute Plan to address problem: We will monitor Accu-Cheks with sliding scale protocol Resume home antiglycemic agents (5) Hypertension Current Visit: No Status: Acute Plan to address problem: Monitor blood pressure Resume home antihypertensive. (6) PAD (peripheral artery disease) Current Visit: No Status: Acute Plan to address problem: Resume home statin (7) Acute on chronic diastolic (congestive) heart failure Current Visit: No Status: Acute Plan to address problem: Continue cardioprotective protective measures Beta-lea, statin, and antiplatelet (8) Protein calorie malnutritionencourage oral intake Edi Manager consulted. (9) Left BKA stump osteomyelitis (10) Anemia (11) DVT prophylaxis Current Visit: No Status: Acute Plan to address problem: Subcutaneous heparin History Interval history: Patient was leaving room for cardiac cath. We'll follow up after cath Hospitalist Physical - Physical exam Narrative exam: - Physical exam Narrative exam: General appearance: Present: mild distress, well-nourished - EENT Eyes: Present: PERRL ENT: hearing intact, clear oral mucosa - Neck Neck: Present: supple, normal ROM - Respiratory Respiratory effort: labored, accessory muscle use Respiratory: bilateral: CTA, diminished - Cardiovascular Heart Sounds: Present: S1 & S2. Absent: rub, click - Extremities Extremities: pulses symmetrical, left BKA Peripheral Pulses: within normal limits - Abdominal General gastrointestinal: Present: soft, non-tender, non-distended, normal bowel sounds Female genitourinary: Present: normal - Integumentary Integumentary: Present: stump with dressing on left, otherwise right sided clear, warm, dry - Musculoskeletal Musculoskeletal: gait not tested - Psychiatric Psychiatric: appropriate mood/affect, intact judgment & insight, cooperative - Neurologic Neurologic: CNII-XII intact, moves all extremities - Allied Health Allied health notes reviewed: nursing - Constitutional Vitals: Temp Pulse Resp BP Pulse Ox 97.8 F 74 16 137/51 99 05/19/21 03:02 05/19/21 03:14 05/19/21 03:02 05/19/21 03:02 05/19/21 03:02 General appearance: Present: no acute distress HEART Score - HEART Score Troponin: Troponin T 0.075 ng/mL (0.00-0.029) H 05/17/21 00:27 Results - Labs CBC & Chem 7: 05/18/21 07:21 05/18/21 07:21 Labs: Laboratory Last Values WBC 12.0 K/mm3 (4.5-11.0) H 05/18/21 07:21 RBC 2.58 M/mm3 (3.65-5.03) L 05/18/21 07:21 Hgb 7.7 gm/dl (10.1-14.3) L 05/18/21 07:21 Hct 23.2 % (30.3-42.9) L 05/18/21 07:21 MCV 90 fl (79-97) 05/18/21 07:21 MCH 30 pg (28-32) 05/18/21 07:21 MCHC 33 % (30-34) 05/18/21 07:21 RDW 22.5 % (13.2-15.2) H 05/18/21 07:21 Plt Count 183 K/mm3 (140-440) 05/18/21 07:21 Lymph % (Auto) 15.3 % (13.4-35.0) 05/18/21 07:21 [facility] % (Auto) 7.1 % (0.0-7.3) 05/18/21 07:21 Eos % (Auto) 2.6 % (0.0-4.3) 05/18/21 07:21 Baso % (Auto) 1.4 % (0.0-1.8) 05/18/21 07:21 Lymph # (Auto) 1.8 K/mm3 (1.2-5.4) 05/18/21 07:21 [facility] # (Auto) 0.9 K/mm3 (0.0-0.8) H 05/18/21 07:21 Eos # (Auto) 0.3 K/mm3 (0.0-0.4) 05/18/21 07:21 Baso # (Auto) 0.2 K/mm3 (0.0-0.1) H 05/18/21 07:21 Seg Neutrophils % 73.6 % (40.0-70.0) H 05/18/21 07:21 Seg Neutrophils # 8.8 K/mm3 (1.8-7.7) H 05/18/21 07:21 PT 15.1 Sec. (12.2-14.9) H 05/17/21 00:27 INR 1.07 (0.87-1.13) 05/17/21 00:27 APTT 32.0 Sec. (24.2-36.6) 05/17/21 00:27 Sodium 139 mmol/L (137-145) 05/18/21 07:21 Potassium 3.6 mmol/L (3.6-5.0) 05/18/21 07:21 Chloride 99.5 mmol/L (98-107) 05/18/21 07:21 Carbon Dioxide 24 mmol/L (22-30) 05/18/21 07:21 Anion Gap 19 mmol/L 05/18/21 07:21 BUN 37 mg/dL (7-17) H 05/18/21 07:21 Creatinine 4.3 mg/dL (0.6-1.2) H 05/18/21 07:21 Estimated GFR 13 ml/min 05/18/21 07:21 BUN/Creatinine Ratio 9 % 05/18/21 07:21 Glucose 138 mg/dL (65-100) H 05/18/21 07:21 POC Glucose 243 mg/dL (70-105) H 05/18/21 20:30 Calcium 8.5 mg/dL (8.4-10.2) 05/18/21 07:21 Total Bilirubin 1.10 mg/dL (0.1-1.2) 05/18/21 07:21 Direct Bilirubin < 0.2 mg/dL (0-0.2) 05/17/21 00:27 Indirect Bilirubin 0.3 mg/dL 05/17/21 00:27 AST 11 units/L (5-40) 05/18/21 07:21 ALT 9 units/L (7-56) 05/18/21 07:21 Alkaline Phosphatase 111 units/L (35-129) 05/18/21 07:21 Troponin T 0.075 ng/mL (0.00-0.029) H 05/17/21 00:27 NT-Pro-B Natriuret Pep 07043 pg/mL (0-900) H 05/17/21 00:27 Total Protein 6.4 g/dL (6.3-8.2) 05/18/21 07:21 Albumin 2.7 g/dL (3.9-5) L 05/18/21 07:21 Albumin/Globulin Ratio 0.7 % 05/18/21 07:21 Triglycerides 78 mg/dL (2-149) 05/17/21 00:27 Cholesterol 115 mg/dL (50-199) 05/17/21 00:27 LDL Cholesterol Direct 46 mg/dL (50-130) L 05/17/21 00:27 HDL Cholesterol 52 mg/dL (40-59) 05/17/21 00:27 Cholesterol/HDL Ratio 2.21 % 05/17/21 00:27 Random Vancomycin 26.5 ug/mL (0-40.0) 05/18/21 07:21 Microbiology: Microbiology 05/17/21 13:35 Peripheral/Venous Blood Culture - Preliminary NO GROWTH AFTER 24 HOURS 05/17/21 13:50 Peripheral/Venous Blood Culture - Preliminary NO GROWTH AFTER 24 HOURS Vera/IV: Voiding Method Bedside Commode Active Medications - Current Medications Current Medications: Generic Name Dose Route Start Last Admin Trade Name Freq PRN Reason Stop Dose Admin Acetaminophen 650 mg 05/17/21 02:07 Acetaminophen 325 Mg Tab PO Q4H PRN Pain MILD(1-3)/Fever >100.5/MARIE Al Hydrox/Mg Hydrox/Simethicone 30 ml 05/17/21 02:07 Alum-Mag Hydroxide-Simethicone [id number]/5ml Oral Liqd 30 Ml PO Q4H PRN Indigestion Amlodipine Besylate 10 mg 05/17/21 10:00 05/18/21 13:04 Amlodipine 10 Mg Tab PO 10 mg QDAY SILVANO Administration Aspirin 81 mg 05/17/21 10:00 05/18/21 13:04 Aspirin 81 Mg Tab Chew PO 81 mg QDAY SILVANO Administration Atorvastatin Calcium 80 mg 05/17/21 22:00 05/18/21 21:36 Atorvastatin 40 Mg Tab PO 80 mg QHS SILVANO Administration Clopidogrel Bisulfate 75 mg 05/17/21 10:00 05/18/21 13:04 Clopidogrel 75 Mg Tab PO 75 mg QDAY SILVANO Administration Heparin Sodium (Porcine) 5,000 unit 05/17/21 10:00 05/18/21 21:35 Heparin 5,000 Unit/1 Ml Vial SUB-Q 5,000 unit Q12HR SILVANO Administration Heparin Sodium (Porcine) 3,000 unit 05/17/21 14:50 05/18/21 08:30 Heparin 10,000 Units/10 Ml Vial IV 3,000 unit DULCE PRN Administration hemodialysis Meropenem 500 mg in 50 mls @ 50 mls/hr 05/17/21 18:00 05/18/21 17:54 Merrem/Ns 500 Mg/50 Ml IV 05/21/21 18:59 50 mls/hr Q24H SILVANO Administration Sodium Chloride 100 mls @ 999 mls/hr 05/18/21 07:50 Nacl 0.9% IV DULCE PRN Hypotension Insulin Human Lispro 0 unit 05/17/21 07:30 05/18/21 21:42 Insulin Lispro 100 Unit/Ml SUB-Q 2 unit ACHS SILVANO Administration Protocol Insulin Human NPH 8 unit 05/17/21 08:00 05/18/21 17:57 Insulin Nph, Human 100 Unit/1 Ml SUB-Q 8 unit BIDDIAB SILVANO Administration Magnesium Hydroxide 30 ml 05/17/21 02:07 Magnesium Hydroxide (Mom) Oral Liqd Udc PO Q4H PRN Constipation Metoprolol Succinate 50 mg 05/17/21 08:00 05/18/21 13:04 Metoprolol Succinate Xl 50 Mg Tab PO 50 mg QDAY@0800 SILVANO Administration Morphine Sulfate 2 mg 05/17/21 02:07 Morphine 2 Mg/1 Ml Inj IV Q4H PRN Pain, Moderate (4-6) Morphine Sulfate 4 mg 05/17/21 02:07 05/17/21 21:55 Morphine 4 Mg/1 Ml Inj IV 4 mg Q4H PRN Administration Pain , Severe (7-10) Naloxone HCl 0.1 mg 05/17/21 02:07 Naloxone 0.4 Mg/1 Ml Inj IV Q2MIN PRN Res Rate </= 8 or 02 SAT < 92% Ondansetron HCl 4 mg 05/17/21 02:07 Ondansetron 4 Mg/2 Ml Inj IV Q8H PRN Nausea And Vomiting Oxycodone/Acetaminophen 1 tab 05/17/21 02:07 05/19/21 06:12 Oxycodone /Acetaminophen 5-325mg Tab PO 1 tab Q6H PRN Administration Pain, Moderate (4-6) Senna 8.6 mg 05/17/21 02:07 Sennosides 8.6 Mg Tab PO Q12HR PRN Constipation Sodium Chloride 10 ml 05/17/21 10:00 05/18/21 21:35 Sodium Chloride 0.9% 10 Ml Flush Syringe IV 10 ml BID SILVANO Administration Nutrition/Malnutrition Assess - Dietary Evaluation Nutrition/Malnutrition Findings: Nutrition Notes Start: 05/17/21 11:21 Freq: Status: Active Protocol: Document 05/17/21 11:21 YANELIS (Rec: 05/17/21 11:28 [facility] [id number]) Nutrition Notes Need for Assessment 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 Pt recently D/C from this hospital; assessed by RD on (prescribed Nepro and Gagan BID for wound healing). Pt consumed 93% of meals during recent admission. Burn Absent Trauma Absent Is patient on ventilator? No Is Patient Ambulatory and/or Out of Bed No [facility] 4729.008 Calculation Used for [facility]ations [facility] Additional Notes Pro needs >1.2g/kg adjBW: >78g /day Fluid needs 1-1.5L/day Nutrition Intervention Follow-Up By: 05/20/21 Additional Comments F/U: intakes, need for ONS, wound healing
--- NOTE | 2021-05-19 08:22 | Progress Note ---
Assessment and Plan 1. ESRD: Patient is on maintenance hemodialysis three times a week, MWF schedule. Meds dosage based on GFR. Last outpatient HD 05/15. Hemodialysis: 05/17(UF only), 05/18. 2. FEN: Volume overload, improved with HD. Monitor lytes and volume status. 3. Acute hypoxic resp failure: CXR showed volume overload. Volume control thru HD. Currently on [place] O2. Followed by Pulmonary. 4. 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 Per ID 6 weeks of antibiotics. 5. Anemia, POA: Epogen with HD as needed. Monitor. 6. Hypertension: Adjust meds as needed. Monitor. 7. DM type 2. Subjective: Patient was seen and examined at the bedside. Doing better. General Appearance: General appearance: well-developed, appears stated age, no distress, pt not wearing O2 HEENT: ATNC, pupils equal Neck: trachea midline Respiratory: ctab Heart: regular, S1S2, no murmur Abdomen: soft, bowel sounds heard, not tender Integumentary: R BKA stump dressing Neurologic: AO, able to move extremities Ext: R BKA stump wound, no edema Hemodialysis access: R arm AVG Subjective Date of service: 05/19/21 Objective - Vital Signs Vital signs: Vital Signs - 12hr 05/18/21 05/19/21 05/19/21 23:48 00:15 03:02 Temperature 98.0 F 97.8 F Pulse Rate 74 72 Respiratory 14 16 Rate Blood Pressure 119/51 137/51 O2 Sat by Pulse 100 100 99 Oximetry 05/19/21 03:14 Temperature Pulse Rate 74 Respiratory Rate Blood Pressure O2 Sat by Pulse Oximetry - Lab 05/18/21 07:21 05/18/21 07:21 Most recent lab results Calcium 8.5 mg/dL (8.4-10.2) 05/18/21 07:21 Medications & Allergies - Medications Allergies/Adverse Reactions: Allergies Penicillins Allergy (Verified 05/18/21 09:09) Swelling morphine Adverse Reaction (Verified 05/18/21 09:09) Vomiting Home Medications: Home Medications Medication Instructions Recorded Confirmed Last Taken Type AtorvaSTATin [Lipitor] 80 mg PO QHS 02/20/21 05/18/21 05/15/21 History Lancets/Blood Glucose Strips 1 each MC DAILY 30 Days #1 05/12/21 05/18/21 05/15/21 Rx [Gojji Lancet 30G-Gluc Tst Strp] combo..pkg Syringe with Needle, 5 ml 1 each MC BID 30 Days #60 05/12/21 05/18/21 05/15/21 Rx [Luer-Chase Syringe-Needle] disp.syrin Cholecalciferol (Vitamin D3) 50,000 unit PO QWEEK 05/18/21 05/18/21 05/05/21 History [Vitamin D3 50,000UNIT CAP] Linaclotide [Linzess] 72 mcg PO Q48H 05/18/21 05/18/21 05/08/21 History NIFEdipine XL [Procardia Xl] 90 mg PO QDAY 05/18/21 05/18/21 05/15/21 History Aspirin [Aspirin BABY CHEW TAB] 81 mg PO QDAY 30 Days #30 tab.chew 05/19/21 Unknown Rx AtorvaSTATin [Lipitor] 80 mg PO QHS 30 Days #30 tablet 05/19/21 Unknown Rx Clopidogrel [Plavix] 75 mg PO QDAY 30 Days #30 tablet 05/19/21 Unknown Rx Metoprolol Xl [Metoprolol 50 mg PO QDAY@0800 30 Days #30 05/19/21 Unknown Rx SUCCINATE ER TAB] tablet amLODIPine 10 mg PO QDAY 30 Days #30 tablet 05/19/21 Unknown Rx Active Medications: Generic Name Dose Route Start Last Admin Trade Name Freq PRN Reason Stop Dose Admin Acetaminophen 650 mg 05/17/21 02:07 Acetaminophen 325 Mg Tab PO Q4H PRN Pain MILD(1-3)/Fever >100.5/MARIE Al Hydrox/Mg Hydrox/Simethicone 30 ml 05/17/21 02:07 Alum-Mag Hydroxide-Simethicone [id number]/5ml Oral Liqd 30 Ml PO Q4H PRN Indigestion Amlodipine Besylate 10 mg 05/17/21 10:00 05/18/21 13:04 Amlodipine 10 Mg Tab PO 10 mg QDAY SILVANO Administration Aspirin 81 mg 05/17/21 10:00 05/18/21 13:04 Aspirin 81 Mg Tab Chew PO 81 mg QDAY SILVANO Administration Atorvastatin Calcium 80 mg 05/17/21 22:00 05/18/21 21:36 Atorvastatin 40 Mg Tab PO 80 mg QHS SILVANO Administration Clopidogrel Bisulfate 75 mg 05/17/21 10:00 05/18/21 13:04 Clopidogrel 75 Mg Tab PO 75 mg QDAY SILVANO Administration Heparin Sodium (Porcine) 5,000 unit 05/17/21 10:00 05/18/21 21:35 Heparin 5,000 Unit/1 Ml Vial SUB-Q 5,000 unit Q12HR SILVANO Administration Heparin Sodium (Porcine) 3,000 unit 05/17/21 14:50 05/18/21 08:30 Heparin 10,000 Units/10 Ml Vial IV 3,000 unit DULCE PRN Administration hemodialysis Meropenem 500 mg in 50 mls @ 50 mls/hr 05/17/21 18:00 05/18/21 17:54 Merrem/Ns 500 Mg/50 Ml IV 05/21/21 18:59 50 mls/hr Q24H SILVANO Administration Sodium Chloride 100 mls @ 999 mls/hr 05/18/21 07:50 Nacl 0.9% IV DULCE PRN Hypotension Insulin Human Lispro 0 unit 05/17/21 07:30 05/18/21 21:42 Insulin Lispro 100 Unit/Ml SUB-Q 2 unit ACHS SILVANO Administration Protocol Insulin Human NPH 8 unit 05/17/21 08:00 05/18/21 17:57 Insulin Nph, Human 100 Unit/1 Ml SUB-Q 8 unit BIDDIAB SILVANO Administration Magnesium Hydroxide 30 ml 05/17/21 02:07 Magnesium Hydroxide (Mom) Oral Liqd Udc PO Q4H PRN Constipation Metoprolol Succinate 50 mg 05/17/21 08:00 05/18/21 13:04 Metoprolol Succinate Xl 50 Mg Tab PO 50 mg QDAY@0800 SILVANO Administration Morphine Sulfate 2 mg 05/17/21 02:07 Morphine 2 Mg/1 Ml Inj IV Q4H PRN Pain, Moderate (4-6) Morphine Sulfate 4 mg 05/17/21 02:07 05/17/21 21:55 Morphine 4 Mg/1 Ml Inj IV 4 mg Q4H PRN Administration Pain , Severe (7-10) Naloxone HCl 0.1 mg 05/17/21 02:07 Naloxone 0.4 Mg/1 Ml Inj IV Q2MIN PRN Res Rate </= 8 or 02 SAT < 92% Ondansetron HCl 4 mg 05/17/21 02:07 Ondansetron 4 Mg/2 Ml Inj IV Q8H PRN Nausea And Vomiting Oxycodone/Acetaminophen 1 tab 05/17/21 02:07 05/19/21 06:12 Oxycodone /Acetaminophen 5-325mg Tab PO 1 tab Q6H PRN Administration Pain, Moderate (4-6) Senna 8.6 mg 05/17/21 02:07 Sennosides 8.6 Mg Tab PO Q12HR PRN Constipation Sodium Chloride 10 ml 05/17/21 10:00 05/18/21 21:35 Sodium Chloride 0.9% 10 Ml Flush Syringe IV 10 ml BID SILVANO Administration
[2021-05-19] MEDS: INSULIN LISPRO 100 UNIT/ML SUB-Q SCH ×3 (08:23→18:23)
[2021-05-19] MEDS: INSULIN NPH, HUMAN 100 UNIT/1 ML SUB-Q SCH ×2 (08:36→18:24)
[2021-05-19] MEDS ORDERED: HEPARIN/NS 5000 UNIT/500ML 1,000 ML IR ONE (08:50)
[2021-05-19] MEDS ORDERED: HEPARIN 10,000 UNITS/10 ML VIAL ONE (08:50)
[2021-05-19] MEDS ORDERED: LIDOCAINE (2%) 20 MG/1 ML VIAL 20 ML MDV INFILTRATI ONE (08:51)
[2021-05-19] MEDS ORDERED: SODIUM CHLORIDE 0.9% 1000 ML 1,000 ML ONE (09:12)
[2021-05-19] MEDS ORDERED: MIDAZOLAM 2 MG/2 ML INJ ONE (09:16)
[2021-05-19] MEDS ORDERED: CLOPIDOGREL 75 MG TAB ONE (09:55)
[2021-05-19] MEDS ORDERED: ASPIRIN 81 MG TAB CHEW ONE (09:55)
[2021-05-19] MEDS ORDERED: HEPARIN/NS 5000 UNITS/500 ML BAG (CATH LAB ONLY) IR ONE (10:23)
--- NOTE | 2021-05-19 10:45 | Progress Note ---
Assessment and Plan 56 y/o with acute respiratory failure secondary to pulmonary edema, volume overload. 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 Continue to wean FiO2 for sats >88% and patient comfort. HD per renal. 1. Admitted many times before with same presentation, first time pulm has been consulted 2. Fluid management with HD and opitimation of CHF meds if possible 3. No indication for bronchodilator therapy. Subjective Date of service: 05/19/21 Interval history: No acute events. Was weaned down to 3 liters. 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 Objective Vital Signs - 12hr 05/18/21 05/19/21 05/19/21 23:48 00:15 03:02 Temperature 98.0 F 97.8 F Pulse Rate 74 72 Respiratory 14 16 Rate Blood Pressure 119/51 137/51 O2 Sat by Pulse 100 100 99 Oximetry 05/19/21 05/19/21 03:14 08:47 Temperature Pulse Rate 74 Respiratory Rate Blood Pressure O2 Sat by Pulse 100 Oximetry Constitutional: no acute distress, other (Morbidly obese on nonrebreather mask) Eyes: non-icteric ENT: oropharynx moist, other (Somewhat crowded) Neck: supple, no lymphadenopathy Ascultation: Bilateral: rhonchi Cardiovascular: regular rate and rhythm Gastrointestinal: normoactive bowel sounds, soft, non-tender Extremities: no cyanosis, edema (1+ left lower extremity), other (Right BKA) Neurologic: normal mental status, CN II-XII normal Psychiatric: mood appropriate CBC and BMP: 05/18/21 07:21 05/18/21 07:21 ABG, PT/INR, D-dimer: PT/INR, D-dimer PT 15.1 Sec. (12.2-14.9) H 05/17/21 00:27 INR 1.07 (0.87-1.13) 05/17/21 00:27 Abnormal lab findings: Abnormal Labs 05/17/21 05/17/21 05/17/21 00:27 00:27 00:27 WBC 14.0 H RBC 2.93 L Hgb 8.6 L Hct 26.8 L RDW 22.9 H Lymph % (Auto) 8.6 L Cochran # (Auto) Baso # (Auto) 0.2 H Seg Neutrophils % 83.7 H Seg Neutrophils # 11.7 H PT 15.1 H BUN 26 H Creatinine 3.3 H Glucose 212 H POC Glucose Troponin T 0.075 H NT-Pro-B Natriuret Pep Albumin LDL Cholesterol Direct 46 L 05/17/21 05/17/21 05/17/21 00:27 07:23 11:25 WBC RBC Hgb Hct RDW Lymph % (Auto) Cochran # (Auto) Baso # (Auto) Seg Neutrophils % Seg Neutrophils # PT BUN Creatinine Glucose POC Glucose 275 H 216 H Troponin T NT-Pro-B Natriuret Pep 06944 H Albumin 3.2 L LDL Cholesterol Direct 05/17/21 05/17/21 05/18/21 16:27 21:38 07:21 WBC 12.0 H RBC 2.58 L Hgb 7.7 L Hct 23.2 L RDW 22.5 H Lymph % (Auto) Cochran # (Auto) 0.9 H Baso # (Auto) 0.2 H Seg Neutrophils % 73.6 H Seg Neutrophils # 8.8 H PT BUN Creatinine Glucose POC Glucose 274 H 154 H Troponin T NT-Pro-B Natriuret Pep Albumin LDL Cholesterol Direct 05/18/21 05/18/21 05/18/21 07:21 12:33 16:13 WBC RBC Hgb Hct RDW Lymph % (Auto) Cochran # (Auto) Baso # (Auto) Seg Neutrophils % Seg Neutrophils # PT BUN 37 H Creatinine 4.3 H Glucose 138 H POC Glucose 165 H 285 H Troponin T NT-Pro-B Natriuret Pep Albumin 2.7 L LDL Cholesterol Direct 05/18/21 05/19/21 20:30 07:52 WBC RBC Hgb Hct RDW Lymph % (Auto) Cochran # (Auto) Baso # (Auto) Seg Neutrophils % Seg Neutrophils # PT BUN Creatinine Glucose POC Glucose 243 H 132 H Troponin T NT-Pro-B Natriuret Pep Albumin LDL Cholesterol Direct
[2021-05-19] MEDS ORDERED: fentaNYL 100 MCG/2 ML INJ IV ONE (10:48)
--- NOTE | 2021-05-19 10:59 | Electrocardiograph Report ---
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 Electronically Signed On 05-19-2021 10:58:43 EDT by Ken Flanagan
--- NOTE | 2021-05-19 11:18 | Event Note ---
Date: 05/19/21 Patient underwent left heart catheterization via the right femoral artery, no complications. We found mild nonobstructive coronary artery disease, and mild left ventricular systolic dysfunction with ejection fraction 45%. She is recommended for risk factor modification and medical therapy. Stable for cardiac discharge on medical therapy. In addition to optimal dialysis and optimal blood pressure control, she is recommended to follow-up with her primary dinkey locomotive operator in 7 days. Further management of mitral valve regurgitation including consideration of percutaneous device therapies, will be deferred to her primary dinkey locomotive operator in the outpatient setting.
--- NOTE | 2021-05-19 12:44 | Progress Note ---
Assessment and Plan Cultures: Blood culture no growth so far A/P: 56-year-old female past medical history diabetes, ESRD on HD, heart failure, hypertension admitted with pneumonia #Multifocal pneumonia: Worsening since previous admission. Had been on vancomycin and cefepime with dialysis for her stump osteomyelitis. Worsening leukocytosis from previous. Reports she is fully vaccinated against COVID-19. #Right BKA stump osteomyelitis: Planned for 6 weeks antibiotics with dialysis. Seen on previous MRI during last admission. Wound infection. #ESRD on HD: Renally dose antibiotics #Diabetes: tight glycemic control for best outcomes. Recs: -Continue renally dosed meropenem x 5 days -continue IV vancomycin -f/u COVID-19 PCR -when discharged, resume IV Vancomycin + Ceftazidime at dialysis to complete 6 weeks -recheck CBC in AM -consult wound care William Doyle MD, FACP [facility] O: [phone] F: [phone] Subjective Date of service: 05/19/21 Interval history: No fever. Had cath done. Breathing slowly improving. Objective - Exam Narrative Exam: Physical Exam: Constitutional: Alert, cooperative. No acute distress Head, Ears, Nose: Normocephalic, atraumatic. External ears, nose normal Eyes: Conjunctivae/corneas clear. No icterus. No ptosis. Neck: Supple, no meningeal signs Cardiovascular: S1, S2 + Respiratory: Good air entry, clear to auscultation bilaterally GI: Soft, non-tender; bowel sounds normal. No peritoneal signs Musculoskeletal: Right BKA stump in dressing. Skin: No rash or abscess Hem/Lymphatic: No palpable cervical or supraclavicular nodes. No lymphangitis Psych: Mood ok. Affect normal Neurological: Awake, alert, oriented. No gross abnormality - Constitutional Vitals: Vital Signs Temp Pulse Resp BP Pulse Ox 97.8 F 74 16 137/51 100 05/19/21 03:02 05/19/21 03:14 05/19/21 03:02 05/19/21 03:02 05/19/21 08:47 Temperature -Last 24 Hours Temperature 97.8 F Temperature 98.0 F Temperature 98.0 F Temperature 98.6 F - Labs CBC & Chem 7: 05/18/21 07:21 05/18/21 07:21 Labs: Abnormal lab results 05/18/21 05/18/21 05/19/21 Range/Units 16:13 20:30 07:52 POC Glucose 285 H 243 H 132 H (70-105) mg/dL 05/19/21 Range/Units 12:13 POC Glucose 139 H (70-105) mg/dL
[2021-05-19] MEDS: CLOPIDOGREL 75 MG TAB PO SCH (13:36)
[2021-05-19] MEDS: ASPIRIN 81 MG TAB CHEW PO SCH (13:36)
[2021-05-19] MEDS: HEPARIN 5,000 UNIT/1 ML VIAL SUB-Q SCH (13:36)
--- NOTE | 2021-05-19 13:43 | Discharge Summary ---
Providers - Providers Date of Admission: 05/17/21 02:07 Attending physician: LEONARD BRUSH MD 05/17/21 02:07 Consult to Physician [CONS] Routine Comment: Consulting Provider: FORTUNATO BELL Physician Instructions: Reason For Exam: acute respiratory failure with hypoxia 05/17/21 02:50 Consult to Physician [CONS] Routine Comment: Consulting Provider: PATRIA WU Physician Instructions: Reason For Exam: esrd 05/17/21 06:50 Consult to Physician [CONS] Routine Comment: Consulting Provider: JERSON COLÓN Physician Instructions: Reason For Exam: CHF 05/17/21 06:55 Consult to Dietitian/Nutrition [CONS] Stat Physician Instructions: Reason For Exam: Reason for Consult: Malnutrition 05/17/21 10:17 Consult to Physician [CONS] Routine Comment: Consulting Provider: APPLE GALLO Physician Instructions: Reason For Exam: right bka osteomylitis and now with PNA 05/17/21 11:13 Consult to Wound/ET Nurse [CONS] Routine Reason For Exam: wound evaluation Right Stomp BKA 05/19/21 11:18 Consult to Cardiac Rehabilitation [CONS] Routine Reason For Exam: Cardiac Rehab Evaluation Primary care physician: CHANGE MANAGEMENT Hospitalization Reason for admission: shortness of breath. Condition: Fair Hospital course: This is a 56-year-old female seen in ED at bedside. Patient was recently discharged from hospital. She has history of CHF, ESRD ([facility] dialysis schedule), diabetes, hypertension and she presents to ED with shortness of breath x2 days. Patient reports it is worse with supine position. She denies any chest pain. Patient was last dialyzed on yesterday. Patient is currently rebreather mask at the time of this assessment. She admits tobacco use but denies chronic alcohol and illicit drug use. Chest x-ray showed worsening of multifocal airspace opacities. 05/18: Patient seen and examined today, clinically showing some improvement, counselling provided about tobacco use- 15 mins. Patient getting HD today. Cardiology planning for ischemic work up prior to discharge I had consulted ID yesterday as patient has was discharged with renally adjusted cefepime vancomycin for early osteomyelitis of the stump for continuation of therapy. If despite HD she remains with severe respiratory distress will get ABG. For now I have asked to wean her down to [place]. She is high risk for home oxygen due to continued Tobacco use. 05/19: Cath demonstrated mild nonobstructive coronary artery disease, and mild LV dysfunction with EF of 45%. Cardiology ok with d/c . Patient will be discharged home. She already has home health care set up through [place]. ID is ok with vancomycin IV and cefepime IV qHD continuation for rt stump osteomyletis which was set up the prior admission. Will be discharged home today around 5pm if no bleeding or vascular compromise is noted at groin site from [facility]. Patient is saturating 100% on room air. (1) Acute respiratory failure with hypoxia Current Visit: No Status: Acute Plan to address problem: Respiratory care bronchodilator with Continue oxygen supplement, ABG Radio Interference Supervisor consulted Chest x-ray showed worsening of multifocal airspace opacities. (2) ESRD (end stage renal disease) on dialysis Current Visit: No Status: Acute Plan to address problem: Consult placed to nephrology for dialysis. Patient gets dialysis on Mondays, Wednesdays and Fridays. (3)Multifocal Pneumonia Current Visit: No Status: Acute Plan to address problem: Patient is recently discharged from the hospital CT of the chest showed worsening lung opacity Start cefepime and consult pharmacy for vancomycin dosing (4) Diabetes mellitus Current Visit: No Status: Acute Plan to address problem: We will monitor Accu-Cheks with sliding scale protocol Resume home antiglycemic agents (5) Hypertension Current Visit: No Status: Acute Plan to address problem: Monitor blood pressure Resume home antihypertensive. (6) PAD (peripheral artery disease) Current Visit: No Status: Acute Plan to address problem: Resume home statin (7) Acute on chronic diastolic (congestive) heart failure Current Visit: No Status: Acute Plan to address problem: Continue cardioprotective protective measures Beta-lea, statin, and antiplatelet (8) Protein calorie malnutritionencourage oral intake Small Business Sales Representative consulted. (9) Left BKA stump osteomyelitis (10) Anemia (11) DVT prophylaxis Current Visit: No Status: Acute Plan to address problem: Subcutaneous heparin Disposition: HOME HEALTH CARE SERVICE Final Discharge Diagnosis (Prints w/discharge instructions): Acute hypoxic respiratory failure due to acute on chronic systolic heart failure Time spent for discharge: 35 Core Measure Documentation - Palliative Care Palliative Care/ Comfort Measures: Not Applicable - Core Measures Any of the following diagnoses?: heart failure - Heart Failure Discharge Requirements FLORIDALMA/ARB for LVSD if EF <40%: No Reason for no FLORIDALMA/ARB: Renal impairment Beta lea at discharge: Yes Exam - Physical Exam Narrative exam: - Physical exam Narrative exam: General appearance: Present: mild distress, well-nourished - EENT Eyes: Present: PERRL ENT: hearing intact, clear oral mucosa - Neck Neck: Present: supple, normal ROM - Respiratory Respiratory effort: labored, accessory muscle use Respiratory: bilateral: CTA, diminished - Cardiovascular Heart Sounds: Present: S1 & S2. Absent: rub, click - Extremities Extremities: pulses symmetrical, left BKA Peripheral Pulses: within normal limits - Abdominal General gastrointestinal: Present: soft, non-tender, non-distended, normal bowel sounds Female genitourinary: Present: normal - Integumentary Integumentary: Present: stump with dressing on left, otherwise right sided clear, warm, dry - Musculoskeletal Musculoskeletal: gait not tested - Psychiatric Psychiatric: appropriate mood/affect, intact judgment & insight, cooperative - Neurologic Neurologic: CNII-XII intact, moves all extremities - Allied Health Allied health notes reviewed: nursing - Constitutional Vitals: Temp Pulse Resp BP Pulse Ox 97.8 F 66 16 139/47 100 05/19/21 03:02 05/19/21 11:48 05/19/21 03:02 05/19/21 12:00 05/19/21 12:00 Plan Activity: advance as tolerated Weight Bearing Status: Weight Bear as Tolerated Diet: low carbohydrate Follow up with: PRIMARY CARE, [Primary Care Provider] - 7 Days Prescriptions: AtorvaSTATin [Lipitor] 80 mg PO QHS 30 Days #30 tablet amLODIPine 10 mg PO QDAY 30 Days #30 tablet Aspirin [Aspirin BABY CHEW TAB] 81 mg PO QDAY 30 Days #30 tab.chew Metoprolol Xl [Metoprolol SUCCINATE ER TAB] 50 mg PO QDAY@0800 30 Days #30 tablet Clopidogrel [Plavix] 75 mg PO QDAY 30 Days #30 tablet
--- NOTE | 2021-05-19 13:47 | Cardiac Catherization Report ---
DATE OF SERVICE: 05/19/2021 CARDIAC CATHETERIZATION REPORT REASON FOR PROCEDURE: The patient is a 56-year-old woman with multiple medical problems including end-stage renal disease, on hemodialysis; peripheral arterial disease, status post previous right below-knee amputation; and recurrent heart failure with preserved ejection fraction. On this presentation, we performed cardiac catheterization,which revealed well-preserved left ventricular systolic function, with ejection fraction 55%-60%, but with evidence of [id number] mitral regurgitation, dilated left atrium, and [id number] pulmonary hypertension. Due to recurrent heart failure, she was recommended to undergo cardiac catheterization and diagnostic coronary angiography. PROCEDURES: 1. Left heart catheterization. 2. Selective left and right coronary angiography. 3. Left ventricular angiography. 4. Sedation time start 10:48, end 11:02. DESCRIPTION OF PROCEDURE: The patient was prepped and draped in a sterile fashion after informed consent. The right femoral artery was entered using Seldinger technique followed by placement of a 6-Welsh sheath. We then proceeded with selective left and right coronary angiography using a #4 left Mahesh catheter and a #4 right Mahesh. A pigtail catheter was then advanced into the left ventricle, and left ventricular angiography was performed. The catheters and the sheaths were removed, hemostasis achieved using manual compression over the right femoral artery. The patient was then returned to the postprocedure unit in stable condition. There were no complications. FINDINGS: HEMODYNAMICS: Left ventricular end diastolic pressure was 24, following coronary angiography. Ascending aortic pressure was 153/61. There was no significant pressure gradient on pullback across the aortic valve. CORONARY ANGIOGRAPHY: Left main coronary artery was free of significant disease. The left anterior descending artery contained a calcified, eccentric 50% stenosis of its mid segment. Otherwise, this vessel and its diagonal branches contained no significant atherosclerosis. The circumflex artery and its obtuse marginal branches were free of significant disease. The right coronary artery was dominant. This vessel contained a long segment of mild narrowing of its mid portion, with up to 20%-30% luminal stenosis. There was very mild overall left ventricular systolic dysfunction on LV angiography, with ejection fraction estimated at 45%. CONCLUSION: 1. Mild, nonobstructive disease of the mid left anterior descending. 2. Very mild left ventricular dysfunction with ejection fraction 45%. RECOMMENDATIONS: 1. Aggressive risk factor modification. 2. Serial functional assessment of the mid LAD atherosclerosis. 3. Further evaluation of recurrent fluid overload, including consideration of percutaneous device therapies for mitral valve regurgitation. TID: [id number] RECEIPT: [id number] ESTEFANY/ROSY/YO REA
[2021-05-19] MEDS: METOPROLOL SUCCINATE XL 50 MG TAB PO SCH (18:22)
[2021-05-19] MEDS: MEROPENEM/NS 500 MG/50 ML 500 MG/50 ML BAG IV SCH (18:22)
[2021-05-19] MEDS: amLODIPine 10 MG TAB PO SCH (18:22)
[2021-05-19 19:48] VITALS: BP 127/47
--- NOTE | 2021-05-21 10:06 | Electrocardiograph Report ---
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
== END 2021-05-19 20:00 | disposition home health service (06) | DRG 286 ==
LOC: ED 23:38 → 4A 05-17 02:07
PROVIDERS: ADMIT Internal Medicine Geriatric Medicine; ATTEND Internal Medicine
PROC: 5A1D70Z Performance of Urinary Filtration, Intermittent, Less than 6 Hours Per Day (ICD-10-PCS; 2021-05-17)
PROC: 5A1D70Z Performance of Urinary Filtration, Intermittent, Less than 6 Hours Per Day (ICD-10-PCS; 2021-05-18)
PROC: 4A023N7 Measurement of Cardiac Sampling and Pressure, Left Heart, Percutaneous Approach (ICD-10-PCS; principal; 2021-05-19)
PROC: B2110ZZ Fluoroscopy of Multiple Coronary Arteries using High Osmolar Contrast (ICD-10-PCS; 2021-05-19)
PROC: B2150ZZ Fluoroscopy of Left Heart using High Osmolar Contrast (ICD-10-PCS; 2021-05-19)
DX: I13.2 Hypertensive heart and chronic kidney disease with heart failure and with stage 5 chronic kidney disease, or end stage renal disease (principal); J18.9 Pneumonia, unspecified organism; I50.33 Acute on chronic diastolic (congestive) heart failure; J96.01 Acute respiratory failure with hypoxia; N18.6 End stage renal disease; Z99.2 Dependence on renal dialysis; E11.22 Type 2 diabetes mellitus with diabetic chronic kidney disease; K21.9 Gastro-esophageal reflux disease without esophagitis; E78.5 Hyperlipidemia, unspecified; E11.51 Type 2 diabetes mellitus with diabetic peripheral angiopathy without gangrene; Z20.822 Contact with and (suspected) exposure to COVID-19; D64.9 Anemia, unspecified; Z89.511 Acquired absence of right leg below knee; Z87.891 Personal history of nicotine dependence; Z90.49 Acquired absence of other specified parts of digestive tract
CPT/HCPCS: 36415; 71045; 80048; 80053; 80061; 80076; 80202; 82962; 83880; 84484; 85025; 85610; 85730; 87040; 93005; 93306; 93458; 94760; 99406; G0378; C1894; J0692; J1644; J1815; J1940; J2185; J2250; J2270; J2405; J3010; J3370; J7030; J7040; Q9967; U0003

== ENCOUNTER 2021-05-22 22:26 | Emergency (ER) | payer MEDICARE ==
[2021-05-23] MEDS ORDERED: ONDANSETRON 4 MG/2 ML INJ IV ONE (02:37)
--- NOTE | 2021-05-23 02:37 | Emergency Department Report ---
ED N/V/D HPI - General Chief complaint: Nausea/Vomiting/Diarrhea Stated complaint: NAUSEA/VOMITING PUI?: No Time Seen by Provider: 05/23/21 02:27 Source: patient, EMS Mode of arrival: Stretcher Limitations: No Limitations - History of Present Illness Initial comments: Patient is a 56-year-old female who presents emergency room with complaints of nausea vomiting. Patient states she was at dialysis today and they found that she has an infection in her right lower extremity amputation. Patient was started on antibiotics and about 2 hours after the first dose of antibiotics she began to be nauseated. Patient states every time she takes antibiotics she gets nauseated. Patient states she is given the antibiotic during dialysis. Patient does not hold anything down due to the antibiotic. Patient denies diarrhea. Patient denies abdominal pain. Patient denies fever or chills. Patient denies recent travel. Patient denies recent international travel. Patient denies exposure to the novel coronavirus. Patient denies sick contacts. Patient denies fever and chills. Patient denies cough. Patient denies diarrhea. Patient denies coming in contact with anybody with symptoms of the novel coronavirus. MD complaint: nausea, vomiting -: Sudden, hour(s) Description of Vomiting: watery Associated Abdominal Pain: No Severity: severe Consistency: constant Improves with: rest Worsens with: eating, medication Associated Symptoms: nausea/vomiting. denies: myalgias, chest pain, cough, diaphoresis, fever/chills, headaches, loss of appetite, malaise, rash, dysuria, shortness of breath, syncope, weakness - Related Data Home Medications Medication Instructions Recorded Confirmed Last Taken AtorvaSTATin [Lipitor] 80 mg PO QHS 02/20/21 05/18/21 05/15/21 Cholecalciferol (Vitamin D3) 50,000 unit PO QWEEK 05/18/21 05/18/21 05/05/21 [Vitamin D3 50,000UNIT CAP] Linaclotide [Linzess] 72 mcg PO Q48H 05/18/21 05/18/21 05/08/21 NIFEdipine XL [Procardia Xl] 90 mg PO QDAY 05/18/21 05/18/21 05/15/21 Previous Rx's Medication Instructions Recorded Last Taken Type Lancets/Blood Glucose Strips 1 each MC DAILY 30 Days #1 05/12/21 05/15/21 Rx [Bhavani Lancet 30G-Gluc Tst Strp] combo..pkg Syringe with Needle, 5 ml 1 each MC BID 30 Days #60 05/12/21 05/15/21 Rx [L[employer] Syringe-Needle] disp.syrin Aspirin [Aspirin BABY CHEW TAB] 81 mg PO QDAY 30 Days #30 tab.chew 05/19/21 Unknown Rx AtorvaSTATin [Lipitor] 80 mg PO QHS 30 Days #30 tablet 05/19/21 Unknown Rx Clopidogrel [Plavix] 75 mg PO QDAY 30 Days #30 tablet 05/19/21 Unknown Rx Metoprolol Xl [Metoprolol 50 mg PO QDAY@0800 30 Days #30 05/19/21 Unknown Rx SUCCINATE ER TAB] tablet amLODIPine 10 mg PO QDAY 30 Days #30 tablet 05/19/21 Unknown Rx Ondansetron [Zofran Odt] 4 mg PO Q6HR PRN #20 tab.rapdis 05/23/21 Unknown Rx Allergies Allergy/AdvReac Type Severity Reaction Status Date / Time Penicillins Allergy Swelling Verified 05/18/21 09:09 morphine AdvReac Vomiting Verified 05/18/21 09:09 ED Review of Systems ROS: Stated complaint: NAUSEA/VOMITING Other details as noted in HPI Constitutional: denies: chills, fever Eyes: denies: eye pain, eye discharge, vision change ENT: denies: ear pain, throat pain Respiratory: denies: cough, shortness of breath, wheezing Cardiovascular: denies: chest pain, palpitations Endocrine: no symptoms reported Gastrointestinal: nausea, vomiting. denies: abdominal pain, diarrhea Genitourinary: denies: urgency, dysuria, discharge Musculoskeletal: denies: back pain, joint swelling, arthralgia Skin: denies: rash, lesions Neurological: denies: headache, weakness, paresthesias Psychiatric: denies: anxiety, depression Hematological/Lymphatic: denies: easy bleeding, easy bruising ED Past Medical Hx - Past Medical History Previous Medical History?: Yes Hx Hypertension: Yes Hx CVA: Yes (2010 no deficiets) Hx Heart Attack/AMI: No Hx Congestive Heart Failure: Yes Hx Diabetes: Yes Hx GERD: Yes (2012) Hx Liver Disease: No Hx Renal Disease: Yes (DIALYSIS- MWF) Hx Sickle Cell Disease: No Hx Arthritis: Yes (LT SIDE BODY AND SHOULDER) Hx Headaches / Migraines: No Hx Seizures: No Hx Kidney Stones: No Hx Asthma: No Hx COPD: No Hx Tuberculosis: No Hx HIV: No Additional medical history: neuropathy. Denied history of VTE - Surgical History Past Surgical History?: Yes Hx Pacemaker: No Hx Internal Defibrillator: No Hx Cholecystectomy: Yes Additional Surgical History: ; rt knee surgery 2013 - Family History Family history: no significant - Social History Smoking Status: Former Smoker Substance Use Type: None - Medications Home Medications: Home Medications Medication Instructions Recorded Confirmed Last Taken Type AtorvaSTATin [Lipitor] 80 mg PO QHS 02/20/21 05/18/21 05/15/21 History Lancets/Blood Glucose Strips 1 each MC DAILY 30 Days #1 05/12/21 05/18/21 05/15/21 Rx [Bhavani Lancet 30G-Gluc Tst Strp] combo..pkg Syringe with Needle, 5 ml 1 each MC BID 30 Days #60 05/12/21 05/18/21 05/15/21 Rx [L[employer] Syringe-Needle] disp.syrin Cholecalciferol (Vitamin D3) 50,000 unit PO QWEEK 05/18/21 05/18/21 05/05/21 History [Vitamin D3 50,000UNIT CAP] Linaclotide [Linzess] 72 mcg PO Q48H 05/18/21 05/18/21 05/08/21 History NIFEdipine XL [Procardia Xl] 90 mg PO QDAY 05/18/21 05/18/21 05/15/21 History Aspirin [Aspirin BABY CHEW TAB] 81 mg PO QDAY 30 Days #30 tab.chew 05/19/21 Unknown Rx AtorvaSTATin [Lipitor] 80 mg PO QHS 30 Days #30 tablet 05/19/21 Unknown Rx Clopidogrel [Plavix] 75 mg PO QDAY 30 Days #30 tablet 05/19/21 Unknown Rx Metoprolol Xl [Metoprolol 50 mg PO QDAY@0800 30 Days #30 05/19/21 Unknown Rx SUCCINATE ER TAB] tablet amLODIPine 10 mg PO QDAY 30 Days #30 tablet 05/19/21 Unknown Rx Ondansetron [Zofran Odt] 4 mg PO Q6HR PRN #20 tab.rapdis 05/23/21 Unknown Rx ED Physical Exam - General Limitations: No Limitations General appearance: alert, in no apparent distress - Head Head exam: Present: atraumatic, normocephalic - Eye Eye exam: Present: normal appearance - ENT ENT exam: Present: mucous membranes moist - Neck Neck exam: Present: normal inspection - Respiratory Respiratory exam: Present: normal lung sounds bilaterally. Absent: respiratory distress - Cardiovascular Cardiovascular Exam: Present: regular rate, normal rhythm. Absent: systolic murmur, diastolic murmur, rubs, gallop - GI/Abdominal GI/Abdominal exam: Present: soft, normal bowel sounds - Extremities Exam Extremities exam: Present: normal inspection (Except for right lower extremity amputation.) - Back Exam Back exam: Present: normal inspection - Neurological Exam Neurological exam: Present: alert, oriented X3 - Psychiatric Psychiatric exam: Present: normal affect, normal mood - Skin Skin exam: Present: warm, dry, intact, normal color. Absent: rash ED Course Vital Signs 05/22/21 23:07 Temperature 98.4 F Pulse Rate 91 H Respiratory 18 Rate Blood Pressure 179/70 [Left] O2 Sat by Pulse 100 Oximetry - Reevaluation(s) Reevaluation #1: Patient tolated p.o. medication. Patient states her nausea is better. I discussed all results and clinical findings with patient. I discussed plan of care with patient. Patient agrees with plan of care. Patient is stable for discharge. Patient will be discharged home. Patient given discharge instructions. Patient voiced understanding of discharge instructions. 05/23/21 04:22 ED Medical Decision Making - Lab Data Result diagrams: 05/23/21 02:45 05/23/21 02:45 - EKG Data -: EKG Interpreted by Me EKG shows normal: sinus rhythm, axis, intervals, QRS complexes, ST-T waves Rate: normal - Medical Decision Making Patient is a 56-year-old female who presents emergency room with nausea vomiting with her antibiotics at dialysis. Patient had labs done which were essentially unremarkable except for end-stage renal disease. Patient's chemistry was abnormal. Patient given Zofran and the patient tolerated p.o. Maalox for h eartburn. Patient clinical findings are consistent with gastroenteritis secondary to antibiotics. Patient instructed to have her record center specialist changed antibiotics. Patient stable for discharge. Patient not require further emergency medical service. Patient does not require inpatient services. P atient will be discharged to follow-up as an outpatient. I discussed all results and clinical findings with patient. I discussed plan of care with patient. Patient agrees with plan of care. Patient is stable for discharge. Patient will be discharged home. Patient given discharge instructions. Patient voiced understanding of discharge instructions. - Differential Diagnosis Nausea vomiting, medication side effect, gastroenteritis Critical care attestation.: If time is entered above; I have spent that time in minutes in the direct care of this critically ill patient, excluding procedure time. ED Disposition Clinical Impression: Medication side effect, Gastroenteritis Nausea & vomiting Qualifiers: Vomiting type: unspecified Vomiting Intractability: non-intractable Qualified Code(s): R11.2 - Nausea with vomiting, unspecified Gastritis Qualifiers: Gastritis type: unspecified gastritis Chronicity: acute Gastritis bleeding: without bleeding Qualified Code(s): K29.00 - Acute gastritis without bleeding GERD (gastroesophageal reflux disease) Qualifiers: Esophagitis presence: with esophagitis Esophagitis bleeding: without hemorrhage Qualified Code(s): K21.00 - Gastro-esophageal reflux disease with esophagitis, without bleeding Disposition: HOME / SELF CARE / HOMELESS Is pt being admited?: No Does the pt Need Aspirin: No Condition: Stable Instructions: Nausea and Vomiting, Adult, [id number], Gastroesophageal Reflux Disease, Adult, [id number], Indigestion Additional Instructions: Patient to stop current antibiotic or have the antibiotic changed by her record center specialist. Patient to follow-up with primary care in 2 to 3 days. Patient to follow-up with record center specialist in 2 to 3 days. Patient to rest. Patient to increase water. Patient to take Tylenol as needed for pain. Patient to continue with dialysis schedule. Patient to take meds as directed. Patient to return to the ER if condition worsens, changes or new symptoms arise. Prescriptions: Ondansetron [Zofran Odt] 4 mg PO Q6HR PRN #20 tab.rapdis PRN Reason: Nausea And Vomiting Referrals: AYLIN BUCK MD [Primary Care Provider] - 2-3 Days Time of Disposition: 04:34
[2021-05-23 03:21] LABS: Hematocrit 28.3 % (30.3-42.9); Mean Corpuscular HGB Conc 32 % (30-34); Mean Corpuscular Volume 89 fl (79-97); Platelet Count 228 K/mm3 (140-440); Red Blood Count 3.18 M/mm3 (3.65-5.03)
[2021-05-23 03:25] LABS: Red Cell Distribution Width 21.1 % (13.2-15.2)
[2021-05-23] MEDS ORDERED: ALUM-MAG HYDROXIDE-SIMETHICONE 200-200-20MG/5ML ORAL LIQD 30 ML PO ONE (03:25)
[2021-05-23 03:37] LABS: Albumin 3.3 g/dL (3.9-5); Calcium 8.9 mg/dL (8.4-10.2)
[2021-05-23 06:01] VITALS: BP 180/65
--- NOTE | 2021-05-25 09:39 | Electrocardiograph Report ---
[facility] Test Date: 2021-05-23 Test Time: 03:43:02 Pat Name: FILEMON JACOBO Department: Room: Gender: F Youth Development Specialist: MAGED : 1965 Requested By: CLEO COYEL III Order Number: [id number] Reading MD: Joesph Mcgowan Measurements Intervals [place] Rate: 84 P: 73 KS: 154 QRS: 69 QRSD: 94 T: -60 QT: 408 QTc: 484 Interpretive Statements Sinus rhythm Nonspecific T abnormalities, diffuse leads Compared to ECG 05/18/2021 14:56:52 T-wave abnormality now present Myocardial infarct finding no longer present Prolonged QT interval no longer present Electronically Signed On 05-25-2021 9:38:43 EDT by Joesph Mcgowan
== END 2021-05-23 05:50 | disposition home or self-care (01) ==
LOC: ED 22:26
DX: K52.9 Noninfective gastroenteritis and colitis, unspecified (principal); T50.995A Adverse effect of other drugs, medicaments and biological substances, initial encounter; K21.00 Gastro-esophageal reflux disease with esophagitis, without bleeding; K29.00 Acute gastritis without bleeding; R11.2 Nausea with vomiting, unspecified; Z88.0 Allergy status to penicillin; Z88.5 Allergy status to narcotic agent; Z87.891 Personal history of nicotine dependence; Z86.79 Personal history of other diseases of the circulatory system; Z86.73 Personal history of transient ischemic attack (TIA), and cerebral infarction without residual deficits; I10 Essential (primary) hypertension; E11.8 Type 2 diabetes mellitus with unspecified complications
CPT/HCPCS: 36415; 80053; 85027; 93005; 96374; 99284; J2405

== ENCOUNTER 2021-05-25 12:27 | Outpatient (CLI) | payer MEDICARE ==
[2021-05-25] MEDS ORDERED: LIDOCAINE (4%) 40 MG/ML TOPICAL SOLN 50 ML BOTTLE TP ONE (13:36)
[2021-05-25] MEDS ORDERED: SILVER NITRATE APPLICATOR 1 EA TP ONE (14:22)
== END 2021-05-25 12:28 | disposition home or self-care (01) ==
LOC: WOUND 12:27
PROVIDERS: ATTEND Surgery
DX: T87.43 Infection of amputation stump, right lower extremity (principal); K21.9 Gastro-esophageal reflux disease without esophagitis; E11.69 Type 2 diabetes mellitus with other specified complication; M86.061 Acute hematogenous osteomyelitis, right tibia and fibula; E11.22 Type 2 diabetes mellitus with diabetic chronic kidney disease; I13.2 Hypertensive heart and chronic kidney disease with heart failure and with stage 5 chronic kidney disease, or end stage renal disease; I50.9 Heart failure, unspecified; N18.6 End stage renal disease; F40.240 Claustrophobia; Z86.73 Personal history of transient ischemic attack (TIA), and cerebral infarction without residual deficits; Y83.5 Amputation of limb(s) as the cause of abnormal reaction of the patient, or of later complication, without mention of misadventure at the time of the procedure; Y92.238 Other place in hospital as the place of occurrence of the external cause
CPT/HCPCS: 11044; 11047; G0463; 99215

== ENCOUNTER 2021-06-01 13:29 | Outpatient (CLI) | payer MEDICARE ==
[~2021-06-01 13:29] MED LIST: LIDOCAINE (4%) 40 MG/ML TOPICAL SOLN 50 ML BOTTLE TP SCH
[2021-06-01] MEDS ORDERED: SILVER NITRATE APPLICATOR 1 EA TP SCH (14:00)
== END 2021-06-01 13:30 | disposition home or self-care (01) ==
LOC: WOUND 13:29
PROVIDERS: ATTEND Surgery
DX: T87.43 Infection of amputation stump, right lower extremity (principal); K21.9 Gastro-esophageal reflux disease without esophagitis; E11.69 Type 2 diabetes mellitus with other specified complication; M86.061 Acute hematogenous osteomyelitis, right tibia and fibula; E11.22 Type 2 diabetes mellitus with diabetic chronic kidney disease; I13.2 Hypertensive heart and chronic kidney disease with heart failure and with stage 5 chronic kidney disease, or end stage renal disease; I50.9 Heart failure, unspecified; N18.6 End stage renal disease; F40.240 Claustrophobia; Z86.73 Personal history of transient ischemic attack (TIA), and cerebral infarction without residual deficits; Y83.5 Amputation of limb(s) as the cause of abnormal reaction of the patient, or of later complication, without mention of misadventure at the time of the procedure

== ENCOUNTER 2021-06-08 11:16 | Outpatient (CLI) | payer MEDICARE ==
[2021-06-08] MEDS ORDERED: LIDOCAINE (4%) 40 MG/ML TOPICAL SOLN 50 ML BOTTLE TP ONE (11:29)
== END 2021-06-08 11:17 | disposition home or self-care (01) ==
LOC: WOUND 11:16
PROVIDERS: ATTEND Surgery
DX: T87.43 Infection of amputation stump, right lower extremity (principal); K21.9 Gastro-esophageal reflux disease without esophagitis; E11.69 Type 2 diabetes mellitus with other specified complication; M86.061 Acute hematogenous osteomyelitis, right tibia and fibula; E11.22 Type 2 diabetes mellitus with diabetic chronic kidney disease; I13.2 Hypertensive heart and chronic kidney disease with heart failure and with stage 5 chronic kidney disease, or end stage renal disease; I50.9 Heart failure, unspecified; N18.6 End stage renal disease; E11.51 Type 2 diabetes mellitus with diabetic peripheral angiopathy without gangrene; F40.240 Claustrophobia; Z86.73 Personal history of transient ischemic attack (TIA), and cerebral infarction without residual deficits; Z99.2 Dependence on renal dialysis; Y83.5 Amputation of limb(s) as the cause of abnormal reaction of the patient, or of later complication, without mention of misadventure at the time of the procedure
CPT/HCPCS: 97606

== ENCOUNTER 2021-06-14 02:42 | Emergency (ER) | payer MEDICARE ==
[2021-06-14 03:06] VITALS: BP 181/100
--- NOTE | 2021-06-14 03:10 | Emergency Department Report ---
ED General Adult HPI - General Chief complaint: Nausea/Vomiting/Diarrhea Stated complaint: Abdominal cramping, nausea, vomiting and diarrhea PUI?: No Time Seen by Provider: 06/14/21 03:04 Source: patient, EMS, RN notes reviewed, old records reviewed Mode of arrival: Stretcher Limitations: No Limitations - History of Present Illness Initial comments: The patient is a 56-year-old female. Her rn practitioner is Dr. 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 The patient presents to the ER today with complaint of nontraumatic abdominal cramping, history of nausea, and diarrhea. She presented for similar symptoms in May of this year. The patient denies headache, neck pain, chest pain, and dysuria. Her emesis is clear and green. Her diarrhea is green and brown. She is not vomiting at this time. She has had too many episodes of diarrhea to count. She states she is almost done with her antibiotics. She was treated with loperamide, Zofran and Tylenol in the emergency room. The patient also endorses generalized body aches. She denies loss of taste and smell. -: Gradual, hour(s) Location: abdomen Radiation: non-radiation Severity scale (0 -10): 10 Quality: aching Consistency: constant Improves with: medication, rest Worsens with: movement (Movement and palpation) - Related Data Home Medications Medication Instructions Recorded Confirmed Last Taken AtorvaSTATin [Lipitor] 80 mg PO QHS 02/20/21 05/18/21 05/15/21 Cholecalciferol (Vitamin D3) 50,000 unit PO QWEEK 05/18/21 05/18/21 05/05/21 [Vitamin D3 50,000UNIT CAP] Linaclotide [Linzess] 72 mcg PO Q48H 05/18/21 05/18/21 05/08/21 NIFEdipine XL [Procardia Xl] 90 mg PO QDAY 05/18/21 05/18/21 05/15/21 Previous Rx's Medication Instructions Recorded Last Taken Type Lancets/Blood Glucose Strips 1 each MC DAILY 30 Days #1 05/12/21 05/15/21 Rx [Gojji Lancet 30G-Gluc Tst Strp] combo..pkg Syringe with Needle, 5 ml 1 each MC BID 30 Days #60 05/12/21 05/15/21 Rx [Luer-Chase Syringe-Needle] disp.syrin Aspirin [Aspirin BABY CHEW TAB] 81 mg PO QDAY 30 Days #30 tab.chew 05/19/21 Unk nown Rx AtorvaSTATin [Lipitor] 80 mg PO QHS 30 Days #30 tablet 05/19/21 Unknown Rx Clopidogrel [Plavix] 75 mg PO QDAY 30 Days #30 tablet 05/19/21 Unknown Rx Metoprolol Xl [Metoprolol 50 mg PO QDAY@0800 30 Days #30 05/19/21 Unknown Rx SUCCINATE ER TAB] tablet amLODIPine 10 mg PO QDAY 30 Days #30 tablet 05/19/21 Unknown Rx Ondansetron [Zofran Odt] 4 mg PO Q6HR PRN #20 tab.rapdis 05/23/21 Unknown Rx Acetaminophen [Non-Aspirin Extra 500 mg PO Q6HR PRN #30 tablet 06/14/21 Unknown Rx Strength] Loperamide [Imodium] 2 mg PO Q2HR #30 capsule 06/14/21 Unknown Rx Ondansetron [Zofran Odt] 4 mg PO Q8HR PRN #20 tab.rapdis 06/14/21 Unknown Rx Allergies Allergy/AdvReac Type Severity Reaction Status Date / Time Penicillins Allergy Swelling Verified 05/18/21 09:09 morphine AdvReac Vomiting Verified 05/18/21 09:09 ED Review of Systems ROS: Stated complaint: VOMITING Other details as noted in HPI Constitutional: denies: fever Eyes: denies: eye discharge ENT: denies: epistaxis Respiratory: denies: cough Cardiovascular: denies: chest pain Gastrointestinal: abdominal pain, nausea, vomiting, diarrhea. denies: hematemesis, melena, hematochezia Genitourinary: denies: dysuria Musculoskeletal: myalgia Neurological: denies: weakness Psychiatric: anxiety Hematological/Lymphatic: denies: easy bleeding ED Past Medical Hx - Past Medical History Hx Hypertension: Yes Hx CVA: Yes (2010 no deficiets) Hx Heart Attack/AMI: No Hx Congestive Heart Failure: Yes Hx Diabetes: Yes Hx GERD: Yes (2012) Hx Liver Disease: No Hx Renal Disease: Yes (DIALYSIS- MWF) Hx Sickle Cell Disease: No Hx Arthritis: Yes (LT SIDE BODY AND SHOULDER) Hx Headaches / Migraines: No Hx Seizures: No Hx Kidney Stones: No Hx Asthma: No Hx COPD: No Hx Tuberculosis: No Hx HIV: No Additional medical history: neuropathy. Denied history of VTE - Surgical History Hx Pacemaker: No Hx Internal Defibrillator: No Hx Cholecystectomy: Yes Additional Surgical History: ; rt knee surgery 2013 - Social History Smoking Status: Former Smoker Substance Use Type: None - Medications Home Medications: Home Medications Medication Instructions Recorded Confirmed Last Taken Type AtorvaSTATin [Lipitor] 80 mg PO QHS 02/20/21 05/18/21 05/15/21 History Lancets/Blood Glucose Strips 1 each MC DAILY 30 Days #1 05/12/21 05/18/21 05/15/21 Rx [Bhavani Lancet 30G-Gluc Tst Strp] combo..pkg Syringe with Needle, 5 ml 1 each MC BID 30 Days #60 05/12/21 05/18/21 05/15/21 Rx [Luer-Chase Syringe-Needle] disp.syrin Cholecalciferol (Vitamin D3) 50,000 unit PO QWEEK 05/18/21 05/18/21 05/05/21 History [Vitamin D3 50,000UNIT CAP] Linaclotide [Linzess] 72 mcg PO Q48H 05/18/21 05/18/21 05/08/21 History NIFEdipine XL [Procardia Xl] 90 mg PO QDAY 05/18/21 05/18/21 05/15/21 History Aspirin [Aspirin BABY CHEW TAB] 81 mg PO QDAY 30 Days #30 tab.chew 05/19/21 Unknown Rx AtorvaSTATin [Lipitor] 80 mg PO QHS 30 Days #30 tablet 05/19/21 Unknown Rx Clopidogrel [Plavix] 75 mg PO QDAY 30 Days #30 tablet 05/19/21 Unknown Rx Metoprolol Xl [Metoprolol 50 mg PO QDAY@0800 30 Days #30 05/19/21 Unknown Rx SUCCINATE ER TAB] tablet amLODIPine 10 mg PO QDAY 30 Days #30 tablet 05/19/21 Unknown Rx Ondansetron [Zofran Odt] 4 mg PO Q6HR PRN #20 tab.rapdis 05/23/21 Unknown Rx Acetaminophen [Non-Aspirin Extra 500 mg PO Q6HR PRN #30 tablet 06/14/21 Unknown Rx Strength] Loperamide [Imodium] 2 mg PO Q2HR #30 capsule 06/14/21 Unknown Rx Ondansetron [Zofran Odt] 4 mg PO Q8HR PRN #20 tab.rapdis 06/14/21 Unknown Rx ED Physical Exam - General Limitations: No Limitations General appearance: alert, anxious - Head Head exam: Present: atraumatic, normocephalic - Eye Eye exam: Present: normal appearance, EOMI. Absent: nystagmus - ENT ENT exam: Present: normal exam, normal orophraynx, mucous membranes moist, normal external ear exam - Neck Neck exam: Present: normal inspection, full ROM. Absent: tenderness, meningismus - Respiratory Respiratory exam: Present: normal lung sounds bilaterally. Absent: respiratory distress, wheezes, rales, rhonchi, stridor, decreased breath sounds - Cardiovascular Cardiovascular Exam: Present: regular rate, normal rhythm, normal heart sounds. Absent: bradycardia, tachycardia, irregular rhythm, systolic murmur, diastolic murmur, rubs, gallop - GI/Abdominal GI/Abdominal exam: Present: soft, tenderness. Absent: distended, guarding, rebound, rigid, pulsatile mass - Extremities Exam Extremities exam: Present: normal inspection (Right lower extremity stump noted, below-knee amputation, wound VAC in place, wound appears clean, without redness, pus or streaking.), full ROM, other (2+ pulses noted the bilateral upper extremities and left lower extremity. There is no longer any tenderness. The pelvis is stable. The muscular compartments are soft). Absent: calf tenderness - Back Exam Back exam: Present: normal inspection, full ROM. Absent: tenderness, CVA tenderness (R), CVA tenderness (L), paraspinal tenderness, vertebral tenderness - Neurological Exam Neurological exam: Present: alert, oriented X3, other (No facial droop. Tongue midline. Extraocular movements intact bilaterally. Facial sensation intact to light touch in V1, V2, V3 distribution bilaterally. 5 and a 5 strength in 4 extremities. Sensation intact to light touch in 4 extremities.). Absent: motor sensory deficit - Psychiatric Psychiatric exam: Present: anxious - Skin Skin exam: Present: warm, dry, intact, normal color. Absent: rash ED Course Vital Signs 06/14/21 06/14/21 02:44 03:02 Temperature 97.8 F Pulse Rate 97 H Respiratory 24 20 Rate Blood Pressure 181/100 [Left] O2 Sat by Pulse 96 Oximetry - Reevaluation(s) Reevaluation #1: 06/14/21 05:42 Outpatient follow-up hurt nonemergent incidental findings noted on CT scan of the abdomen pelvis ED Medical Decision Making - Lab Data Result diagrams: 06/14/21 03:27 06/14/21 03:27 Vital Signs 06/14/21 06/14/21 02:44 03:02 Temperature 97.8 F Pulse Rate 97 H Respiratory 24 20 Rate Blood Pressure 181/100 [Left] O2 Sat by Pulse 96 Oximetry Lab Results 06/14/21 06/14/21 06/14/21 Range/Units 03:27 03:27 03:27 WBC 8.4 (4.5-11.0) K/mm3 RBC 4.08 (3.65-5.03) M/mm3 Hgb 11.8 (10.1-14.3) gm/dl Hct 37.0 (30.3-42.9) % MCV 91 (79-97) fl MCH 29 (28-32) pg MCHC 32 (30-34) % RDW 18.4 H (13.2-15.2) % Plt Count 256 (140-440) K/mm3 Lymph % (Auto) 12.5 L (13.4-35.0) % [place] % (Auto) 6.5 (0.0-7.3) % Eos % (Auto) 1.8 (0.0-4.3) % Baso % (Auto) 1.1 (0.0-1.8) % Lymph # (Auto) 1.0 L (1.2-5.4) K/mm3 [place] # (Auto) 0.5 (0.0-0.8) K/mm3 Eos # (Auto) 0.2 (0.0-0.4) K/mm3 Baso # (Auto) 0.1 (0.0-0.1) K/mm3 Seg Neutrophils % 78.1 H (40.0-70.0) % Seg Neutrophils # 6.5 (1.8-7.7) K/mm3 Sodium 142 (137-145) mmol/L Potassium 3.6 (3.6-5.0) mmol/L Chloride 99.6 (98-107) mmol/L Carbon Dioxide 25 (22-30) mmol/L Anion Gap 21 mmol/L BUN 33 H (7-17) mg/dL Creatinine 4.8 H (0.6-1.2) mg/dL Estimated GFR 11 ml/min BUN/Creatinine Ratio 7 % Glucose 278 H (65-100) mg/dL Calcium 9.3 (8.4-10.2) mg/dL Magnesium 1.90 (1.7-2.3) mg/dL Total Bilirubin 0.30 (0.1-1.2) mg/dL AST 15 (5-40) units/L ALT 7 (7-56) units/L Alkaline Phosphatase 98 (35-129) units/L Total Creatine Kinase 129 (30-135) units/L Total Protein 8.0 (6.3-8.2) g/dL Albumin 3.6 L (3.9-5) g/dL Albumin/Globulin Ratio 0.8 % Lipase 18 (13-60) units/L - EKG Data 06/14/21 05:39 The EKG is interpreted at 04: 39 Sinus rhythm, 95 bpm. Normal axis, QTC 475 ms. Borderline atrial enlargement. Motion artifact in the lateral leads. Irritable acceptable, 188 ms. Abnormal EKG. Not a STEMI. When compared to prior EKG from 05/17/2021, QRS complexes in the inferior leads have lower voltage. Otherwise essentially no significant changes. This is not a STEMI - Radiology Data Radiology results: pending, report reviewed, image reviewed CT ABDOMEN AND PELVIS WITHOUT CONTRAST INDICATION / CLINICAL INFORMATION: Abdominal pain, nausea and vomit. TECHNIQUE: Axial CT images were obtained through the abdomen and pelvis without IV contrast. All CT scans at this location are performed using CT dose reduction for ALARA by means of automated exposure control. COMPARISON: None available. FINDINGS: LOWER CHEST: Mild scarring at the right middle lobe and lingula. Dense coronary artery calcification. LIVER: No significant abnormality. GALLBLADDER: Surgically absent. BILE DUCTS: No significant abnormality. PANCREAS: No significant abnormality. SPLEEN: No significant abnormality. ADRENALS: No significant abnormality. RIGHT KIDNEY / URETER: Indeterminate lesion anterior right kidney measuring 4.5 cm. This is not a simple cyst. LEFT KIDNEY / URETER: 1.5 cm cyst posteriorly and laterally. 2 mm nonobstructing stone. STOMACH / SMALL BOWEL: No significant abnormality. COLON: Collapsed. APPENDIX: No significant abnormality. PERITONEUM: No free fluid. No free air. No fluid collection. LYMPH NODES: No significant adenopathy. VASCULAR STRUCTURES: Moderate atherosclerotic vascular calcification. URINARY BLADDER: No significant abnormality. REPRODUCTIVE ORGANS: Uterine calcification with calcified fibroids. ADDITIONAL FINDINGS: None. SKELETAL SYSTEM: No significant abnormality. IMPRESSION: 1. Negative for obstruction or localized inflammation. 2. Indeterminate right renal lesion. Follow-up multiphase CT or ultrasound is recommended. 3. The colon is collapsed and not well evaluated. 4. 2 mm nono bstructing left renal stone. Signer Name: John Morris MD Signed: 06/14/2021 4:29 AM Workstation Name: [id number] - Medical Decision Making Differential diagnosis, including but not limited to: Colitis, diverticulitis, enteritis, electrolyte derangement, dehydration, assessment and plan 56-year-old female, who is afebrile, with reassuring vital signs, who is cl inically sober (hypertension chronic, reviewed and appreciated, not acutely decompensated, please reference the [employer] clinical policy on asymptomatic hypertension), with recurrent complaint of history of nausea, vomiting diarrhea. Have not witnessed any vomiting here in the emergency room. Patient is defecating semifrequently. She is tolerating oral feeds at this time. Does not have a leukocytosis. CT scan abdomen pelvis does not demonstrate emergent findings. I think C. difficile is unlikely. She can be discharged with as needed Tylenol, Zofran, loperamide. She may follow-up with her outpatient rn practitioner and/or primary care doctor. She had similar symptoms about 2 weeks ago. Critical care attestation.: If time is entered above; I have spent that time in minutes in the direct care of this critically ill patient, excluding procedure time. ED Disposition Clinical Impression: Renal lesion, History of nausea and vomiting, Diarrhea, Abdominal pain, ESRD (end stage renal disease) on dialysis Disposition: HOME / SELF CARE / HOMELESS Is pt being admited?: No Does the pt Need Aspirin: No Condition: Good Instructions: Diarrhea, Adult, [id number] Additional Instructions: Please continue current outpatient medications. Please follow-up with your outpatient primary care doctor or rn practitioner within the next week. Take the loperamide as directed, and Zofran Tylenol as needed and directed. Wash hands frequently, thoroughly and often. Make certain to adhere to appropriate renal diets, and avoid excessive water and salt consumption. CT scan of the abdomen pelvis today showed no emergent findings that would req uire emergency intervention or evaluation. An indeterminate right renal lesion was noted on CT scan of the abdomen pelvis, which should be followed up by her outpatient primary care doctor or rn practitioner within the next month. Not having this followed up or addressed by her outpatient physicians may result in undiagnosed tumor, cancer, malignancy. Please have your outpatient physicians contact the medical records department, to obtain copies of laboratory studies and radiology studies, and follow-up on nonemergent incidental findings. Please continue current outpatient hemodialysis schedule. Please return to the emergency room right away with new pain, worsened pain, migration of pain, projectile vomiting, change in mental status, confusion, inability to tolerate liquid feeds, new, worsened or different symptoms not present on the initial emergency room evaluation. Please continue current outpatient blood pressure medications Referrals: PRIMARY MD KRYSTAL [Primary Care Provider] - 3-5 Days ADIEL GOLDSTEIN MD [Staff Physician] - 3-5 Days TERESSA RAYA MD [Staff Physician] - 3-5 Days
[2021-06-14 03:43] LABS: Basophils # (Auto) 0.1 K/mm3 (0.0-0.1); Basophils % (Auto) 1.1 % (0.0-1.8); Eosinophils # (Auto) 0.2 K/mm3 (0.0-0.4); Eosinophils % (Auto) 1.8 % (0.0-4.3); Hemoglobin 11.8 gm/dl (10.1-14.3); Lymphocytes % (Auto) 12.5 % (13.4-35.0); Mean Corpuscular HGB Conc 32 % (30-34); Mean Corpuscular Volume 91 fl (79-97); Monocytes # (Auto) 0.5 K/mm3 (0.0-0.8); Monocytes % (Auto) 6.5 % (0.0-7.3); Platelet Count 256 K/mm3 (140-440); Red Blood Count 4.08 M/mm3 (3.65-5.03); Red Cell Distribution Width 18.4 % (13.2-15.2)
[2021-06-14 04:02] LABS: Albumin 3.6 g/dL (3.9-5); Calcium 9.3 mg/dL (8.4-10.2)
[2021-06-14] MEDS ORDERED: ONDANSETRON 4 MG/2 ML INJ IV ONE (04:07)
[2021-06-14] MEDS ORDERED: ACETAMINOPHEN 325 MG TAB PO ONE (05:27)
[2021-06-14] MEDS ORDERED: LOPERAMIDE 2 MG CAP PO ONE (05:27)
--- NOTE | 2021-06-14 05:33 | Cat Scan Report ---
CT ABDOMEN AND PELVIS WITHOUT CONTRAST INDICATION / CLINICAL INFORMATION: Abdominal pain, nausea and vomit. TECHNIQUE: Axial CT images were obtained through the abdomen and pelvis without IV contrast. All CT scans at this location are performed using CT dose reduction for ALARA by means of automated exposure control. COMPARISON: None available. FINDINGS: LOWER CHEST: Mild scarring at the right middle lobe and lingula. Dense coronary artery calcification. LIVER: No significant abnormality. GALLBLADDER: Surgically absent. BILE DUCTS: No significant abnormality. PANCREAS: No significant abnormality. SPLEEN: No significant abnormality. ADRENALS: No significant abnormality. RIGHT KIDNEY / URETER: Indeterminate lesion anterior right kidney measuring 4.5 cm. This is not a sim ple cyst. LEFT KIDNEY / URETER: 1.5 cm cyst posteriorly and laterally. 2 mm nonobstructing stone. STOMACH / SMALL BOWEL: No significant abnormality. COLON: Collapsed. APPENDIX: No significant abnormality. PERITONEUM: No free fluid. No free air. No fluid collection. LYMPH NODES: No significant adenopathy. VASCULAR STRUCTURES: Moderate atherosclerotic vascular calcification. URINARY BLADDER: No significant abnormality. REPRODUCTIVE ORGANS: Uterine calcification with calcified fibroids. ADDITIONAL FINDINGS: None. SKELETAL SYSTEM: No significant abnormality. IMPRESSION: 1. Negative for obstruction or localized inflammation. 2. Indeterminate right renal lesion. Follow-up multiphase CT or ultrasound is recommended. 3. The colon is collapsed and not well evaluated. 4. 2 mm nonobstructing left renal stone. Signer Name: John Morris MD Signed: 06/14/2021 5:29 AM Workstation Name: [id number]
--- NOTE | 2021-06-16 11:25 | Electrocardiograph Report ---
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
== END 2021-06-14 08:00 | disposition home or self-care (01) ==
LOC: ED 02:42
DX: N28.9 Disorder of kidney and ureter, unspecified (principal); R19.7 Diarrhea, unspecified; R11.2 Nausea with vomiting, unspecified; R10.9 Unspecified abdominal pain; I13.2 Hypertensive heart and chronic kidney disease with heart failure and with stage 5 chronic kidney disease, or end stage renal disease; E11.22 Type 2 diabetes mellitus with diabetic chronic kidney disease; N18.6 End stage renal disease; I50.9 Heart failure, unspecified; Z88.5 Allergy status to narcotic agent; Z88.0 Allergy status to penicillin
CPT/HCPCS: 36415; 74176; 80053; 82550; 83690; 83735; 85025; 93005; 96374; 99284; J2405

== ENCOUNTER 2021-06-15 10:57 | Outpatient (CLI) | payer MEDICARE ==
[2021-06-15] MEDS ORDERED: LIDOCAINE (4%) 40 MG/ML TOPICAL SOLN 50 ML BOTTLE TP ONE (13:00)
[2021-06-15] MEDS ORDERED: SILVER NITRATE APPLICATOR 1 EA TP ONE (16:00)
== END 2021-06-15 10:58 | disposition home or self-care (01) ==
LOC: WOUND 10:57
PROVIDERS: ATTEND Surgery
DX: T87.43 Infection of amputation stump, right lower extremity (principal); E11.69 Type 2 diabetes mellitus with other specified complication; M86.061 Acute hematogenous osteomyelitis, right tibia and fibula; E11.22 Type 2 diabetes mellitus with diabetic chronic kidney disease; I13.2 Hypertensive heart and chronic kidney disease with heart failure and with stage 5 chronic kidney disease, or end stage renal disease; I50.9 Heart failure, unspecified; N18.6 End stage renal disease; E11.51 Type 2 diabetes mellitus with diabetic peripheral angiopathy without gangrene; K21.9 Gastro-esophageal reflux disease without esophagitis; F40.240 Claustrophobia; Z86.73 Personal history of transient ischemic attack (TIA), and cerebral infarction without residual deficits; Z99.2 Dependence on renal dialysis; Y83.5 Amputation of limb(s) as the cause of abnormal reaction of the patient, or of later complication, without mention of misadventure at the time of the procedure

== ENCOUNTER 2021-07-20 13:42 | Outpatient (CLI) | payer MEDICARE | END 2021-07-20 13:43 | disposition home or self-care (01) | LOC: WOUND 13:42 | PROVIDERS: ATTEND Surgery | DX: T87.43 Infection of amputation stump, right lower extremity (principal); E11.69 Type 2 diabetes mellitus with other specified complication; M86.061 Acute hematogenous osteomyelitis, right tibia and fibula; E11.22 Type 2 diabetes mellitus with diabetic chronic kidney disease; I13.2 Hypertensive heart and chronic kidney disease with heart failure and with stage 5 chronic kidney disease, or end stage renal disease; I50.9 Heart failure, unspecified; N18.6 End stage renal disease; E11.51 Type 2 diabetes mellitus with diabetic peripheral angiopathy without gangrene; K21.9 Gastro-esophageal reflux disease without esophagitis; F40.240 Claustrophobia; Z86.73 Personal history of transient ischemic attack (TIA), and cerebral infarction without residual deficits; Z99.2 Dependence on renal dialysis; Y83.5 Amputation of limb(s) as the cause of abnormal reaction of the patient, or of later complication, without mention of misadventure at the time of the procedure ==

== ENCOUNTER 2021-07-23 10:08 | Outpatient (CLI) | payer MEDICARE ==
[2021-07-23 10:57] LABS: Basophils # (Auto) 0.1 K/mm3 (0.0-0.1); Basophils % (Auto) 1.3 % (0.0-1.8); Eosinophils # (Auto) 0.2 K/mm3 (0.0-0.4); Eosinophils % (Auto) 4.3 % (0.0-4.3); Hematocrit 42.2 % (30.3-42.9); Hemoglobin 13.3 gm/dl (10.1-14.3); Lymphocytes # (Auto) 1.6 K/mm3 (1.2-5.4); Mean Corpuscular HGB Conc 32 % (30-34); Mean Corpuscular Volume 85 fl (79-97); Monocytes # (Auto) 0.3 K/mm3 (0.0-0.8); Monocytes % (Auto) 6.5 % (0.0-7.3); Platelet Count 192 K/mm3 (140-440); Red Blood Count 4.94 M/mm3 (3.65-5.03); Red Cell Distribution Width 17.1 % (13.2-15.2)
[2021-07-23 11:06] LABS: Albumin 3.9 g/dL (3.9-5); Calcium 9.4 mg/dL (8.4-10.2); Chol/HDL Ratio 2.45 %
== END 2021-07-23 10:09 | disposition home or self-care (01) ==
LOC: LAB 10:08
PROVIDERS: ATTEND Internal Medicine
DX: E78.5 Hyperlipidemia, unspecified (principal); I10 Essential (primary) hypertension; E11.65 Type 2 diabetes mellitus with hyperglycemia; E55.9 Vitamin D deficiency, unspecified; R53.83 Other fatigue; Z00.00 Encounter for general adult medical examination without abnormal findings
CPT/HCPCS: 36415; 80053; 80061; 82306; 83036; 84443; 85025

== ENCOUNTER 2021-08-10 13:39 | Outpatient (CLI) | payer MEDICARE ==
[2021-08-10] MEDS ORDERED: LIDOCAINE (4%) 40 MG/ML TOPICAL SOLN 50 ML BOTTLE TP ONE (14:13)
[2021-08-10] MEDS ORDERED: SILVER NITRATE APPLICATOR 1 EA TP ONE (14:32)
== END 2021-08-10 13:40 | disposition home or self-care (01) ==
LOC: WOUND 13:39
PROVIDERS: ATTEND Surgery
DX: T87.43 Infection of amputation stump, right lower extremity (principal); E11.69 Type 2 diabetes mellitus with other specified complication; M86.061 Acute hematogenous osteomyelitis, right tibia and fibula; E11.22 Type 2 diabetes mellitus with diabetic chronic kidney disease; I13.2 Hypertensive heart and chronic kidney disease with heart failure and with stage 5 chronic kidney disease, or end stage renal disease; I50.9 Heart failure, unspecified; N18.6 End stage renal disease; E11.51 Type 2 diabetes mellitus with diabetic peripheral angiopathy without gangrene; K21.9 Gastro-esophageal reflux disease without esophagitis; F40.240 Claustrophobia; Z86.73 Personal history of transient ischemic attack (TIA), and cerebral infarction without residual deficits; Z99.2 Dependence on renal dialysis; Y83.5 Amputation of limb(s) as the cause of abnormal reaction of the patient, or of later complication, without mention of misadventure at the time of the procedure

== ENCOUNTER 2021-08-31 11:45 | Outpatient (CLI) | payer MEDICARE ==
[2021-08-31] MEDS ORDERED: LIDOCAINE (4%) 40 MG/ML TOPICAL SOLN 50 ML BOTTLE TP ONE (14:00)
== END 2021-08-31 11:46 | disposition home or self-care (01) ==
LOC: WOUND 11:45
PROVIDERS: ATTEND Surgery
DX: T87.43 Infection of amputation stump, right lower extremity (principal); E11.69 Type 2 diabetes mellitus with other specified complication; M86.061 Acute hematogenous osteomyelitis, right tibia and fibula; E11.51 Type 2 diabetes mellitus with diabetic peripheral angiopathy without gangrene; E11.22 Type 2 diabetes mellitus with diabetic chronic kidney disease; I13.2 Hypertensive heart and chronic kidney disease with heart failure and with stage 5 chronic kidney disease, or end stage renal disease; I50.9 Heart failure, unspecified; N18.6 End stage renal disease; Z90.49 Acquired absence of other specified parts of digestive tract; Z79.4 Long term (current) use of insulin; Z79.82 Long term (current) use of aspirin; Z79.899 Other long term (current) drug therapy; Z86.73 Personal history of transient ischemic attack (TIA), and cerebral infarction without residual deficits; Y83.5 Amputation of limb(s) as the cause of abnormal reaction of the patient, or of later complication, without mention of misadventure at the time of the procedure

== ENCOUNTER 2021-09-14 03:05 | Emergency (ER) | payer MEDICARE ==
--- NOTE | 2021-09-14 04:10 | Emergency Department Report ---
ED Shortness of Breath HPI - General Chief Complaint: Dyspnea/Respdistress Stated Complaint: KAREN/MISS DIALYSIS Time Seen by Provider: 09/14/21 04:07 Source: patient, EMS Mode of arrival: Stretcher Limitations: No Limitations - History of Present Illness Initial Comments: Resents with shortness of breath. She did not go to dialysis because it was her off day. She did not go Tuesday due to diarrhea. She is going to the weekend. This morning she felt short of breath. She tried to prop her self up with pillows but that did not help. She was still dyspneic. EMS was called. Patient was reportedly wheezing and hypoxic upon their arrival. They did administer a neb. She feels better now. Upon arrival here, her saturations were in the mid 90s. Patient does not use oxygen at home. She states that she is supposed to be dialyzed at 6:00 this morning, but due to the shortness of breath came here. Patient has no chest pain. There is no pain or swelling in the feet of the ordinary. She still makes urine. There is no history of recent runny nose, cough, fever, or congestion. - Related Data Home Medications Medication Instructions Recorded Confirmed Last Taken AtorvaSTATin [Lipitor] 80 mg PO QHS 02/20/21 05/18/21 05/15/21 Cholecalciferol (Vitamin D3) 50,000 unit PO QWEEK 05/18/21 05/18/21 05/05/21 [Vitamin D3 50,000UNIT CAP] Linaclotide [Linzess] 72 mcg PO Q48H 05/18/21 05/18/21 05/08/21 NIFEdipine XL [Procardia Xl] 90 mg PO QDAY 05/18/21 05/18/21 05/15/21 Previous Rx's Medication Instructions Recorded Last Taken Type Lancets/Blood Glucose Strips 1 each MC DAILY 30 Days #1 05/12/21 05/15/21 Rx [Bhavani Lancet 30G-Gluc Tst Strp] combo..pkg Syringe with Needle, 5 ml 1 each MC BID 30 Days #60 05/12/21 05/15/21 Rx [Luer-[employer]ase Syringe-Needle] disp.syrin Aspirin [Aspirin BABY CHEW TAB] 81 mg PO QDAY 30 Days #30 tab.chew 05/19/21 Unknown Rx AtorvaSTATin [Lipitor] 80 mg PO QHS 30 Days #30 tablet 05/19/21 Unknown Rx Clopidogrel [Plavix] 75 mg PO QDAY 30 Days #30 tablet 05/19/21 Unknown Rx Metoprolol Xl [Metoprolol 50 mg PO QDAY@0800 30 Days #30 05/19/21 Unknown Rx SUCCINATE ER TAB] tablet amLODIPine 10 mg PO QDAY 30 Days #30 tablet 05/19/21 Unknown Rx Ondansetron [Zofran Odt] 4 mg PO Q6HR PRN #20 tab.rapdis 05/23/21 Unknown Rx Acetaminophen [Non-Aspirin Extra 500 mg PO Q6HR PRN #30 tablet 06/14/21 Unknown Rx Strength] Loperamide [Imodium] 2 mg PO Q2HR #30 capsule 06/14/21 Unknown Rx Ondansetron [Zofran Odt] 4 mg PO Q8HR PRN #20 tab.rapdis 06/14/21 Unknown Rx Allergies Allergy/AdvReac Type Severity Reaction Status Date / Time Penicillins Allergy Swelling Verified 05/18/21 09:09 morphine AdvReac Vomiting Verified 05/18/21 09:09 ED Review of Systems ROS: Stated complaint: KAREN/MISS DIALYSIS Other details as noted in HPI Comment: All other systems reviewed and negative Constitutional: denies: fever Eyes: denies: vision change ENT: denies: throat pain Respiratory: see HPI, shortness of breath Cardiovascular: denies: chest pain Endocrine: denies: unexplained weight loss Gastrointestinal: denies: abdominal pain Genitourinary: denies: dysuria Musculoskeletal: denies: back pain Skin: denies: rash Neurological: denies: headache Hematological/Lymphatic: denies: easy bruising ED Past Medical Hx - Past Medical History Previous Medical History?: Yes Hx Hypertension: Yes Hx CVA: Yes (2010 no deficiets) Hx Heart Attack/AMI: No Hx Congestive Heart Failure: Yes Hx Diabetes: Yes Hx GERD: Yes (2012) Hx Liver Disease: No Hx Renal Disease: Yes (DIALYSIS- MWF) Hx Sickle Cell Disease: No Hx Arthritis: Yes (LT SIDE BODY AND SHOULDER) Hx Headaches / Migraines: No Hx Seizures: No Hx Kidney Stones: No Hx Asthma: No Hx COPD: No Hx Tuberculosis: No Hx HIV: No Additional medical history: neuropathy. Denied history of VTE - Surgical History Past Surgical History?: Yes Hx Pacemaker: No Hx Internal Defibrillator: No Hx Cholecystectomy: Yes Additional Surgical History: ; rt knee surgery 2014 - Family History Family history: hypertension - Social History Smoking Status: Current Every Day Smoker (We discussed tobacco cessation) Substance Use Type: None - Medications Home Medications: Home Medications Medication Instructions Recorded Confirmed Last Taken Type AtorvaSTATin [Lipitor] 80 mg PO QHS 02/20/21 05/18/21 05/15/21 History Lancets/Blood Glucose Strips 1 each MC DAILY 30 Days #1 05/12/21 05/18/21 05/15/21 Rx [Bellaji Lancet 30G-Gluc Tst Strp] combo..pkg Syringe with Needle, 5 ml 1 each MC BID 30 Days #60 05/12/21 05/18/21 05/15/21 Rx [Luer-[employer]ase Syringe-Needle] disp.syrin Cholecalciferol (Vitamin D3) 50,000 unit PO QWEEK 05/18/21 05/18/21 05/05/21 History [Vitamin D3 50,000UNIT CAP] Linaclotide [Linzess] 72 mcg PO Q48H 05/18/21 05/18/21 05/08/21 History NIFEdipine XL [Procardia Xl] 90 mg PO QDAY 05/18/21 05/18/21 05/15/21 History Aspirin [Aspirin BABY CHEW TAB] 81 mg PO QDAY 30 Days #30 tab.chew 05/19/21 Unknown Rx AtorvaSTATin [Lipitor] 80 mg PO QHS 30 Days #30 tablet 05/19/21 Unknown Rx Clopidogrel [Plavix] 75 mg PO QDAY 30 Days #30 tablet 05/19/21 Unknown Rx Metoprolol Xl [Metoprolol 50 mg PO QDAY@0800 30 Days #30 05/19/21 Unknown Rx SUCCINATE ER TAB] tablet amLODIPine 10 mg PO QDAY 30 Days #30 tablet 05/19/21 Unknown Rx Ondansetron [Zofran Odt] 4 mg PO Q6HR PRN #20 tab.rapdis 05/23/21 Unknown Rx Acetaminophen [Non-Aspirin Extra 500 mg PO Q6HR PRN #30 tablet 06/14/21 Unknown Rx Strength] Loperamide [Imodium] 2 mg PO Q2HR #30 capsule 06/14/21 Unknown Rx Ondansetron [Zofran Odt] 4 mg PO Q8HR PRN #20 tab.rapdis 06/14/21 Unknown Rx ED Physical Exam - General Limitations: No Limitations, Other (Pulse ox noted and normal) General appearance: alert, in no apparent distress - Head Head exam: Present: atraumatic, normocephalic - Eye Eye exam: Present: normal appearance, EOMI. Absent: scleral icterus - ENT ENT exam: Present: normal orophraynx, normal external ear exam - Neck Neck exam: Present: normal inspection. Absent: meningismus - Respiratory Respiratory exam: Present: normal lung sounds bilaterally. Absent: respiratory distress - Cardiovascular Cardiovascular Exam: Present: regular rate, normal rhythm. Absent: JVD - GI/Abdominal GI/Abdominal exam: Present: soft. Absent: tenderness - Extremities Exam Extremities exam: Present: normal capillary refill, other (AV fistula in the right upper extremity with good thrill and bruit). Absent: pedal edema - Back Exam Back exam: Absent: CVA tenderness (R), CVA tenderness (L) - Neurological Exam Neurological exam: Present: alert, oriented X3, CN II-XII intact. Absent: motor sensory deficit - Psychiatric Psychiatric exam: Present: normal affect, normal mood - Skin Skin exam: Present: warm, dry ED Course Vital Signs 09/14/21 09/14/21 03:36 03:43 Temperature 98.1 F 98 F Pulse Rate 81 86 Respiratory 16 18 Rate Blood Pressure 179/65 Blood Pressure 140/57 [Left] O2 Sat by Pulse 94 100 Oximetry - Reevaluation(s) Reevaluation #1: 09/14/21 04:10 IV and labs ordered. Reevaluation #2: 09/14/21 05:33 Work-up was complete and the patient was discharged. ED Medical Decision Making - Lab Data Result diagrams: 09/14/21 04:11 - Radiology Data Radiology results: report reviewed - Medical Decision Making Patient presents with shortness of breath. This was after missing dialysis. She is scheduled to be dialyzed approximately 30 minutes from now. At this time, she does have evidence of pulmonary edema but does not have hyperkalemia. I do not believe that admitting her here would expedite her dialysis. I believe expedited dialysis would be most effective by going to her usual d ialysis center. She is not hypoxic. They can see her at her usual scheduled time at 6 AM and get her on her chair with treatments. She does not have evidence of hyperkalemia or other metabolic derangement. Critical Care Time: No Critical care attestation.: If time is entered above; I have spent that time in minutes in the direct care of this critically ill patient, excluding procedure time. ED Disposition Clinical Impression: Shortness of breath, ESRD on dialysis, Pulmonary edema Disposition: HOME / SELF CARE / HOMELESS Is pt being admited?: No Condition: Stable Instructions: Pulmonary Edema (ED), Shortness of Breath, Adult, [id number], Shortness of Breath, Adult, Pulmonary Edema Additional Instructions: Go directly to dialysis. Return for problems. Referrals: PRIMARY CARE, [Referring] - 3-5 Days
--- NOTE | 2021-09-14 04:39 | XRay Report ---
CHEST 1 VIEW INDICATION / CLINICAL INFORMATION: soa. COMPARISON: Chest x-ray 05/17/2021 FINDINGS: SUPPORT DEVICES: None. HEART / MEDIASTINUM: Mild cardiomegaly stable. LUNGS / PLEURA: Somewhat confluent airspace opacities are noted bilaterally within the mid lower ches t. Mild prominence of central vasculature. No pneumothorax. ADDITIONAL FINDINGS: No significant additional findings. IMPRESSION: 1. Appearance of the chest suggests pulmonary edema. Infectious process not excluded. Signer Name: Isaías Reyes II, MD Signed: 09/14/2021 4:34 AM Workstation Name: [id number]
[2021-09-14 04:54] LABS: Calcium 8.2 mg/dL (8.4-10.2)
[2021-09-14 06:07] VITALS: BP 142/69
== END 2021-09-14 05:45 | disposition home or self-care (01) ==
LOC: ED 03:05
DX: R06.02 Shortness of breath (principal); R06.2 Wheezing; I13.2 Hypertensive heart and chronic kidney disease with heart failure and with stage 5 chronic kidney disease, or end stage renal disease; E11.22 Type 2 diabetes mellitus with diabetic chronic kidney disease; N18.6 End stage renal disease; I50.9 Heart failure, unspecified; K21.9 Gastro-esophageal reflux disease without esophagitis; M19.012 Primary osteoarthritis, left shoulder; Z90.49 Acquired absence of other specified parts of digestive tract; Z98.890 Other specified postprocedural states; F17.200 Nicotine dependence, unspecified, uncomplicated; Z88.0 Allergy status to penicillin; Z91.09 Other allergy status, other than to drugs and biological substances
CPT/HCPCS: 36415; 71045; 80048; 83880; 99284

== ENCOUNTER 2021-09-14 12:53 | Outpatient (CLI) | payer MEDICARE ==
[2021-09-14] MEDS ORDERED: LIDOCAINE (4%) 40 MG/ML TOPICAL SOLN 50 ML BOTTLE TP ONE (13:00)
== END 2021-09-14 12:54 | disposition home or self-care (01) ==
LOC: WOUND 12:53
PROVIDERS: ATTEND Surgery
DX: T87.43 Infection of amputation stump, right lower extremity (principal); E11.69 Type 2 diabetes mellitus with other specified complication; M86.061 Acute hematogenous osteomyelitis, right tibia and fibula; E11.51 Type 2 diabetes mellitus with diabetic peripheral angiopathy without gangrene; E11.22 Type 2 diabetes mellitus with diabetic chronic kidney disease; I13.2 Hypertensive heart and chronic kidney disease with heart failure and with stage 5 chronic kidney disease, or end stage renal disease; I50.9 Heart failure, unspecified; N18.6 End stage renal disease; Z90.49 Acquired absence of other specified parts of digestive tract; Z79.4 Long term (current) use of insulin; Z79.82 Long term (current) use of aspirin; Z79.899 Other long term (current) drug therapy; Z86.73 Personal history of transient ischemic attack (TIA), and cerebral infarction without residual deficits; Y83.5 Amputation of limb(s) as the cause of abnormal reaction of the patient, or of later complication, without mention of misadventure at the time of the procedure

== ENCOUNTER 2021-09-23 04:41 | Emergency (ER) | payer MEDICARE ==
--- NOTE | 2021-09-23 06:36 | Emergency Department Report ---
ED General Adult HPI - General Chief complaint: Dyspnea/Respdistress Stated complaint: BODYACHES FOR 2 DAYS/KAREN Time Seen by Provider: 09/23/21 06:13 Source: patient, EMS Mode of arrival: Stretcher Limitations: Physical Limitation - History of Present Illness Initial comments: Patient is 56 years old female with history of end-stage renal disease on hem odialysis, hypertension, diabetes, CVA and CHF. Patient presented to the ER complaining of right chest pain and associated with generalized body ache. She stated that her symptoms started 2 days ago. She denied any fever or chills. No focal weakness numbness or tingling sensation. - Related Data Home Medications Medication Instructions Recorded Confirmed Last Taken Cholecalciferol (Vitamin D3) 50,000 unit PO QWEEK 05/18/21 09/23/21 05/05/21 [Vitamin D3 50,000UNIT CAP] NIFEdipine XL [Procardia Xl] 90 mg PO QDAY 05/18/21 09/23/21 05/15/21 Linaclotide [Linzess] 72 mcg PO PRN PRN 09/23/21 09/23/21 Unknown Lispro Insulin [HumaLOG] 0 unit SQ CONT 09/23/21 09/23/21 Unknown Loperamide [Imodium] 2 mg PO PRN PRN 09/23/21 09/23/21 Unknown Oxycodone HCl/Acetaminophen 1 tab PO TID PRN MDD 4 TABS 09/23/21 09/23/21 09/21/21 [Percocet 10/325 mg] amLODIPine [Norvasc] 10 mg PO DAILY 09/23/21 09/23/21 Unknown Previous Rx's Medication Instructions Recorded Last Taken Type Aspirin [Aspirin BABY CHEW TAB] 81 mg PO QDAY 30 Days #30 tab.chew 05/19/21 Unknown Rx AtorvaSTATin [Lipitor] 80 mg PO QHS 30 Days #30 tablet 05/19/21 Unknown Rx Clopidogrel [Plavix] 75 mg PO QDAY 30 Days #30 tablet 05/19/21 Unknown Rx Metoprolol Xl [Metoprolol 50 mg PO QDAY@0800 30 Days #30 05/19/21 Unknown Rx SUCCINATE ER TAB] tablet Ondansetron [Zofran Odt] 4 mg PO Q6HR PRN #20 tab.rapdis 05/23/21 Unknown Rx Allergies Allergy/AdvReac Type Severity Reaction Status Date / Time Penicillins Allergy Swelling Verified 09/23/21 08:58 morphine AdvReac Vomiting Verified 09/23/21 08:58 ED Review of Systems ROS: Stated complaint: BODYACHES FOR 2 DAYS/KAREN Other details as noted in HPI Comment: All other systems reviewed and negative Constitutional: denies: chills, fever Respiratory: denies: cough, shortness of breath, SOB with exertion Cardiovascular: chest pain. denies: palpitations Gastrointestinal: denies: abdominal pain, nausea, vomiting, diarrhea, constipation, hematemesis, melena, hematochezia Genitourinary: denies: urgency, dysuria Musculoskeletal: denies: back pain Neurological: denies: headache, weakness, numbness, paresthesias, confusion ED Past Medical Hx - Past Medical History Previous Medical History?: Yes Hx Hypertension: Yes Hx CVA: Yes (2010 no deficiets) Hx Heart Attack/AMI: No Hx Congestive Heart Failure: Yes Hx Diabetes: Yes Hx GERD: Yes (2012) Hx Liver Disease: No Hx Renal Disease: Yes (DIALYSIS- MWF) Hx Sickle Cell Disease: No Hx Arthritis: Yes (LT SIDE BODY AND SHOULDER) Hx Headaches / Migraines: No Hx Seizures: No Hx Kidney Stones: No Hx Asthma: No Hx COPD: No Hx Tuberculosis: No Hx HIV: No Additional medical history: neuropathy. Denied history of VTE - Surgical History Past Surgical History?: Yes Hx Pacemaker: No Hx Internal Defibrillator: No Hx Cholecystectomy: Yes Additional Surgical History: ; rt knee surgery 2013, Fistula RT upper arm - Social History Smoking Status: Unknown if ever smoked - Medications Home Medications: Home Medications Medication Instructions Recorded Confirmed Last Taken Type Cholecalciferol (Vitamin D3) 50,000 unit PO QWEEK 05/18/21 09/23/21 05/05/21 History [Vitamin D3 50,000UNIT CAP] NIFEdipine XL [Procardia Xl] 90 mg PO QDAY 05/18/21 09/23/21 05/15/21 History Aspirin [Aspirin BABY CHEW TAB] 81 mg PO QDAY 30 Days #30 tab.chew 05/19/21 09/23/21 Unknown Rx AtorvaSTATin [Lipitor] 80 mg PO QHS 30 Days #30 tablet 05/19/21 09/23/21 Unknown Rx Clopidogrel [Plavix] 75 mg PO QDAY 30 Days #30 tablet 05/19/21 09/23/21 Unknown Rx Metoprolol Xl [Metoprolol 50 mg PO QDAY@0800 30 Days #30 05/19/21 09/23/21 Unknown Rx SUCCINATE ER TAB] tablet Ondansetron [Zofran Odt] 4 mg PO Q6HR PRN #20 tab.rapdis 05/23/21 09/23/21 Unknown Rx Linaclotide [Linzess] 72 mcg PO PRN PRN 09/23/21 09/23/21 Unknown History Lispro Insulin [HumaLOG] 0 unit SQ CONT 09/23/21 09/23/21 Unknown History Loperamide [Imodium] 2 mg PO PRN PRN 09/23/21 09/23/21 Unknown History Oxycodone HCl/Acetaminophen 1 tab PO TID PRN MDD 4 TABS 09/23/21 09/23/21 09/21/21 History [Percocet 10/325 mg] amLODIPine [Norvasc] 10 mg PO DAILY 09/23/21 09/23/21 Unknown History ED Physical Exam - General Limitations: Physical Limitation General appearance: alert, in no apparent distress - Head Head exam: Present: atraumatic, normocephalic, normal inspection - Eye Eye exam: Present: normal appearance - ENT ENT exam: Present: normal exam, normal orophraynx, mucous membranes moist - Neck Neck exam: Present: normal inspection, full ROM. Absent: tenderness, meningi smus - Respiratory Respiratory exam: Present: normal lung sounds bilaterally - Cardiovascular Cardiovascular Exam: Present: regular rate, normal rhythm, normal heart sounds - GI/Abdominal GI/Abdominal exam: Present: soft, normal bowel sounds. Absent: distended, tenderness, guarding, rebound, rigid, organomegaly, mass, bruit, pulsatile mass - Extremities Exam Extremities exam: Present: normal inspection, full ROM, normal capillary refill. Absent: tenderness - Back Exam Back exam: Present: normal inspection, full ROM. Absent: CVA tenderness (R), CVA tenderness (L) - Neurological Exam Neurological exam: Present: alert, oriented X3, CN II-XII intact, reflexes normal - Psychiatric Psychiatric exam: Present: normal mood - Skin Skin exam: Present: warm, intact, normal color ED Course Vital Signs 09/23/21 09/23/21 09/23/21 05:27 05:35 05:44 Temperature 97.9 F Pulse Rate 75 Respiratory 12 15 Rate Blood Pressure 165/68 O2 Sat by Pulse 99 99 98 Oximetry 09/23/21 09/23/21 06:00 06:30 Temperature Pulse Rate 77 73 Respiratory 21 12 Rate Blood Pressure 175/71 167/68 O2 Sat by Pulse 96 99 Oximetry ED Medical Decision Making - Lab Data Result diagrams: 09/23/21 07:22 09/23/21 07:22 - EKG Data -: EKG Interpreted by Me EKG shows normal: sinus rhythm Rate: normal - EKG Data Interpretation: no acute changes - Radiology Data Radiology results: report reviewed - Medical Decision Making Patient is 56 years old female with history of end-stage renal disease on hemodialysis, hypertension, diabetes, CVA and CHF. Patient presented to the ER complaining of right chest pain and associated with generalized body ache. She stated that her symptoms started 2 days ago. She denied any fever or chills. No focal weakness numbness or tingling sensation. Patient stated that she is feeling much better after fentanyl 50. Labs reviewed and show slightly elevated D-dimer. Patient refused further management which include VQ scan. She stated that she just wanted go home and she will follow-up with her primary doctor. Patient strongly advised to return to the ER she develop any new symptoms or if her symptoms get worse. Critical care attestation.: If time is entered above; I have spent that time in minutes in the direct care of this critically ill patient, excluding procedure time. ED Disposition Clinical Impression: Chest pain, Generalized pain Disposition: 01 HOME / SELF CARE / HOMELESS Is pt being admited?: No Condition: Stable Instructions: Nonspecific Chest Pain, Adult Referrals: PRIMARY CARE, [Primary Care Provider] - 3-5 Days
[2021-09-23] MEDS ORDERED: ONDANSETRON 4 MG/2 ML INJ IV ONE (06:37)
[2021-09-23] MEDS ORDERED: fentaNYL 100 MCG/2 ML INJ IV ONE (06:37)
[2021-09-23 07:00] VITALS: BP 167/68
--- NOTE | 2021-09-23 07:04 | XRay Report ---
XR chest 1V ap INDICATION / CLINICAL INFORMATION: Dyspnea. COMPARISON: 09/14/2021 FINDINGS: SUPPORT DEVICES: None. HEART /PULMONARY VASCULATURE: Stable cardiac enlargement and pulmonary vasculature congestion. LUNGS / PLEURA: Slight improvement in bibasilar airspace consolidation. Diffuse interstitial opacitie s remain. No sizable pleural effusion. No pneumothorax. IMPRESSION: CHF with slight improvement in pulmonary edema. Signer Name: Zaire Francisco MD Signed: 09/23/2021 7:00 AM Workstation Name: [id number]
[2021-09-23 07:35] LABS: Basophils # (Auto) 0.1 K/mm3 (0.0-0.1); Basophils % (Auto) 0.8 % (0.0-1.8); Eosinophils # (Auto) 0.3 K/mm3 (0.0-0.4); Eosinophils % (Auto) 3.8 % (0.0-4.3); Hematocrit 33.1 % (30.3-42.9); Hemoglobin 10.6 gm/dl (10.1-14.3); Lymphocytes # (Auto) 2.5 K/mm3 (1.2-5.4); Lymphocytes % (Auto) 27.9 % (13.4-35.0); Mean Corpuscular HGB Conc 32 % (30-34); Mean Corpuscular Volume 90 fl (79-97); Monocytes # (Auto) 0.7 K/mm3 (0.0-0.8); Platelet Count 235 K/mm3 (140-440); Red Blood Count 3.66 M/mm3 (3.65-5.03)
[2021-09-23 07:36] LABS: Red Cell Distribution Width 20.3 % (13.2-15.2)
[2021-09-23 07:42] LABS: INR 0.86 (0.87-1.13)
[2021-09-23 07:43] LABS: Partial Thromboplastin Time 30.4 Sec. (24.2-36.6)
[2021-09-23 07:56] LABS: Calcium 8.6 mg/dL (8.4-10.2)
[2021-09-23 08:00] LABS: Alanine Aminotransferase 13 units/L (7-56); Albumin 3.4 g/dL (3.9-5); Bilirubin,Direct < 0.2 mg/dL (0-0.2)
--- NOTE | 2021-09-23 11:48 | Electrocardiograph Report ---
[facility] Test Date: 2021-09-23 Test Time: 05:14:51 Pat Name: FILEMON JACOBO Department: Room: Gender: F Lab Instructor: KELLY : 1965 Requested By: DEE FENG Order Number: [id number] Reading MD: Ken Flanagan Measurements Intervals [place] Rate: 71 P: 25 NH: 171 QRS: 20 QRSD: 96 T: 50 QT: 452 QTc: 490 Interpretive Statements Sinus rhythm Anterior infarct, old Compared to ECG 06/14/2021 04:39:15 Myocardial infarct finding now present No significant change noted. Electronically Signed On 09-23-2021 10:53:04 EST by Ken Flanagan
== END 2021-09-23 10:18 | disposition home or self-care (01) ==
LOC: ED 04:41
DX: R07.89 Other chest pain (principal); M79.10 Myalgia, unspecified site; I10 Essential (primary) hypertension; I63.9 Cerebral infarction, unspecified; E11.9 Type 2 diabetes mellitus without complications; K21.9 Gastro-esophageal reflux disease without esophagitis; I50.9 Heart failure, unspecified; N28.9 Disorder of kidney and ureter, unspecified; M19.90 Unspecified osteoarthritis, unspecified site; Z90.49 Acquired absence of other specified parts of digestive tract
CPT/HCPCS: 36415; 71045; 80048; 80076; 82140; 83880; 84484; 85025; 85379; 85610; 85730; 87040; 93005; 93010; 96374; 96375; 99284; J2405; J3010

== ENCOUNTER 2021-09-28 14:57 | Outpatient (CLI) | payer MEDICARE | END 2021-09-28 14:58 | disposition home or self-care (01) | LOC: WOUND 14:57 | PROVIDERS: ATTEND Surgery | DX: T87.43 Infection of amputation stump, right lower extremity (principal); E11.69 Type 2 diabetes mellitus with other specified complication; M86.061 Acute hematogenous osteomyelitis, right tibia and fibula; E11.51 Type 2 diabetes mellitus with diabetic peripheral angiopathy without gangrene; E11.22 Type 2 diabetes mellitus with diabetic chronic kidney disease; I13.2 Hypertensive heart and chronic kidney disease with heart failure and with stage 5 chronic kidney disease, or end stage renal disease; I50.9 Heart failure, unspecified; N18.6 End stage renal disease; Z86.73 Personal history of transient ischemic attack (TIA), and cerebral infarction without residual deficits; Z99.2 Dependence on renal dialysis; Z79.4 Long term (current) use of insulin; Z79.82 Long term (current) use of aspirin; Z79.899 Other long term (current) drug therapy; Y83.5 Amputation of limb(s) as the cause of abnormal reaction of the patient, or of later complication, without mention of misadventure at the time of the procedure | CPT/HCPCS: 99213; G0463 ==

== ENCOUNTER 2021-11-23 13:31 | Outpatient (CLI) | payer MEDICARE | END 2021-11-23 13:32 | disposition home or self-care (01) | LOC: WOUND 13:31 | PROVIDERS: ATTEND Surgery | DX: T87.43 Infection of amputation stump, right lower extremity (principal); E11.69 Type 2 diabetes mellitus with other specified complication; M86.061 Acute hematogenous osteomyelitis, right tibia and fibula; E11.51 Type 2 diabetes mellitus with diabetic peripheral angiopathy without gangrene; E11.22 Type 2 diabetes mellitus with diabetic chronic kidney disease; I13.2 Hypertensive heart and chronic kidney disease with heart failure and with stage 5 chronic kidney disease, or end stage renal disease; I50.9 Heart failure, unspecified; N18.6 End stage renal disease; K21.9 Gastro-esophageal reflux disease without esophagitis; F40.240 Claustrophobia; Z86.73 Personal history of transient ischemic attack (TIA), and cerebral infarction without residual deficits; Z99.2 Dependence on renal dialysis; Z79.4 Long term (current) use of insulin; Z79.82 Long term (current) use of aspirin; Z79.899 Other long term (current) drug therapy; Y83.5 Amputation of limb(s) as the cause of abnormal reaction of the patient, or of later complication, without mention of misadventure at the time of the procedure | CPT/HCPCS: 99213; G0463 ==

== ENCOUNTER 2021-12-10 09:50 | Outpatient (CLI) | payer MEDICARE ==
[2021-12-10 10:40] LABS: Chol/HDL Ratio 2.02 %
== END 2021-12-10 09:51 | disposition home or self-care (01) ==
LOC: LAB 09:50
PROVIDERS: ATTEND Internal Medicine
DX: E11.65 Type 2 diabetes mellitus with hyperglycemia (principal); E78.5 Hyperlipidemia, unspecified
CPT/HCPCS: 36415; 80061; 83036